=== PATIENT | female | born 1975 | race Caucasian/White ===

== ENCOUNTER → 2017-05-27 10:05 | Outpatient (CLI) | payer MEDICAID, SELFPAY ==
[2017-05-27 09:57] VITALS: BP 126/86; BMI 35.4
--- NOTE | 2017-05-27 10:07 | RAD_ITS ---
STUDY: X-RAY CHEST REASON FOR EXAM: Female, 41 years old. Posterior rib pain following injury. TECHNIQUE: PA and lateral views of the chest. COMPARISON: Comparison is made with prior study dated October 30, 2015. FINDINGS: The lungs are clear and expanded. Scattered calcified granulomas. There is no demonstrated pleural abnormality. Normal size heart. Normal mediastinum and satya. Normal visualized pulmonary arteries. Normal visualized aortic arch and descending thoracic aorta. Normal visualized thoracic spine. Normal visualized ribs, clavicles, and shoulders. There is no demonstrated abnormality of the visualized soft tissue structures of the upper abdomen. RAD/Chest PA and Lateral IMPRESSION: Normal x-ray examination of the chest. Electronically Signed: Kev Gama MD at 15:33 EST Tel [phone], Service support ,
== END ==
PROVIDERS: Family Provider Family Medicine; PCP Family Medicine; Visit Provider Physician Assistant Surgical
DX: S20.211A Contusion of right front wall of thorax, initial encounter (principal); X58.XXXA Exposure to other specified factors, initial encounter; Y93.9 Activity, unspecified; Y92.9 Unspecified place or not applicable; Y99.9 Unspecified external cause status
CPT/HCPCS: 71046

== ENCOUNTER 2017-06-25 07:13 | Emergency (ER) | payer MEDICAID, SELFPAY ==
[2017-06-25 07:13] VITALS: BP 108/67; PULSE 99; RESP 15; TEMP 37.2; O2SAT 97; BMI 35.7
[2017-06-25 07:20] VITALS: O2SAT 97
--- NOTE | 2017-06-25 07:22 | RAD_ITS ---
STUDY: X-RAY CHEST REASON FOR EXAM: Female, 41 years old. Cough TECHNIQUE: Frontal and lateral views of the chest. COMPARISON: 05/27/2017. FINDINGS: The lungs are clear and expanded. There is no demonstrated pleural abnormality. Normal size heart. Normal mediastinum and satya. Normal visualized pulmonary arteries. Normal visualized aortic arch and descending thoracic aorta. Normal visualized thoracic spine. Normal visualized ribs, clavicles, and shoulders. There is no demonstrated abnormality of the visualized soft tissue structures of the upper abdomen. RAD/Chest PA and Lateral IMPRESSION: No acute cardiopulmonary disease. Electronically Signed: Juma Escalante DO at 8:39 EST , Service support ,
--- NOTE | 2017-06-25 07:47 | ED.DCSUM_ITS ---
- ER Visit Summary Date of Service: 06/25/17 Chief Complaint: Cough] History of Present Illness: The patient is a 41 F [presents to the emergency department with a cough ?3 weeks. Patient states the cough at times productive of thick yellow sputum. Patient had a temperature of 90 972 days ago. Patient denies any sore throat. Patient denies any ear pain. 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 Patient denies any recent travel or surgery. Patient does describe some chest discomfort with the cough.] Physical Examination: [HEENT-PERRLA, EOMI. Cranial nerves II through XII grossly intact. TMs clear. Mucous membranes moist. No adenopathy. Cardiovascular-regular rate and rhythm without murmur or ectopy Lungs-clear to auscultation, chest wall stable without crepitus or subcu emphysema Abdomen-normoactive bowel sounds, soft, nontender, no rebound or rigidity, no peritoneal signs. Extremities-intact ?4, normal range of motion, normal pulses, atraumatic] Test Results: [Chest x-ray obtained showed nothing acute. Emergency Department Course and Treatment: [Patient was started on Zithromax] Treatment Plan: [Patient will be started on Zithromax and Tessalon Perles] Disposition: [Discharged to home in stable condition. Patient advised to return if increased shortness of breath or condition should worsen in any way. Patient advised to follow-up with her primary care physician within the next 5- 7 days.] Impression: [Upper respiratory infection] This note was generated with [employer] dictation software. It may contain incorrect words, spelling, and punctuation that were not noted in review of the chart prior to signing ED Disposition - Plan for ED Patient: Chief Complaint: Cough Referrals: Suyapa Haddad DO [Primary Care Provider] -
--- NOTE | 2017-06-25 07:47 | ED.DEP ---
ED Disposition - Plan for ED Patient: Chief Complaint: Cough Instructions: ED Upper Resp Infec Abx Tx Prescriptions: Azithromycin [Zithromax] 250 mg PO DAILY #4 tab Benzonatate [Tessalon Perle] 200 mg PO TID PRN PRN #20 cap PRN Reason: Cough Referrals: Suyapa Haddad DO [Primary Care Provider] - 5-7 Days
[2017-06-25] MEDS: Azithromycin 250 MG Tablet 500 MG PO (07:48)
[2017-06-25 07:52] VITALS: BP 139/78; PULSE 71; RESP 16; O2SAT 97
== END 2017-06-25 08:02 | disposition home or self-care (01) ==
LOC: ED 07:51
PROVIDERS: Emergency Provider Emergency Medicine; Family Provider Family Medicine; PCP Family Medicine
DX: J06.9 Acute upper respiratory infection, unspecified (principal); M06.9 Rheumatoid arthritis, unspecified; M79.7 Fibromyalgia; F32.9 Major depressive disorder, single episode, unspecified; Z79.899 Other long term (current) drug therapy
CPT/HCPCS: 71046; 99282

== ENCOUNTER 2017-09-13 18:10 | Emergency (ER) | payer MEDICAID, SELFPAY ==
[2017-09-13 18:10] VITALS: BP 164/84; PULSE 112; RESP 16; TEMP 36.9; O2SAT 96; BMI 36.8
[2017-09-13] MEDS: Dicyclomine 20 MG/2 ML Vial IM (18:46)
[2017-09-13] MEDS: 0.9% Normal Saline 1,000 ML 1000 ML IV (18:46)
--- NOTE | 2017-09-13 18:50 | RAD_ITS ---
STUDY: X-RAY CHEST REASON FOR EXAM: Female, 42 years old. Cough. TECHNIQUE: Single AP portable view of the chest. COMPARISON: June 25, 2017 FINDINGS: There is right midlung ill-defined patchy increased density. There is no demonstrated pleural abnormality. Normal size heart. Normal mediastinum and satya. Normal visualized pulmonary arteries. Normal visualized aortic arch and descending thoracic aorta. Normal visualized thoracic spine. Normal visualized ribs, clavicles, and shoulders. There is no demonstrated abnormality of the visualized soft tissue structures of the upper abdomen. RAD/Chest PA and Lateral IMPRESSION: Right-sided infiltrate. Electronically Signed: Victor Manuel Araujo MD at 19:16 EDT , Service support ,
[2017-09-13 18:51] LABS: Absolute Neutrophil Count 3.5 X10^3/uL (2.0-7.7); Basophil# 0.04 X10^3/uL; Basophil% 0.7 % (0-1); Eosinophil# 0.13 X10^3/uL; Eosinophils% 2.4 % (0-5); Hemoglobin 13.4 g/dl (12.0-15.0); Lymphocyte % 20.6 % (19-41); Mean Corp Hgb Conc 32.7 g/gl (32-36); Mean Corpuscular Volume 82.5 fL (81-99); Mean Platelet Vol. 12.1 fl (6.2-12.0); Monocyte# 0.55 X10^3/uL; Monocyte% 10.3 % (0-10); Neutrophil # 3.52 X10^3/uL (2.7-7.7); Neutrophil % 65.8 % (47-70); Platelet Count 165 K/mm3 (150-450); RBC Distribution Width CV 15.1 % (11.6-14.6); RBC Distribution Width SD 45.5 fl (35.1-43.9); Red Blood Count 4.97 M/mm3 (4.2-5.4); White Blood Count 5.4 K/mm3 (4.4-11.0)
[2017-09-13 18:52] LABS: POSITIVE COUNT NO; POSITIVE DIFFERENTIAL NO; POSITIVE MORPHOLOGY NO
[2017-09-13 19:04] LABS: Anion Gap 5 (5-15); BUN 9 mg/dL (7-18); Calcium,Total 8.7 mg/dL (8.5-10.1); Chloride 105 mmol/L (98-107); Creatinine, Serum 0.75 mg/dL (0.55-1.02); EST Glomerular Filtration Rate 91 mL/min (>60); Est Glom Filt Rate - Afr Amer 110 mL/min (>60); Estimated Creatinine Clearance 92.41 ml/min; Glucose 90 mg/dL (74-106); Potassium 3.9 mmol/L (3.5-5.1); Sodium Level 139 mmol/L (136-145)
[2017-09-13 19:36] LABS: Bacteria 0 SEEN /hpf (None Seen); Mucous, Urine 0 SEEN /hpf (<or=2+); Red Blood Cells-Urine 0 SEEN /hpf (0-5); White Blood Cells 0 SEEN /hpf (0-5)
[2017-09-13 19:37] LABS: Color, Urine Yellow (Yellow); Glucose, Dipstick Normal (Normal); Ketone-Dipstick Negative (Negative); Leukocyte Esterase-Dipstick Negative /ul (Negative); Nitrite-Dipstick Negative (Negative); Occult Blood-Urine 25 /ul (Negative); Protein-Dipstick Negative (Negative); Specific Gravity, Urine 1.015 (1.002-1.030); Urine Bilirubin Dipstick Negative (Negative); Urine Clarity Clear (Clear); Urine Urobilinogen Normal (Normal)
[2017-09-13 19:43] LABS: Squamous Epithelial Cells - UA 0-5 SEEN /hpf (5-10)
--- NOTE | 2017-09-13 19:56 | ED.VISSUMM ---
- ER Visit Summary Date of Service: 09/13/17 Chief Complaint: [Nausea, vomiting, diarrhea, cough] History of Present Illness: The patient is a 42 F [presents to the emergency department with complaint of 4-5 day history of vomiting and diarrhea. Patient's had a cough for about 4 days as well. Patient's had fever for the last 3 days up to 101. Patient complains of body aches and coughing up some white phlegm. Patient states that she had diarrhea up to 9 times a day but has only had one episode today so she thinks it slowed down. Patient states boyfriend had similar symptoms recently. Patient describes some intermittent abdominal cramping.] Physical Examination: [HEENT-PERRLA, EOMI. Cranial nerves II through XII grossly intact. TMs clear. Mucous membranes moist. No adenopathy. Cardiovascular-regular rate and rhythm without murmur or ectopy Lungs-clear to auscultation, chest wall stable without crepitus or subcu emphysema Abdomen-normoactive bowel sounds, soft. Mild diffuse tenderness throughout. No rebound, rigidity, or perineal signs. Extremities-intact ?4, normal range of motion, normal pulses, atraumatic] Test Results: [CBC with differential obtained showing a 5.4, hemoglobin 13, hematocrit 41, platelets 163. Chemistries were normal. Urinalysis was normal. Chest x-ray showed a right lung infiltrate. Emergency Department Course and Treatment: [Patient received a liter normal same fluid bolus as well as Bentyl 20 mg IM. Patient was given Zithromax 500 mill grams p.o.] Treatment Plan: [Patient will be started on Zithromax for suspected right pneumonia. Patient advised to push fluids. Patient advised use Imodium for the diarrhea. I suspect the diarrhea likely viral.] Disposition: [Discharged home in stable condition] Impression: [Right-sided pneumonia Viral gastroenteritis] This note was generated with [employer] dictation software. It may contain incorrect words, spelling, and punctuation that were not noted in review of the chart prior to signing ED Disposition - Plan for ED Patient: Chief Complaint: Diarrhea Referrals: Suyapa Haddad DO [Primary Care Provider] -
--- NOTE | 2017-09-13 19:59 | ED.DCSUM_ITS ---
- ER Visit Summary Date of Service: 09/13/17 Chief Complaint: [Nausea, vomiting, diarrhea, cough] History of Present Illness: The patient is a 42 F [presents to the emergency department with complaint of 4-5 day history of vomiting and diarrhea. Patient' s had a cough for about 4 days as well. Patient's had fever for the last 3 days up to 101. Patient complains of body aches and coughing up some white phlegm. Patient states that she had diarrhea up to 9 times a day but has only had one episode today so she thinks it slowed down. Patient states boyfriend had similar symptoms recently. Patient describes some intermittent abdominal cramping.] Physical Examination: [HEENT-PERRLA, EOMI. Cranial nerves II through XII grossly intact. TMs clear. Mucous membranes moist. No adenopathy. Cardiovascular-regular rate and rhythm without murmur or ectopy Lungs-clear to auscultation, chest wall stable without crepitus or subcu emphysema Abdomen-normoactive bowel sounds, soft. Mild diffuse tenderness throughout. No rebound, rigidity, or perineal signs. Extremities-intact ?4, normal range of motion, normal pulses, atraumatic] Test Results: [CBC with differential obtained showing a 5.4, hemoglobin 13, hematocrit 41, platelets 163. Chemistries were normal. Urinalysis was normal. Chest x-ray showed a right lung infiltrate. Emergency Department Course and Treatment: [Patient received a liter normal same fluid bolus as well as Bentyl 20 mg IM. Patient was given Zithromax 500 mill grams p.o.] Treatment Plan: [Patient will be started on Zithromax for suspected right pneumonia. Patient advised to push fluids. Patient advised use Imodium for the diarrhea. I suspect the diarrhea likely viral.] Disposition: [Discharged home in stable condition] Impression: [Right-sided pneumonia Viral gastroenteritis] This note was generated with [employer] dictation software. It may contain incorrect words, spelling, and punctuation that were not noted in review of the chart prior to signing ED Disposition - Plan for ED Patient: Chief Complaint: Diarrhea Referrals: Suyapa Haddad DO [Primary Care Provider] -
--- NOTE | 2017-09-13 19:59 | ED.DEP ---
ED Disposition - Plan for ED Patient: Chief Complaint: Diarrhea Instructions: ED Diarrhea Viral, ED Pneumonia Adult Prescriptions: Azithromycin [Zithromax] 250 mg PO DAILY #4 tab Referrals: Suyapa Haddad DO [Primary Care Provider] - 5-7 Days
[2017-09-13] MEDS: Azithromycin 250 MG Tablet 500 MG PO (20:06)
[2017-09-13 20:07] VITALS: BP 116/61; PULSE 90; RESP 18; O2SAT 97
== END 2017-09-13 20:09 | disposition home or self-care (01) ==
PROVIDERS: Emergency Provider Emergency Medicine; Family Provider Family Medicine; PCP Family Medicine
DX: J18.9 Pneumonia, unspecified organism (principal); M06.9 Rheumatoid arthritis, unspecified; A08.4 Viral intestinal infection, unspecified; R30.0 Dysuria; Z79.899 Other long term (current) drug therapy
CPT/HCPCS: 71046; 80048; 81001; 85025; 87804; 96360; 96372; 99284; J7030

== ENCOUNTER 2017-11-02 08:18 | Emergency (ER) | payer MEDICAID, SELFPAY ==
[2017-11-02 08:19] VITALS: BP 117/87; PULSE 89; RESP 17; TEMP 36.6; O2SAT 99; BMI 37.0
--- NOTE | 2017-11-02 09:05 | ED.DCSUM_ITS ---
- ER Visit Summary Date of Service: 11/02/17 Chief Complaint: Rash History of Present Illness: The patient is a 42 F who presents for 2 days of rash. Patient states it started on her right arm and is been prickly, painful and very itchy. It is now on her entire body including both arms, legs , stomach, back, neck, and some itching on her scalp. Complains of mouth pain as well. She recently had a sore throat and ear pain and was treated with penicillin from an urgent care. She stopped the penicillin 5 days ago. She denies any fever, abdominal pain, nausea or vomiting, chest pain, shortness of breath, myalgias or arthralgias. She does state she had loose stool yesterday. Physical Examination: Vital signs: afebrile, hemodynamically stable, no hypoxia on room air General: well nourished, well developed, in no distress, constantly scratching Skin: warm, dry, no pallor, few scattered erythematous papules with excoriations and appearance of possible vesicular tops, consistent with poison olga on the right upper extremity. No rash noted to the abdomen, back, lower extremities, neck, scalp or face. Patient has sun exposure pattern on the back with excoriations on the shoulders. Right ear is erythematous, TMs are clear. HEENT: normocephalic and atraumatic; PERRL, EOMI, moist mucous membranes, single lesion on mucosal surface of lower lip with appearance of an aphthous ulcer. Cardiovascular: regular rate and rhythm without murmurs, no peripheral edema, 2 + pulses all distal extremities Respiratory: No increased work of breathing, lungs are clear to auscultation bilaterally, no rales, rhonchi or wheezing Abdominal: Abdomen is soft, nontender with normoactive bowel sounds, no guarding or rebound, no masses MSK: Moves all extremities, no deformities, normal strength Neuro: Awake and alert, oriented ?4. No facial droop, sensation and motor function intact and symmetric Test Results: [] Emergency Department Course and Treatment: Differential includes SJS, contact dermatitis, allergic reaction. Patient's areas of maximum pruritus had no associated rash, including erythema of the skin. Patient does have one area on her arm where this started that does look consistent with poison olga. She has one single oral lesion that looks consistent with an aphthous ulcer. Thus in my professional opinion this is not Bo-Landon syndrome. Patient has diffuse pruritus and only one area of obvious rash. She was given a prescription for a prednisone taper for the pruritus and the poison olga. She will use Benadryl to help with the itching. Patient is to follow-up with her primary care doctor if she does not have any improvement. She was given strict return precautions if she develops any symptoms of malignant rash. Patient discharged home. Treatment Plan: [] Disposition: [] Impression: Nonspecific dermatitis This note was generated with [employer] dictation software. It may contain incorrect words, spelling, and punctuation that were not noted in review of the chart prior to signing ED Disposition - Plan for ED Patient: Disposition: Home or Assisted Living Chief Complaint: Rash Instructions: ED Dermatitis Non Specific Rash Prescriptions: Prednisone 10 mg PO UD #33 tab Referrals: Suyapa Haddad DO [Primary Care Provider] - 3-5 Days if not improving Additional Instructions: Please continue taking Benadryl every 6 hours for itching. Take the prednisone exactly as prescribed for the entire course. If at any point you develop a high fever, painful lesions in your mouth, pain with peeing, pain in the vagina , blisters on the skin, worsening instead of improvement of your rash, or any other concerns, please return immediately to the emergency department for another evaluation. If you have any worsening of your condition or any new concerning symptoms, please return immediately to the emergency department for another evaluation.
[2017-11-02 09:54] VITALS: BP 117/63; PULSE 80; RESP 20
== END 2017-11-02 09:55 | disposition home or self-care (01) ==
PROVIDERS: Emergency Provider Emergency Medicine; Family Provider Family Medicine; PCP Family Medicine
DX: L23.7 Allergic contact dermatitis due to plants, except food (principal); R19.7 Diarrhea, unspecified; M06.9 Rheumatoid arthritis, unspecified; M79.7 Fibromyalgia; F32.9 Major depressive disorder, single episode, unspecified; F41.9 Anxiety disorder, unspecified; Z79.899 Other long term (current) drug therapy
CPT/HCPCS: 99282

== ENCOUNTER 2017-11-03 12:56 | Emergency (ER) | payer MEDICAID, SELFPAY ==
[2017-11-03 12:58] VITALS: BP 131/82; PULSE 89; RESP 20; TEMP 37.2; O2SAT 95; BMI 37.3
--- NOTE | 2017-11-03 15:33 | ED.VISSUMM ---
- ER Visit Summary Date of Service: 11/03/17 Chief Complaint: [Laceration left index finger] History of Present Illness: The patient is a 42 F [presents the emergency department with complaint of lacerating her left index finger approximately noon today. Patient states that she was cutting a piece of butter with her knife when she accidentally lacerated her left index finger. Patient thinks her last tetanus shot was more than 30 years ago. Patient is right-hand dominant.] Physical Examination: [Left index finger-patient has a 1.2 cm flap-like laceration over the distal tip of the pulp of the distal phalanx. Minimal incursion into the distal nail. Neurovascularly intact. Normal range of motion at the DIP and PIP joints.] Test Results: [None indicated] Emergency Department Course and Treatment: [Laceration repair-wound sterilely draped and prepped. A digital block was performed using 1% lidocaine total 6 cc. Wound was cleansed with Shur-Clens and irrigated with copious saline. Using 5-0 nylon a total of 3 single interrupted sutures placed with good wound edge approximation. Patient tolerated procedure well.] Treatment Plan: [Patient advised to follow-up with primary care physician in 10 days for suture removal. Patient advised to return if pain, redness, swelling, or condition should worsen in any way.] Disposition: [Discharged home in stable condition] Impression: [Laceration left index finger 1.2 cm-simple repair] This note was generated with [employer] dictation software. It may contain incorrect words, spelling, and punctuation that were not noted in review of the chart prior to signing ED Disposition - Plan for ED Patient: Chief Complaint: Laceration Referrals: Suyapa Haddad DO [Primary Care Provider] -
--- NOTE | 2017-11-03 15:35 | ED.DEP ---
ED Disposition - Plan for ED Patient: Chief Complaint: Laceration Instructions: ED Laceration Hand Referrals: Suyapa Haddad DO [Primary Care Provider] - 10 Day for suture removal
[2017-11-03] MEDS: Diphth,Pertuss(Acell),Tet Vac 0.5 ML Vial IM (15:59)
[2017-11-03 16:09] VITALS: BP 117/64; PULSE 68; RESP 15; O2SAT 97
== END 2017-11-03 16:11 | disposition home or self-care (01) ==
LOC: ED 15:41
PROVIDERS: Emergency Provider Emergency Medicine; Family Provider Family Medicine; PCP Family Medicine
DX: S61.211A Laceration without foreign body of left index finger without damage to nail, initial encounter (principal); W26.0XXA Contact with knife, initial encounter; Y93.9 Activity, unspecified; Y92.9 Unspecified place or not applicable; Y99.9 Unspecified external cause status; Z23 Encounter for immunization; M06.9 Rheumatoid arthritis, unspecified; M79.7 Fibromyalgia; F32.9 Major depressive disorder, single episode, unspecified; F41.9 Anxiety disorder, unspecified; Z79.899 Other long term (current) drug therapy
CPT/HCPCS: 12001; 90471; 90715; 99283

== ENCOUNTER 2017-12-08 11:19 | Emergency (ER) | payer MEDICAID, SELFPAY ==
[2017-12-08 11:20] VITALS: BP 127/77; PULSE 71; RESP 18; TEMP 36.6; O2SAT 100; BMI 36.8
[2017-12-08] MEDS: 0.9% Normal Saline 1,000 ML 1000 ML IV (11:51)
[2017-12-08] MEDS: Morphine 4 MG/ML Syringe IV (11:57)
[2017-12-08] MEDS: Ondansetron 4 MG/2 ML Vial IV ×2 (11:57→13:52)
[2017-12-08 12:15] LABS: ALB/GLOB Ratio 0.7 RATIO (0.9-2.4); AST(SGOT) 18 U/L (15-37); Alanine Aminotransfer ALT/SGPT 20 U/L (13-56); Albumin, Serum 3.2 g/dL (3.2-5.0); Alkaline Phosphatase 129 U/L (45-117); Anion Gap 4 (5-15); BUN 11 mg/dL (7-18); BUN/Creat Ratio 15.4 RATIO (10-20); Calcium,Total 8.9 mg/dL (8.5-10.1); Chloride 107 mmol/L (98-107); Creatinine, Serum 0.72 mg/dL (0.55-1.02); EST Glomerular Filtration Rate 95 mL/min (>60); Est Glom Filt Rate - Afr Amer 115 mL/min (>60); Estimated Creatinine Clearance 96.26 ml/min; Globulin 4.6 g/dL (2.2-4.2); Glucose 90 mg/dL (74-106); Lipase 155 U/L (73-393); Potassium 3.8 mmol/L (3.5-5.1); Protein, Total 7.8 g/dL (6.4-8.2); Sodium Level 143 mmol/L (136-145)
[2017-12-08 12:19] LABS: Absolute Lymphocyte Count 2.12 X10^3/ul (0.83-4.51); Absolute Neutrophil Count 3.2 X10^3/uL (2.0-7.7); Basophil# 0.04 X10^3/uL; Basophil% 0.7 % (0-1); Eosinophil# 0.22 X10^3/uL; Eosinophils% 3.6 % (0-5); Hematocrit 41.8 % (37-47); Hemoglobin 13.7 g/dl (12.0-15.0); Lymphocyte # 2.12 X10^3/ul (4.0); Lymphocyte % 34.5 % (19-41); Mean Corp Hgb Conc 32.8 g/gl (32-36); Mean Corpuscular Hgb 27.5 pg (27.0-32.0); Mean Corpuscular Volume 83.9 fL (81-99); Mean Platelet Vol. 12.7 fl (6.2-12.0); Monocyte% 9.8 % (0-10); Neutrophil # 3.17 X10^3/uL (2.7-7.7); Neutrophil % 51.4 % (47-70); Platelet Count 193 K/mm3 (150-450); RBC Distribution Width CV 15.4 % (11.6-14.6); RBC Distribution Width SD 46.8 fl (35.1-43.9); Red Blood Count 4.98 M/mm3 (4.2-5.4); White Blood Count 6.2 K/mm3 (4.4-11.0)
[2017-12-08 12:20] LABS: POSITIVE COUNT NO; POSITIVE DIFFERENTIAL NO; POSITIVE MORPHOLOGY NO
[2017-12-08 12:45] LABS: Mucous, Urine 0 SEEN /hpf (<or=2+)
[2017-12-08 12:49] LABS: Color, Urine Yellow (Yellow); Glucose, Dipstick Normal (Normal); Ketone-Dipstick Negative (Negative); Leukocyte Esterase-Dipstick 25 /ul (Negative); Nitrite-Dipstick Negative (Negative); Occult Blood-Urine Negative /ul (Negative); Protein-Dipstick Negative (Negative); Specific Gravity, Urine 1.015 (1.002-1.030); Urine Bilirubin Dipstick Negative (Negative); Urine Clarity Clear (Clear); Urine Urobilinogen Normal (Normal)
[2017-12-08 12:55] LABS: White Blood Cells 0-5 SEEN /hpf (0-5)
[2017-12-08 12:56] LABS: Bacteria 1+ /hpf (None Seen); Red Blood Cells-Urine 0-5 SEEN /hpf (0-5); Squamous Epithelial Cells - UA 0-5 SEEN /hpf (5-10)
[2017-12-08 12:57] LABS: Internal QC Validated? YES +Cl - CLEAR BKGD; Pregnancy, Urine Negative Negative
[2017-12-08 13:51] VITALS: BP 128/69; PULSE 90; RESP 22; O2SAT 100
[2017-12-08] MEDS: HYDROmorphone 0.5 MG/0.5 ML SYRINGE IV (13:52)
--- NOTE | 2017-12-08 14:31 | ED.VISSUMM ---
- ER Visit Summary Date of Service: 12/08/17 Chief Complaint: Abdominal pain History of Present Illness: The patient is a 42 F with 2 day history of abdominal pain aching it is constant mild to moderate. It is also associated with nausea vomiting and 6-7 episodes of watery diarrhea per day. She describes subjective fevers yesterday. No history of travel, camping, recent antibiotics. 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 Physical Examination: Not appear in acute distress. The dry mucous membranes, no obvious facial deformity No C-spine tenderness supple neck. Regular rate and rhythm without any obvious murmurs Clear lungs bilaterally speaking in full sentences without any obvious respiratory distress Abdomen soft with minimal diffuse tenderness. No guarding or rebound. Moves all extremities without any difficulty or pain. Skin does not show any obvious rashes or lesions, no trauma. Alert oriented ?3 with no gross focal deficit Emergency Department Course and Treatment: Vision has an unremarkable emergency workup including white count, LFTs and CT. Her urinalysis is not remarkable and she has a negative test. She was hydrated given analgesia and her abdominal exam now shows minimal tenderness. Again no guarding or rebound. I had a long conversation with her we will treat her with Bentyl and antacids for home, if she worsens gets fevers or chills or any other symptoms she needs to return to the emergency department. Discharge stable condition Impression: Diarrhea Abdominal pain This note was generated with [employer] dictation software. It may contain incorrect words, spelling, and punctuation that were not noted in review of the chart prior to signing ED Disposition - Plan for ED Patient: Disposition: Home or Assisted Living Chief Complaint: Nausea/Vomiting/Diarrhea Instructions: ED Diet Vomiting Diarrhea, Abdominal Pain Prescriptions: Dicyclomine HCl [Bentyl] 20 mg PO TIDAC #20 cap Famotidine [Pepcid] 20 mg PO BID #28 tab Referrals: Suyapa Haddad DO [Primary Care Provider] - 3-5 Days
--- NOTE | 2017-12-08 14:36 | ED.DCSUM_ITS ---
- ER Visit Summary Date of Service: 12/08/17 Chief Complaint: Abdominal pain History of Present Illness: The patient is a 42 F with 2 day history of abdominal pain aching it is constant mild to moderate. It is also associated with nausea vomiting and 6-7 episodes of watery diarrhea per day. She describes subjective fevers yesterday. No history of travel, camping, recent antibiotics. No sick contacts, but she has a [employer]. Physical Examination: Not appear in acute distress. The dry mucous membranes, no obvious facial deformity No C-spine tenderness supple neck. Regular rate and rhythm without any obvious murmurs Clear lungs bilaterally speaking in full sentences without any obvious respiratory distress Abdomen soft with minimal diffuse tenderness. No guarding or rebound. Moves all extremities without any difficulty or pain. Skin does not show any obvious rashes or lesions, no trauma. Alert oriented ?3 with no gross focal deficit Emergency Department Course and Treatment: Vision has an unremarkable emergency workup including white count, LFTs and CT. Her urinalysis is not remarkable and she has a negative test. She was hydrated given analgesia and her abdominal exam now shows minimal tenderness. Again no guarding or rebound. I had a long conversation with her we will treat her with Bentyl and antacids for home, if she worsens gets fevers or chills or any other symptoms she needs to return to the emergency department. Discharge stable condition Impression: Diarrhea Abdominal pain This note was generated with [employer] dictation software. It may contain incorrect words, spelling, and punctuation that were not noted in review of the chart prior to signing ED Disposition - Plan for ED Patient: Disposition: Home or Assisted Living Chief Complaint: Nausea/Vomiting/Diarrhea Instructions: ED Diet Vomiting Diarrhea, Abdominal Pain Prescriptions: Dicyclomine HCl [Bentyl] 20 mg PO TIDAC #20 cap Famotidine [Pepcid] 20 mg PO BID #28 tab Referrals: Suyapa Haddad DO [Primary Care Provider] - 3-5 Days
[2017-12-08 15:32] VITALS: BP 138/78; PULSE 82; RESP 18; O2SAT 98
== END 2017-12-08 15:33 | disposition home or self-care (01) ==
PROVIDERS: Emergency Provider Emergency Medicine; Family Provider Family Medicine; PCP Family Medicine
DX: R19.7 Diarrhea, unspecified (principal); R10.9 Unspecified abdominal pain; R11.2 Nausea with vomiting, unspecified; M06.9 Rheumatoid arthritis, unspecified; M79.7 Fibromyalgia; Z79.899 Other long term (current) drug therapy
CPT/HCPCS: 74177; 80053; 81001; 81025; 83690; 85025; 96361; 96374; 96375; 96376; 99283; J7030; Q9967; A4216; J2405

== ENCOUNTER 2018-01-18 21:51 | Emergency (ER) | payer OTHER, MEDICAID, SELFPAY ==
[2018-01-18 21:53] VITALS: BP 119/84; PULSE 68; RESP 16; TEMP 36.7; O2SAT 100; BMI 35.9
--- NOTE | 2018-01-18 22:34 | RAD_ITS ---
STUDY: X-RAY - LEFT FOOT CLINICAL: Female, 42 years old. Left foot pain status post injury. TECHNIQUE: 3 view(s) of the foot. COMPARISON: None. FINDINGS: Normal talus, calcaneus, and tarsal bones. Normal visualized subtalar, talonavicular, calcaneocuboid, tarsal and tarsometatarsal articulations. Normal metatarsi. Normal metatarsophalangeal joint of the great toe. Normal tibial and fibular sesamoid bones. Normal interphalangeal joint of the great toe. Normal phalanges of the great toe. Normal second through fifth metatarsophalangeal joints. Normal interphalangeal joints and phalanges of the lesser toes. The soft tissue structures are unremarkable. RAD/Foot min 3 Views IMPRESSION: Normal x-ray examination of the foot. Electronically Signed: Tiffanie Montero MD at 23:07 EDT Tel , Service support ,
--- NOTE | 2018-01-18 23:04 | ED.VISSUMM ---
- ER Visit Summary Date of Service: 01/18/18 Chief Complaint: Left foot injury History of Present Illness: The patient is a 42 F who presents for left foot injury that occurred at work tonight. Patient accidentally rolled a [employer] lift over her left foot while a patient who weighed approximately 300 pounds was on it. Patient is complaining of pain, especially with weightbearing. She denies any other injuries. She states she has been limping on her heel. She tried ice without improvement. She has history of fibromyalgia and rheumatoid arthritis. Patient denies any other complaints. Physical Examination: Patient is well-nourished well-developed sitting in bed in no distress. Afebrile hemodynamically stable. Examination of the left lower extremity shows contusion and tenderness the proximal second toe. Patient able to wiggle all toes. Brisk cap refill in all toes. Mild tenderness to the dorsum of the foot proximal to the second toe. No tenderness to the medial or lateral malleolus, to the base of the fifth metatarsal tarsal or the navicular head. DP pulses 2+. No deformities or other contusions, no swelling. Remainder of exam unremarkable. Test Results: Clinical Impression(s) from Imaging Studies Foot X-Ray 01/18/18 22:34 IMPRESSION: Normal x-ray examination of the foot. Electronically Signed: Tiffanie Montero MD at 23:07 EDT Tel , Service support , Medications Given Discontinued Medications Naproxen (Naprosyn) 500 mg PO X1 ONE Stop: 01/18/18 23:05 Last Admin: 01/18/18 23:12 Dose: 500 mg Emergency Department Course and Treatment: Patient was given naproxen for pain. X-ray was performed to the foot. No fracture was noted. Patient was placed in an postop shoe for support to use as needed. Worker's Comp. paperwork was filled out. She will use [id number] pain medication, rest, ice and elevation as needed. Discharge home. Treatment Plan: [] Disposition: [] Impression: Left foot contusion This note was generated with [employer] dictation software. It may contain incorrect words, spelling, and punctuation that were not noted in review of the chart prior to signing ED Disposition - Plan for ED Patient: Disposition: Home or Assisted Living Chief Complaint: Lower Extremity Injury Instructions: ED Contusion Foot Referrals: ,[facility] [GROUP OF PHYSICIANS] - 1 Day Suyapa Haddad DO [Primary Care Provider] - 3-5 Days if not improving Additional Instructions: Wear the post-op shoe as needed for comfort. Ice and elevate your foot to help with pain. Use over the counter pain medication as needed. Follow-up with your workers comp program as instructed by your human resources department. If you have any worsening of your condition or any new concerning symptoms, please return immediately to the emergency department for another evaluation.
--- NOTE | 2018-01-18 23:07 | ED.DCSUM_ITS ---
- ER Visit Summary Date of Service: 01/18/18 Chief Complaint: Left foot injury History of Present Illness: The patient is a 42 F who presents for left foot injury that occurred at work tonight. Patient accidentally rolled a [employer] lift over her left foot while a patient who weighed approximately 300 pounds was on it. Patient is complaining of pain, especially with weightbearing. She denies any other injuries. She states she has been limping on her heel. She tried ice without improvement. She has history of fibromyalgia and rheumatoid arthritis. Patient denies any other complaints. Physical Examination: Patient is well-nourished well-developed sitting in bed in no distress. Afebrile hemodynamically stable. Examination of the left lower extremity shows contusion and tenderness the proximal second toe. Patient able to wiggle all toes. Brisk cap refill in all toes. Mild tenderness to the dorsum of the foot proximal to the second toe. No tenderness to the medial or lateral malleolus, to the base of the fifth metatarsal tarsal or the navicular head. DP pulses 2+. No deformities or other contusions, no swelling. Remainder of exam unremarkable. Test Results: Clinical Impression(s) from Imaging Studies Foot X-Ray 01/18/18 22:34 IMPRESSION: Normal x-ray examination of the foot. Electronically Signed: Tiffanie Montero MD at 23:07 EDT Tel , Service support , Medications Given Discontinued Medications Naproxen (Naprosyn) 500 mg PO X1 ONE Stop: 01/18/18 23:05 Last Admin: 01/18/18 23:12 Dose: 500 mg Emergency Department Course and Treatment: Patient was given naproxen for pain. X-ray was performed to the foot. No fracture was noted. Patient was placed in an postop shoe for support to use as needed. Worker's Comp. paperwork was filled out. She will use [id number] pain medication, rest, ice and elevation as needed. Discharge home. Treatment Plan: [] Disposition: [] Impression: Left foot contusion This note was generated with Heliatek dictation software. It may contain incorrect words, spelling, and punctuation that were not noted in review of the chart prior to signing ED Disposition - Plan for ED Patient: Disposition: Home or Assisted Living Chief Complaint: Lower Extremity Injury Instructions: ED Contusion Foot Referrals: ,[facility] [GROUP OF PHYSICIANS] - 1 Day Suyapa Haddad DO [Primary Care Provider] - 3-5 Days if not improving Additional Instructions: Wear the post-op shoe as needed for comfort. Ice and elevate your foot to help with pain. Use over the counter pain medication as needed. Follow-up with your workers comp program as instructed by your human resources department. If you have any worsening of your condition or any new concerning symptoms, please return immediately to the emergency department for another evaluation.
[2018-01-18] MEDS: Naproxen 500 MG Tablet PO (23:12)
--- NOTE | 2018-01-18 23:48 | ED.DEP ---
ED Disposition - Plan for ED Patient: Disposition: Home or Assisted Living Chief Complaint: Lower Extremity Injury Instructions: ED Contusion Foot Referrals: Suyapa Haddad DO [Primary Care Provider] - 3-5 Days if not improving [facility] [GROUP OF PHYSICIANS] - 1 Day Additional Instructions: Wear the post-op shoe as needed for comfort. Ice and elevate your foot to help with pain. Use over the counter pain medication as needed. Follow-up with your workers comp program as instructed by your human resources department. If you have any worsening of your condition or any new concerning symptoms, please return immediately to the emergency department for another evaluation.
[2018-01-19 00:04] VITALS: BP 114/60; PULSE 76; RESP 18
== END 2018-01-19 00:04 | disposition home or self-care (01) ==
PROVIDERS: Emergency Provider Emergency Medicine; Family Provider Family Medicine; PCP Family Medicine
DX: S90.32XA Contusion of left foot, initial encounter (principal); W31.89XA Contact with other specified machinery, initial encounter; Y93.F9 Activity, other caregiving; Y92.89 Other specified places as the place of occurrence of the external cause; Y99.0 Civilian activity done for income or pay; M06.9 Rheumatoid arthritis, unspecified; M79.7 Fibromyalgia; Z79.899 Other long term (current) drug therapy
CPT/HCPCS: 73630; 99283

== ENCOUNTER 2018-04-08 12:41 | Observation (INO) | payer MEDICAID, SELFPAY ==
[2018-04-08] VITALS (8 sets, daily range): BP systolic 111–128; BP diastolic 49–104; PULSE 75–99; RESP 16–84; TEMP 36.6–36.8; O2SAT 97–99; BMI 35.4; BMI 36.6
--- NOTE | 2018-04-08 13:05 | ED.DCSUM_ITS ---
- ER Visit Summary Date of Service: 04/08/18 Chief Complaint: Nausea, vomiting, diarrhea History of Present Illness: The patient is a 42 F who was sent from urgent care for nausea, vomiting, and diarrhea. Her symptoms have been going on for 4 days and they are gradually getting worse. She also reports some mid abdominal pain and left-sided back pain. She tried Zofran, but it is not helping. She is also having fevers. She is otherwise fairly healthy. She has a history of rheumatoid arthritis and fibromyalgia. Physical Examination: Afebrile and vital signs unremarkable. The patient is clutching an emesis bag and appears nauseated. Alert and oriented. Heart regular. Lungs clear. Back is nontender. Abdomen nontender. Skin appears normal. Test Results: Labs, urinalysis pending. Emergency Department Course and Treatment: Patient treated with IV fluids and Zofran while awaiting results. Patient's labs showed elevated liver enzymes. Alkaline phosphatase 157, ALT 128, AST 49. Her labs were otherwise unremarkable. Urine and test were pending. Patient had continued pain and received additional morphine. I am concerned given her hepatitis and increasing pain. She has had a cholecystec phong already. I will check a CT given her severe pain and continued symptoms. Results are pending. The oncoming doctor will check the CT, urinalysis, and test. Treatment Plan: As above Disposition: Pending further evaluation Impression: 1. Abdominal pain 2. Hepatitis This note was generated with HaveMyShift dictation software. It may contain incorrect words, spelling, and punctuation that were not noted in review of the chart prior to signing ED Disposition - Plan for ED Patient: Chief Complaint: General Illness Referrals: Suyapa Haddad DO [Primary Care Provider] -
[2018-04-08 13:22] LABS: Absolute Lymphocyte Count 1.85 X10^3/ul (0.83-4.51); Absolute Neutrophil Count 4.3 X10^3/uL (2.0-7.7); Basophil# 0.02 X10^3/uL; Basophil% 0.3 % (0-1); Eosinophil# 0.18 X10^3/uL; Eosinophils% 2.6 % (0-5); Hematocrit 40.5 % (37-47); Hemoglobin 13.3 g/dl (12.0-15.0); Lymphocyte # 1.85 X10^3/ul (4.0); Mean Corp Hgb Conc 32.8 g/gl (32-36); Mean Corpuscular Hgb 27.6 pg (27.0-32.0); Mean Platelet Vol. 13.1 fl (6.2-12.0); Monocyte# 0.51 X10^3/uL; Monocyte% 7.4 % (0-10); Neutrophil # 4.29 X10^3/uL (2.7-7.7); Neutrophil % 62.6 % (47-70); POSITIVE COUNT NO; POSITIVE DIFFERENTIAL NO; POSITIVE MORPHOLOGY NO; Platelet Count 204 K/mm3 (150-450); RBC Distribution Width CV 14.4 % (11.6-14.6); RBC Distribution Width SD 43.4 fl (35.1-43.9); Red Blood Count 4.82 M/mm3 (4.2-5.4); White Blood Count 6.9 K/mm3 (4.4-11.0)
[2018-04-08] MEDS: Ondansetron 4 MG/2 ML Vial IV (13:25)
[2018-04-08] MEDS: 0.9% Normal Saline 1,000 ML 1000 ML IV (13:25)
[2018-04-08 13:40] LABS: ALB/GLOB Ratio 0.8 RATIO (0.9-2.4); AST(SGOT) 49 U/L (15-37); Alanine Aminotransfer ALT/SGPT 128 U/L (13-56); Albumin, Serum 3.2 g/dL (3.2-5.0); Alkaline Phosphatase 157 U/L (45-117); Anion Gap 7 (5-15); BUN 11 mg/dL (7-18); BUN/Creat Ratio 17.3 RATIO (10-20); Calcium,Total 8.2 mg/dL (8.5-10.1); Chloride 108 mmol/L (98-107); Creatinine, Serum 0.64 mg/dL (0.55-1.02); EST Glomerular Filtration Rate 109 mL/min (>60); Est Glom Filt Rate - Afr Amer 132 mL/min (>60); Estimated Creatinine Clearance 108.29 ml/min; Globulin 4.1 g/dL (2.2-4.2); Glucose 89 mg/dL (74-106); Lipase 81 U/L (73-393); Potassium 3.6 mmol/L (3.5-5.1); Protein, Total 7.3 g/dL (6.4-8.2); Sodium Level 143 mmol/L (136-145)
[2018-04-08] MEDS: 0.9% Normal Saline 1,000 ML 999 ML IV (14:43)
--- NOTE | 2018-04-08 15:05 | CT_ITS ---
STUDY: CT ABDOMEN AND PELVIS WITH CONTRAST REASON FOR EXAM: Female, 42 years old. Fever RADIATION DOSAGE (If Supplied By Facility): CTDIvol = ( 19.76 ) mGy, DLP = ( 1250.10 ) mGycm TECHNIQUE: Transaxial images were obtained from the dome of the diaphragm to the symphysis pubis without oral contrast. 100ML ml of Isovue 300 contrast was administered. Sagittal and coronal images were reconstructed. Individualized dose optimization techniques were used for this CT. COMPARISON: December 08, 2017 FINDINGS: The visualized lung bases are unremarkable. The visualized portions of the heart are within normal limits. Normal liver. There are surgical clips in the gallbladder fossa consistent with a prior cholecystectomy. Metallic density along the lateral right hepatic lobe likely is related to prior cholecystectomy. Similar biliary prominence of the intrahepatic and extra hepatic bile ducts, likely related to prior cholecystectomy, doubtful significance. Normal spleen. Normal pancreas. Normal bilateral adrenal glands. Normal right kidney. Normal left kidney. Normal visualized stomach. Normal small intestine. Normal colon. The appendix is visualized and appears normal. Normal abdominal aorta. Normal inferior vena cava. Normal retroperitoneum. Normal urinary bladder. Normal abdominal wall. Similar degenerative disc disease at L5-S1. CT/Abdomen/Pelvis W IV Cont ONLY IMPRESSION: 1. No acute inflammatory process or bowel obstruction. 2. Cholecystectomy. 3. Stable chronic changes, as above. Electronically Signed: Abraham Oneill MD at 17:44 EST , Service support ,
[2018-04-08] MEDS: Morphine 4 MG/ML Syringe IV ×2 (15:26→17:31)
[2018-04-08 16:30] LABS: Bacteria 0 SEEN /hpf (None Seen); Mucous, Urine 0 SEEN /hpf (<or=2+)
[2018-04-08 16:45] LABS: Color, Urine Yellow (Yellow); Glucose, Dipstick Normal (Normal); Ketone-Dipstick Negative (Negative); Leukocyte Esterase-Dipstick 100 /ul (Negative); Nitrite-Dipstick Negative (Negative); Occult Blood-Urine 250 /ul (Negative); Protein-Dipstick 15 mg/dl (Negative); Urine Bilirubin Dipstick Negative (Negative); Urine Clarity Sl. Cloudy (Clear); Urine Urobilinogen Normal (Normal)
[2018-04-08 16:49] LABS: Internal QC Validated? YES +Cl - CLEAR BKGD; Pregnancy, Urine Negative Negative
[2018-04-08 16:57] LABS: Squamous Epithelial Cells - UA 0-5 SEEN /hpf (5-10)
[2018-04-08 16:58] LABS: Red Blood Cells-Urine > 100 SEEN /hpf (0-5)
[2018-04-08 16:59] LABS: White Blood Cells 10-25 SEEN /hpf (0-5)
--- NOTE | 2018-04-08 19:04 | HP.PCM_ITS ---
Problem List (1) UTI (urinary tract infection) Status: Acute (2) Rheumatoid arthritis Status: Chronic (3) Depression Status: Chronic History of Present Illness Date of Admission: 04/08/18 Chief Complaint: Persistent n/v The patient is a 42 year old female w/ h/o RA, depression and arthritis is admitted for persistent n/v. She was sent from urgent care to the ED for n/v and diarrhea. Her story changes but for me, her nausea and vomiting started this morning and have gotten progressively worse. Nothing improved or worsened her n/v. She also has left lower abdominal pain. Pain is sharp, and constant. Lying flat worsened pain and sitting up helped with pain. Pain radiated to the left flank. Pain is severe. She also has been having diarrhea. She has multiple episodes of diarrhea. She has fever as high as 102 today. She feels she is not well enough to go home. Past Medical History Past Medical History (Chronic Problems): Chronic Problems (Last Reviewed 06/10/17 @ 09:10 by Linda Bazan) Rheumatoid arthritis (Chronic) Depression (Chronic) Medical History: Medical History (Last Reviewed 04/08/18 @ 19:16 by Clay Liz MD) Anemia D64.9 Arthritis M19.90 Allergies shellfish derived Allergy (Verified 04/08/18 12:44) Hives clindamycin Adverse Reaction (Verified 04/08/18 12:44) Other CONSTIPATION Home Medications: Ambulatory Orders Medication Instructions Recorded busPIRone [Buspar] 15 mg PO BID 02/07/14 duloxetine 20 mg capsule,delayed 30 mg PO DAILY 05/27/17 release Loratadine [Claritin] 10 mg PO DAILY 04/08/18 Surgical History: Surgical History (Last Reviewed 04/08/18 @ 19:16 by Clay Liz MD) History of tubal ligation Z98.51 Hx of cholecystectomy Z98.890, Z90.49 Surgical History: cholecystectomy, - - Tubal ligation Psychiatric History: No pertinent psych hx 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 Lives: With Family Smoking Status: Former smoker Tobacco Use: Non-smoker Alcohol: None Drugs: None - *Family History Maternal Family History: Family History (Last Reviewed 04/08/18 @ 19:16 by Clay Liz MD) Sister Thyroid disorder Depression Father Glaucoma CVA (cerebral vascular accident) Mother Mental health disorder History Items: - - Denies any family history of blood clots Paternal Family History: Family History (Last Reviewed 04/08/18 @ 19:16 by Clay Liz MD) Sister Thyroid disorder Depression Father Glaucoma CVA (cerebral vascular accident) Mother Mental health disorder History Items: Heart Disease Review of Systems Constitutional: Reports: Chills, Fever. Denies: Weight Change HEENT: Denies: Head Aches, Sinus Congestion, Sinus Drainage Cardiovascular: Denies: Chest Pain, Palpitations Respiratory: Denies: Cough, Shortness of breath at rest, Sputum production Gastrointestinal: Reports: Abdominal Pain, Nausea, Vomiting Genitourinary: Denies: Dysuria Musculoskeletal: Denies: Joint Pain, Joint Tenderness Skin: Denies: Rash, Wounds Neurological: Denies: Numbness, Tingling, Focal weakness Psychiatric: Denies: Anxiety, Depression, Homicidal Ideations, Suicidal Ideations Hematologic/ Lymphatic: Denies: Easy Bruising, Easy Bleeding VTE Information - Inpt Only VTE Present on Admission: No VTE Mechan Device Prophylaxis: SCD's VTE Pharm Prophylaxis ordered?: Yes Patient Problems: Active and Suspected Problems (Last Reviewed 06/10/17 @ 09:10 by Linda Bazan) UTI (urinary tract infection) (Acute) - Physical Exam General: Alert, Oriented x3, Cooperative HEENT: Atraumatic, PERRLA, EOMI, Normocephalic Neck: Supple, No JVD, Negative Carotid Bruits Lungs: Clear to auscultation, Normal air movement Cardiovascular: Regular rate, No murmurs Abdomen: Soft, Hypoactive Bowel Sounds, Tender Extremities: No edema, Capillary Refill Less than 3 Seconds Skin: No rashes, No breakdown Musculoskeletal: No Tenderness to Palpation of Joints or Extremities Neurological: Cranial nerves II-XII grossly intact Psych/Mental Status: Normal Affect, Appropriate Vital Signs Temp Pulse Resp BP Pulse Ox 98.2 F 99 84 H 121/63 H 98 04/08/18 17:18 04/08/18 17:18 04/08/18 17:18 04/08/18 16:26 04/08/18 17:18 Oxygen Delivery Method Room Air Weight: 102.9 kg Body Mass Index (BMI) 36.6 Finger Stick Blood Glucose 122 Laboratory Tests Past 24 Hrs 04/08/18 04/08/18 04/08/18 13:10 13:10 16:15 WBC 6.9 RBC 4.82 Hgb 13.3 Hct 40.5 MCV 84.0 MCH 27.6 MCHC 32.8 RDW 14.4 RDW Differential 43.4 Plt Count 204 MPV 13.1 H Immature Gran % (Auto) 0.100 Neut % (Auto) 62.6 Lymph % (Auto) 27.0 [place] % (Auto) 7.4 Eos % (Auto) 2.6 Baso % (Auto) 0.3 Absolute Neuts (auto) 4.3 Absolute Lymphs (auto) 1.85 Total Counted Not Reportable Sodium 143 Potassium 3.6 Chloride 108 H Carbon Dioxide 28.0 Anion Gap 7 BUN 11 Creatinine 0.64 Estim Creat Clear Calc 108.29 Est GFR (MDRD) Af Amer 132 Est GFR (MDRD) Non-Af 109 BUN/Creatinine Ratio 17.3 Glucose 89 Calcium 8.2 L Total Bilirubin 0.20 AST 49 H ALT 128 H Alkaline Phosphatase 157 H Total Protein 7.3 Albumin 3.2 Globulin 4.1 Albumin/Globulin Ratio 0.8 L Lipase 81 Urine Color Urine Clarity Urine pH Ur Specific [place] Urine Protein Urine Glucose (UA) Urine Ketones Urine Occult Blood Urine Nitrite Urine Bilirubin Urine Urobilinogen Ur Leukocyte Esterase Urine RBC Urine WBC Ur Squamous Epith Cells Urine Bacteria Urine Mucus Urine Test Negative 04/08/18 16:15 WBC RBC Hgb Hct MCV MCH MCHC RDW RDW Differential Plt Count MPV Immature Gran % (Auto) Neut % (Auto) Lymph % (Auto) [place] % (Auto) Eos % (Auto) Baso % (Auto) Absolute Neuts (auto) Absolute Lymphs (auto) Total Counted Sodium Potassium Chloride Carbon Dioxide Anion Gap BUN Creatinine Estim Creat Clear Calc Est GFR (MDRD) Af Amer Est GFR (MDRD) Non-Af BUN/Creatinine Ratio Glucose Calcium Total Bilirubin AST ALT Alkaline Phosphatase Total Protein Albumin Globulin Albumin/Globulin Ratio Lipase Urine Color Yellow Urine Clarity Sl. Cloudy Urine pH 6.0 Ur Specific [place] 1.010 Urine Protein 15 H Urine Glucose (UA) Normal Urine Ketones Negative Urine Occult Blood 250 H Urine Nitrite Negative Urine Bilirubin Negative Urine Urobilinogen Normal Ur Leukocyte Esterase 100 H Urine RBC > 100 SEEN Urine WBC 10-25 SEEN Ur Squamous Epith Cells 0-5 SEEN Urine Bacteria 0 SEEN Urine Mucus 0 SEEN Urine Test Assessment/Plan All Active Problems (Last Reviewed 06/10/17 @ 09:10 by Linda Bazan) UTI (urinary tract infection) (Acute) Contusion of rib on right side (Acute) 42 year old female w/ h/o RA, depression and arthritis is admitted for persistent n/v. 1) N/V: Unclear etiologies. Possible secondary to UTI vs. hepatitis. Will start ceftriaxone. Will get Utox. IVF hydration given SBP in the 80s. 2) Hepatitis: Possible ischemic hepatitis. Will get hepatitis panel. Will repeat LFTs. Supportive care. 3) Diarrhea: CT unremarkable. Will get C.diff. IVF hydration. 4) Chronic issues: Depression. Resume home meds. 5) Prophylaxis: SCD / lovenox. Code Visit Inpatient E&M: 63216 Init Hosp L3
[2018-04-08] MEDS: Smz/Tmp Ds Tablet 1 TABLET PO (19:39)
[2018-04-08] MEDS: Loratadine 10 MG Tablet PO (21:57)
[2018-04-08] MEDS: DULoxetine Hcl 30 MG Capsule PO (21:57)
[2018-04-08] MEDS: 0.9% Normal Saline 1,000 ML 125 ML IV (21:57)
[2018-04-08] MEDS: 0.9% NaCl Peripheral Flush Adult/Peds IV (21:57)
[2018-04-08] MEDS: Heparin Injection (Vial) 5,000 UNIT/ML VIAL 5000 UNIT SC (21:57)
[2018-04-08] MEDS: busPIRone 15 MG TABLET PO (21:57)
[2018-04-08] MEDS: Amitriptyline 25 MG Tablet 50 MG PO (22:05)
[2018-04-08 22:08] LABS: Lactic Acid 1.2 mmol/L (0.4-2.0)
[2018-04-08 23:20] LABS: Amphetamine Urine VISTA NEGATIVE (<1000 ng/mL); Barbiturate Urine VISTA NEGATIVE (< 200 ng/mL); Benzodiazepine Urine VISTA NEGATIVE (< 200 ng/mL); Cocaine Urine VISTA NEGATIVE (< 300 ng/mL); Ecstacy Urine VISTA NEGATIVE (< 500 ng/mL); Methadone Urine VISTA NEGATIVE (< 300 ng/mL); PCP Urine VISTA NEGATIVE (< 25 ng/mL); THC Urine VISTA NEGATIVE (< 50 ng/mL); Vista UDS pH Range 6
[2018-04-09 02:11] VITALS: BP 109/52; PULSE 71; RESP 16; TEMP 36.7; O2SAT 96
[2018-04-09] MEDS: Heparin Injection (Vial) 5,000 UNIT/ML VIAL 5000 UNIT SC (06:04)
[2018-04-09] MEDS: 0.9% Normal Saline 1,000 ML 125 ML IV ×3 (06:04→22:32)
[2018-04-09 06:43] LABS: Absolute Lymphocyte Count 1.29 X10^3/ul (0.83-4.51); Absolute Neutrophil Count 1.9 X10^3/uL (2.0-7.7); Basophil# 0.03 X10^3/uL; Basophil% 0.8 % (0-1); Eosinophil# 0.08 X10^3/uL; Eosinophils% 2.2 % (0-5); Hemoglobin 11.2 g/dl (12.0-15.0); Lymphocyte # 1.29 X10^3/ul (4.0); Lymphocyte % 36.2 % (19-41); Mean Corpuscular Hgb 27.3 pg (27.0-32.0); Mean Corpuscular Volume 85.2 fL (81-99); Mean Platelet Vol. 13.4 fl (6.2-12.0); Monocyte% 8.4 % (0-10); Neutrophil # 1.85 X10^3/uL (2.7-7.7); Neutrophil % 52.1 % (47-70); Platelet Count 172 K/mm3 (150-450); RBC Distribution Width CV 14.5 % (11.6-14.6); RBC Distribution Width SD 44.4 fl (35.1-43.9); Red Blood Count 4.11 M/mm3 (4.2-5.4); White Blood Count 3.6 K/mm3 (4.4-11.0)
[2018-04-09 06:50] LABS: POSITIVE COUNT NO; POSITIVE DIFFERENTIAL NO; POSITIVE MORPHOLOGY NO
[2018-04-09 06:52] LABS: BUN 7 mg/dL (7-18); Estimated Creatinine Clearance 115.51 ml/min; Glucose 88 mg/dL (74-106)
[2018-04-09 06:53] LABS: AST(SGOT) 401 U/L (15-37); Alanine Aminotransfer ALT/SGPT 339 U/L (13-56); Albumin, Serum 2.5 g/dL (3.2-5.0); Alkaline Phosphatase 248 U/L (45-117); Anion Gap 7 (5-15); BUN/Creat Ratio 11.7 RATIO (10-20); Bilirubin, Direct 0.41 mg/dL (0.00-0.30); Calcium,Total 7.5 mg/dL (8.5-10.1); Chloride 112 mmol/L (98-107); EST Glomerular Filtration Rate 117 mL/min (>60); Est Glom Filt Rate - Afr Amer 142 mL/min (>60); Globulin 3.5 g/dL (2.2-4.2); Potassium 3.6 mmol/L (3.5-5.1); Sodium Level 145 mmol/L (136-145)
[2018-04-09 08:45] VITALS: BP 100/62; PULSE 69; RESP 18; TEMP 36.7; O2SAT 95
[2018-04-09] MEDS: Loratadine 10 MG Tablet PO (08:53)
[2018-04-09] MEDS: DULoxetine Hcl 30 MG Capsule PO (08:53)
[2018-04-09] MEDS: busPIRone 15 MG TABLET PO ×2 (08:53→21:14)
--- NOTE | 2018-04-09 11:14 | PN_ITS ---
Patient Problems: Active and Suspected Problems (Last Reviewed 04/08/18 @ 19:16 by Clay Liz MD) UTI (urinary tract infection) (Acute) Subjective: Ms Aponte is a 42 YOF with a past medical history of depression and rheumatoid arthritis who presented to the emergency department at [facility] on 04/08/2018 complaining of nausea, vomiting and diarrhea. She additionally complained of left lower abdominal pain which was sharp and constant. She reported a fever as high as 102 ?F at home. Lab in the emergency room revealed a normal white blood cell count with a normal differential. Liver enzymes were mildly increased with an AST of 49, ALT of 128 and an alkaline phosphatase of 157. CT of the abdomen and pelvis was unremarkable. Specifically there was no stranding around either kidney. Afebrile since admission. She was able to take 1000 cc orally overnight. All lab was personally reviewed-White blood cell count today is low at 3.6 with an unremarkable differential. Hemoglobin is 11.2 and platelets are within normal limits. LFTs are even more abnormal today with a AST of 401, ALT of 339, alkaline phosphatase of 248 and an increased direct bilirubin at 0.41. UA had 10-25 WBCs with no bacteria seen. Urine culture was not sent. Blood cultures were not sent. no diarrhea for the past 2 days and no BM's since admission to the hospital No emesis today but still with nausea and decreased appetite Denies cough She has a WAN Tells me that everyone at work has N/V/D recently Objective: PHYSICAL EXAM: GENERAL: alert, oriented X 3, Cooperative, looks tired and ill appearing ORAL: dry mucosa, no mucosal lesions NECK: No JVD, supple, trachea midline LUNGS: CTA, symmetric chest expansion HEART: RRR, Normal S1 and S2, no rub, no gallop ABDOMEN: soft, NT, ND, BS present, no guarding with palpation EXTREMITIES: no edema, no cyanosis, no calf tenderness SKIN: No rashes, no breakdown NEUROLOGIC: no focal neurologic deficits PSYCH: appropriate, normal affect, pleasant - Physical Exam Vital Signs Temp Pulse Resp BP Pulse Ox 98.0 F 69 18 100/62 95 04/09/18 08:45 04/09/18 08:45 04/09/18 08:45 04/09/18 08:45 04/09/18 08:45 Oxygen Delivery Method Room Air Weight: 226 lb 13.69 oz Body Mass Index (BMI) 36.6 Finger Stick Blood Glucose 122 Intake and Output for Last 24 Hours 04/07/18 04/08/18 04/09/18 23:59 23:59 23:59 Intake Total 2016 Balance 2016 Laboratory Tests Past 24 Hrs 04/08/18 04/08/18 04/08/18 13:10 13:10 16:15 WBC 6.9 RBC 4.82 Hgb 13.3 Hct 40.5 MCV 84.0 MCH 27.6 MCHC 32.8 RDW 14.4 RDW Differential 43.4 Plt Count 204 MPV 13.1 H Immature Gran % (Auto) 0.100 Neut % (Auto) 62.6 Lymph % (Auto) 27.0 [place] % (Auto) 7.4 Eos % (Auto) 2.6 Baso % (Auto) 0.3 Absolute Neuts (auto) 4.3 Absolute Lymphs (auto) 1.85 Total Counted Not Reportable Sodium 143 Potassium 3.6 Chloride 108 H Carbon Dioxide 28.0 Anion Gap 7 BUN 11 Creatinine 0.64 Estim Creat Clear Calc 108.29 Est GFR (MDRD) Af Amer 132 Est GFR (MDRD) Non-Af 109 BUN/Creatinine Ratio 17.3 Glucose 89 Lactic Acid Calcium 8.2 L Total Bilirubin 0.20 Direct Bilirubin AST 49 H ALT 128 H Alkaline Phosphatase 157 H Total Protein 7.3 Albumin 3.2 Globulin 4.1 Albumin/Globulin Ratio 0.8 L Lipase 81 Urine Color Urine Clarity Urine pH Ur Specific [place] Urine Protein Urine Glucose (UA) Urine Ketones Urine Occult Blood Urine Nitrite Urine Bilirubin Urine Urobilinogen Ur Leukocyte Esterase Urine RBC Urine WBC Ur Squamous Epith Cells Urine Bacteria Urine Mucus Urine Test Negative Urine Opiates Screen Urine Methadone Screen Ur Barbiturates Screen Ur Phencyclidine Scrn Ur Amphetamines Screen U Methamphetamin-MDMA U Benzodiazepines Scrn Urine Cocaine Screen U Cannabinoids Screen Ur Drug Screen Comment Hepatitis A IgM Ab Hep Bs Antigen Hep B Core IgM Ab Hepatitis C Ab (EIA) 04/08/18 04/08/18 04/08/18 16:15 16:15 21:30 WBC RBC Hgb Hct MCV MCH MCHC RDW RDW Differential Plt Count MPV Immature Gran % (Auto) Neut % (Auto) Lymph % (Auto) [place] % (Auto) Eos % (Auto) Baso % (Auto) Absolute Neuts (auto) Absolute Lymphs (auto) Total Counted Sodium Potassium Chloride Carbon Dioxide Anion Gap BUN Creatinine Estim Creat Clear Calc Est GFR (MDRD) Af Amer Est GFR (MDRD) Non-Af BUN/Creatinine Ratio Glucose Lactic Acid 1.2 Calcium Total Bilirubin Direct Bilirubin AST ALT Alkaline Phosphatase Total Protein Albumin Globulin Albumin/Globulin Ratio Lipase Urine Color Yellow Urine Clarity Sl. Cloudy Urine pH 6.0 Ur Specific [place] 1.010 Urine Protein 15 H Urine Glucose (UA) Normal Urine Ketones Negative Urine Occult Blood 250 H Urine Nitrite Negative Urine Bilirubin Negative Urine Urobilinogen Normal Ur Leukocyte Esterase 100 H Urine RBC > 100 SEEN Urine WBC 10-25 SEEN Ur Squamous Epith Cells 0-5 SEEN Urine Bacteria 0 SEEN Urine Mucus 0 SEEN Urine Test Urine Opiates Screen POSITIVE H Urine Methadone Screen NEGATIVE Ur Barbiturates Screen NEGATIVE Ur Phencyclidine Scrn NEGATIVE Ur Amphetamines Screen NEGATIVE U Methamphetamin-MDMA NEGATIVE U Benzodiazepines Scrn NEGATIVE Urine Cocaine Screen NEGATIVE U Cannabinoids Screen NEGATIVE Ur Drug Screen Comment Hepatitis A IgM Ab Hep Bs Antigen Hep B Core IgM Ab Hepatitis C Ab (EIA) 04/08/18 04/09/18 04/09/18 21:30 05:43 05:43 WBC 3.6 L RBC 4.11 L Hgb 11.2 L Hct 35.0 L MCV 85.2 MCH 27.3 MCHC 32.0 RDW 14.5 RDW Differential 44.4 H Plt Count 172 MPV 13.4 H Immature Gran % (Auto) 0.300 Neut % (Auto) 52.1 Lymph % (Auto) 36.2 [place] % (Auto) 8.4 Eos % (Auto) 2.2 Baso % (Auto) 0.8 Absolute Neuts (auto) 1.9 L Absolute Lymphs (auto) 1.29 Total Counted Not Reportable Sodium 145 Potassium 3.6 Chloride 112 H Carbon Dioxide 26.0 Anion Gap 7 BUN 7 Creatinine 0.60 Estim Creat Clear Calc 115.51 Est GFR (MDRD) Af Amer 142 Est GFR (MDRD) Non-Af 117 BUN/Creatinine Ratio 11.7 Glucose 88 Lactic Acid Calcium 7.5 L Total Bilirubin 0.80 Direct Bilirubin 0.41 H AST 401 H ALT 339 H Alkaline Phosphatase 248 H Total Protein 6.0 L Albumin 2.5 L Globulin 3.5 Albumin/Globulin Ratio Lipase Urine Color Urine Clarity Urine pH Ur Specific [place] Urine Protein Urine Glucose (UA) Urine Ketones Urine Occult Blood Urine Nitrite Urine Bilirubin Urine Urobilinogen Ur Leukocyte Esterase Urine RBC Urine WBC Ur Squamous Epith Cells Urine Bacteria Urine Mucus Urine Test Urine Opiates Screen Urine Methadone Screen Ur Barbiturates Screen Ur Phencyclidine Scrn Ur Amphetamines Screen U Methamphetamin-MDMA U Benzodiazepines Scrn Urine Cocaine Screen U Cannabinoids Screen Ur Drug Screen Comment Hepatitis A IgM Ab Pending Hep Bs Antigen Pending Hep B Core IgM Ab Pending Hepatitis C Ab (EIA) Pending Medical Necessity - Tobacco Use Smoking Status: Former smoker Tobacco Use: Non-smoker Assessment/Plan All Active Problems (Last Reviewed 04/08/18 @ 19:16 by Clay Liz MD) UTI (urinary tract infection) (Acute) Contusion of rib on right side (Acute) Impressions 1. Gastroenteritis-likely viral 2. Dehydration 3. Abnormal LFTs-denies alcohol, Tylenol, tattoos, intravenous drug use, blood transfusions or previous history of liver disease. Denies any new medications. This may be secondary to viral gastroenteritis. Hepatitis panel is pending. 4. Anxiety/depression 5. UTI - I doubt - she has no dysuria and no fever. Urine and blood cultures Ceftriaxone 1 g IV daily until urine culture is available. Check an enteric pathogen panel and flu swab/respiratory panel Recheck the lab in the AM await the results of the hepatitis panel Continue to hydrate US liver in the AM - has had a previous quin Acetaminophen level Code Visit OBSV E&M: 28958 Subsequent observation care L3
[2018-04-09 11:51] LABS: International Normalized Ratio 1.1; Prothrombin Time (Protime)PT. 13.8 SECONDS (11.7-14.9)
[2018-04-09 14:11] VITALS: BP 117/69; PULSE 88; RESP 18; TEMP 36.8; O2SAT 96
[2018-04-09] MEDS: Ceftriaxone 1 GM/50 ML BAG IV (14:18)
[2018-04-09 14:50] LABS: Acetaminophen (Tylenol) Level < 2.0 ug/mL (10.0-30.0)
[2018-04-09 21:10] VITALS: BP 121/78; PULSE 88; RESP 18; TEMP 36.7; O2SAT 95
[2018-04-09] MEDS: Amitriptyline 25 MG Tablet 50 MG PO (21:14)
[2018-04-10] MEDS: Ibuprofen 600 MG Tablet PO (02:16)
[2018-04-10 02:17] VITALS: BP 122/82; PULSE 78; RESP 16; TEMP 36.8; O2SAT 99
--- NOTE | 2018-04-10 05:55 | US_ITS ---
STUDY: ABDOMINAL ULTRASOUND - RIGHT UPPER QUADRANT REASON FOR VISIT: Female, 42 years old. Abnormal liver function tests. TECHNIQUE: Ultrasound evaluation of the right upper quadrant was performed with real-time and static evangelista-scale imaging. TECHNICAL QUALITY: Adequate. COMPARISON: Comparison is made with prior CT scan of the abdomen dated April 08, 2018. FINDINGS: Liver: The liver measures 15.2 cm. There is mild increased echogenicity consistent with fatty infiltration. The bile ducts are within normal limits. There is hepatic color flow. The direction of portal flow is hepatopetal. There is no demonstrated mass lesion. Gallbladder: The patient is status post cholecystectomy. Common Bile Duct (C.B.D.): The common bile duct is dilated and measures 9.0 mm. This may be related to prior cholecystectomy. Pancreas: Normal size of the head, body and tail of the pancreas. There is normal echogenicity of the pancreas. There is no demonstrated pancreatic mass or cyst. Right Kidney: Normal size of the right kidney. The right kidney measures 10.5 cm x 4.6 x 2 x 4.5 cm. Normal renal cortex. The right cortex measures 1.6 cm. There is no demonstrated renal mass or cyst. There is no right hydronephrosis. US/Liver IMPRESSION: Status post cholecystectomy and mild prominence of the common bile duct. Mild degree of fatty infiltration of the liver. Electronically Signed: Kev Gama MD at 13:45 EST Tel [phone], Service support ,
[2018-04-10] MEDS: 0.9% Normal Saline 1,000 ML 125 ML IV (06:15)
[2018-04-10] MEDS: Enoxaparin 40 MG/0.4 ML Syringe SC (06:16)
[2018-04-10 06:20] LABS: Absolute Lymphocyte Count 1.92 X10^3/ul (0.83-4.51); Absolute Neutrophil Count 1.9 X10^3/uL (2.0-7.7); Basophil# 0.02 X10^3/uL; Basophil% 0.5 % (0-1); Eosinophil# 0.16 X10^3/uL; Eosinophils% 3.6 % (0-5); Hematocrit 36.1 % (37-47); Hemoglobin 11.7 g/dl (12.0-15.0); Lymphocyte # 1.92 X10^3/ul (4.0); Lymphocyte % 43.5 % (19-41); Mean Corp Hgb Conc 32.4 g/gl (32-36); Mean Corpuscular Hgb 27.6 pg (27.0-32.0); Mean Corpuscular Volume 85.1 fL (81-99); Monocyte% 9.1 % (0-10); Neutrophil % 43.1 % (47-70); Platelet Count 179 K/mm3 (150-450); RBC Distribution Width CV 14.4 % (11.6-14.6); RBC Distribution Width SD 43.8 fl (35.1-43.9); Red Blood Count 4.24 M/mm3 (4.2-5.4); White Blood Count 4.4 K/mm3 (4.4-11.0)
[2018-04-10 06:33] LABS: POSITIVE COUNT NO; POSITIVE DIFFERENTIAL NO; POSITIVE MORPHOLOGY NO
[2018-04-10 06:41] LABS: ALB/GLOB Ratio 0.8 RATIO (0.9-2.4); AST(SGOT) 131 U/L (15-37); Alanine Aminotransfer ALT/SGPT 242 U/L (13-56); Albumin, Serum 2.6 g/dL (3.2-5.0); Alkaline Phosphatase 241 U/L (45-117); Anion Gap 8 (5-15); BUN 8 mg/dL (7-18); BUN/Creat Ratio 12.9 RATIO (10-20); Calcium,Total 8.3 mg/dL (8.5-10.1); Chloride 112 mmol/L (98-107); Creatinine, Serum 0.62 mg/dL (0.55-1.02); EST Glomerular Filtration Rate 112 mL/min (>60); Est Glom Filt Rate - Afr Amer 136 mL/min (>60); Estimated Creatinine Clearance 111.79 ml/min; Globulin 3.3 g/dL (2.2-4.2); Glucose 89 mg/dL (74-106); Phosphorus 3.2 mg/dL (2.5-4.9); Potassium 4.4 mmol/L (3.5-5.1); Protein, Total 5.9 g/dL (6.4-8.2); Sodium Level 147 mmol/L (136-145)
[2018-04-10 10:00] VITALS: BP 127/63; PULSE 84; RESP 16; TEMP 36.7; O2SAT 95
[2018-04-10] MEDS: Ondansetron 4 MG/2 ML Vial IV (11:20)
[2018-04-10] MEDS: Ceftriaxone 1 GM/50 ML BAG IV (11:20)
[2018-04-10] MEDS: busPIRone 15 MG TABLET PO (11:23)
[2018-04-10] MEDS: Loratadine 10 MG Tablet PO (11:29)
[2018-04-10] MEDS: DULoxetine Hcl 30 MG Capsule PO (11:29)
--- NOTE | 2018-04-10 12:11 | DCINST_ITS ---
- Discharge Diagnoses Current Active Problems: Current Active and Chronic Problems (Last Reviewed 04/08/18 @ 19:16 by Clay Liz MD) UTI (urinary tract infection) (Acute) You will use the following diet at home:: Other - diet as tolerated. Avoid dairy products for the next few days and also avoid spicy foods. Your food should be the consistency of: Regular Your liquids should be the consistency of: Regular/Thin Discharge Activity: - - Gradually return to normal activity Return to work on:: 04/12/18 May resume sexual activity in: No Restrictions Weight Bearing Status: Full weight bearing Call your doctor if you observe: Fever of 101 or Higher, - - Recurrent nausea/vomiting despite Zofran. More than 3 bowel movements daily. Jaundice. Additional Instructions: 1. The ultra sound of the liver showed some fatty infiltration. This is not likely causing the elevation of the liver blood tests but eating a low fat diet and losing some weight will help prevent progression of the fatty infiltration to cirrosis. The results of the hepatitis panel are still pending at the time of DC but, you can call me at [phone] in the next 1-2 days and I will go over the results with you. The results of the stool tests are also pending......I feel confident you have a virus since many of your co-workers had the same thing but, call me tomorrow and I will look up the results for you. 2. No work tomorrow. I will give you a return to work slip to return on .......if you need a longer period of time please call your family doctor. 3. Advance your diet as tolerated. 4. please follow up with Dr. Haddad in the next 5-7 days to have the liver tests rechecked.......they are currently trending down and that is good Pending Tests on Discharge: 1. enteric pathogen panel, hepatitis panel Allergies/Adverse Reactions: Allergies shellfish derived Allergy (Verified 04/08/18 12:44) Hives clindamycin Adverse Reaction (Verified 04/08/18 12:44) Other CONSTIPATION Medications to take at Discharge busPIRone [Buspar] 15 mg PO BID 02/07/14 duloxetine 20 mg capsule,delayed release 30 mg PO DAILY 05/27/17 Amitriptyline HCl [Elavil] 50 mg PO QHS PRN PRN 04/08/18 Loratadine [Claritin] 10 mg PO DAILY 04/08/18 Ondansetron [Zofran Odt] 4 mg PO Q8H PRN PRN #6 tablet 04/10/18 The following prescriptions were given: Ondansetron [Zofran Odt] 4 mg PO Q8H PRN PRN #6 tablet PRN Reason: Nausea Primary Care Physician: Suyapa Haddad DO [Primary Care Provider] - Please follow up with your Primary Care Physician in: 5-7 days Test Results: Test results from this visit will be discussed in further detail at your follow- up appointment, if applicable. Proposed Discharge Date: 04/10/18
--- NOTE | 2018-04-10 14:46 | PCM.DC.SUM ---
Discharge Date and Diagnosis Date of Admission: 04/08/18 Date of Discharge: 04/10/18 - Primary Discharge Diagnosis Active and Suspected Problems (Last Reviewed 04/08/18 @ 19:16 by Clay Liz MD) Abnormal LFTs (Acute)-suspect secondary to acute viral illness Gastroenteritis (Acute) -secondary to Norovirus - Secondary Discharge Diagnosis Chronic Problems (Last Reviewed 04/08/18 @ 19:16 by Clay Liz MD) Rheumatoid arthritis (Chronic) Depression (Chronic) Fatty infiltration of the liver Hospital Course and Treatment Imaging Results: 04/10/18 05:55 US Liver [Liver] [US] AM (NON MEDS) Clinical Impression(s) from Imaging Studies Abdomen/Pelvis CT 04/08/18 15:05 IMPRESSION: 1. No acute inflammatory process or bowel obstruction. 2. Cholecystectomy. 3. Stable chronic changes, as above. Electronically Signed: Abraham Oneill MD at 17:44 EST , Service support , Liver Ultrasound 04/10/18 05:55 IMPRESSION: Status post cholecystectomy and mild prominence of the common bile duct. Mild degree of fatty infiltration of the liver. Electronically Signed: Kev Gama MD at 13:45 EST Tel [phone], Service support , Labs (Last 48 Hours) 04/08/18 04/08/18 04/08/18 16:15 16:15 16:15 WBC RBC Hgb Hct MCV MCH MCHC RDW RDW Differential Plt Count MPV Immature Gran % (Auto) Neut % (Auto) Lymph % (Auto) Gordon % (Auto) Eos % (Auto) Baso % (Auto) Absolute Neuts (auto) Absolute Lymphs (auto) Total Counted PT INR Sodium Potassium Chloride Carbon Dioxide Anion Gap BUN Creatinine Estim Creat Clear Calc Est GFR (MDRD) Af Amer Est GFR (MDRD) Non-Af BUN/Creatinine Ratio Glucose Lactic Acid Calcium Phosphorus Magnesium Total Bilirubin Direct Bilirubin AST ALT Alkaline Phosphatase Total Protein Albumin Globulin Albumin/Globulin Ratio Urine Color Yellow Urine Clarity Sl. Cloudy Urine pH 6.0 Ur Specific [place] 1.010 Urine Protein 15 H Urine Glucose (UA) Normal Urine Ketones Negative Urine Occult Blood 250 H Urine Nitrite Negative Urine Bilirubin Negative Urine Urobilinogen Normal Ur Leukocyte Esterase 100 H Urine RBC > 100 SEEN Urine WBC 10-25 SEEN Ur Squamous Epith Cells 0-5 SEEN Urine Bacteria 0 SEEN Urine Mucus 0 SEEN Urine Test Negative Urine Opiates Screen POSITIVE H Urine Methadone Screen NEGATIVE Acetaminophen Ur Barbiturates Screen NEGATIVE Ur Phencyclidine Scrn NEGATIVE Ur Amphetamines Screen NEGATIVE U Methamphetamin-MDMA NEGATIVE U Benzodiazepines Scrn NEGATIVE Urine Cocaine Screen NEGATIVE U Cannabinoids Screen NEGATIVE Ur Drug Screen Comment Hepatitis A IgM Ab Hep Bs Antigen Hep B Core IgM Ab Hepatitis C Ab (EIA) 04/08/18 04/08/18 04/09/18 21:30 21:30 05:43 WBC RBC Hgb Hct MCV MCH MCHC RDW RDW Differential Plt Count MPV Immature Gran % (Auto) Neut % (Auto) Lymph % (Auto) Gordon % (Auto) Eos % (Auto) Baso % (Auto) Absolute Neuts (auto) Absolute Lymphs (auto) Total Counted PT INR Sodium 145 Potassium 3.6 Chloride 112 H Carbon Dioxide 26.0 Anion Gap 7 BUN 7 Creatinine 0.60 Estim Creat Clear Calc 115.51 Est GFR (MDRD) Af Amer 142 Est GFR (MDRD) Non-Af 117 BUN/Creatinine Ratio 11.7 Glucose 88 Lactic Acid 1.2 Calcium 7.5 L Phosphorus Magnesium Total Bilirubin 0.80 Direct Bilirubin 0.41 H AST 401 H ALT 339 H Alkaline Phosphatase 248 H Total Protein 6.0 L Albumin 2.5 L Globulin 3.5 Albumin/Globulin Ratio Urine Color Urine Clarity Urine pH Ur Specific [place] Urine Protein Urine Glucose (UA) Urine Ketones Urine Occult Blood Urine Nitrite Urine Bilirubin Urine Urobilinogen Ur Leukocyte Esterase Urine RBC Urine WBC Ur Squamous Epith Cells Urine Bacteria Urine Mucus Urine Test Urine Opiates Screen Urine Methadone Screen Acetaminophen Ur Barbiturates Screen Ur Phencyclidine Scrn Ur Amphetamines Screen U Methamphetamin-MDMA U Benzodiazepines Scrn Urine Cocaine Screen U Cannabinoids Screen Ur Drug Screen Comment Hepatitis A IgM Ab Pending Hep Bs Antigen Pending Hep B Core IgM Ab Pending Hepatitis C Ab (EIA) Pending 04/09/18 04/09/18 04/09/18 05:43 11:36 13:10 WBC 3.6 L RBC 4.11 L Hgb 11.2 L Hct 35.0 L MCV 85.2 MCH 27.3 MCHC 32.0 RDW 14.5 RDW Differential 44.4 H Plt Count 172 MPV 13.4 H Immature Gran % (Auto) 0.300 Neut % (Auto) 52.1 Lymph % (Auto) 36.2 Gordon % (Auto) 8.4 Eos % (Auto) 2.2 Baso % (Auto) 0.8 Absolute Neuts (auto) 1.9 L Absolute Lymphs (auto) 1.29 Total Counted Not Reportable PT 13.8 INR 1.1 Sodium Potassium Chloride Carbon Dioxide Anion Gap BUN Creatinine Estim Creat Clear Calc Est GFR (MDRD) Af Amer Est GFR (MDRD) Non-Af BUN/Creatinine Ratio Glucose Lactic Acid Calcium Phosphorus Magnesium Total Bilirubin Direct Bilirubin AST ALT Alkaline Phosphatase Total Protein Albumin Globulin Albumin/Globulin Ratio Urine Color Urine Clarity Urine pH Ur Specific [place] Urine Protein Urine Glucose (UA) Urine Ketones Urine Occult Blood Urine Nitrite Urine Bilirubin Urine Urobilinogen Ur Leukocyte Esterase Urine RBC Urine WBC Ur Squamous Epith Cells Urine Bacteria Urine Mucus Urine Test Urine Opiates Screen Urine Methadone Screen Acetaminophen < 2.0 L Ur Barbiturates Screen Ur Phencyclidine Scrn Ur Amphetamines Screen U Methamphetamin-MDMA U Benzodiazepines Scrn Urine Cocaine Screen U Cannabinoids Screen Ur Drug Screen Comment Hepatitis A IgM Ab Hep Bs Antigen Hep B Core IgM Ab Hepatitis C Ab (EIA) 04/10/18 04/10/18 05:50 05:50 WBC 4.4 RBC 4.24 Hgb 11.7 L Hct 36.1 L MCV 85.1 MCH 27.6 MCHC 32.4 RDW 14.4 RDW Differential 43.8 Plt Count 179 MPV 13.0 H Immature Gran % (Auto) 0.200 Neut % (Auto) 43.1 L Lymph % (Auto) 43.5 H Gordon % (Auto) 9.1 Eos % (Auto) 3.6 Baso % (Auto) 0.5 Absolute Neuts (auto) 1.9 L Absolute Lymphs (auto) 1.92 Total Counted Not Reportable PT INR Sodium 147 H Potassium 4.4 Chloride 112 H Carbon Dioxide 27.0 Anion Gap 8 BUN 8 Creatinine 0.62 Estim Creat Clear Calc 111.79 Est GFR (MDRD) Af Amer 136 Est GFR (MDRD) Non-Af 112 BUN/Creatinine Ratio 12.9 Glucose 89 Lactic Acid Calcium 8.3 L Phosphorus 3.2 Magnesium 2.0 Total Bilirubin 0.20 Direct Bilirubin AST 131 H ALT 242 H Alkaline Phosphatase 241 H Total Protein 5.9 L Albumin 2.6 L Globulin 3.3 Albumin/Globulin Ratio 0.8 L Urine Color Urine Clarity Urine pH Ur Specific [place] Urine Protein Urine Glucose (UA) Urine Ketones Urine Occult Blood Urine Nitrite Urine Bilirubin Urine Urobilinogen Ur Leukocyte Esterase Urine RBC Urine WBC Ur Squamous Epith Cells Urine Bacteria Urine Mucus Urine Test Urine Opiates Screen Urine Methadone Screen Acetaminophen Ur Barbiturates Screen Ur Phencyclidine Scrn Ur Amphetamines Screen U Methamphetamin-MDMA U Benzodiazepines Scrn Urine Cocaine Screen U Cannabinoids Screen Ur Drug Screen Comment Hepatitis A IgM Ab Hep Bs Antigen Hep B Core IgM Ab Hepatitis C Ab (EIA) Microbiology 04/10/18 10:40 Stool Stool Lactoferrin - Final 04/09/18 11:46 Mucosa - Nasopharyngeal Respiratory Panel (PCR) - Final 04/09/18 11:46 Mucosa - Nasopharyngeal Influenza Types A,B Direct FA (GENOVEVA) - Final none Operations: None Procedures: None Summary of Care Provided: Ms Aponte is a 42 YOF with a past medical history of depression and rheumatoid arthritis who presented to the emergency department at [facility] on 04/08/2018 complaining of nausea, vomiting and diarrhea. She additionally complained of left lower abdominal pain which was sharp and constant. She reported a fever as high as 102 ?F at home. Many of her coworkers were sick with similar sx. Lab in the emergency room revealed a normal white blood cell count with a normal differential. Liver enzymes were mildly increased with an AST of 49, ALT of 128 and an alkaline phosphatase of 157. CT of the abdomen and pelvis was unremarkable. An ultrasound showed fatty infiltration of the liver. Specifically there was no stranding around either kidney. Influenza swab and respiratory panel were negative. Blood cultures had no growth after 5 days. Stool lactoferrin was positive for white blood cells. The enteric pathogen panel was positive for Norovirus. LFTs were repeated 1 day following admission and the AST was now 401, up from 49 the preceding day, with an ALT of 339 and alk phos of 248 and a total bilirubin of 0.8. Acetaminophen level was less than 2. Hepatitis panel was negative. Due to the increase following admission and the LFTs the patient remained in the hospital for 1 more night. On the date of discharge the AST had decreased to 131 from 401, the ALT was 242, down from 339 and the alkaline phosphatase was 241, down from 248. She was discharged home and will follow up with Dr. Suyapa Clancys in 5-7 days. She was given a prescription for Zofran ODT 4 mg and instructed to take 1 p.o. every 8 hours as needed for nausea. She was instructed to return to work on 04/12/2018. PHYSICAL EXAM: GENERAL: alert, oriented X 3, Cooperative, NAD ORAL: moist mucosa, no mucosal lesions NECK: No JVD, supple, trachea midline LUNGS: CTA, symmetric chest expansion HEART: RRR, Normal S1 and S2, no rub, no gallop ABDOMEN: soft, NT, ND, BS present, no guarding with palpation EXTREMITIES: no edema, no cyanosis, no calf tenderness SKIN: No rashes, no breakdown NEUROLOGIC: no focal neurologic deficits PSYCH: appropriate, normal affect, pleasant This note was generated with [employer] dictation software. It may contain incorrect words, spelling, and punctuation that were not noted in checking the note before signing. Discussed the results of the hepatitis panel and the enteric pathogen panel on the phone with the patient on the phone on 04/12/2018. Hepatitis panel is negative and the enteric pathogen panel is positive for Norovirus - Physical Exam Vital Signs Temp Pulse Resp BP Pulse Ox 98.0 F 84 16 127/63 H 95 04/10/18 10:00 04/10/18 10:00 04/10/18 10:00 04/10/18 10:00 04/10/18 10:00 Oxygen Delivery Method Room Air Weight: 226 lb 13.69 oz Body Mass Index (BMI) 36.6 Finger Stick Blood Glucose 122 Intake and Output for Last 24 Hours 04/08/18 04/09/18 04/10/18 23:59 23:59 23:59 Intake Total 4089 / 4089 1813 / 1813 Balance 4089 / 4089 1813 / 1813 Microbiology Past 72 Hours 04/10/18 10:40 Stool Lactoferrin - Final Stool 04/09/18 11:46 Respiratory Panel (PCR) - Final Mucosa - Nasopharyngeal 04/09/18 11:46 Influenza Types A,B Direct FA (GENOVEVA) - Final Mucosa - Nasopharyngeal Laboratory Tests Past 24 Hrs 04/09/18 04/10/18 04/10/18 13:10 05:50 05:50 WBC 4.4 RBC 4.24 Hgb 11.7 L Hct 36.1 L MCV 85.1 MCH 27.6 MCHC 32.4 RDW 14.4 RDW Differential 43.8 Plt Count 179 MPV 13.0 H Immature Gran % (Auto) 0.200 Neut % (Auto) 43.1 L Lymph % (Auto) 43.5 H Gordon % (Auto) 9.1 Eos % (Auto) 3.6 Baso % (Auto) 0.5 Absolute Neuts (auto) 1.9 L Absolute Lymphs (auto) 1.92 Total Counted Not Reportable Sodium 147 H Potassium 4.4 Chloride 112 H Carbon Dioxide 27.0 Anion Gap 8 BUN 8 Creatinine 0.62 Estim Creat Clear Calc 111.79 Est GFR (MDRD) Af Amer 136 Est GFR (MDRD) Non-Af 112 BUN/Creatinine Ratio 12.9 Glucose 89 Calcium 8.3 L Phosphorus 3.2 Magnesium 2.0 Total Bilirubin 0.20 AST 131 H ALT 242 H Alkaline Phosphatase 241 H Total Protein 5.9 L Albumin 2.6 L Globulin 3.3 Albumin/Globulin Ratio 0.8 L Acetaminophen < 2.0 L Discharge Activity: - - Gradually return to normal activity Return to work on:: 04/12/18 May resume sexual activity in: No Restrictions Weight Bearing Status: Full weight bearing Call your doctor if you observe: Fever of 101 or Higher, - - Recurrent nausea/vomiting despite Zofran. More than 3 bowel movements daily. Jaundice. Home Medications: Medications to take at Discharge busPIRone [Buspar] 15 mg PO BID 02/07/14 duloxetine 20 mg capsule,delayed release 30 mg PO DAILY 05/27/17 Amitriptyline HCl [Elavil] 50 mg PO QHS PRN PRN 04/08/18 Loratadine [Claritin] 10 mg PO DAILY 04/08/18 Ondansetron [Zofran Odt] 4 mg PO Q8H PRN PRN #6 tablet 04/10/18 Following Prescrptions Were Given to Patient: Ondansetron [Zofran Odt] 4 mg PO Q8H PRN PRN #6 tablet PRN Reason: Nausea Primary Care Physician: Suyapa Haddad DO [Primary Care Provider] - Please follow up with your Primary Care Physician in: 5-7 days Disposition: Home Minutes spent on discharge:: 30 Patient Condition:: Good Medical Necessity - Tobacco Use Smoking Status: Former smoker Tobacco Use: Non-smoker Meaningful Use Info Meaningful Use Diagnoses (Choose all that apply): None applicable Code Visit OBSV E&M: 07182 Observation care discharge
--- NOTE | 2018-04-10 14:55 | PCM.WORK.EX ---
Work/School Excuse From: 04/08/18 through: 04/12/18
--- NOTE | 2018-04-10 14:56 | WORK.SCH_ITS ---
Work/School Excuse From: 04/08/18 through: 04/12/18
[2018-04-11 08:50] LABS: HEPATITIS B SURFACE AG Negative (Negative); Hepatitis A IgM Antibody Negative (Negative); Hepatitis B Core AB IgM Negative (Negative)
[2018-04-11 08:52] LABS: Hep C Antibodies <0.1 s/co ratio (0.0-0.9)
--- OUTSIDE RECORDS SUMMARY | 2018-07-12 11:36 | XMS RPT_ITS ---
:1975 Author Organization [place] Support Name Relationship Address Phone ARSALAN ALDO/DEMETRIUS Unavailable [address] + [place] [address] ARSALAN GREGORY Unavailable [address] + [place] [address] [facility] Unavailable [address] + [place] [address] ARSALAN, ALDO/DEMETRIUS Unavailable [address] + [place] [address] ARSALAN GREGORY Unavailable [address] + [place] [address] [facility] Unavailable [address] + [place] [address] ARSALAN, ALDO/DEMETRIUS Unavailable [address] + [place] [address] ARSALAN GREGORY Unavailable [address] + [place] [address] [facility] Unavailable [address] + [place] [address] ARSALAN, ALDO/DEMETRIUS Unavailable [address] + [place] [address] ARSALAN GREGORY Unavailable [address] + [place] [address] [facility] Unavailable [address] + [place] [address] ARSALAN, ALDO/DEMETRIUS Unavailable [address] + [place] [address] ARSALAN, GREGORY Unavailable [address] + [place] [address] [facility] Unavailable [address] + [place] [address] ARSALAN, ALDO/DEMETRIUS Unavailable [address] + [place] [address] ARSALAN, GREGORY Unavailable [address] + [place] [address] [facility] Unavailable [address] + [place] [address] ARSALAN, ALDO/DEMETRIUS Unavailable [address] + [place] [address] ARSALAN, GREGORY Unavailable [address] + [place] [address] [facility] Unavailable [address] + [place] [address] ARSALAN, ALDO/DEMETRIUS Unavailable [address] + [place] [address] ARSALAN, GREGORY Unavailable [address] + [place] [address] [facility] Unavailable [address] + [place] [address] ARSALAN, ALDO/DEMETRIUS Unavailable [address] + [place] [address] [facility] Unavailable [address] + [place] [address] ARSALAN, ALDO/DEMETRIUS Unavailable [address] + [place] [address] [facility] Un[facility] [address] + [place] [address] ARSALAN, ALDO/DEMETRIUS Unavailable [address] + [place] [address] ARSALAN, GREGORY Unavailable [address] + [place] [address] [facility] Unavailable [address] + [place] [address] ARSALAN, ALDO/DEMETRIUS Unavailable [address] + [place] [address] [facility] Unavailable [address] + [place] [address] ARSALAN, ALDO/DEMETRIUS Unavailable [address] + [place] [address] [facility] Unavailable [address] + [place] [address] ARSALAN, ALDO/DEMETRIUS Unavailable [address] + [place] [address] [facility] Unavailable [address] + [place] [address] ARSALAN, ALDO/DEMETRIUS Unavailable [address] + [place] [address] [facility] Unavailable [address] + [place] [address] Care Team Providers Name Role Phone Malys, Suyapa Primary Care Unavailable Shalonda, Clay Admitting Unavailable Sementi, Miguelina Attending Unavailable Shalonda, Clay Admitting Unavailable Shalonda, Clay Attending Unavailable Malys, Suyapa Primary Care Unavailable Shalonda, Clay Consulting Unavailable Haroon Randhawa Attending Unavailable Malys, Suyapa Referring Unavailable Malys, Suyapa Primary Care Unavailable Shalonda, Clay Admitting Unavailable Sementi, Miguelina Attending Unavailable Malys, Suyapa Primary Care Unavailable Sementi, Miguelina Consulting Unavailable Jocelyne Winters Attending Unavailable Malys, Suyapa Primary Care Unavailable Shalonda, Clay Admitting Unavailable Sementi, Miguelina Attending Unavailable Malys, Suyapa Primary Care Unavailable Sementi, Miguelina Consulting Unavailable Haroon Randhawa Attending Unavailable Malys, Suyapa Primary Care Unavailable Edis Haroon Attending Unavailable Malys, Suyapa Referring Unavailable Malys, Suyapa Primary Care Unavailable Edis Haroon Attending Unavailable Malys, Suyapa Referring Unavailable Malys, Suyapa Primary Care Unavailable Malys, Suyapa Primary Care Unavailable Ungur, Remus Attending Unavailable Malys, Suyapa Primary Care Unavailable Ungur, Remus Attending Unavailable Malys, Suyapa Primary Care Unavailable Robin, Suyapa Attending Unavailable Malys, Suyapa Primary Care Unavailable Ungur, Remus Attending Unavailable Malys, Suyapa Primary Care Unavailable YuimkoHair Attending Unavailable Suyapa Haddad Primary Care Unavailable Suyapa Kelly Attending Unavailable PROBLEMS PROBLEMS DATE TYPE CONDITION / CODE ATTENDING STATUS SOURCE 04/20/2018 Unknown R11.2 - Nausea Sementi, Active [place] with vomiting, Miguelina [facility] unspecified / Hospital R11.2(ICD-10) Repository 11/21/2017 Unknown R05 - Cough / Ungur, Remus Active [place] R05(ICD-10) [facility] Hospital Repository 07/06/2017 Unknown S20.211A - Haroon Randhawa Active [place] Contusion of [facility] right front wall [facility], Repository initial encounter / S20.211A(ICD-10) PROCEDURES PROCEDURES No Procedure Records FoundRESULTS RESULTS DISCHARGE SUMMARY Observed: 04/20/2018 Status: F Source: [place] 2:54 PM [facility] Medical Records Department [address] [place] [address] Discharge Summary 04/10/18 1446 MR#: [id number] Acct: [id number] Name: MARE APONTE Rep #: [id number] : 1975 42 From: Zak Salguero DO PCP: Suyapa Haddad DO Status: DIS TREY Y Location: [place] [address] Discharge Date and Diagnosis Date of Admission: 04/08/18 Date of Discharge: 04/10/18 - Primary Discharge Diagnosis Active and Suspected Problems (Last Reviewed 04/08/18 @ 19:16 by Clay Liz MD) Abnormal LFTs (Acute)-suspect secondary to acute viral illness Gastroenteritis (Acute) -secondary to Norovirus - Secondary Discharge Diagnosis Chronic Problems (Last Reviewed 04/08/18 @ 19:16 by Clay Liz MD) Rheumatoid arthritis (Chronic) Depression (Chronic) Fatty infiltration of the liver Hospital Course and Treatment Imaging Results: 04/10/18 05:55 US Liver [Liver] [US] AM (NON MEDS) Clinical Impression(s) from Imaging Studies Abdomen/Pelvis CT 04/08/18 15:05 IMPRESSION: 1. No acute inflammatory process or bowel obstruction. 2. Cholecystectomy. 3. Stable chronic changes, as above. Electronically Signed: Abraham Oneill MD at 17:44 EST , Service support , Liver Ultrasound 04/10/18 05:55 IMPRESSION: Status post cholecystectomy and mild prominence of the common bile duct. Mild degree of fatty infiltration of the liver. Electronically Signed: Kev Gama MD at 13:45 EST Tel [phone], Service support , Labs (Last 48 Hours) WBC RBC Hgb Hct MCV MCH MCHC RDW RDW Differential WBC 3.6 L RBC 4.11 L Hgb 11.2 L Hct 35.0 L MCV 85.2 WBC 4.4 RBC 4.24 Hgb 11.7 L Hct 36.1 L MCV 85.1 MCH 27.6 MCHC 32.4 Microbiology 04/10/18 10:40 Stool Stool Lactoferrin - Final 04/09/18 11:46 Mucosa - Nasopharyngeal Respiratory Panel (PCR) - Final 04/09/18 11:46 Mucosa - Nasopharyngeal Influenza Types A,B Direct FA (GENOVEVA) - Final none Operations: None Procedures: None Summary of Care Provided: Ms Aponte is a 42 YOF with a past medical history of depression and rheumatoid arthritis who presented to the emergency department at [facility] on 04/08/2018 complaining of nausea, vomiting and diarrhea. She additionally complained of left lower abdominal pain which was sharp and constant. She reported a fever as high as 102 F at home. Many of her coworkers were sick with similar sx. Lab in the emergency room revealed a normal white blood cell count with a normal differential. Liver enzymes were mildly increased with an AST of 49, ALT of 128 and an alkaline phosphatase of 157. CT of the abdomen and pelvis was unremarkable. An ultrasound showed fatty infiltration of the liver. Specifically there was no stranding around either kidney. Influenza swab and respiratory panel were negative. Blood cultures had no growth after 5 days. Stool lactoferrin was positive for white blood cells. The enteric pathogen panel was positive for Norovirus. LFTs were repeated 1 day following admission and the AST was now 401, up from 49 the preceding day, with an ALT of 339 and alk phos of 248 and a total bilirubin of 0.8. Acetaminophen level was less than 2. Hepatitis panel was negative. Due to the increase following admission and the LFTs the patient remained in the hospital for 1 more night. On the date of discharge the AST had decreased to 131 from 401, the ALT was 242, down from 339 and the alkaline phosphatase was 241, down from 248. She was discharged home and will follow up with Dr. Suyapa Varela's in 5-7 days. She was given a prescription for Zofran ODT 4 mg and instructed to take 1 p.o. every 8 hours as needed for nausea. She was instructed to return to work on 04/12/2018. PHYSICAL EXAM: GENERAL: alert, oriented X 3, Cooperative, NAD ORAL: moist mucosa, no mucosal lesions NECK: No JVD, supple, trachea midline LUNGS: CTA, symmetric chest expansion HEART: RRR, Normal S1 and S2, no rub, no gallop ABDOMEN: soft, NT, ND, BS present, no guarding with palpation EXTREMITIES: no edema, no cyanosis, no calf tenderness SKIN: No rashes, no breakdown NEUROLOGIC: no focal neurologic deficits PSYCH: appropriate, normal affect, pleasant This note was generated with imgfave dictation software. It may contain incorrect words, spelling, and punctuation that were not noted in checking the note before signing. Discussed the results of the hepatitis panel and the enteric pathogen panel on the phone with the patient on the phone on 04/12/2018. Hepatitis panel is negative and the enteric pathogen panel is positive for Norovirus - Physical Exam Vital Signs Temp Pulse Resp BP Pulse Ox 98.0 F 84 16 127/63 H 95 04/10/18 10:00 04/10/18 10:00 04/10/18 10:00 04/10/18 10:00 04/10/18 10:00 Oxygen Delivery Method Room Air Weight: 226 lb 13.69 oz Body Mass Index (BMI) 36.6 Finger Stick Blood Glucose 122 Intake and Output for Last 24 Hours Intake Total 4089 / 4089 1813 / 1813 Balance 4089 / 4089 1813 / 1813 Microbiology Past 72 Hours 04/10/18 10:40 Stool Lactoferrin - Final Laboratory Tests Past 24 Hrs Discharge Activity: - - Gradually return to normal activity Return to work on:: 04/12/18 May resume sexual activity in: No Restrictions Weight Bearing Status: Full weight bearing Call your doctor if you observe: Fever of 101 or Higher, - - Recurrent nausea/vomiting despite Zofran. More than 3 bowel movements daily. Jaundice. Home Medications: Medications to take at Discharge busPIRone [Buspar] 15 mg PO BID 02/07/14 duloxetine 20 mg capsule,delayed release 30 mg PO DAILY 05/27/17 Amitriptyline HCl [Elavil] 50 mg PO QHS PRN PRN 04/08/18 Loratadine [Claritin] 10 mg PO DAILY 04/08/18 Ondansetron [Zofran Odt] 4 mg PO Q8H PRN PRN #6 tablet 04/10/18 Following Prescrptions Were Given to Patient: Ondansetron [Zofran Odt] 4 mg PO Q8H PRN PRN #6 tablet PRN Reason: Nausea Primary Care Physician: Suyapa Haddad DO [Primary Care Provider] - Please follow up with your Primary Care Physician in: 5-7 days Disposition: Home Minutes spent on discharge:: 30 Patient Condition:: Good Medical Necessity - Tobacco Use Smoking Status: Former smoker Tobacco Use: Non-smoker Meaningful Use Info Meaningful Use Diagnoses (Choose all that apply): None applicable Code Visit OBSV E AND M: 00873 Observation care discharge 04/20/18 145 <Electronically signed by Zak Salguero DO> Date Zak Salguero DO Cosigner Signature (if applicable): Date CC: Miguelina Salguero; Suyapa Haddad DO Signed LIVER PROFILE Collected: 04/20/2018 Status: F Source: [place] 9:16 AM [facility] TYPE CODE TESTS RESULT OUT OF RANGE REFERENCE UNITS LAB L501.1500 6.4-8.2 g/dL Normal T PROT 7.2 LAB L501.1800 3.2-5.0 g/dL Normal ALB 3.4 LAB L501.1950 2.2-4.2 g/dL Normal GLOB 3.8 LAB L501.4100 15-37 U/L Normal AST 18 LAB L501.4305 45-117 U/L High ALK P 149 LAB L501.4405 13-56 U/L Normal ALT 43 LAB L501.4600 0.20-1.00 mg/dL Normal T BILI 0.20 LAB L501.4700 0.00-0.30 mg/dL Normal D BILI 0.07 Performed By: #### L500.3400 #### [facility] Laboratory [address] [place], [address] DISCHARGE INSTRUCTION Observed: 04/10/2018 Status: F Source: [place] 2:46 PM [facility] Medical Records Department [address] [place] [address] Instructions for Home/Discharge Instructions 04/10/18 1207 MR#: [id number] Acct: [id number] Name: MARE APONTE Rep #: [id number] : 1975 42 From: Zak Salguero DO PCP: Suyapa Haddad DO Status: ADM TREY - Discharge Diagnoses Current Active Problems: Current Active and Chronic Problems (Last Reviewed 04/08/18 @ 19:16 by Clay Liz MD) UTI (urinary tract infection) (Acute) You will use the following diet at home:: Other - diet as tolerated. Avoid dairy products for the next few days and also avoid spicy foods. Your food should be the consistency of: Regular Your liquids should be the consistency of: Regular/Thin Discharge Activity: - - Gradually return to normal activity Return to work on:: 04/12/18 May resume sexual activity in: No Restrictions Weight Bearing Status: Full weight bearing Call your doctor if you observe: Fever of 101 or Higher, - - Recurrent nausea/vomiting despite Zofran. More than 3 bowel movements daily. Jaundice. Additional Instructions: 1. The ultra sound of the liver showed some fatty infiltration. This is not likely causing the elevation of the liver blood tests but eating a low fat diet and losing some weight will help prevent progression of the fatty infiltration to cirrosis. The results of the hepatitis panel are still pending at the time of DC but, you can call me at [phone] in the next 1-2 days and I will go over the results with you. The results of the stool tests are also pending......I feel confident you have a virus since many of your co-workers had the same thing but, call me tomorrow and I will look up the results for you. 2. No work tomorrow. I will give you a return to work slip to return on .......if you need a longer period of time please call your family doctor. 3. Advance your diet as tolerated. 4. please follow up with Dr. Haddad in the next 5-7 days to have the liver tests rechecked.......they are currently trending down and that is good Pending Tests on Discharge: 1. enteric pathogen panel, hepatitis panel Allergies/Adverse Reactions: Allergies shellfish derived Allergy (Verified 04/08/18 12:44) Hives clindamycin Adverse Reaction (Verified 04/08/18 12:44) Other CONSTIPATION Medications to take at Discharge busPIRone [Buspar] 15 mg PO BID 02/07/14 duloxetine 20 mg capsule,delayed release 30 mg PO DAILY 05/27/17 Amitriptyline HCl [Elavil] 50 mg PO QHS PRN PRN 04/08/18 Loratadine [Claritin] 10 mg PO DAILY 04/08/18 Ondansetron [Zofran Odt] 4 mg PO Q8H PRN PRN #6 tablet 04/10/18 The following prescriptions were given: Ondansetron [Zofran Odt] 4 mg PO Q8H PRN PRN #6 tablet PRN Reason: Nausea Primary Care Physician: Suyapa Haddad DO [Primary Care Provider] - Please follow up with your Primary Care Physician in: 5-7 days Test Results: Test results from this visit will be discussed in further detail at your follow-up appointment, if applicable. Proposed Discharge Date: 04/10/18 04/10/18 1446 <Electronically signed by Zak Salguero DO> Date Zak Salguero DO CC: Suyapa Haddad DO STOOL Observed: 04/10/2018 Status: F Source: [place] LACTOFERRIN/WBC 10:40 AM [facility] Stool Lacto/WBC Normal Reference Range = Negative Fecal WBC Lactoferrin Positive: Fecal WBC Lactoferrin present Performed By: #### M100.0605 #### [facility] [address], [address] Observed: 04/10/2018 Status: F Source: [place] ENTERIC PATHOGEN 10:40 AM [facility] PANEL STOOL REPOSITORY RESULT CALLED TO DR. MIGUELINA SALGUERO 04/10/18 1725 BY [facility] PANEL STOOL Normal Reference Range = Not Detected Norovirus Gl/Gll detected. Contact precautions should be followed for these patients and limit exposure to others since spread of disease is common. Treatment is often not needed for this pathogen. This is an amplified DNA test which makes it both specific and sensitive. Copy of report sent to Infection Control Printer [id number] 04/11/18 5201 [address] CAMPYLOBACTER Not Detected Salmonella Not Detected Shigella sp. Not Detected Shiga Toxin Not Detected Yersinia Not Detected VIBRIO Not Detected Norovirus Norovirus Detected Rotavirus Not Detected ORGANISM 1: Norovirus Performed By: #### M100.637 #### [facility] [address] [place], [address] CBC W/DIFF, AUTOMATED Collected: 04/10/2018 Status: F Source: [place] 5:50 AM [facility] TYPE CODE TESTS RESULT OUT OF RANGE REFERENCE UNITS LAB L100.1000 4.4-11.0 K/mm3 Normal WBC 4.4 LAB L100.1200 4.2-5.4 M/mm3 Normal RBC 4.24 LAB L100.1300 12.0-15.0 g/dl Low HGB 11.7 LAB L100.1400 37-47 % Low HCT 36.1 LAB L100.1500 81-99 fL Normal MCV 85.1 LAB L100.1600 27.0-32.0 pg Normal MCH 27.6 LAB L100.1700 32-36 g/gl Normal MCHC 32.4 LAB L100.1810 11.6-14.6 % Normal RDW CV 14.4 LAB L100.1820 35.1-43.9 fl Normal RDW SD 43.8 LAB L100.1900 150-450 K/mm3 Normal PLT 179 LAB L100.2000 6.2-12.0 fl High MPV 13.0 LAB L100.2100 47-70 % Low NEUT% 43.1 LAB L100.2200 19-41 % High LY% 43.5 LAB L100.2300 0-10 % Normal MONO% 9.1 LAB L100.2400 0-5 % Normal EO% 3.6 LAB L100.2500 0-1 % Normal BASO% 0.5 LAB L100.2550 0.0-0.9 % Normal IM GRAN % 0.200 Result Comment: IG% - Immature Granulocytes (promyelocytes, myelocytes and metamyelocytes) > 1% indicates that a LEFT SHIFT is Present. LAB L100.2620 2.0-7.7 X10 3/uL Low Absolute Neut 1.9 LAB L100.2720 0.83-4.51 X10 3/ul Normal Absolute Lymph 1.92 Performed By: #### L100.0100 #### [facility] [address] [place], [address] COMPREHENSIVE METABOLIC Collected: 04/10/2018 Status: F Source: [facility] 5:50 AM [facility] TYPE CODE TESTS RESULT OUT OF RANGE REFERENCE UNITS LAB L501.0100 74-106 mg/dL Normal GLU 89 Result Comment: Please note revised GLUCOSE reference range effective 2017. LAB L501.1000 7-18 mg/dL Normal BUN 8 LAB L501.1100 0.55-1.02 mg/dL Normal CREAT,SERUM 0.62 Result Comment: The validity of the calculated GFR AND GFRAA in patients over 70 years has not been determined. Clinical correlation is essential. LAB L501.1110 >60 mL/min Normal EST GFR 112 Result Comment: Non- GFR Calc LAB L501.1115 >60 mL/min Normal EST GFR - AA 136 Result Comment: GFR Calc LAB L501.1255 ml/min Normal Estimated CRCL 111.79 LAB L501.1300 10-20 RATIO BUN/CRE Normal 12.9 LAB L501.1500 6.4-8. g/dL Low 2 T PROT 5.9 LAB L501.1800 3.2-5. g/dL Low 0 ALB 2.6 LAB L501.1950 2.2-4. g/dL 2 GLOB Normal 3.3 LAB L501.2000 0.9-2. RATIO Low 4 A/G 0.8 LAB L501.2200 8.5-10 mg/dL Low .1 CA 8.3 LAB L501.4100 15-37 U/L High AST 131 LAB L501.4305 45-117 U/L High ALK P 241 LAB L501.4405 13-56 U/L High ALT 242 LAB L501.4600 0.20-1 mg/dL .00 T BILI Normal 0.20 LAB L501.5300 136-14 mmol/L High 5 NA 147 LAB L501.5600 3.5-5. mmol/L 1 K Normal 4.4 LAB L501.5900 98-107 mmol/L High CL 112 LAB L501.6100 21.0-3 mmol/L 2.0 CO2 Normal 27.0 LAB L501.6200 5-15 GAP Normal 8 Performed By: #### L500.4050, L501.2300, L501.5200 #### [facility] [address] [place], [place], [id number] PHOSPHORUS Collected: 04/10/2018 Status: F Source: [place] 5:50 AM [facility] TYPE CODE TESTS RESULT OUT OF RANGE REFERENCE UNITS LAB L501.2300 2.5-4.9 mg/dL Normal PHOS 3.2 Performed By: #### L500.4050, L501.2300, L501.5200 #### [facility] [address] [place], [place], [address] MAGNESIUM Collected: 04/10/2018 Status: F Source: [place] 5:50 AM [facility] TYPE CODE TESTS RESULT OUT OF RANGE REFERENCE UNITS LAB L501.5200 1.6-2.6 mg/dL Normal MG 2.0 Performed By: #### L500.4050, L501.2300, L501.5200 #### [facility] [address] [place], [place], [address] LIVER Observed: 04/10/2018 Status: F Source: [place] 12:01 AM [facility] Imaging Services [address] [place] [address] Liver MR#: [id number] Acct: [id number] Name: MARE APONTE Rep #: [id number] : 1975 F 42 From: Kev Gama MD PCP: Syuapa Haddad DO Status: ADM TREY Study: Liver Date of Exam: 04/10/18 Exam# [id number] Ordering Dr: Zak Salguero DO STUDY: ABDOMINAL ULTRASOUND - RIGHT UPPER QUADRANT REASON FOR VISIT: Female, 42 years old. Abnormal liver function tests. TECHNIQUE: Ultrasound evaluation of the right upper quadrant was performed with real-time and static evangelista-scale imaging. TECHNICAL QUALITY: Adequate. COMPARISON: Comparison is made with prior CT scan of the abdomen dated April 08, 2018. FINDINGS: Liver: The liver measures 15.2 cm. There is mild increased echogenicity consistent with fatty infiltration. The bile ducts are within normal limits. There is hepatic color flow. The direction of portal flow is hepatopetal. There is no demonstrated mass lesion. Gallbladder: The patient is status post cholecystectomy. Common Bile Duct (C.B.D.): The common bile duct is dilated and measures 9.0 mm. This may be related to prior cholecystectomy. Pancreas: Normal size of the head, body and tail of the pancreas. There is normal echogenicity of the pancreas. There is no demonstrated pancreatic mass or cyst. Right Kidney: Normal size of the right kidney. The right kidney measures 10.5 cm x 4.6 x 2 x 4.5 cm. Normal renal cortex. The right cortex measures 1.6 cm. There is no demonstrated renal mass or cyst. There is no right hydronephrosis. US/Liver IMPRESSION: Status post cholecystectomy and mild prominence of the common bile duct. Mild degree of fatty infiltration of the liver. Electronically Signed: Kev Gama MD at 13:45 EST Tel [phone], Service support , CC: Miguelina Salguero; Suyapa Haddad DO [employer] Functional Tester: Signed Observed: 04/09/2018 Status: F Source: [place] CULTURE, BLOOD (WB) 1:25 PM [facility] Has pt arrived? Y BC No growth in 5 days. Performed By: #### M200.1000 #### [facility] [address] [place], [address] Observed: 04/09/2018 Status: F Source: [place] CULTURE, BLOOD (WB) 1:17 PM [facility] Has pt arrived? Y BC No growth in 5 days. Performed By: #### M200.1000 #### [facility] [address] [place], [address] ACETAMINOPHEN (TYLENOL) Collected: 04/09/2018 Status: F Source: [place] LEVEL 1:10 PM [facility] TYPE CODE TESTS RESULT OUT OF REFERENCE UNITS RANGE LAB L501.8400 10.0-30.0 ug/mL ACETAMINOPHEN Low < 2.0 Performed By: #### L501.8400 #### [facility] [address] [place], [address] Observed: 04/09/2018 Status: F Source: [place] INFLUENZA A+B (RAPID 11:46 AM [facility] [place] REPOSITORY FLU A/B Rapid Negative test results should be confirmed by culture. Order Rapid Viral Culture for Influenzae A+B ([id number]) if clinically indicated. Influenza Ag, Direct Presumptive NEGATIVE for Influenza A/B Antigen (See Note) Performed By: #### M101.0101 #### [facility] [address] [place], [address] Observed: 04/09/2018 Status: F Source: [place] RESPIRATORY PANEL 11:46 AM [facility] REPOSITORY RP PANEL ADENOVIRUS Not Detected HUMAN METAPHNEUMO Not Detected INFLUENZA A Not Detected INFLUENZA A (SUBTYPE H1) Not Detected INFLUENZA A (SUBTYPE H3) Not Detected INFLUENZA B Not Detected PARAINFLUENZA 1 Not Detected PARAINFLUENZA 2 Not Detected PARAINFLUENZA 3 Not Detected PARAINFLUENZA 4 Not Detected RHINOVIRUS Not Detected RSV A Not Detected RSV B Not Detected NAAT METHOD Testing was performed using nucleic acid amplification Performed By: #### M100.638 #### [facility] [address] [place], [address] PROTHROMBIN TIME W/INR Collected: 04/09/2018 Status: F Source: [place] 11:36 AM [facility] TYPE CODE TESTS RESULT OUT OF RANGE REFERENCE UNITS LAB L300.4150 11.7-14.9 SECONDS Normal PROTIME 13.8 LAB L300.4200 Normal INR 1.1 Performed By: #### L300.3900 #### [facility] [address] [place] [address], [address] CBC W/DIFF, AUTOMATED Collected: 04/09/2018 Status: F Source: [place] 5:43 AM [facility] TYPE CODE TESTS RESULT OUT OF RANGE REFERENCE UNITS LAB L100.1000 4.4-11.0 K/mm3 Low WBC 3.6 LAB L100.1200 4.2-5.4 M/mm3 Low RBC 4.11 LAB L100.1300 12.0-15.0 g/dl Low HGB 11.2 LAB L100.1400 37-47 % Low HCT 35.0 LAB L100.1500 81-99 fL Normal MCV 85.2 LAB L100.1600 27.0-32.0 pg Normal MCH 27.3 LAB L100.1700 32-36 g/gl Normal MCHC 32.0 LAB L100.1810 11.6-14.6 % Normal RDW CV 14.5 LAB L100.1820 35.1-43.9 fl High RDW SD 44.4 LAB L100.1900 150-450 K/mm3 Normal PLT 172 LAB L100.2000 6.2-12.0 fl High MPV 13.4 LAB L100.2100 47-70 % Normal NEUT% 52.1 LAB L100.2200 19-41 % Normal LY% 36.2 LAB L100.2300 0-10 % Normal MONO% 8.4 LAB L100.2400 0-5 % Normal EO% 2.2 LAB L100.2500 0-1 % Normal BASO% 0.8 LAB L100.2550 0.0-0.9 % Normal IM GRAN % 0.300 Result Comment: IG% - Immature Granulocytes (promyelocytes, myelocytes and metamyelocytes) > 1% indicates that a LEFT SHIFT is Present. LAB L100.2620 2.0-7.7 X10 3/uL Low Absolute Neut 1.9 LAB L100.2720 0.83-4.51 X10 3/ul Normal Absolute Lymph 1.29 Performed By: #### L100.0100 #### [facility] [address] [place], [place], [address] BASIC METABOLIC Collected: 04/09/2018 Status: F Source: [place] PROFILE (BMP) 5:43 AM [facility] [place] TYPE CODE TESTS RESULT OUT OF RANGE REFERENCE UNITS LAB L501.0100 74-106 mg/dL Normal GLU 88 Result Comment: Please note revised GLUCOSE reference range effective 2017. LAB L501.1000 7-18 mg/dL Normal BUN 7 LAB L501.1100 0.55-1.02 mg/dL Normal CREAT,SERUM 0.60 Result Comment: The validity of the calculated GFR AND GFRAA in patients over 70 years has not been determined. Clinical correlation is essential. LAB L501.1110 >60 mL/min Normal EST GFR 117 Result Comment: Non- GFR Calc LAB L501.1115 >60 mL/min Normal EST GFR - AA 142 Result Comment: GFR Calc LAB L501.1255 ml/min Normal Estimated CRCL 115.51 LAB L501.1300 10-20 RATIO BUN/CRE Normal 11.7 LAB L501.2200 8.5-10 mg/dL Low .1 CA 7.5 LAB L501.5300 136-14 mmol/L 5 NA Normal 145 LAB L501.5600 3.5-5. mmol/L 1 K Normal 3.6 LAB L501.5900 98-107 mmol/L High CL 112 LAB L501.6100 21.0-3 mmol/L 2.0 CO2 Normal 26.0 LAB L501.6200 5-15 GAP Normal 7 Performed By: #### L500.2500, L500.3400 #### [facility] [address] [place], [address] LIVER PROFILE Collected: 04/09/2018 Status: F Source: [place] 5:43 AM [facility] TYPE CODE TESTS RESULT OUT OF RANGE REFERENCE UNITS LAB L501.1500 6.4-8.2 g/dL Low T PROT 6.0 LAB L501.1800 3.2-5.0 g/dL Low ALB 2.5 LAB L501.1950 2.2-4.2 g/dL Normal GLOB 3.5 LAB L501.4100 15-37 U/L High AST 401 LAB L501.4305 45-117 U/L High ALK P 248 LAB L501.4405 13-56 U/L High ALT 339 LAB L501.4600 0.20-1.00 mg/dL Normal T BILI 0.80 LAB L501.4700 0.00-0.30 mg/dL High D BILI 0.41 Performed By: #### L500.2500, L500.3400 #### [facility] [place], [address] LACTIC ACID Collected: 04/08/2018 Status: F Source: [place] 9:30 PM [facility] Order Comment: Yes/No query for Sepsis Lactate Rule Y TYPE CODE TESTS RESULT OUT OF RANGE REFERENCE UNITS LAB L503.6005 0.4-2.0 mmol/L Normal LACTIC ACID 1.2 Performed By: #### L503.6005 #### [facility] [place], [address] HEPATITIS PANEL ACUTE Collected: 04/08/2018 Status: F Source: [place] 9:30 PM [facility] TYPE CODE TESTS RESULT OUT OF RANGE REFERENCE UNITS LAB L3100.0200 Negative Normal HEP A Negative IgM 6734 LAB L3100.0400 Negative Normal HB Negative SURF AG LAB L3100.0440 Negative Normal HB Negative CORE [id number] LAB L3100.0650 0.0-0.9 s/co ratio Normal HEP C <0.1 AB Result Comment: Negative: < 0.8 Indeterminate: 0.8 - 0.9 Positive: > 0.9 The CDC recommends that a positive HCV antibody result be followed up with a HCV Nucleic Acid Amplification test (180572). Performed at: - [facility] [address] [id number] Manager Spa: Marshall Tomlin PhD, Phone: [phone] Performed By: #### L3000.0375 #### [facility] (refer to report for specific site) refer to report for address and phone number HISTORY AND PHYSICAL Observed: 04/08/2018 Status: F Source: [place] EXAM 8:12 PM [facility] Medical Records Department [address] [place] [address] History and Physical 04/08/18 1858 MR#: [id number] Acct: [id number] Name: MARE APONTE Rep #: [id number] : 1975 42 From: Clay Liz MD PCP: Suyapa Haddad DO Status: ADM TREY Y Location: [place] [address] ADDENDUM by Clay Liz MD on 04/08/18 at 2011 Code Visit OBSV E AND M: [id number] Initial observation care L3 04/08/182011 <Electronically signed by Clay Liz MD> Date Clay Liz MD cc: Suyapa Haddad DO; Clay Liz MD * Signed Problem List (1) UTI (urinary tract infection) Status: Acute (2) Rheumatoid arthritis Status: Chronic (3) Depression Status: Chronic History of Present Illness Date of Admission: 04/08/18 Chief Complaint: Persistent n/v The patient is a 42 year old female w/ h/o RA, depression and arthritis is admitted for persistent n/v. She was sent from urgent care to the ED for n/v and diarrhea. Her story changes but for me, her nausea and vomiting started this morning and have gotten progressively worse. Nothing improved or worsened her n/v. She also has left lower abdominal pain. Pain is sharp, and constant. Lying flat worsened pain and sitting up helped with pain. Pain radiated to the left flank. Pain is severe. She also has been having diarrhea. She has multiple episodes of diarrhea. She has fever as high as 102 today. She feels she is not well enough to go home. Past Medical History Past Medical History (Chronic Problems): Chronic Problems (Last Reviewed 06/10/17 @ 09:10 by Linda Bazan) Rheumatoid arthritis (Chronic) Depression (Chronic) Medical History: Medical History (Last Reviewed 04/08/18 @ 19:16 by Clay Liz MD) Anemia D64.9 Arthritis M19.90 Allergies shellfish derived Allergy (Verified 04/08/18 12:44) Hives clindamycin Adverse Reaction (Verified 04/08/18 12:44) Other CONSTIPATION Home Medications: Ambulatory Orders Medication Instructions Recorded busPIRone [Buspar] 15 mg PO BID 02/07/14 duloxetine 20 mg capsule,delayed 30 mg PO DAILY 05/27/17 release Loratadine [Claritin] 10 mg PO DAILY 04/08/18 Surgical History: Surgical History (Last Reviewed 04/08/18 @ 19:16 by Clay Liz MD) History of tubal ligation Z98.51 Hx of cholecystectomy Z98.890, Z90.49 Surgical History: cholecystectomy, - - Tubal ligation Psychiatric History: No pertinent psych hx 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 Lives: With Family Smoking Status: Former smoker Tobacco Use: Non-smoker Alcohol: None Drugs: None - *Family History Maternal Family History: Family History (Last Reviewed 04/08/18 @ 19:16 by Clay Liz MD) Sister Thyroid disorder Depression Father Glaucoma CVA (cerebral vascular accident) Mother Mental health disorder History Items: - - Denies any family history of blood clots Paternal Family History: Family History (Last Reviewed 04/08/18 @ 19:16 by Clay Liz MD) Sister Thyroid disorder Depression Father Glaucoma CVA (cerebral vascular accident) Mother Mental health disorder History Items: Heart Disease Review of Systems Constitutional: Reports: Chills, Fever. Denies: Weight Change HEENT: Denies: Head Aches, Sinus Congestion, Sinus Drainage Cardiovascular: Denies: Chest Pain, Palpitations Respiratory: Denies: Cough, Shortness of breath at rest, Sputum production Gastrointestinal: Reports: Abdominal Pain, Nausea, Vomiting Genitourinary: Denies: Dysuria Musculoskeletal: Denies: Joint Pain, Joint Tenderness Skin: Denies: Rash, Wounds Neurological: Denies: Numbness, Tingling, Focal weakness Psychiatric: Denies: Anxiety, Depression, Homicidal Ideations, Suicidal Ideations Hematologic/ Lymphatic: Denies: Easy Bruising, Easy Bleeding VTE Information - Inpt Only VTE Present on Admission: No VTE Mechan Device Prophylaxis: SCD's VTE Pharm Prophylaxis ordered?: Yes Patient Problems: Active and Suspected Problems (Last Reviewed 06/10/17 @ 09:10 by Linda Bazan) UTI (urinary tract infection) (Acute) - Physical Exam General: Alert, Oriented x3, Cooperative HEENT: Atraumatic, PERRLA, EOMI, Normocephalic Neck: Supple, No JVD, Negative Carotid Bruits Lungs: Clear to auscultation, Normal air movement Cardiovascular: Regular rate, No murmurs Abdomen: Soft, Hypoactive Bowel Sounds, Tender Extremities: No edema, Capillary Refill Less than 3 Seconds Skin: No rashes, No breakdown Musculoskeletal: No Tenderness to Palpation of Joints or Extremities Neurological: Cranial nerves II-XII grossly intact Psych/Mental Status: Normal Affect, Appropriate Vital Signs Temp Pulse Resp BP Pulse Ox 98.2 F 99 84 H 121/63 H 98 04/08/18 17:18 04/08/18 17:18 04/08/18 17:18 04/08/18 16:26 04/08/18 17:18 Oxygen Delivery Method Room Air Weight: 102.9 kg Body Mass Index (BMI) 36.6 Finger Stick Blood Glucose 122 Laboratory Tests Past 24 Hrs WBC 6.9 RBC 4.82 Hgb 13.3 Hct 40.5 MCV 84.0 MCH 27.6 MCHC 32.8 WBC RBC Hgb Hct MCV MCH MCHC RDW RDW Differential Plt Count Assessment/Plan All Active Problems (Last Reviewed 06/10/17 @ 09:10 by Linda Bazan) UTI (urinary tract infection) (Acute) Contusion of rib on right side (Acute) 42 year old female w/ h/o RA, depression and arthritis is admitted for persistent n/v. 1) N/V: Unclear etiologies. Possible secondary to UTI vs. hepatitis. Will start ceftriaxone. Will get Utox. IVF hydration given SBP in the 80s. 2) Hepatitis: Possible ischemic hepatitis. Will get hepatitis panel. Will repeat LFTs. Supportive care. 3) Diarrhea: CT unremarkable. Will get C.diff. IVF hydration. 4) Chronic issues: Depression. Resume home meds. 5) Prophylaxis: SCD / lovenox. Code Visit Inpatient Angela AND M: [id number] Init Hosp L3 04/08/181920 <Electronically signed by Clay Liz MD> Date Clay Liz MD Cosigner Signature: Date (if applicable) CC: Suyapa Haddad DO; Clay Liz MD Signed EMERGENCY DEPARTMENT Observed: 04/08/2018 Status: C Source: [place] SUMMARY 6:10 PM [facility] [place] Medical Records Department [address] [place] [address] Emergency Department Summary 04/08/18 1303 MR#: [id number] Acct: [id number] Name: MARE APONTE Rep #: [id number] : 1975 42 From: Yovani Taylor MD PCP: Suyapa Haddad DO Status: REG ER ADDENDUM by Jr Paniagua DO on 04/08/18 at 1810 The patient was turned over to tn. CT scan does not show any evidence of bowel obstruction or acute inflammatory process. Urinalysis showed 10-25 white blood cells with greater than 100 red blood cells. Patient was given a dose of Bactrim here. Patient still feels like she is only slightly better. Patient does not feel comfortable going home. Case will be discussed with the hospitalist. Date Jr Paniagua DO cc: Suyapa Haddad DO * Addendum - ER Visit Summary Date of Service: 04/08/18 Chief Complaint: Nausea, vomiting, diarrhea History of Present Illness: The patient is a 42 F who was sent from urgent care for nausea, vomiting, and diarrhea. Her symptoms have been going on for 4 days and they are gradually getting worse. She also reports some mid abdominal pain and left-sided back pain. She tried Zofran, but it is not helping. She is also having fevers. She is otherwise fairly healthy. She has a history of rheumatoid arthritis and fibromyalgia. Physical Examination: Afebrile and vital signs unremarkable. The patient is clutching an emesis bag and appears nauseated. Alert and oriented. Heart regular. Lungs clear. Back is nontender. Abdomen nontender. Skin appears normal. Test Results: Labs, urinalysis pending. Emergency Department Course and Treatment: Patient treated with IV fluids and Zofran while awaiting results. Patient's labs showed elevated liver enzymes. Alkaline phosphatase 157, ALT 128, AST 49. Her labs were otherwise unremarkable. Urine and test were pending. Patient had continued pain and received additional morphine. I am concerned given her hepatitis and increasing pain. She has had a cholecystectomy already. I will check a CT given her severe pain and continued symptoms. Results are pending. The oncoming doctor will check the CT, urinalysis, and test. Treatment Plan: As above Disposition: Pending further evaluation Impression: 1. Abdominal pain 2. Hepatitis This note was generated with imgfave dictation software. It may contain incorrect words, spelling, and punctuation that were not noted in review of the chart prior to signing ED Disposition - Plan for ED Patient: Chief Complaint: General Illness Referrals: Suyapa Haddad, DO [Primary Care Provider] - What to do if you have Problems For any increased pain, shortness of breath, bleeding, nausea or vomiting, chest pain, or any unexpected problems, contact your Primary Care Provider. Call [facility] ([phone]) or report to the closest Emergency Room. Call 911 if necessary. 04/08/18 7820 <Electronically signed by Yovani Taylor MD> Date Yovani Taylor MD Cosigner Signature (If Indicated): Date CC: Suyapa Haddad DO ,URINE Collected: 04/08/2018 Status: F Source: [place] 4:15 PM [facility] [place] Order Comment: Order Date: 04/08/18 TYPE CODE TESTS RESULT OUT OF REFERENCE UNITS RANGE LAB L400.8000 Negative Normal HCGUQUAL Negative Result Comment: Very dilute urine specimens, as indicated by a low specific gravity, may not contain patient account representative levels of hCG. If is still suspected, a first morning urine specimen should be collected 48 hours later and tested. Performed By: #### L400.7600 #### [facility] [address] [place], [address] URINALYSIS, COMPLETE Collected: 04/08/2018 Status: F Source: [place] 4:15 PM [facility] Order Comment: Order Date: 04/08/18 How was Urine Obtained? CLEAN CATCH TYPE CODE TESTS RESULT OUT OF RANGE REFERENCE UNITS LAB L400.3000 Yellow COLOR Normal Yellow LAB L400.3050 Clear Normal CLARITY Sl. Cloudy LAB L400.3200 Normal mg/dl Normal GLUCOSE, UR Normal LAB L400.3300 Negative mg/dL Normal BILIRUBIN URINE Negative LAB L400.3400 Negative mg/dl Normal KETONE UR Negative LAB L400.3465 1.002-1.030 Normal SP.GR. DIPSTX 1.010 LAB L400.3550 5.0 - 8.0 pH UR Normal 6.0 LAB L400.3600 Negative mg/dl High PROT 15 DIPSTX LAB L400.3700 Normal mg/dl Normal UROBILI Normal LAB L400.3750 Negative Normal NITRITE UR Negative LAB L400.3780 Negative /ul High OCCULT BLOOD-UR 250 LAB L400.3800 Negative /ul High LEUK ESTERASE 100 LAB L400.4050 0-5 /hpf WBC Normal 10-25 SEEN LAB L400.4100 0-5 /hpf > Normal RBC-UA 100 SEEN LAB L400.4150 5-10 /hpf SQUAM Normal EPI 0-5 SEEN LAB L400.4300 None Seen /hpf 0 Normal BACTERIA SEEN LAB L400.4350 <or=2+ /hpf 0 Normal MUCUS, URINE SEEN Performed By: #### L400.0001 #### [facility] [address] [place] [place], [address] URINE DRUG SCREEN Collected: 04/08/2018 Status: F Source: [place] (VISTA) 4:15 PM [facility] TYPE CODE TESTS RESULT OUT OF RANGE REFERENCE UNITS LAB L505.0075 TO BE Normal CONFIRMED Result Comment: CONFIRMATORY TESTING FOR ALL POSITIVE URINE DRUG SCREEN RESULTS WILL ONLY BE SENT OUT UPON PHYSICIAN ORDER. VISTA Urine Drug Screen methods provide only preliminary analytical test results. A more specific alternate chemical method must be used in order to obtain a confirmed analytical result. Gas chromatography/mass spectrometery (GC/MS) is the preferred confirmatory method. Clinical consideration and professional judgement should be applied to any drug of abuse test result, particularly when preliminary positive results are used. URINE TCA TESTING MUST BE ORDERED SEPARATELY. USE TEST MNEMONIC: [facility] LAB L505.5005 VISTA UDS PH 6 Normal LAB L505.5015 <1000 ng/mL AMPHETAMINES Normal NEGATIVE LAB L505.5025 < 200 ng/mL BARBITIURATES Normal NEGATIVE LAB L505.5035 < 200 ng/mL BENZODIAZIPINE Normal NEGATIVE LAB L505.5045 < 300 ng/mL COCAINE Normal NEGATIVE LAB L505.5055 < 500 ng/mL ECSTACY Normal NEGATIVE LAB L505.5065 < 300 ng/mL METHADONE Normal NEGATIVE LAB L505.5075 < 300 High ng/mL OPIATES POSITIVE LAB L505.5085 < 25 ng/mL PCP Normal NEGATIVE LAB L505.5095 < 50 ng/mL THC Normal NEGATIVE Performed By: #### L505.5000 #### [facility] [address] [place], [address] ABDOMEN/PELVIS W IV CONT Observed: 04/08/2018 Status: F Source: [place] ONLY 3:06 PM [facility] Imaging Services [address] [place] [address] Abdomen/Pelvis W IV Cont ONLY MR#: [id number] Acct: [id number] Name: MARE APONTE Rep #: [id number] : 1975 F 42 From: Abraham Oneill MD PCP: Suyapa Haddad DO Status: REG ER Study: Abdomen/Pelvis W IV Cont ONLY Date of Exam: 04/08/18 Exam# [id number] Ordering Dr: Yovani Taylor MD STUDY: CT ABDOMEN AND PELVIS WITH CONTRAST REASON FOR EXAM: Female, 42 years old. Fever RADIATION DOSAGE (If Supplied By Facility): CTDIvol = ( 19.76 ) mGy, DLP = ( 1250.10 ) mGycm TECHNIQUE: Transaxial images were obtained from the dome of the diaphragm to the symphysis pubis without oral contrast. 100ML ml of Isovue 300 contrast was administered. Sagittal and coronal images were reconstructed. Individualized dose optimization techniques were used for this CT. COMPARISON: December 08, 2017 FINDINGS: The visualized lung bases are unremarkable. The visualized portions of the heart are within normal limits. Normal liver. There are surgical clips in the gallbladder fossa consistent with a prior cholecystectomy. Metallic density along the lateral right hepatic lobe likely is related to prior cholecystectomy. Similar biliary prominence of the intrahepatic and extra hepatic bile ducts, likely related to prior cholecystectomy, doubtful significance. Normal spleen. Normal pancreas. Normal bilateral adrenal glands. Normal right kidney. Normal left kidney. Normal visualized stomach. Normal small intestine. Normal colon. The appendix is visualized and appears normal. Normal abdominal aorta. Normal inferior vena cava. Normal retroperitoneum. Normal urinary bladder. Normal abdominal wall. Similar degenerative disc disease at L5-S1. CT/Abdomen/Pelvis W IV Cont ONLY IMPRESSION: 1. No acute inflammatory process or bowel obstruction. 2. Cholecystectomy. 3. Stable chronic changes, as above. Electronically Signed: Abraham Oneill MD at 17:44 EST , Service support , CC: Yovani Taylor MD; Suyapa Haddad DO [employer] Functional Tester: Signed CBC W/DIFF, AUTOMATED Collected: 04/08/2018 Status: F Source: [place] 1:10 PM [facility] TYPE CODE TESTS RESULT OUT OF RANGE REFERENCE UNITS LAB L100.1000 4.4-11.0 K/mm3 Normal WBC 6.9 LAB L100.1200 4.2-5.4 M/mm3 Normal RBC 4.82 LAB L100.1300 12.0-15.0 g/dl Normal HGB 13.3 LAB L100.1400 37-47 % Normal HCT 40.5 LAB L100.1500 81-99 fL Normal MCV 84.0 LAB L100.1600 27.0-32.0 pg Normal MCH 27.6 LAB L100.1700 32-36 g/gl Normal MCHC 32.8 LAB L100.1810 11.6-14.6 % Normal RDW CV 14.4 LAB L100.1820 35.1-43.9 fl Normal RDW SD 43.4 LAB L100.1900 150-450 K/mm3 Normal PLT 204 LAB L100.2000 6.2-12.0 fl High MPV 13.1 LAB L100.2100 47-70 % Normal NEUT% 62.6 LAB L100.2200 19-41 % Normal LY% 27.0 LAB L100.2300 0-10 % Normal MONO% 7.4 LAB L100.2400 0-5 % Normal EO% 2.6 LAB L100.2500 0-1 % Normal BASO% 0.3 LAB L100.2550 0.0-0.9 % Normal IM GRAN % 0.100 Result Comment: IG% - Immature Granulocytes (promyelocytes, myelocytes and metamyelocytes) > 1% indicates that a LEFT SHIFT is Present. LAB L100.2620 2.0-7.7 X10 3/uL Normal Absolute Neut 4.3 LAB L100.2720 0.83-4.51 X10 3/ul Normal Absolute Lymph 1.85 Performed By: #### L100.0100 #### [facility] [address] [address] [place], [address] COMPREHENSIVE METABOLIC Collected: 04/08/2018 Status: F Source: [place] MAKC 1:10 PM [facility] TYPE CODE TESTS RESULT OUT OF RANGE REFERENCE UNITS LAB L501.0100 74-106 mg/dL Normal GLU 89 Result Comment: Please note revised GLUCOSE reference range effective 2017. LAB L501.1000 7-18 mg/dL Normal BUN 11 LAB L501.1100 0.55-1.02 mg/dL Normal CREAT,SERUM 0.64 Result Comment: The validity of the calculated GFR AND GFRAA in patients over 70 years has not been determined. Clinical correlation is essential. LAB L501.1110 >60 mL/min Normal EST GFR 109 Result Comment: Non- GFR Calc LAB L501.1115 >60 mL/min Normal EST GFR - AA 132 Result Comment: GFR Calc LAB L501.1255 ml/min Normal Estimated CRCL 108.29 LAB L501.1300 10-20 RATIO BUN/CRE Normal 17.3 LAB L501.1500 6.4-8. g/dL 2 T PROT Normal 7.3 LAB L501.1800 3.2-5. g/dL 0 ALB Normal 3.2 LAB L501.1950 2.2-4. g/dL 2 GLOB Normal 4.1 LAB L501.2000 0.9-2. RATIO Low 4 A/G 0.8 LAB L501.2200 8.5-10 mg/dL Low .1 CA 8.2 LAB L501.4100 15-37 U/L High AST 49 LAB L501.4305 45-117 U/L High ALK P 157 LAB L501.4405 13-56 U/L High ALT 128 LAB L501.4600 0.20-1 mg/dL .00 T BILI Normal 0.20 LAB L501.5300 136-14 mmol/L 5 NA Normal 143 LAB L501.5600 3.5-5. mmol/L 1 K Normal 3.6 LAB L501.5900 98-107 mmol/L High CL 108 LAB L501.6100 21.0-3 mmol/L 2.0 CO2 Normal 28.0 LAB L501.6200 5-15 GAP Normal 7 Performed By: #### L500.4050, L501.2450 #### [facility] [address], [address] LIPASE Collected: 04/08/2018 Status: F Source: [place] 1:10 PM [facility] TYPE CODE TESTS RESULT OUT OF RANGE REFERENCE UNITS LAB L501.2450 73-393 U/L Normal LIPASE 81 Performed By: #### L500.4050, L501.2450 #### [facility] [address] [place], [address] EMERGENCY DEPARTMENT Observed: 01/19/2018 Status: F Source: [place] SUMMARY 1:11 AM [facility] Medical Records Department [address] [place] [address] Emergency Department Summary 01/18/18 2304 MR#: [id number] Acct: [id number] Name: MARE APONTE Rep #: [id number] : 1975 42 From: Suyapa Kelly MD PCP: Suyapa Haddad DO Status: DEP ER - ER Visit Summary Date of Service: 01/18/18 Chief Complaint: Left foot injury History of Present Illness: The patient is a 42 F who presents for left foot injury that occurred at work tonight. Patient accidentally rolled a Bacilio lift over her left foot while a patient who weighed approximately 300 pounds was on it. Patient is complaining of pain, especially with weightbearing. She denies any other injuries. She states she has been limping on her heel. She tried ice without improvement. She has history of fibromyalgia and rheumatoid arthritis. Patient denies any other complaints. Physical Examination: Patient is well-nourished well-developed sitting in bed in no distress. Afebrile hemodynamically stable. Examination of the left lower extremity shows contusion and tenderness the proximal second toe. Patient able to wiggle all toes. Brisk cap refill in all toes. Mild tenderness to the dorsum of the foot proximal to the second toe. No tenderness to the medial or lateral malleolus, to the base of the fifth metatarsal tarsal or the navicular head. DP pulses 2+. No deformities or other contusions, no swelling. Remainder of exam unremarkable. Test Results: Clinical Impression(s) from Imaging Studies Foot X-Ray 01/18/18 22:34 IMPRESSION: Normal x-ray examination of the foot. Electronically Signed: Tiffanie Montero MD at 23:07 EDT Tel , Service support , Medications Given Discontinued Medications Naproxen (Naprosyn) 500 mg PO X1 ONE Stop: 01/18/18 23:05 Last Admin: 01/18/18 23:12 Dose: 500 mg Emergency Department Course and Treatment: Patient was given naproxen for pain. X-ray was performed to the foot. No fracture was noted. Patient was placed in an postop shoe for support to use as needed. Worker's Comp. paperwork was filled out. She will use [id number] pain medication, rest, ice and elevation as needed. Discharge home. Treatment Plan: [] Disposition: [] Impression: Left foot contusion This note was generated with backstitchation software. It may contain incorrect words, spelling, and punctuation that were not noted in review of the chart prior to signing ED Disposition - Plan for ED Patient: Disposition: Home or Assisted Living Chief Complaint: Lower Extremity Injury Instructions: ED Contusion Foot Referrals: [facility] [GROUP OF PHYSICIANS] - 1 Day Suyapa Haddad DO [Primary Care Provider] - 3-5 Days if not improving Additional Instructions: Wear the post-op shoe as needed for comfort. Ice and elevate your foot to help with pain. Use over the counter pain medication as needed. Follow-up with your workers comp program as instructed by your human resources department. If you have any worsening of your condition or any new concerning symptoms, please return immediately to the emergency department for another evaluation. What to do if you have Problems For any increased pain, shortness of breath, bleeding, nausea or vomiting, chest pain, or any unexpected problems, contact your Primary Care Provider. Call [facility] ([phone]) or report to the closest Emergency Room. Call 911 if necessary. 01/19/18 0111 <Electronically signed by Suyapa Kelly MD> Date Suyapa Kelly MD Cosigner Signature (If Indicated): Date CC: Suyapa Malys DO DISCHARGE INSTRUCTION Observed: 01/19/2018 Status: F Source: [place] 12:24 AM [facility] Medical Records Department [address] [place] [address] Discharge Instruction 01/18/18 2348 MR#: [id number] Acct: [id number] Name: MARE APONTE Rep #: [id number] : 1975 42 From: Suyapa Kelly MD PCP: Suyapa Haddad DO Status: DEP ER ED Disposition - Plan for ED Patient: Disposition: Home or Assisted Living Chief Complaint: Lower Extremity Injury Instructions: ED Contusion Foot Referrals: Suyapa Haddad DO [Primary Care Provider] - 3-5 Days if not improving [facility] [GROUP OF PHYSICIANS] - 1 Day Additional Instructions: Wear the post-op shoe as needed for comfort. Ice and elevate your foot to help with pain. Use over the counter pain medication as needed. Follow-up with your workers comp program as instructed by your human resources department. If you have any worsening of your condition or any new concerning symptoms, please return immediately to the emergency department for another evaluation. What to do if you have Problems For any increased pain, shortness of breath, bleeding, nausea or vomiting, chest pain, or any unexpected problems, contact your Primary Care Provider. Call [facility] ([phone]) or report to the closest Emergency Room. Call 911 if necessary. 01/19/18 0024 <Electronically signed by Suyapa Kelly MD> Date Suyapa Kelly MD Cosigner Signature (If Indicated): Date CC: Suyapa Haddad DO FOOT MIN 3 VIEWS Observed: 01/18/2018 Status: F Source: [place] 10:06 PM [facility] Imaging Services [address] [place] [address] Foot min 3 Views MR#: [id number] Acct: [id number] Name: MARE APONTE Rep #: [id number] : 1975 F 42 From: Tiffanie Montero MD PCP: Suyapa Haddad DO Status: REG ER Study: Foot min 3 Views Date of Exam: 01/18/18 Exam# [id number] Ordering Dr: Suyapa Kelly MD STUDY: X-RAY - LEFT FOOT CLINICAL: Female, 42 years old. Left foot pain status post injury. TECHNIQUE: 3 view(s) of the foot. COMPARISON: None. FINDINGS: Normal talus, calcaneus, and tarsal bones. Normal visualized subtalar, talonavicular, calcaneocuboid, tarsal and tarsometatarsal articulations. Normal metatarsi. Normal metatarsophalangeal joint of the great toe. Normal tibial and fibular sesamoid bones. Normal interphalangeal joint of the great toe. Normal phalanges of the great toe. Normal second through fifth metatarsophalangeal joints. Normal interphalangeal joints and phalanges of the lesser toes. The soft tissue structures are unremarkable. RAD/Foot min 3 Views IMPRESSION: Normal x-ray examination of the foot. Electronically Signed: Tiffanie Montero MD at 23:07 EDT Tel , Service support , CC: Suyapa Kelly MD; Suyapa Haddad DO Typewriters Functional Tester: Signed EMERGENCY DEPARTMENT Observed: 12/08/2017 Status: F Source: [place] SUMMARY 2:41 PM [facility] Medical Records Department [address] [place] [address] Emergency Department Summary 12/08/17 1431 MR#: [id number] Acct: [id number] Name: MARE APONTE Rep #: [id number] : 1975 42 From: Hair Calderon MD PCP: Suyapa Haddad DO Status: REG ER - ER Visit Summary Date of Service: 12/08/17 Chief Complaint: Abdominal pain History of Present Illness: The patient is a 42 F with 2 day history of abdominal pain aching it is constant mild to moderate. It is also associated with nausea vomiting and 6-7 episodes of watery diarrhea per day. She describes subjective fevers yesterday. No history of travel, camping, recent antibiotics. No sick contacts, but she has a FOREIGN DIPLOMAT. Physical Examination: Not appear in acute distress. The dry mucous membranes, no obvious facial deformity No C-spine tenderness supple neck. Regular rate and rhythm without any obvious murmurs Clear lungs bilaterally speaking in full sentences without any obvious respiratory distress Abdomen soft with minimal diffuse tenderness. No guarding or rebound. Moves all extremities without any difficulty or pain. Skin does not show any obvious rashes or lesions, no trauma. Alert oriented 3 with no gross focal deficit Emergency Department Course and Treatment: Vision has an unremarkable emergency workup including white count, LFTs and CT. Her urinalysis is not remarkable and she has a negative test. She was hydrated given analgesia and her abdominal exam now shows minimal tenderness. Again no guarding or rebound. I had a long conversation with her we will treat her with Bentyl and antacids for home, if she worsens gets fevers or chills or any other symptoms she needs to return to the emergency department. Discharge stable condition Impression: Diarrhea Abdominal pain This note was generated with imgfave dictation software. It may contain incorrect words, spelling, and punctuation that were not noted in review of the chart prior to signing ED Disposition - Plan for ED Patient: Disposition: Home or Assisted Living Chief Complaint: Nausea/Vomiting/Diarrhea Instructions: ED Diet Vomiting Diarrhea, Abdominal Pain Prescriptions: Dicyclomine HCl [Bentyl] 20 mg PO TIDAC #20 cap Famotidine [Pepcid] 20 mg PO BID #28 tab Referrals: Suyapa Haddad DO [Primary Care Provider] - 3-5 Days What to do if you have Problems For any increased pain, shortness of breath, bleeding, nausea or vomiting, chest pain, or any unexpected problems, contact your Primary Care Provider. Call [facility] ([phone]) or report to the closest Emergency Room. Call 911 if necessary. 12/08/17 1441 <Electronically signed by Hair Calderon MD> Date Hair Calderon MD Cosigner Signature (If Indicated): Date CC: Suyapa Haddad DO URINALYSIS, COMPLETE Collected: 12/08/2017 Status: F Source: [place] 12:35 PM [facility] Order Comment: How was Urine Obtained? CLEAN CATCH TYPE CODE TESTS RESULT OUT OF RANGE REFERENCE UNITS LAB L400.3000 Yellow COLOR Normal Yellow LAB L400.3050 Clear Normal CLARITY Clear LAB L400.3200 Normal mg/dl Normal GLUCOSE, UR Normal LAB L400.3300 Negative mg/dL Normal BILIRUBIN URINE Negative LAB L400.3400 Negative mg/dl Normal KETONE UR Negative LAB L400.3465 1.002-1.030 Normal SP.GR. DIPSTX 1.015 LAB L400.3550 5.0 - 8.0 pH UR Normal 6.0 LAB L400.3600 Negative mg/dl PROT Normal DIPSTX Negative LAB L400.3700 Normal mg/dl Normal UROBILI Normal LAB L400.3750 Negative Normal NITRITE UR Negative LAB L400.3780 Negative /ul Normal OCCULT BLOOD-UR Negative LAB L400.3800 Negative /ul High LEUK 25 ESTERASE LAB L400.4050 0-5 /hpf WBC Normal 0-5 SEEN LAB L400.4100 0-5 /hpf Normal RBC-UA 0-5 SEEN LAB L400.4150 5-10 /hpf SQUAM Normal EPI 0-5 SEEN LAB L400.4300 None Seen /hpf 1+ Normal BACTERIA LAB L400.4350 <or=2+ /hpf 0 Normal MUCUS, URINE SEEN Performed By: #### L400.0001 #### [facility] [address] [place], [address] ,URINE Collected: 12/08/2017 Status: F Source: [place] 12:35 PM [facility] TYPE CODE TESTS RESULT OUT OF REFERENCE UNITS RANGE LAB L400.8000 Negative Normal HCGUQUAL Negative Result Comment: Very dilute urine specimens, as indicated by a low specific gravity, may not contain patient account representative levels of hCG. If is still suspected, a first morning urine specimen should be collected 48 hours later and tested. Performed By: #### L400.7600 #### [facility] [address] [place], [address] COMPREHENSIVE METABOLIC Collected: 12/08/2017 Status: F Source: [place] [facility] 11:49 AM [facility] TYPE CODE TESTS RESULT OUT OF RANGE REFERENCE UNITS LAB L501.0100 74-106 mg/dL Normal GLU 90 Result Comment: Please note revised GLUCOSE reference range effective 2017. LAB L501.1000 7-18 mg/dL Normal BUN 11 LAB L501.1100 0.55-1.02 mg/dL Normal CREAT,SERUM 0.72 Result Comment: The validity of the calculated GFR AND GFRAA in patients over 70 years has not been determined. Clinical correlation is essential. LAB L501.1110 >60 mL/min Normal EST GFR 95 Result Comment: Non- GFR Calc LAB L501.1115 >60 mL/min Normal EST GFR - AA 115 Result Comment: GFR Calc LAB L501.1255 ml/min Normal Estimated CRCL 96.26 LAB L501.1300 10-20 RATIO Normal BUN/CRE 15.4 LAB L501.1500 6.4-8. g/dL Normal 2 T PROT 7.8 LAB L501.1800 3.2-5. g/dL Normal 0 ALB 3.2 LAB L501.1950 2.2-4. g/dL High 2 GLOB 4.6 LAB L501.2000 0.9-2. RATIO Low 4 A/G 0.7 LAB L501.2200 8.5-10 mg/dL Normal .1 CA 8.9 LAB L501.4100 15-37 U/L Normal AST 18 LAB L501.4305 45-117 U/L High ALK P 129 LAB L501.4405 13-56 U/L Normal ALT 20 LAB L501.4600 0.20-1 mg/dL Normal .00 T BILI 0.20 LAB L501.5300 136-14 mmol/L Normal 5 NA 143 LAB L501.5600 3.5-5. mmol/L Normal 1 K 3.8 LAB L501.5900 98-107 mmol/L Normal CL 107 LAB L501.6100 21.0-3 mmol/L Normal 2.0 CO2 32.0 LAB L501.6200 5-15 Low GAP 4 Performed By: #### L500.4050, L501.2450 #### [facility] [address] [place], [address] LIPASE Collected: 12/08/2017 Status: F Source: [place] 11:49 AM [facility] TYPE CODE TESTS RESULT OUT OF RANGE REFERENCE UNITS LAB L501.2450 73-393 U/L Normal LIPASE 155 Performed By: #### L500.4050, L501.2450 #### [facility] [address] [place], [address] CBC W/DIFF, AUTOMATED Collected: 12/08/2017 Status: F Source: [place] 11:49 [facility] REPOSITORY TYPE CODE TESTS RESULT OUT OF RANGE REFERENCE UNITS LAB L100.1000 4.4-11.0 K/mm3 Normal WBC 6.2 LAB L100.1200 4.2-5.4 M/mm3 Normal RBC 4.98 LAB L100.1300 12.0-15.0 g/dl Normal HGB 13.7 LAB L100.1400 37-47 % Normal HCT 41.8 LAB L100.1500 81-99 fL Normal MCV 83.9 LAB L100.1600 27.0-32.0 pg Normal MCH 27.5 LAB L100.1700 32-36 g/gl Normal MCHC 32.8 LAB L100.1810 11.6-14.6 % High RDW CV 15.4 LAB L100.1820 35.1-43.9 fl High RDW SD 46.8 LAB L100.1900 150-450 K/mm3 Normal PLT 193 LAB L100.2000 6.2-12.0 fl High MPV 12.7 LAB L100.2100 47-70 % Normal NEUT% 51.4 LAB L100.2200 19-41 % Normal LY% 34.5 LAB L100.2300 0-10 % Normal MONO% 9.8 LAB L100.2400 0-5 % Normal EO% 3.6 LAB L100.2500 0-1 % Normal BASO% 0.7 LAB L100.2550 0.0-0.9 % Normal IM GRAN % 0.200 Result Comment: IG% - Immature Granulocytes (promyelocytes, myelocytes and metamyelocytes) > 1% indicates that a LEFT SHIFT is Present. LAB L100.2620 2.0-7.7 X10 3/uL Normal Absolute Neut 3.2 LAB L100.2720 0.83-4.51 X10 3/ul Normal Absolute Lymph 2.12 Performed By: #### L100.0100 #### [facility] [address] [place], [address] ABDOMEN/PELVIS WITH Observed: 12/08/2017 Status: F Source: [place] CONTRAST 11:43 AM [facility] Imaging Services [address] [place] [address] Abdomen/Pelvis WITH Contrast MR#: [id number] Acct: [id number] Name: MARE APONTE Rep #: [id number] : 1975 F 42 From: Kev Gama MD PCP: Suyapa Haddad DO Status: REG ER Study: Abdomen/Pelvis WITH Contrast Date of Exam: 12/08/17 Exam# [id number] Ordering Dr: Hair Calderon MD STUDY: CT ABDOMEN AND PELVIS WITH CONTRAST REASON FOR EXAM: Female, 42 years old. 4 day history of nausea and vomiting and diarrhea. Fever. RADIATION DOSAGE (If Supplied By Facility): CTDIvol = ( 15.56 ) mGy, DLP = ( 1056.76 ) mGycm TECHNIQUE: Transaxial images were obtained from the dome of the diaphragm to the symphysis pubis with oral contrast. 100 ml of Isovue 300 contrast was administered. Sagittal and coronal images were reconstructed. Individualized dose optimization techniques were used for this CT. COMPARISON: Comparison is made with prior study dated October 14, 2016. FINDINGS: The visualized lung bases are unremarkable. The visualized portions of the heart are within normal limits. Mild degree of central intrahepatic biliary ductal dilatation. A metallic density seen on the lateral aspect of the liver capsule in the mid portion of the liver. This is unchanged. There are surgical clips in the gallbladder fossa consistent with a prior cholecystectomy. Normal spleen. Normal pancreas. Normal bilateral adrenal glands. Normal right kidney. Normal left kidney. Normal visualized stomach. Normal small intestine. There are multiple colonic diverticula consistent with diverticulosis. The appendix is visualized and appears normal. Normal abdominal aorta. Normal inferior vena cava. Normal retroperitoneum. Normal urinary bladder. Evidence of bilateral tubal ligation. Normal abdominal wall. Disc space narrowing and degeneration at the L5-S1 level. There is loss of the normal lumbar lordosis. CT/Abdomen/Pelvis WITH Contrast IMPRESSION: Status post cholecystectomy with mild degree of intrahepatic biliary ductal dilatation. Electronically Signed: Kev Gama MD at 13:52 EDT Tel [phone], Service support , CC: Suyapa Haddad DO; Hair Calderon MD Type[employer] Functional Tester: Signed DISCHARGE INSTRUCTION Observed: 11/03/2017 Status: F Source: [place] 3:36 PM [facility] Medical Records Department [address] [place] [address] Discharge Instruction 11/03/17 1535 MR#: [id number] Acct: [id number] Name: MARE APONTE Rep #: [id number] : 1975 42 From: Stefan Barrientos DO PCP: Suyapa Haddad DO Status: PRE ER ED Disposition - Plan for ED Patient: Chief Complaint: Laceration Instructions: ED Laceration Hand Referrals: Suyapa Haddad DO [Primary Care Provider] - 10 Day for suture removal What to do if you have Problems For any increased pain, shortness of breath, bleeding, nausea or vomiting, chest pain, or any unexpected problems, contact your Primary Care Provider. Call [email or web address] Registry ([phone]) or report to the closest Emergency Room. Call 911 if necessary. 11/03/17 1536 <Electronically signed by Stefan Barrientos DO> Date Stefan Barrientos DO Cosigner Signature (If Indicated): Date CC: Suyapa Haddad DO EMERGENCY DEPARTMENT Observed: 11/03/2017 Status: F Source: [place] SUMMARY 3:35 PM [facility] Medical Records Department [address] [place] [address] Emergency Department Summary 11/03/17 1533 MR#: [id number] Acct: [id number] Name: MARE APONTE Rep #: [id number] : 1975 42 From: Stefan Barrientos DO PCP: Suyapa Haddad DO Status: PRE ER - ER Visit Summary Date of Service: 11/03/17 Chief Complaint: [Laceration left index finger] History of Present Illness: The patient is a 42 F [presents the emergency department with complaint of lacerating her left index finger approximately noon today. Patient states that she was cutting a piece of butter with her knife when she accidentally lacerated her left index finger. Patient thinks her last tetanus shot was more than 30 years ago. Patient is right-hand dominant.] Physical Examination: [Left index finger-patient has a 1.2 cm flap-like laceration over the distal tip of the pulp of the distal phalanx. Minimal incursion into the distal nail. Neurovascularly intact. Normal range of motion at the DIP and PIP joints.] Test Results: [None indicated] Emergency Department Course and Treatment: [Laceration repair- wound sterilely draped and prepped. A digital block was performed using 1% lidocaine total 6 cc. Wound was cleansed with Shur-Clens and irrigated with copious saline. Using 5-0 nylon a total of 3 single interrupted sutures placed with good wound edge approximation. Patient tolerated procedure well.] Treatment Plan: [Patient advised to follow-up with primary care physician in 10 days for suture removal. Patient advised to return if pain, redness, swelling, or condition should worsen in any way.] Disposition: [Discharged home in stable condition] Impression: [Laceration left index finger 1.2 cm-simple repair] This note was generated with imgfave dictation software. It may contain incorrect words, spelling, and punctuation that were not noted in review of the chart prior to signing ED Disposition - Plan for ED Patient: Chief Complaint: Laceration Referrals: Suyapa Haddad DO [Primary Care Provider] - What to do if you have Problems For any increased pain, shortness of breath, bleeding, nausea or vomiting, chest pain, or any unexpected problems, contact your Primary Care Provider. Call [facility] ([phone]) or report to the closest Emergency Room. Call 911 if necessary. 11/03/17 1535 <Electronically signed by Stefan Barrientos DO> Date Stefan Barrientos DO Cosigner Signature (If Indicated): Date CC: Suyapa Haddad DO EMERGENCY DEPARTMENT Observed: 11/02/2017 Status: F Source: [place] SUMMARY 4:37 PM [facility] Medical Records Department [address] [place] [address] Emergency Department Summary 11/02/17 0905 MR#: [id number] Acct: [id number] Name: MARE APONTE Rep #: [id number] : 1975 42 From: Suyapa Kelly MD PCP: Suyapa Haddad DO Status: DEP ER - ER Visit Summary Date of Service: 11/02/17 Chief Complaint: Rash History of Present Illness: The patient is a 42 F who presents for 2 days of rash. Patient states it started on her right arm and is been prickly, painful and very itchy. It is now on her entire body including both arms, legs, stomach, back, neck, and some itching on her scalp. Complains of mouth pain as well. She recently had a sore throat and ear pain and was treated with penicillin from an urgent care. She stopped the penicillin 5 days ago. She denies any fever, abdominal pain, nausea or vomiting, chest pain, shortness of breath, myalgias or arthralgias. She does state she had loose stool yesterday. Physical Examination: Vital signs: afebrile, hemodynamically stable, no hypoxia on room air General: well nourished, well developed, in no distress, constantly scratching Skin: warm, dry, no pallor, few scattered erythematous papules with excoriations and appearance of possible vesicular tops, consistent with poison olga on the right upper extremity. No rash noted to the abdomen, back, lower extremities, neck, scalp or face. Patient has sun exposure pattern on the back with excoriations on the shoulders. Right ear is erythematous, TMs are clear. HEENT: normocephalic and atraumatic; PERRL, EOMI, moist mucous membranes, single lesion on mucosal surface of lower lip with appearance of an aphthous ulcer. Cardiovascular: regular rate and rhythm without murmurs, no peripheral edema, 2+ pulses all distal extremities Respiratory: No increased work of breathing, lungs are clear to auscultation bilaterally, no rales, rhonchi or wheezing Abdominal: Abdomen is soft, nontender with normoactive bowel sounds, no guarding or rebound, no masses MSK: Moves all extremities, no deformities, normal strength Neuro: Awake and alert, oriented 4. No facial droop, sensation and motor function intact and symmetric Test Results: [] Emergency Department Course and Treatment: Differential includes SJS, contact dermatitis, allergic reaction. Patient's areas of maximum pruritus had no associated rash, including erythema of the skin. Patient does have one area on her arm where this started that does look consistent with poison olga. She has one single oral lesion that looks consistent with an aphthous ulcer. Thus in my professional opinion this is not Bo-Landon syndrome. Patient has diffuse pruritus and only one area of obvious rash. She was given a prescription for a prednisone taper for the pruritus and the poison olga. She will use Benadryl to help with the itching. Patient is to follow-up with her primary care doctor if she does not have any improvement. She was given strict return precautions if she develops any symptoms of malignant rash. Patient discharged home. Treatment Plan: [] Disposition: [] Impression: Nonspecific dermatitis This note was generated with imgfave dictation software. It may contain incorrect words, spelling, and punctuation that were not noted in review of the chart prior to signing ED Disposition - Plan for ED Patient: Disposition: Home or Assisted Living Chief Complaint: Rash Instructions: ED Dermatitis Non Specific Rash Prescriptions: Prednisone 10 mg PO UD #33 tab Referrals: Suyapa Haddad DO [Primary Care Provider] - 3-5 Days if not improving Additional Instructions: Please continue taking Benadryl every 6 hours for itching. Take the prednisone exactly as prescribed for the entire course. If at any point you develop a high fever, painful lesions in your mouth, pain with peeing, pain in the vagina, blisters on the skin, worsening instead of improvement of your rash, or any other concerns, please return immediately to the emergency department for another evaluation. If you have any worsening of your condition or any new concerning symptoms, please return immediately to the emergency department for another evaluation. What to do if you have Problems For any increased pain, shortness of breath, bleeding, nausea or vomiting, chest pain, or any unexpected problems, contact your Primary Care Provider. Call [email or web address] Registry ([phone]) or report to the closest Emergency Room. Call 911 if necessary. 11/02/17 1637 <Electronically signed by Suyapa Kelly MD> Date Suyapa Kelly MD Cosigner Signature (If Indicated): Date CC: Suyapa Haddad DO DISCHARGE INSTRUCTION Observed: 11/02/2017 Status: F Source: [place] 3:43 PM [facility] Medical Records Department [address] [place] [address] Discharge Instruction 11/02/17904 MR#: [id number] Acct: [id number] Name: MARE APONTE Rep #: [id number] : 1975 42 From: Suyapa Kelly MD PCP: Suyapa Haddad DO Status: DEP ER ED Disposition - Plan for ED Patient: Disposition: Home or Assisted Living Chief Complaint: Rash Instructions: ED Dermatitis Non Specific Rash Prescriptions: Prednisone 10 mg PO UD #33 tab Referrals: Suyapa Haddad DO [Primary Care Provider] - 3-5 Days if not improving Additional Instructions: Please continue taking Benadryl every 6 hours for itching. Take the prednisone exactly as prescribed for the entire course. If at any point you develop a high fever, painful lesions in your mouth, pain with peeing, pain in the vagina, blisters on the skin, worsening instead of improvement of your rash, or any other concerns, please return immediately to the emergency department for another evaluation. If you have any worsening of your condition or any new concerning symptoms, please return immediately to the emergency department for another evaluation. What to do if you have Problems For any increased pain, shortness of breath, bleeding, nausea or vomiting, chest pain, or any unexpected problems, contact your Primary Care Provider. Call [facility] ([phone]) or report to the closest Emergency Room. Call 911 if necessary. 11/02/17 1543 <Electronically signed by Suyapa Kelly MD> Date Suyapa Kelly MD Cosigner Signature (If Indicated): Date CC: Suyapa Haddad DO DISCHARGE INSTRUCTION Observed: 09/13/2017 Status: F Source: [place] 8:00 PM [facility] Medical Records Department [address] [place] [address] Discharge Instruction 09/13/171958 MR#: [id number] Acct: [id number] Name: MARE APONTE Rep #: [id number] : 1975 42 From: Stefan Barrientos DO PCP: Suyapa Haddad DO Status: REG ER ED Disposition - Plan for ED Patient: Chief Complaint: Diarrhea Instructions: ED Diarrhea Viral, ED Pneumonia Adult Prescriptions: Azithromycin [Zithromax] 250 mg PO DAILY #4 tab Referrals: Suyapa Haddad DO [Primary Care Provider] - 5-7 Days What to do if you have Problems For any increased pain, shortness of breath, bleeding, nausea or vomiting, chest pain, or any unexpected problems, contact your Primary Care Provider. Call [facility] ([phone]) or report to the closest Emergency Room. Call 911 if necessary. 09/13/171999 <Electronically signed by Stefan Barrientos DO> Date Stefan Barrientos DO Cosigner Signature (If Indicated): Date CC: Suyapa Haddad DO EMERGENCY DEPARTMENT Observed: 09/13/2017 Status: F Source: [place] SUMMARY 7:59 PM [facility] Medical Records Department [address] [place] [address] Emergency Department Summary 09/13/171955 MR#: [id number] Acct: [id number] Name: MARE APONTE Rep #: [id number] : 1975 42 From: Stefan Barrientos DO PCP: Suyapa Haddad DO Status: REG ER - ER Visit Summary Date of Service: 09/13/17 Chief Complaint: [Nausea, vomiting, diarrhea, cough] History of Present Illness: The patient is a 42 F [presents to the emergency department with complaint of 4-5 day history of vomiting and diarrhea. Patient's had a cough for about 4 days as well. Patient's had fever for the last 3 days up to 101. Patient complains of body aches and coughing up some white phlegm. Patient states that she had diarrhea up to 9 times a day but has only had one episode today so she thinks it slowed down. Patient states boyfriend had similar symptoms recently. Patient describes some intermittent abdominal cramping.] Physical Examination: [HEENT-PERRLA, EOMI. Cranial nerves II through XII grossly intact. TMs clear. Mucous membranes moist. No adenopathy. Cardiovascular-regular rate and rhythm without murmur or ectopy Lungs-clear to auscultation, chest wall stable without crepitus or subcu emphysema Abdomen-normoactive bowel sounds, soft. Mild diffuse tenderness throughout. No rebound, rigidity, or perineal signs. Extremities-intact 4, normal range of motion, normal pulses, atraumatic] Test Results: [CBC with differential obtained showing a 5.4, hemoglobin 13, hematocrit 41, platelets 163. Chemistries were normal. Urinalysis was normal. Chest x-ray showed a right lung infiltrate. Emergency Department Course and Treatment: [Patient received a liter normal same fluid bolus as well as Bentyl 20 mg IM. Patient was given Zithromax 500 mill grams p.o.] Treatment Plan: [Patient will be started on Zithromax for suspected right pneumonia. Patient advised to push fluids. Patient advised use Imodium for the diarrhea. I suspect the diarrhea likely viral.] Disposition: [Discharged home in stable condition] Impression: [Right-sided pneumonia Viral gastroenteritis] This note was generated with imgfave dictation software. It may contain incorrect words, spelling, and punctuation that were not noted in review of the chart prior to signing ED Disposition - Plan for ED Patient: Chief Complaint: Diarrhea Referrals: Suyapa Haddad, DO [Primary Care Provider] - What to do if you have Problems For any increased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 Hospital 376610(SNOM Repository ED CT) 04/08/2018 Drug shellfish Hives Unknown [facility] Allergy/416 derived/[id number] Hospital 368791(SNOM 54(RXNORM) Repository ED CT) ENCOUNTERS ENCOUNTERS ADMIT/DISCHARGE ACCOUNT ADMITTING ENCOUNTER LOCATION SOURCE NUMBER CLASS 04/20/2018 [id number] [place] [facility] ing:BFHLAB Repository 04/08/2018/ [id number] [facility] [place] Amb[place] 3 [facility] ing:DA2Cvqc: Repository OW715Vyk: 1 04/08/2018 [id number] [place] Liz Ambulatory BMSBuilding:B [place] 6 [place] Repository 04/08/2018 [id number] Shalonda [facility] Ambulatory BMSBuilding:B [place] 1 [place] Repository 04/08/2018 [id number] Shalonda [place] Ambulatory BMSBuilding:B [place] 1 [place] Repository 01/18/2018/ [id number] Emergency [place] 8 4 [facility] ing:ED Repository 12/08/2017/ [id number] Emergency [place] 8 8 [facility] ing:ED Repository 11/03/2017/ [id number] Emergency [place] 8 6 [facility] ing:ED Repository 11/02/2017/ [id number] Emergency [place] 8 7 [facility] ing:ED Repository 09/13/2017/ [id number] [place] 3 [facility] ing:ED Repository 06/25/2017/ [id number] Emergency [place] 8 0 [facility] ing:ED Repository 06/10/2017/ [id number] Ambulatory BMSBuilding:B [place] 8 1 [place] [facility] Repository 05/30/2017/ [id number] Ambulatory BMSBuilding:B [place] 6 [place] [facility] Repository 05/27/2017 [id number] Ambulatory [place] 4 [facility] ing:HPRAD Repository 05/27/2017/ [id number] Ambulatory BMSBuilding:B [place] 8 6 [facility] Repository PAYERS PAYERS ENCOUNTER GUARANTOR PAYER SUBSCRIBER SOURCE 04/20/2018 MARE L Primary MARE L [place] [id number] Insurance:BUCKEYE MORPHEWDOB: [facility] [id number] PLANPolicy Number: Repository [id number]: 330 [id number] [phone] () Date:0581-59-19DG [address] [place] [address] 57063ZI: 04/20/2018 Secondary NOT GIVENUNK [place] Insurance:SELF PAY [facility] [place] Number: Effective Repository Date:2018-04-20 04/08/2018 MARE L Primary MARE L [place] [id number] Insurance:BUCKEYE MORPHEWDOB: [facility] [id number]-[facility] Number: Repository [id number]: 330 [id number] [phone] () Date:4591-60-61QU [address] [place] [address] 52087MX: 04/08/2018 Secondary NOT GIVENUNK [place] Insurance:SELF PAY [facility] [place] Number: Effective Repository Date:2018-04-08 04/08/2018 MARE L Primary MARE L [place] [id number] Insurance:BUCKEYE MORPHEWDOB: [facility] [id number], [place] PLANPolicy Number: Repository [id number]: 330 [id number] [phone] (HP) Date:7494-56-93EN [address] [place] [address] 95182ZR: 04/08/2018 Secondary NOT GIVENUNK [place] Insurance:SELF PAY [facility] [place] Number: Effective Repository Date:2018-04-08 04/08/2018 MARE L Primary MARE L [place] [id number] Insurance:BUCKEYE MORPHEWDOB: [facility] [id number], [place] PLANPolicy Number: Repository 45841Slo: 330 [id number] [phone] (HP) Date:0544-35-59BC [address] [place] [address] 79280JL: 04/08/2018 Secondary NOT GIVENUNK [place] Insurance:SELF PAY [facility] [place] Number: Effective Repository Date:2018-04-08 04/08/2018 MARE L Primary MARE L [place] [id number] Insurance:BUCKEYE MORPHEWDOB: [facility] [id number], [place]ANPolicy Number: Repository 55087Cmo: 330 [id number] [phone] (HP) Date:0850-27-21HN [address] [place] [address] 53712JF: 04/08/2018 Secondary NOT GIVENUNK [place] Insurance:SELF PAY [facility] [place] Number: Effective Repository Date:2018-04-08 01/18/2018 MARE L Primary MARE L [place] [id number] Insurance:TRISHA MORPHEWDOB: [facility] Number: [id number], [place] [id number] Repository 44450Kod: (330) Date:1806-64-82CSKYHP [phone] () [facility] [address] [place] [address] 36028OE: 01/18/2018 Secondary MARE L [place] Insurance:BUCKEYE MORPHEWDOB: [facility] [id number] Hospital PLANPolicy Number: Repository [id number] Date:1003-57-16EM [address] [place] [address] 00468VK: 01/18/2018 Tertiary NOT GIVENUNK [place] Insurance:SELF PAY [facility] [place] Number: Effective Repository Date:2018-01-18 12/08/2017 MARE L Primary MARE L [place] [id number] Insurance:BUCKEYE MORPHEWDOB: [facility] [id number], [place] PLAN[place] Number: Repository 85694Eun: 330 [id number] [phone] () Date:1258-57-57FE [address] [place] [address] [id number]: 12/08/2017 Secondary NOT GIVENUNK [place] Insurance:SELF PAY [facility] [place] Number: Effective Repository Date:2017-12-08 11/03/2017 MARE L Primary MARE L [place] [id number] Insurance:BUCKEYE MORPHEWDOB: [facility] [id number], [place] PLANPolic Number: Repository 33393Usc: 330 [id number] [phone] () Date:4816-85-00DP [address] [place] [address] [id number]: 11/03/2017 Secondary NOT GIVENUNK [place] Insurance:SELF PAY [facility] Number: Effective Repository Date:2017-11-03 11/02/2017 MARE L Primary MARE L [place] [id number] Insurance:BUCKEYE MORPHEWDOB: [facility] [id number], [place]ANPolicy Number: Repository [id number]: 330 [id number] [phone] (HP) Date:9858-12-87EY [address] [place], [place] [address] [address]YI: 11/02/2017 Secondary NOT GIVENUNK [place] Insurance:SELF PAY [facility] [place] Number: Effective Repository Date:2017-11-02 09/13/2017 MARE L Primary MARE L [place] [id number] Insurance:BUCKEYE MORPHEWDOB: [facility] [id number]-[facility] Number: Repository [id number]: 330 [id number] [phone] (HP) Date:4712-58-74SJ [address] [place] [address] [id number]: 09/13/2017 Secondary NOT GIVENUNK [place] Insurance:SELF PAY [facility] [place] Number: Effective Repository Date:2017-09-13 06/25/2017 MARE L Primary MARE L [place] [id number] Insurance:BUCKEYE MORPHEWDOB: [facility] [id number] [facility]–MontgomeryPolic Number: Repository [id number]: 330 [id number] [phone] (HP) Date:5298-44-37JY [address] [place] [address] 59250SW: 06/25/2017 Secondary NOT GIVENUNK [place] Insurance:SELF PAY [facility] Number: Effective Repository Date:2017-06-25 06/10/2017 MARE L Primary MARE L [place] [id number] Insurance:TRISHA MORPHEWDOB: [facility] [id number], [place] Number: Repository 562[address]Kuh: 330 [id number] [phone] (HP) Date:2977-54-78EO [address] [place] [address] 22342BW: 06/10/2017 Secondary NOT GIVENUNK [place] Insurance:SELF PAY [facility] Number: Effective Repository Date:2017-05-27 05/30/2017 MARE L Primary MARE L [place] [id number] Insurance:TRISHA MORPHEWDOB: [facility] Number: [id number], [place] [id number] Repository 614[address]Bpz: (330) Date:1836-75-52OTPJ [phone] () MART JEROINMOKERS COMPP [address] [place] [address] 64896LK: 05/30/2017 Secondary NOT GIVENUNK [place] Insurance:SELF PAY [facility] [place] Number: Effective Repository Date:2017-05-30 05/27/2017 MARE L Primary MARE L [place] [id number] Insurance:BUCKEYE MORPHEWDOB: [facility] [id number], [place] PLANPolicy Number: Repository 56197Yup: (759) [id number] [phone] () Date:0578-50-67MZ [address] [place] [address] [id number]: 05/27/2017 Secondary NOT GIVENUNK [place] Insurance:SELF PAY [facility] [place] Number: Effective Repository Date:2017-05-27 05/27/2017 MARE L Primary MARE L [place] [id number] Insurance:TRISHA MORPHEWDOB: [facility] Number: [id number], [place] [id number] Repository 77[address]Ebe: (330) Date:8323-09-49STPK [phone] (HP) MART WOKERS [address]PP [address] [place] [address] 78286ME: 05/27/2017 Secondary MARE L [place] Insurance:BUCKEYE MORPHEWDOB: [facility] [id number] Health's [facility] Hospitaly Number: Repository [id number] Date:9009-78-51LG [address] [place] [address] 02094RW: 05/27/2017 Tertiary NOT GIVENUNK [place] Insurance:SELF PAY [facility] [place] Number: Effective Repository Date:2017-05-27
== END 2018-04-10 15:24 | disposition home or self-care (01) ==
LOC: ED 14:58 → MS3 19:19
PROVIDERS: Admitting Provider Internal Medicine; Emergency Provider Emergency Medicine; Family Provider Family Medicine; PCP Family Medicine; Visit Provider Internal Medicine
DX: A08.19 Acute gastroenteropathy due to other small round viruses (principal); R79.89 Other specified abnormal findings of blood chemistry; M06.9 Rheumatoid arthritis, unspecified; F32.9 Major depressive disorder, single episode, unspecified; Z79.899 Other long term (current) drug therapy; M79.7 Fibromyalgia; M19.90 Unspecified osteoarthritis, unspecified site; E86.0 Dehydration; Z87.891 Personal history of nicotine dependence; K76.0 Fatty (change of) liver, not elsewhere classified
CPT/HCPCS: 36415; 74177; 76705; 80048; 80053; 80074; 80076; 80307; 80329; 81001; 81025; 83605; 83630; 83690; 83735; 84100; 85025; 85610; 87040; 87506; 87633; 87804; 96361; 96365; 96366; 96372; 96375; 96376; 99218; 99283; J7030; Q9967; A4216; G0378; G0480; J2405

== ENCOUNTER → 2018-04-20 09:14 | Outpatient (CLI) | payer MEDICAID, SELFPAY ==
[2018-04-08 19:54] VITALS: BMI 36.6
[2018-04-20 12:32] LABS: AST(SGOT) 18 U/L (15-37); Alanine Aminotransfer ALT/SGPT 43 U/L (13-56); Albumin, Serum 3.4 g/dL (3.2-5.0); Alkaline Phosphatase 149 U/L (45-117); Bilirubin, Direct 0.07 mg/dL (0.00-0.30); Globulin 3.8 g/dL (2.2-4.2); Protein, Total 7.2 g/dL (6.4-8.2)
== END ==
PROVIDERS: Family Provider Family Medicine; PCP Family Medicine; Visit Provider Family Medicine
DX: A08.4 Viral intestinal infection, unspecified (principal)
CPT/HCPCS: 36415; 80076

== ENCOUNTER 2018-06-18 02:31 | Emergency (ER) | payer MEDICAID, SELFPAY ==
[2018-04-08 19:54] VITALS: BMI 36.6
[2018-06-18 02:36] VITALS: BP 147/76; PULSE 67; RESP 18; TEMP 36.7; O2SAT 100; BMI 35.9
--- NOTE | 2018-06-18 02:47 | ED.VISSUMM ---
- ER Visit Summary Date of Service: 06/18/18 Chief Complaint: Back pain History of Present Illness: The patient is a 42 F who presents with acute lower back pain. 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 No history of prior similar symptoms. She had already taken ibuprofen a couple of hours prior to this. After the injury she took Tylenol and tried ice. She denies any numbness tingling weakness. She has been able to ambulate. She denies fevers abdominal pain urinary retention fecal incontinence. She denies recent illness. She does have a history of rheumatoid arthritis depression anxiety and fibromyalgia. Physical Examination: Afebrile blood pressure 147/76 vitals otherwise normal Patient appears to be in pain crying shifted onto her left side Heart regular rate and rhythm Lungs are clear Abdomen soft Patient does have some paraspinal tenderness on the right lumbar region Normal strength and sensation of the lower extremities 5 out of 5 dorsiflexion, plantarflexion, extensor hallucis longus, negative straight leg raise bilaterally Test Results: Not indicated Emergency Department Course and Treatment: Patient was treated with intramuscular Toradol and Norflex here. She improved on reevaluation. She was given prescriptions for naproxen and Flexeril. She will follow-up with [facility] and was discharged home. Treatment Plan: [] Disposition: Discharge Impression: Lumbosacral strain Lumbar radiculopathy This note was generated with [employer] dictation software. It may contain incorrect words, spelling, and punctuation that were not noted in review of the chart prior to signing ED Disposition - Plan for ED Patient: Instructions: ED Sprain Strain Lumbar, ED Sciatica Prescriptions: Naproxen [Naprosyn] 500 mg PO BID #20 tab Cyclobenzaprine [Flexeril] 10 mg PO TID PRN #20 tab PRN Reason: Muscle Spasm Referrals: [facility] [GROUP OF PHYSICIANS] - Suyapa Haddad DO [Primary Care Provider] -
--- NOTE | 2018-06-18 02:50 | ED.DCSUM_ITS ---
- ER Visit Summary Date of Service: 06/18/18 Chief Complaint: Back pain History of Present Illness: The patient is a 42 F who presents with acute lower back pain. 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 No his tory of prior similar symptoms. She had already taken ibuprofen a couple of hours prior to this. After the injury she took Tylenol and tried ice. She denies any numbness tingling weakness. She has been able to ambulate. She denies fevers abdominal pain urinary retention fecal incontinence. She denies recent illness. She does have a history of rheumatoid arthritis depression anxiety and fibromyalgia. Physical Examination: Afebrile blood pressure 147/76 vitals otherwise normal Patient appears to be in pain crying shifted onto her left side Heart regular rate and rhythm Lungs are clear Abdomen soft Patient does have some paraspinal tenderness on the right lumbar region Normal strength and sensation of the lower extremities 5 out of 5 dorsiflexion, plantarflexion, extensor hallucis longus, negative straight leg raise bilaterally Test Results: Not indicated Emergency Department Course and Treatment: Patient was treated with intramuscular Toradol and Norflex here. She improved on reevaluation. She was given prescriptions for naproxen and Flexeril. She will follow-up with the [facility] and was discharged home. Treatment Plan: [] Disposition: Discharge Impression: Lumbosacral strain Lumbar radiculopathy This note was generated with [employer] dictation software. It may contain incorrect words, spelling, and punctuation that were not noted in review of the chart prior to signing ED Disposition - Plan for ED Patient: Instructions: ED Sprain Strain Lumbar, ED Sciatica Prescriptions: Naproxen [Naprosyn] 500 mg PO BID #20 tab Cyclobenzaprine [Flexeril] 10 mg PO TID PRN #20 tab PRN Reason: Muscle Spasm Referrals: [facility] [GROUP OF PHYSICIANS] - Suyapa Haddad DO [Primary Care Provider] -
--- NOTE | 2018-06-18 02:50 | ED.DEP ---
ED Disposition - Plan for ED Patient: Instructions: ED Sciatica, ED Sprain Strain Lumbar Prescriptions: Naproxen [Naprosyn] 500 mg PO BID #20 tab Cyclobenzaprine [Flexeril] 10 mg PO TID PRN #20 tab PRN Reason: Muscle Spasm Referrals: Suyapa Haddad DO [Primary Care Provider] - [facility] [GROUP OF PHYSICIANS] -
[2018-06-18] MEDS: Ketorolac 60 MG/2 ML Vial IM (02:57)
[2018-06-18] MEDS: Orphenadrine 60 MG/2 ML Ampul IM (02:57)
[2018-06-18 03:35] VITALS: BP 120/78; PULSE 84; RESP 16; O2SAT 100
== END 2018-06-18 03:36 | disposition home or self-care (01) ==
PROVIDERS: Emergency Provider Emergency Medicine; Family Provider Family Medicine; PCP Family Medicine
DX: S39.012A Strain of muscle, fascia and tendon of lower back, initial encounter (principal); M54.16 Radiculopathy, lumbar region; X50.9XXA Other and unspecified overexertion or strenuous movements or postures, initial encounter; Y93.9 Activity, unspecified; Y92.89 Other specified places as the place of occurrence of the external cause; Y99.0 Civilian activity done for income or pay; M06.9 Rheumatoid arthritis, unspecified; M79.7 Fibromyalgia; F32.9 Major depressive disorder, single episode, unspecified; F41.9 Anxiety disorder, unspecified; Z79.899 Other long term (current) drug therapy
CPT/HCPCS: 96372; 99283

== ENCOUNTER 2018-09-15 08:30 | Outpatient (RCR) | payer MEDICAID, SELFPAY ==
[2018-06-26 09:35] VITALS: BMI 35.9
--- NOTE | 2018-07-11 14:22 | HP.PTEVAL ---
Patient's Visit Information MARE HOOKER is a 42 year old F referred to Physical Therapy by Suyapa Haddad DO with a diagnosis of Radiculopathy ,lumbar. Date of Evaluation: 07/11/18 Physical Therapist: Babar Chambers PT, Cert MDT, OCS - Visit Plan Frequency: 2x /Week Duration: 4 Weeks Plan: GARRET EX'S,PROGRESSION DLS PROGRAM ,POSTURAL EX'S,MODALTIES FOR PAIN RELEIVE - Subjective Findings: This 42 y/o female presents to physical therapy with right lumbar pian with radicular symptoms. Patient injuried right low back at work on 06/18/18 by bending over to pick up driver trash cane. Patient had sharp burning pain right lumbar. Symptoms worse thus went ER at [facility] ,provided MEDS.Location of right lateral hip to hip.- knee. Seen family DR placed on Steroids/muscle relaxer. Seen Chiropractor did x-rays ,and plan for treatment as well. Aggraveting factors lifting,walking,sitting,satnding. Alleviating factors ice/heat/MEDS. C/O parathesia/tingling rigt thigh. Coughing/sneezing -. Bowel/bladder good.C/O of weakness right leg.Patient symptoms affect QOL and Job demands.Patient is on light duty. SOCIAL: [employer]. VOCATION:A CUSTOMER CARE AGENT - Pain Right Back Pain Intensity (Out of 10): 3 Pain Intensity Range: 10 Right Lower Extremity Pain Intensity (Out of 10): 5 Pain Intensity Range: 10 Comment: RIGHT LATERAL -KNEE - Objective POSTURE: mild foward posture. NEURO: c/o parathesia/tingling right thigh,reflexes L3-4,L4-5,L4-L5 2/3. PALPTION: tender L-S right. GAIT: ambulates with antalgic gait right side with decrease stance time. LUMBAR ROM: flexion min loss,extension WFL ,side glides min loss. MMT: quads 4/5,hams,hip flexion 4-/5,on right, left right. SYMMTRIES: align - Special Tests L/S Slump test left side: Negative L/S Slump test right side: Negative L/S Left Straight Leg Raise: Negative L/S Right Straight Leg Raise: Negative Lumbar Standing: Flexion - Mechanical Response: No effect Lumbar Standing: Flexion - Symptoms During Testing: Increases Lumbar Standing: Flexion - Symptoms After Testing: Worse Lumbar Standing: Extension - Mechanical Response: No effect Lumbar Standing: Extension - Symptoms During Testing: Decreases Lumbar Standing: Extension - Symptoms After Testing: Better Lumbar Standing: Right Side Glides - Mechanical Response: No effect Lumbar Standing: Right Side Ferguson - Symptoms During Testing: No effect Lumbar Standing: Right Side Ferguson - Symptoms After Testing: No effect Lumbar Standing: Left Side Ferguson - Mechanical Response: No effect Lumbar Standing: Left Side Ferguson - Symptoms During Testing: No effect Lumbar Standing: Left Side Ferguson - Symptoms After Testing: No effect - Goals Goal 1:: Indepoendant with HEP. Goal Time Frame: 4-6 Weeks Goal 2:: Independant with posture/body mechanics Goal Time Frame: 4-6 Weeks Goal 3:: Decrease pain lumbar pain and radicular symptosm by 50 % or greater to improve function and job demands. Goal Time Frame: 4-6 Weeks Goal 4:: Improve lumbar ROM for function of recovery Goal Time Frame: 4-6 Weeks Goal 5:: Patient to increase strength right leg 4/5 to improve function with walking -standing Goal Time Frame: 4-6 Weeks Goal 6:: Improve lumbar SISI score by 5 points to improve QOL Goal Time Frame: 4-6 Weeks - Rehabilitation Potential Physical Therapy Diagnosis: This patient has possible derrangement lumbar spine above knee.Patient symptoms worse with flexion responded well with extension and correction of posture thus benifit from skilled PT Rehabilitation Potential: Good - Anticipated Interventions Patient/Client Instruction: Educate patient on: Condition, Plan of Care For the Purpose of:: To decrease pain, To increase ROM, To improve muscle performance and motor function, To improve ability to perform ADL's, To increase tolerance to activity/condition/position, To improve ability of physical actions for home/community/work/leisure, To improve health of tissue, To decrease soft tissue restriction, To increase flexibility/ROM, To improve endurance, To reduce risk of recurrence, To improve ability to perform tasks related to life management Therapeutic Exercise to Include: Strength training, Postural training, Flexibilty training, Dynamic Lumbar Stabilization, Garret Exercises For the Purpose of:: To decrease pain, To increase ROM, To improve muscle performance and motor function, To improve ability to perform ADL's, To increase tolerance to activity/condition/position, To improve ability of physical actions for home/community/work/leisure, To improve health of tissue, To decrease soft tissue restriction, To improve ability to perform tasks related to life management TENS: Yes IF ES: Yes Thermo therapy (hot pack): Yes Ultrasound (thermal/non thermal): Yes For the Purpose of:: To decrease pain, To increase ROM, To improve nutrient delivery to tissue, To increase oxygenation perfusion, To improve health of tissue, To decrease soft tissue restriction Thank you for the opportunity to evaluate your patient. For Medicare and Medicare HMO plans, please review the plan of care and approve it. It will need to be FAXED BACK to us at [phone] for Medicare purposes. For Medicare only, by signing this I certify the plan of care. Please let me know if there are questions or concerns regarding this plan of care. Physician Signature: Date:
--- NOTE | 2018-12-07 15:23 | HP.PTDCNRP_ITS ---
HP - Discharge Summary (1) - Patient Information MARE HOOKER was seen in my office for initial evaluation on 07/11/18. The following Plan of Care was established for this patient: Initial Frequency: 2x /Week Initial Duration: 4 Weeks - Anticipated Interventions Patient/Client Instruction: Educate patient on: Condition, Plan of Care For the Purpose of:: To decrease pain, To increase ROM, To improve muscle per formance and motor function, To improve ability to perform ADL's, To increase tolerance to activity/condition/position, To improve ability of physical actions for home/community/work/leisure, To improve health of tissue, To decrease soft tissue restriction, To increase flexibility/ROM, To improve endurance, To reduce risk of recurrence, To improve ability to perform tasks related to life management Therapeutic Exercise to Include: Strength training, Postural training, Flexibilty training, Dynamic Lumbar Stabilization, Ray Exercises For the Purpose of:: To decrease pain, To increase ROM, To improve muscle performance and motor function, To improve ability to perform ADL's, To increase tolerance to activity/condition/position, To improve ability of physical actions for home/community/work/leisure, To improve health of tissue, To decrease soft tissue restriction, To improve ability to perform tasks related to life management TENS: Yes IF ES: Yes Thermo therapy (hot pack): Yes Ultrasound (thermal/non thermal): Yes For the Purpose of:: To decrease pain, To increase ROM, To improve nutrient delivery to tissue, To increase oxygenation perfusion, To improve health of tissue, To decrease soft tissue restriction This patient was last seen in our office 09/15/18. Pertinent comments regarding their Physical therapy will appear below: This patient was seen for PT for lumbar pain . Pateint responded postive with decreasing ,pain return to function of recovery ,thus is d/c from PT due to meeting goals. At this point I will be discontinuing this patient from physical therapy. I would be happy to see this patient again in the future if found appropriate by the physician. Thank you! Babar Chambers, PT, Cert MDT, OCS
== END 2018-09-15 19:00 | disposition home or self-care (01) ==
LOC: PT 08:30
PROVIDERS: Family Provider Family Medicine; PCP Family Medicine; Referring Provider Family Medicine; Visit Provider Family Medicine
DX: M54.41 Lumbago with sciatica, right side (principal)
CPT/HCPCS: 97014; 97110; 97162; 97530; G0283

== ENCOUNTER → 2018-11-14 07:41 | Outpatient (CLI) | payer MEDICAID, SELFPAY ==
[2018-06-26 09:35] VITALS: BMI 35.9
--- NOTE | 2018-11-14 10:18 | NEURO ---
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 She says symptoms have improved however. She is healthy otherwise without a history of diabetes and does not drink alcohol. Right lower extremity sensory and motor nerve conduction study is performed. The sural sensory response is normal. The common peroneal motor and tibial motor distal latencies, amplitudes and conduction velocities are intact tibial motor amplitude across the knee is reduced. The tibial and common peroneal F-wave latencies are intact and the tibial H reflex amplitudes bilaterally are within the normal range. Right lower extremity needle electromyography is performed. Muscles evaluated included the extensor digitorum brevis, abductor hallucis, medial gastrocnemius, anterior tibialis, and vastus lateralis muscles. All muscles demonstrated normal insertional activity with absence of pathologic spontaneous activity. Motor unit potential recruitment pattern and amplitude is normal in all muscles tested. Impression: This is a normal electrophysiologic study of the right lower extremity. Symptoms are consistent with mild resolving sciatica.
== END ==
PROVIDERS: Family Provider Family Medicine; PCP Family Medicine; Referring Provider Family Medicine; Visit Provider Family Medicine
DX: M54.16 Radiculopathy, lumbar region (principal)
CPT/HCPCS: 95886; 95909

== ENCOUNTER → 2019-11-15 09:11 | Outpatient (CLI) | payer MEDICAID, SELFPAY ==
[2018-06-26 09:35] VITALS: BMI 35.9
[2019-11-15 12:51] LABS: Rubella IgG 51.5 IU/mL
[2019-11-17 20:07] LABS: QNTFERON TB Mitogen Value > 10.00 IU/mL (.); QNTFERON TB Nil Value 0.03 IU/mL (.); QNTFERON TB1+ Ag Value 0.02 IU/mL (.); QNTFERON TB2+ Ag Value 0.02 IU/mL (.)
[2019-11-18 04:49] LABS: Mumps Antibody,IgG < 9.0 AU/mL (Immune >10.9); QNTIFERON TB Positive Criteria Negative (Negative); V-Zoster IgG (Immunity) 3261 index (Immune >165)
[2019-11-20 15:28] LABS: HPV Reflexed? NOT INDICATED
== END ==
PROVIDERS: PCP Family Medicine; Visit Provider Family Medicine
DX: Z01.419 Encounter for gynecological examination (general) (routine) without abnormal findings (principal); Z01.84 Encounter for antibody response examination; Z11.1 Encounter for screening for respiratory tuberculosis
CPT/HCPCS: 36415; 86480; 86735; 86762; 86765; 86787; 88175; G0145

== ENCOUNTER → 2019-12-27 09:20 | Outpatient (CLI) | payer MEDICAID, SELFPAY ==
[2018-06-26 09:35] VITALS: BMI 35.9
== END ==
PROVIDERS: PCP Family Medicine; Referring Provider Family Medicine; Visit Provider Family Medicine
DX: Z20.828 Contact with and (suspected) exposure to other viral communicable diseases (principal)
CPT/HCPCS: 87635; C9803; U0003

== ENCOUNTER 2020-04-14 07:47 | Emergency (ER) | payer MEDICAID, SELFPAY ==
[2018-06-26 09:35] VITALS: BMI 35.9
[2020-04-14 07:48] VITALS: BP 139/79; PULSE 86; RESP 16; TEMP 35.2; O2SAT 96; BMI 35.6
--- NOTE | 2020-04-14 07:57 | RAD_ITS ---
STUDY: X-RAY - RIGHT HUMERUS REASON FOR EXAM: Female, 44 years old. PROXIMA HUMERUS PAIN. HX FALL X 2 DAYS AGO TECHNIQUE: 4 view(s) of the humerus. COMPARISON: None. FINDINGS: Normal visualized humerus. There is no demonstrated fracture or osseous destructive process. There is no demonstrated soft tissue abnormality. RAD/Humerus min 2 Views IMPRESSION: Normal x-ray examination of the humerus. Electronically Signed: Kev Gama, at 9:03 EST , Service support ,
--- NOTE | 2020-04-14 07:57 | RAD_ITS ---
STUDY: X-RAY - RIGHT SHOULDER REASON FOR EXAM: Female, 44 years old. PROXIMA HUMERUS PAIN. HX FALL X 2 DAYS AGO TECHNIQUE: 4 view(s) of the shoulder. COMPARISON: None. FINDINGS: Normal glenohumeral articulation. Normal acromioclavicular joint. Normal acromion. Normal humeral head and visualized proximal humerus. The soft tissue structures are unremarkable. Normal visualized pulmonary apex. RAD/Shoulder min 2 Views IMPRESSION: Normal x-ray examination of the shoulder. Electronically Signed: Kev Gama, at 9:03 EST , Service support ,
--- NOTE | 2020-04-14 07:57 | RAD_ITS ---
STUDY: X-RAY - CERVICAL SPINE REASON FOR EXAM: Female, 44 years old. PROXIMA HUMERUS PAIN. HX FALL X 2 DAYS AGO TECHNIQUE: 3 view(s) of the cervical spine were obtained. COMPARISON: None FINDINGS: Normal anterior atlantoaxial articulation. Normal odontoid process. There is reversal of the normal cervical lordosis. Mild degree of disc space narrowing at the C5-C6 level with mild anterior spondylosis. Normal visualized intervertebral neuroforamina. The soft tissue structures are unremarkable. RAD/Cerv Spine 2 or 3 Views IMPRESSION: Reversal of the normal cervical lordosis. Mild degree of disc space narrowing and spondylosis at the C5-C6 level. Electronically Signed: Kev Gama, at 9:02 EST , Service support ,
[2020-04-14] MEDS: morphine 10 MG/ML Syringe 4 MG SC (08:04)
--- NOTE | 2020-04-14 09:17 | ED.VISSUMM ---
- ER Visit Summary Date of Service: 04/14/20 Chief Complaint: Right arm pain, fall History of Present Illness: The patient is a 44 F who had a mechanical fall 2 days ago. She tripped on a gait. She landed on her right shoulder. She complains of pain to her right shoulder, right neck, and right upper arm. She tried topical treatments, but nothing seems to help. She has some tingling to the upper arm but denies any other neurologic symptoms. Denies weakness or numbness. Denies head injury, blood thinner use, or any other trauma. Physical Examination: Afebrile and vital signs unremarkable. Patient appears uncomfortable but not toxic or in distress. Right cervical paraspinal muscle tenderness to palpation. No spinal tenderness. Right shoulder and right upper arm diffusely tender to palpation. There is some mild edema to her right upper arm diffusely, but her compartments are soft. She is neurovascular intact distally. Range of motion is intact through the joints. The rest of her exam is unremarkable. Test Results: X-rays showed straightening of her cervical spine. No fractures. Shoulder and humerus x-rays were unremarkable, reviewed by me and the radiologist. Emergency Department Course and Treatment: Patient was treated with pain medicine. X-rays as above were unremarkable. I suspect this is soft tissue injury. Patient will be using a sling as needed. Risks of sling overuse were discussed. Her prescription report showed no active controlled substances. She was given a short course of [place]. She does not have any history of addiction or problems with pain medicine. She will follow-up with orthopedics. Return for any new or worsening issues. Treatment Plan: As above Disposition: Discharge Impression: Right arm pain This note was generated with [employer] dictation software. It may contain incorrect words, spelling, and punctuation that were not noted in review of the chart prior to signing ED Disposition - Plan for ED Patient: Referrals: Suyapa Haddad DO [Primary Care Provider] -
--- NOTE | 2020-04-14 09:19 | ED.DEP ---
ED Disposition - Plan for ED Patient: Instructions: ED Shoulder Pain, Uncertain Cause Prescriptions: Hydrocodone Bitart/Apap 5-325 [[place] 5MG-325MG] 1 tab PO Q6H PRN PRN 3 Days #12 tab PRN Reason: Pain Prescription Printed Referrals: Bob Swain MD [STAFF PHYSICIAN] -
== END 2020-04-14 09:38 | disposition home or self-care (01) ==
LOC: ED 09:24
PROVIDERS: Emergency Provider Emergency Medicine; PCP Family Medicine
DX: M79.621 Pain in right upper arm (principal); M25.511 Pain in right shoulder; M47.812 Spondylosis without myelopathy or radiculopathy, cervical region; M48.02 Spinal stenosis, cervical region; F32.9 Major depressive disorder, single episode, unspecified; Z87.891 Personal history of nicotine dependence
CPT/HCPCS: 72040; 73030; 73060; 96372; 99283

== ENCOUNTER 2020-10-05 13:18 | Emergency (ER) | payer MEDICAID, SELFPAY ==
[2020-10-05 13:19] VITALS: BP 126/70; PULSE 73; RESP 16; TEMP 37.1; O2SAT 93; BMI 35.9
--- NOTE | 2020-10-05 13:35 | ED.VIS.GI ---
HPI HPI - GI History of Present Illness Chief Complaint: Abd Pain Informant: patient Abdominal Pain/Flank Pain Onset: Yesterday Context: Sudden Onset Timing: Continuous Quality: Cramping and Sharp Location: RUQ and LUQ Current Severity: Moderate Maximum Severity: Severe Worsened by: Movement (Especially leaning forward) Relieved by: Nothing Nausea/Vomiting/Emesis GI Symptom: Positive for Nausea; Negative for Vomiting Onset: Yesterday Severity: Moderate Diarrhea/Melena/Hematochezia GI Symptom: Negative for Diarrhea, Melena and Hematochezia Onset: Days (2 days prior to presentation patient states she had) Associated Symptoms Associated Symptoms: Negative for Dysuria, Frequency and Hematuria Narrative Narrative: Patient a 45-year-old woman who presents because of bilateral upper abdominal pain associate with nausea. She had 1 loose type stools 2 days ago. She states for coworkers called off with GI symptoms. They all ate the same thing. She denies fever or chills. She denies headache, ocular, visual auditory symptoms. She denies upper respiratory symptoms. She denies cardiac or symptoms. She is status post cholecystectomy. She denies history of bowel obstruction. She denies urinary symptoms. She denies rash. Prior similar symptoms: No Recent Illness/Hospitalization: No PFSH PFSH Medical History (Updated 10/05/20 @ 16:[address] Leroy Plasencia MD) Anemia Arthritis Hemorrhoids Home Medications buspirone 15 mg PO BID 02/07/14 [History Last Taken 04/04/18] duloxetine 20 mg capsule,delayed release 90 mg PO DAILY 05/27/17 [History Last Taken 04/04/18] dicyclomine 20 mg PO TIDAC #20 capsule 10/05/20 [Rx Last Taken Unknown] ondansetron 4 mg PO Q8H PRN PRN #10 tab 10/05/20 [Rx Last Taken Unknown] Allergy/AdvReac Type Severity Reaction Status Date / Time shellfish derived Allergy Hives Verified 10/05/20 13:19 clindamycin AdvReac Other Verified 10/05/20 13:19 Family History Sister Thyroid disorder Depression Father Glaucoma CVA (cerebral vascular accident) Mother Mental health disorder Surgical History History of tubal ligation Hx of cholecystectomy Social History (Updated 10/05/20 @ 13:[address] Lreoy Plasencia MD) household members: spouse and children Smoking Status: Current every day smoker tobacco type: cigarettes alcohol intake: never substance use type: does not use ROS ROS ED Constitutional Constitutional ED: Denies chills, fever(s), subjective or sweats ENT ENT ED: Denies ear pain, rhinorrhea or sore throat Cardiovascular Cardiovascular: Denies chest pain, palpitations or racing heartbeat Respiratory/Chest Respiratory/Chest: Denies cough, dyspnea, dyspnea on exertion or sputum Gastrointestinal Gastrointestinal: Reports abdominal pain and nausea; Denies constipation, diarrhea, melena or vomiting Genitourinary Genitourinary ED: Denies dysuria, hematuria or urinary frequency Musculoskeletal Musculoskeletal: Denies arthralgias, myalgias or neck pain Integumentary Denies abscess, Abrasions or rash Neurologic Neurologic: Reports weakness; Denies headache(s) or paresthesias Endocrine Endocrinology: Denies polydipsia, polyphagia or polyuria EXAM Physical Exam Const Vital Signs: 10/05/20 13:19 Temperature 98.8 F Temperature Source Temporal Pulse Rate 73 Respiratory Rate 16 Blood Pressure 126/70 H Blood Pressure Mean 88 Pulse Ox 93 Oxygen Delivery Method Room Air Positive well nourished and well developed General Appearance ED: well developed and other Patient appears uncomfortable. She has her hands on her upper abdomen. Patient is walking slowly. ; Negative for pallor HEENT Reports dry mucous membranes HEENT Narrative: Posterior pharynx erythema exudate. Ears normal. Nares patent. normocephalic and atraumatic Mouth ED: Yes dry mucous membranes Mouth: dry mucous membranes Eyes PERRL and EOMs intact bilaterally General Eye ED: Negative for pale conjunctiva or scleral icterus Neck no lymphadenopathy, supple and no JVD Resp normal respiratory effort and clear to auscultation bilaterally Cardio regular rate, regular rhythm, S1 normal heart sound, S2 normal heart sound and no murmurs GI no masses; Negative for non-tender or non-distended Inspection: Negative for abdominal distention Auscultation: hypoactive bowel sounds Palpation: tender and guarding; Negative for soft, rigid or rebound tenderness present Back/Spine no CVA tenderness Lumbar Spine / Lower Back: Negative for lumbar spinal tenderness Extremity full ROM General Extremety ED: Negative for edema or tenderness General Extremity: Negative for edema Neuro CN's II-XII intact bilaterally and moves all extremities Sensorium / Orientation: alert, oriented to person, oriented to place and oriented to time Psych mental status grossly normal Skin no wounds General Skin Exam: Negative for jaundice or pallor Lesions: no lesions Rashes: no rashes MDM MDM MDM Narrative Medical decision making narrative: Patient presents with GI symptoms. This may represent food poisoning versus viral illness. Basic blood work was obtained to assess electrolytes, renal function white count. Patient was treated with Zofran for her nausea and morphine and Bentyl for her cramping sharp upper abdominal pain. She also received 1 L of normal saline. Patient's nausea has improved. She was reevaluated. She no longer has abdominal discomfort in the upper abdomen. She still reports mild nausea. She had no vomiting here. 4 of her coworkers also have nausea with 2 reporting vomiting. Lab Data Attestation: I reviewed the patient's lab results. Labs: Laboratory Results - last 24 hr 10/05/20 10/05/20 13:15 13:15 WBC 5.7 RBC 4.48 Hgb 12.4 Hct 38.5 MCV 85.9 MCH 27.7 MCHC 32.2 RDW Std Deviation 44.5 H RDW Coeff of Iris 14.3 Plt Count 193 MPV 13.0 H Immature Gran % (Auto) 0.200 Neut % (Auto) 52.5 Lymph % (Auto) 33.1 [place] % (Auto) 8.4 Eos % (Auto) 4.9 Baso % (Auto) 0.9 Absolute Neuts (auto) 3.0 Absolute Lymphs (auto) 1.89 Nucleated RBC % 0 Sodium 142 Potassium 4.1 Chloride 109 H Carbon Dioxide 29.0 Anion Gap 4 L BUN 12 Creatinine 0.68 Estim Creat Clear Calc 102.67 Est GFR (MDRD) Af Amer 121 Est GFR (MDRD) Non-Af 100 BUN/Creatinine Ratio 17.7 Glucose 93 Calcium 8.7 Total Bilirubin 0.20 AST 15 ALT 16 Alkaline Phosphatase 103 Total Protein 6.6 Albumin 3.2 Globulin 3.4 Albumin/Globulin Ratio 0.9 Lipase 73 Discharge Plan Triage Chief Complaint: Abd Pain ED Provider: Leroy Plasencia Dx/Rx/DC Orders Clinical Impression: Bilateral upper abdominal pain, Nausea Instructions: ED Abdominal Pain Unkn Cause Fem Prescriptions: New ondansetron [ondansetron] 4 MG tablet 4 mg PO Q8H PRN PRN (Reason: Nausea) Qty: 10 RF: 0 dicyclomine 10 MG capsule 20 mg PO TIDAC Qty: 20 RF: 0 No Action duloxetine [Cymbalta] 20 mg capsule,delayed release(DR/EC) 90 mg PO DAILY RF: 0 buspirone 5 MG tablet 15 mg PO BID RF: 0 Stand Alone Forms: ED Work / School Excuse Primary Care Provider: Suyapa Haddad Referrals: Suyapa Haddad DO [Primary Care Provider] - 3-5 Days if not improving Disposition Disposition: Home, self care
[2020-10-05 13:49] LABS: Absolute Lymphocyte Count 1.89 X10^3/uL (0.83-4.51); Basophil# 0.05 X10^3/uL; Basophil% 0.9 % (0-1); Eosinophil# 0.28 X10^3/uL; Eosinophils% 4.9 % (0-5); Hematocrit 38.5 % (37-47); Hemoglobin 12.4 g/dL (12.0-15.0); Lymphocyte # 1.89 X10^3/ul (0.83-4.51); Lymphocyte % 33.1 % (19-41); Mean Corp Hgb Conc 32.2 g/dL (32-36); Mean Corpuscular Hgb 27.7 pg (27.0-32.0); Mean Corpuscular Volume 85.9 fL (81-99); Monocyte# 0.48 X10^3/uL; Monocyte% 8.4 % (0-10); NRBC Flagged by Analyzer 0 % (0-5); Neutrophil % 52.5 % (47-70); Platelet Count 193 K/mm3 (150-450); RBC Distribution Width CV 14.3 % (11.6-14.6); RBC Distribution Width SD 44.5 fl (35.1-43.9); Red Blood Count 4.48 M/mm3 (4.2-5.4); White Blood Count 5.7 K/mm3 (4.4-11.0)
[2020-10-05] MEDS: 0.9% Normal Saline 1,000 ML 1000 ML IV (13:49)
[2020-10-05] MEDS: Dicyclomine 10 MG Capsule 20 MG PO (13:50)
[2020-10-05] MEDS: Ondansetron 4 MG/2 ML Vial IV (13:51)
[2020-10-05] MEDS: Morphine 2 MG/ML Syringe IV (13:52)
[2020-10-05 14:06] LABS: ALB/GLOB Ratio 0.9 RATIO (0.9-2.4); AST(SGOT) 15 U/L (15-37); Alanine Aminotransfer ALT/SGPT 16 U/L (13-56); Albumin, Serum 3.2 g/dL (3.2-5.0); Alkaline Phosphatase 103 U/L (45-117); Anion Gap 4 (5-15); BUN 12 mg/dL (7-18); BUN/Creat Ratio 17.7 RATIO (10-20); Calcium,Total 8.7 mg/dL (8.5-10.1); Chloride 109 mmol/L (98-107); Creatinine, Serum 0.68 mg/dL (0.55-1.02); EST Glomerular Filtration Rate 100 mL/min (>60); Est Glom Filt Rate - Afr Amer 121 mL/min (>60); Estimated Creatinine Clearance 102.67 ml/min; Globulin 3.4 g/dL (2.2-4.2); Glucose 93 mg/dL (74-106); Lipase 73 U/L (73-393); Potassium 4.1 mmol/L (3.5-5.1); Protein, Total 6.6 g/dL (6.4-8.2); Sodium Level 142 mmol/L (136-145)
[2020-10-05 16:43] VITALS: BP 110/63
[2020-10-05 16:46] VITALS: BP 110/63
== END 2020-10-05 16:49 | disposition home or self-care (01) ==
PROVIDERS: Emergency Provider Emergency Medicine; PCP Family Medicine
DX: R10.11 Right upper quadrant pain (principal); R10.12 Left upper quadrant pain; R11.2 Nausea with vomiting, unspecified; F17.210 Nicotine dependence, cigarettes, uncomplicated
CPT/HCPCS: 80053; 83690; 85025; 96374; 96375; 99285; J7030; A4216; J2405

== ENCOUNTER → 2020-11-26 16:46 | Outpatient (CLI) | payer MEDICAID, SELFPAY ==
[2020-11-27 08:17] LABS: Hepatitis B Surface Antibody Reactive; Rubella IgG Reactive (Nonreactive)
[2020-11-29 05:07] LABS: QNTFERON TB Mitogen Value > 10.00 IU/mL (.); QNTFERON TB Nil Value 0.02 IU/mL (.); QNTFERON TB1+ Ag Value 0.03 IU/mL (.); QNTFERON TB2+ Ag Value 0.03 IU/mL (.)
[2020-11-29 08:35] LABS: Mumps Antibody,IgG 37.3 AU/mL (Immune >10.9); QNTIFERON TB Positive Criteria Negative (Negative)
== END ==
PROVIDERS: PCP Family Medicine; Referring Provider Family Medicine; Visit Provider Family Medicine
DX: Z01.84 Encounter for antibody response examination (principal); Z20.1 Contact with and (suspected) exposure to tuberculosis
CPT/HCPCS: 36415; 86480; 86706; 86735; 86762; 86765

== ENCOUNTER → 2021-01-12 | Outpatient (CLI) | payer MEDICAID, SELFPAY | END | disposition home or self-care (01) | LOC: LABSPEC 01-13 09:01 | PROVIDERS: PCP Family Medicine; Referring Provider Family Medicine; Visit Provider Family Medicine | DX: Z20.822 Contact with and (suspected) exposure to COVID-19 (principal) | CPT/HCPCS: 36415; 87635; U0005; U0003 ==

== ENCOUNTER → 2021-03-06 12:25 | Outpatient (CLI) | payer MEDICAID, SELFPAY ==
--- NOTE | 2021-03-06 12:27 | RAD_ITS ---
EXAM: XR MANDIBLE COMPLETE, 4 OR MORE VIEWS CLINICAL INDICATION: PAIN -- L LEFT SIDED JAW PAIN WITH SWELLING HAD UPPER TOOTH PULLED YESTERDAY TECHNIQUE: Frontal, oblique and lateral views of the mandible. This report was created using [employer] report generation technology. COMPARISON: None. FINDINGS: DENTAL: No acute findings. BONES/JOINTS: Unremarkable. No fracture. No subluxation. No sclerotic or destructive changes observed. SOFT TISSUES: Unremarkable. No soft tissue swelling or gas. No radiopaque foreign body. RAD/Mandible Min 4 Views IMPRESSION: Negative mandible x-rays. Electronically Signed: Alfredo Martínez MD at 19:41 EST , Service support ,
== END ==
PROVIDERS: PCP Family Medicine; Referring Provider Family Medicine; Visit Provider Family Medicine
DX: R68.84 Jaw pain (principal)
CPT/HCPCS: 70110

== ENCOUNTER 2021-04-20 07:47 | Emergency (ER) | payer OTHER, MEDICAID, SELFPAY ==
[2021-04-20 07:47] VITALS: BP 117/82; PULSE 96; RESP 16; TEMP 36.6; O2SAT 99; BMI 34.9
--- NOTE | 2021-04-20 07:56 | RAD_ITS ---
STUDY: X-RAY - LEFT WRIST REASON FOR EXAM: Female, 45 years old. felt a pop while lifting/moving a person TECHNIQUE: 3 view(s) of the wrist were obtained. COMPARISON: None. FINDINGS: Normal visualized distal radius and ulna. Normal radiocarpal articulation. Normal distal radioulnar articulation. Normal carpal bones. Normal carpal articulations. Normal carpometacarpal articulation of the thumb. Normal second through fifth carpometacarpal articulations. Normal visualized metacarpal bones. The soft tissue structures are unremarkable. RAD/Wrist min 3 Views IMPRESSION: No demonstrated fracture or malalignment. Electronically Signed: Abraham Oneill MD ([place]) at 8:33 EST , Service support ,
--- NOTE | 2021-04-20 07:57 | EX.ED.UPPERE ---
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 Since that time she said painful range of motion is tender to palpation. She is right-handed. [facility] Medical History (Updated 04/20/21 @ 08:[address] Yovani Remy DO) Anemia Arthritis Hemorrhoids Home Medications buspirone 15 mg PO BID 02/07/14 [History Last Taken 04/04/18] duloxetine 20 mg capsule,delayed release 90 mg PO DAILY 05/27/17 [History Last Taken 04/04/18] dicyclomine 20 mg PO TIDAC #20 capsule 10/05/20 [Rx Last Taken Unknown] ondansetron 4 mg PO Q8H PRN PRN #10 tab 10/05/20 [Rx Last Taken Unknown] dextroamphetamine-amphetamine 15 mg PO DAILY 04/20/21 [History Last Taken Unknown] Allergy/AdvReac Type Severity Reaction Status Date / Time shellfish derived Allergy Hives Verified 10/05/20 13:19 clindamycin AdvReac Other Verified 10/05/20 13:19 Family History Sister Thyroid disorder Depression Father Glaucoma CVA (cerebral vascular accident) Mother Mental health disorder Surgical History History of tubal ligation Hx of cholecystectomy Social History household members: spouse and children Smoking Status: Current every day smoker tobacco type: cigarettes alcohol intake: never substance use type: does not use ROS ROS ED Constitutional Constitutional ED: Denies chills, fever(s) or weight loss Eyes Eyes: Denies change in vision or diplopia ENT ENT ED: Denies ear pain, rhinorrhea or sore throat Cardiovascular Cardiovascular: Denies chest pain, orthopnea, palpitations or racing heartbeat Respiratory/Chest Respiratory/Chest: Denies cough, dyspnea or orthopnea Gastrointestinal Gastrointestinal: Denies abdominal pain, diarrhea, nausea or vomiting Genitourinary Genitourinary ED: Denies dysuria, hematuria or urinary frequency Musculoskeletal Musculoskeletal: Reports other; Denies arthralgias or myalgias Integumentary Denies abscess or rash Neurologic Neurologic: Denies headache(s) or weakness Psychiatric Psychiatric: Denies anxiety, depression, suicidal ideation or suicidal thoughts Endocrine Endocrinology: Denies polydipsia, polyphagia or polyuria Allergic/Immunologic Allergic/Immunologic ED: Denies mouth swelling, tongue swelling or urticaria EXAM Physical Exam Const Vital Signs: 04/20/21 07:47 Temperature 97.8 F Temperature Source Temporal Pulse Rate 96 Respiratory Rate 16 Blood Pressure 117/82 H Blood Pressure Mean 93 Pulse Ox 99 Oxygen Delivery Method Room Air Positive well nourished, well developed and obese General Appearance ED: well developed Nutritional Appearance: obese HEENT Reports normocephalic, head/scalp atraumatic and moist mucous membranes normocephalic and atraumatic Eyes PERRL and EOMs intact bilaterally Neck full ROM, no lymphadenopathy, supple and no JVD General: Negative for tenderness Resp normal respiratory effort and clear to auscultation bilaterally Cardio regular rate, regular rhythm and no murmurs GI normal to inspection, nondistended, normoactive bowel sounds and non-tender Palpation: soft Back/Spine no CVA tenderness and normal ROM Extremity Extremity Narrative: Patient has tenderness to palpation along the ulnar styloid with some mild swelling. Neurovascular intact distal General Extremety ED: Negative for edema General Extremity: Negative for edema Neuro oriented x3 and CN's II-XII intact bilaterally Sensorium / Orientation: alert Motor Exam: strength 5/5 throughout Psych mental status grossly normal Mood & Affect: Negative for depressed or tearful Skin no rashes or lesions noted and no wounds MDM MDM MDM Narrative Medical decision making narrative: My interpretation of the plain films of the left wrist is no acute fracture. Patient was placed in a Velcro splint. Anti-inflammatories for pain follow-up with Workmen's Comp. Discharge Plan Triage Chief Complaint: Upper Extremity Injury ED Provider: Yovani Remy Dx/Rx/DC Orders Clinical Impression: Left wrist sprain Instructions: ED Wrist Sprain Prescriptions: No Action duloxetine [Cymbalta] 20 mg capsule,delayed release(DR/EC) 90 mg PO DAILY RF: 0 buspirone 5 MG tablet 15 mg PO BID RF: 0 ondansetron [ondansetron] 4 MG tablet 4 mg PO Q8H PRN PRN (Reason: Nausea) Qty: 10 RF: 0 dicyclomine 10 MG capsule 20 mg PO TIDAC Qty: 20 RF: 0 dextroamphetamine-amphetamine 15 mg capsule,extended release 24hr 15 mg PO DAILY RF: 0 Primary Care Provider: Suyapa Haddad Referrals: Suyapa Haddad DO [Primary Care Provider] - [facility] [NON-STAFF] - As soon as possible Disposition Disposition: Home, Self Care
[2021-04-20 09:11] VITALS: RESP 18
== END 2021-04-20 09:12 | disposition home or self-care (01) ==
PROVIDERS: Emergency Provider Emergency Medicine; PCP Family Medicine
DX: S63.502A Unspecified sprain of left wrist, initial encounter (principal); X58.XXXA Exposure to other specified factors, initial encounter; Y93.89 Activity, other specified; Y92.9 Unspecified place or not applicable; Y99.0 Civilian activity done for income or pay; M19.90 Unspecified osteoarthritis, unspecified site; F17.210 Nicotine dependence, cigarettes, uncomplicated
CPT/HCPCS: 73110; 99285

== ENCOUNTER 2021-06-08 19:03 | Emergency (ER) | payer MEDICAID, SELFPAY ==
[2021-06-08 19:03] VITALS: BP 129/73; PULSE 89; RESP 16; TEMP 35.6; O2SAT 97
[2021-06-08 19:04] VITALS: BP 129/73; PULSE 89; RESP 16; TEMP 35.6; O2SAT 97; BMI 34.7
--- NOTE | 2021-06-08 21:05 | EDS_ITS ---
HPI HPI - URI History of Present Illness Chief Complaint: Sore Throat Detail of Chief Complaint: Upper respiratory infectious symptoms Informant: patient Onset/Context/Timing Onset: Days (4 days ago) Context: Sudden Onset Timing: Continuous Quality: Upper respiratory/read HPI Location: Respiratory Current Severity: Mild Maximum Severity: Moderate Worsened by: Not Worsened By Swallowing, Eating Solids and Drinking Liquids Relieved by: Not Relieved By Tylenol and NSAIDs Associated Symptoms Associated Symptoms: Positive for Nasal Congestion, Headache, Sinus Pressure, Myalgias, Nausea, Shortness of Breath and Nonproductive cough Narrative Narrative: 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 There is a recent Covid outbreak. She presents with upper respiratory symptoms started 4 days ago. She was sent from the urgent care because they were concerned she has Covid. Patient denies documented fever. Patient does complain of headache without photophobia, neck pain or stiffness. There is no complaint of leg pain, swelling discoloration. She has no history of VTE. She denies pleuritic chest pain. She does report nausea without vomiting. Prior similar symptoms: No Recent Illness/Hospitalization: No ROS ROS ED Constitutional Constitutional ED: Reports fever(s) and subjective; Denies chills or sweats Eyes Eyes: Denies blurry vision, change in vision or diplopia ENT ENT ED: Reports rhinorrhea and sore throat; Denies ear pain Cardiovascular Cardiovascular: Denies chest pain, orthopnea, palpitations, paroxysmal nocturnal dyspnea or racing heartbeat Respiratory/Chest Respiratory/Chest: Reports cough and dyspnea; Denies dyspnea on exertion, orthopnea, paroxysmal nocturnal dyspnea or sputum Gastrointestinal Gastrointestinal: Reports nausea; Denies diarrhea or vomiting Genitourinary Genitourinary ED: Denies dysuria, hematuria or urinary frequency Musculoskeletal Musculoskeletal: Reports arthralgias and myalgias; Denies back pain or neck pain Integumentary Denies rash Neurologic Neurologic: Reports headache(s) and weakness; Denies paresthesias Endocrine Endocrinology: Denies polydipsia, polyphagia or polyuria Hematologic/Lymphatic Hematologic/Lymphatic: Denies easy bleeding or easy bruising [facility] Medical History (Updated 06/08/21 @ 21:[address] Leroy Plasencia MD) Anemia Arthritis Hemorrhoids Home Medications buspirone 15 mg PO BID 02/07/14 [History Last Taken 04/04/18] duloxetine 20 mg capsule,delayed release 90 mg PO DAILY 05/27/17 [History Last Taken 04/04/18] dicyclomine 20 mg PO TIDAC #20 capsule 10/05/20 [Rx Last Taken Unknown] ondansetron 4 mg PO Q8H PRN PRN #10 tab 10/05/20 [Rx Last Taken Unknown] dextroamphetamine-amphetamine [Adderall XR] 15 mg PO DAILY 04/20/21 [History Last Taken Unknown] Allergy/AdvReac Type Severity Reaction Status Date / Time shellfish derived Allergy Hives Verified 05/08/21 07:58 clindamycin AdvReac Other Verified 05/08/21 07:58 Family History Sister Thyroid disorder Depression Father Glaucoma CVA (cerebral vascular accident) Mother Mental health disorder Surgical History History of tubal ligation Hx of cholecystectomy Social History household members: spouse and children Smoking Status: Current every day smoker tobacco type: cigarettes alcohol intake: never substance use type: does not use EXAM Physical Exam Const Vital Signs: 06/08/21 19:03 06/08/21 19:04 Temperature 96.0 F L 96.0 F L Temperature Source Temporal Temporal Pulse Rate 89 89 Respiratory Rate 16 16 Blood Pressure 129/73 H 129/73 H Blood Pressure Mean 91 91 Pulse Ox 97 97 Oxygen Delivery Method Room Air Room Air Positive well nourished, well developed and obese General Appearance ED: well developed and NAD; Negative for cyanotic, diaphoretic or pallor Nutritional Appearance: obese HEENT Reports TM's clear and moist mucous membranes normocephalic and atraumatic Face and Sinus: Negative for sinus tenderness External Ear: external ears normal and mastoids normal External Auditory Canal: EAC's normal Tympanic Membrane ED: Yes TM's clear and other Bilateral scarring due to numerous infections as a child Teeth and Gingiva: Negative for caries Throat: posterior oropharynx abnormal Positive for erythema; Negative for posterior oropharynx normal or tonsils abnormal Eyes PERRL and EOMs intact bilaterally General Eye ED: Negative for pale conjunctiva or scleral icterus Neck no lymphadenopathy, supple, no meningeal signs and no JVD General: Negative for anterior neck swelling or lymphadenopathy Resp normal respiratory effort and clear to auscultation bilaterally Cardio S1 normal heart sound, S2 normal heart sound and no murmurs Rate: regular rate Rhythm: regular rhythm GI non-tender, non-distended and no masses Auscultation: normoactive bowel sounds Palpation: soft Psych mental status grossly normal Skin General Skin Exam: Negative for jaundice or pallor Lesions: no lesions Rashes: no rashes MDM MDM MDM Narrative Medical decision making narrative: Patient has symptoms that are concerning for Covid versus other viral infection. Will obtain a Covid test since she has been recently exposed in symptoms started several days after exposure. No other test s were ordered since her vitals are unremarkable. Discharge Plan Triage Chief Complaint: Sore Throat ED Provider: Leroy Plasencia Dx/Rx/DC Orders Clinical Impression: Encounter for screening for COVID-19, Acute upper respiratory infection Instructions: Coronavirus Disease 2019 (COVID-19): Overview, Coronavirus Disease 2019 (COVID-19): Caring for Yourself or Others Prescriptions: No Action duloxetine [Cymbalta] 20 mg capsule,delayed release(DR/EC) 90 mg PO DAILY RF: 0 buspirone 5 MG tablet 15 mg PO BID RF: 0 ondansetron [ondansetron] 4 MG tablet 4 mg PO Q8H PRN PRN (Reason: Nausea) Qty: 10 RF: 0 dicyclomine 10 MG capsule 20 mg PO TIDAC Qty: 20 RF: 0 dextroamphetamine-amphetamine [Adderall XR] 15 mg capsule,extended release 24hr 15 mg PO DAILY RF: 0 Primary Care Provider: Suyapa Haddad Referrals: Suyapa Haddad DO [Primary Care Provider] - 10-14 Days suture removal Disposition Disposition: Home, Self Care
== END 2021-06-08 21:23 | disposition home or self-care (01) ==
LOC: ED 21:18
PROVIDERS: Emergency Provider Emergency Medicine; PCP Family Medicine; Visit Provider Emergency Medicine
DX: J06.9 Acute upper respiratory infection, unspecified (principal); F17.210 Nicotine dependence, cigarettes, uncomplicated; E66.9 Obesity, unspecified; Z68.34 Body mass index [BMI] 34.0-34.9, adult; Z20.822 Contact with and (suspected) exposure to COVID-19
CPT/HCPCS: 87426; 99281; 99282

== ENCOUNTER 2021-08-11 14:12 | Emergency (ER) | payer MEDICAID, SELFPAY ==
[2021-08-11 14:13] VITALS: BP 132/83; PULSE 102; RESP 15; TEMP 35.8; O2SAT 98; BMI 33.2
--- NOTE | 2021-08-11 14:40 | EX.ED.DYSGE1 ---
HPI History of Present Illness Chief Complaint: Rash Informant: patient Onset/Context/Timing Onset: Weeks (3-weeks) Context: Gradual Onset Narrative Narrative: Patient presents with rash. She states she first noted lesion on her chin 3 weeks ago. She feels that there are black worms that sometimes come out of the areas. She also has scabbed lesions on her upper chest and back as well as over her buttocks. The areas do crack open and bleeds slightly. [facility] Medical History (Updated 08/11/21 @ 14:[address] Katelyn Carvalho MD) Anemia Depression Hemorrhoids Rheumatoid arthritis Home Medications buspirone 15 mg PO BID 02/07/14 [History Last Taken 04/04/18] duloxetine 20 mg capsule,delayed release 90 mg PO DAILY 05/27/17 [History Last Taken 04/04/18] dicyclomine 20 mg PO TIDAC #20 capsule 10/05/20 [Rx Last Taken Unknown] ondansetron 4 mg PO Q8H PRN PRN #10 tab 10/05/20 [Rx Last Taken Unknown] dextroamphetamine-amphetamine [Adderall XR] 15 mg PO DAILY 04/20/21 [History Last Taken Unknown] cephalexin 500 mg PO Q6 #40 cap 08/11/21 [Rx Last Taken Unknown] diphenhydramine HCl [Benadryl] 25 mg PO TID PRN #20 cap 08/11/21 [Rx Last Taken Unknown] Allergy/AdvReac Type Severity Reaction Status Date / Time shellfish derived Allergy Hives Verified 08/11/21 14:13 clindamycin AdvReac Other Verified 08/11/21 14:13 Family History Sister Thyroid disorder Depression Father Glaucoma CVA (cerebral vascular accident) Mother Mental health disorder Surgical History History of tubal ligation Hx of cholecystectomy Social History household members: spouse and children Smoking Status: Current every day smoker tobacco type: cigarettes alcohol intake: never substance use type: does not use ROS ROS ED Constitutional Constitutional ED: Denies chills or fever(s) Eyes Eyes: Denies change in vision ENT ENT ED: Denies sore throat Cardiovascular Cardiovascular: Denies chest pain Respiratory/Chest Respiratory/Chest: Denies cough or dyspnea Gastrointestinal Gastrointestinal: Denies abdominal pain, nausea or vomiting Genitourinary Genitourinary ED: Denies dysuria Musculoskeletal Musculoskeletal: Denies back pain Integumentary Reports rash Neurologic Neurologic: Denies headache(s) or weakness Psychiatric Psychiatric: Reports anxiety Allergic/Immunologic Allergic/Immunologic ED: Denies tongue swelling or urticaria EXAM Physical Exam Const Vital Signs: 08/11/21 14:13 Temperature 96.5 F L Temperature Source Temporal Pulse Rate 102 H Respiratory Rate 15 Blood Pressure 132/83 H Blood Pressure Mean 99 Pulse Ox 98 Oxygen Delivery Method Room Air Positive well nourished and well developed General Appearance ED: well developed HEENT Reports moist mucous membranes Eyes PERRL and EOMs intact bilaterally Neck supple Chest Wall inspection of chest normal and palpation of chest normal Resp normal respiratory effort and clear to auscultation bilaterally Cardio regular rate and regular rhythm GI non-tender Palpation: soft Extremity normal to inspection Neuro oriented x3 Sensorium / Orientation: alert Skin Skin Narrative: Patient has scabbed lesions noted on her chin, upper chest, upper back, and buttocks. No lesions noted between her fingers or moist areas consistent with scabies. No sign of surrounding cellulitis at this time. [facility] MDM Treatment and Re-Evaluation Narrative: Patient is concerned that she has a parasite causing her symptoms. I explained to her that there are no skin parasites in this per the country consistent with her exam findings. She has not had recent travel. She told me she was recently started on ADHD medicine, however when I review the chart she has been on this for quite some time. I will treat her with a course of Keflex. We will also write her for Benadryl to stop any allergic component. Patient is to follow-up with her primary care physician. Discharge Plan Triage Chief Complaint: Rash ED Provider: Katelyn Carvalho Dx/Rx/DC Orders Clinical Impression: Skin abnormalities Instructions: ED General Allergic Reactions Prescriptions: New diphenhydramine HCl [Benadryl] 25 mg capsule 25 mg PO TID PRN (Reason: rash) Qty: 20 RF: 0 cephalexin 500 mg capsule 500 mg PO Q6 Qty: 40 RF: 0 No Action duloxetine [Cymbalta] 20 mg capsule,delayed release(DR/EC) 90 mg PO DAILY RF: 0 buspirone 5 MG tablet 15 mg PO BID RF: 0 ondansetron [ondansetron] 4 MG tablet 4 mg PO Q8H PRN PRN (Reason: Nausea) Qty: 10 RF: 0 dicyclomine 10 MG capsule 20 mg PO TIDAC Qty: 20 RF: 0 dextroamphetamine-amphetamine [Adderall XR] 15 mg capsule,extended release 24hr 15 mg PO DAILY RF: 0 Primary Care Provider: Suyapa Haddad Referrals: Suyapa Haddad DO [Primary Care Provider] - 1-2 Weeks Disposition Disposition: Home, Self Care
[2021-08-11] MEDS: Cephalexin 250 MG Capsule 500 MG PO (14:55)
== END 2021-08-11 14:57 | disposition home or self-care (01) ==
PROVIDERS: Emergency Provider Emergency Medicine; PCP Family Medicine; Visit Provider Emergency Medicine
DX: L98.9 Disorder of the skin and subcutaneous tissue, unspecified (principal); F32.A Depression, unspecified; F90.9 Attention-deficit hyperactivity disorder, unspecified type; F17.210 Nicotine dependence, cigarettes, uncomplicated; Z79.899 Other long term (current) drug therapy
CPT/HCPCS: 99283

== ENCOUNTER 2021-09-23 08:52 | Emergency (ER) | payer MEDICAID, SELFPAY ==
[2021-09-23 08:54] VITALS: BP 125/74; PULSE 91; RESP 17; TEMP 36.5; O2SAT 99; BMI 32.8
--- NOTE | 2021-09-23 09:11 | EDS_ITS ---
HPI History of Present Illness Chief Complaint: Shortness of Breath Informant: patient Onset/Context/Timing Onset: Weeks (1) Context: Gradual Onset Timing: Continuous Quality: Squeezing Location: Chest Worsened by: Coughing Relieved by: Nothing Narrative Narrative: Patient presents with shortness of breath, right-sided chest pain, nausea, vomiting, and abdominal pain that has been getting progressively worse over the last week. Patient states she feels a squeezing sensation in the right side of her chest. Patient states it is worse with coughing. Patient states nothing makes it better. Patient states she was exposed to someone with COVID- 19 approximately a week and a half ago. Patient admits to a fever of 102 at home. Patient also admits to general myalgias. [facility] Medical History ADHD Anemia Depression Hemorrhoids Rheumatoid arthritis Home Medications buspirone 15 mg PO BID 02/07/14 [History Last Taken 04/04/18] duloxetine 20 mg capsule,delayed release 90 mg PO DAILY 05/27/17 [History Last Taken 04/04/18] amitriptyline 10 mg PO DAILY 09/23/21 [History Last Taken Unknown] azithromycin 250 mg PO DAILY #4 tablet 09/23/21 [Rx Last Taken Unknown] lisdexamfetamine [Vyvanse] 30 mg PO DAILY 09/23/21 [History Last Taken Unknown] Allergy/AdvReac Type Severity Reaction Status Date / Time shellfish derived Allergy Hives Verified 09/23/21 08:52 clindamycin AdvReac Other Verified 09/23/21 08:52 Family History Sister Thyroid disorder Depression Father Glaucoma CVA (cerebral vascular accident) Mother Mental health disorder Surgical History History of tubal ligation Hx of cholecystectomy Social History household members: spouse and children Smoking Status: Former smoker alcohol intake: never substance use type: does not use ROS ROS ED Constitutional Constitutional ED: Reports fever(s); Denies chills Eyes Eyes: Denies blurry vision or change in vision ENT ENT ED: Reports rhinorrhea and sore throat Cardiovascular Cardiovascular: Reports chest pain; Denies palpitations Respiratory/Chest Respiratory/Chest: Reports cough and dyspnea Gastrointestinal Gastrointestinal: Reports abdominal pain, nausea and vomiting Genitourinary Genitourinary ED: Denies dysuria or hematuria Musculoskeletal Musculoskeletal: Reports myalgias and neck pain Integumentary Denies abscess or rash Neurologic Neurologic: Reports headache(s); Denies weakness Allergic/Immunologic Allergic/Immunologic ED: Denies mouth swelling or urticaria EXAM Physical Exam Const Vital Signs: 09/23/21 08:54 09/23/21 09:44 09/23/21 09:45 Temperature 97.7 F L Temperature Source Temporal Pulse Rate 91 80 Respiratory Rate 17 20 H Respiratory Effort Normal Respiratory Depth Normal Respiratory Pattern Normal Blood Pressure 125/74 H Blood Pressure Mean 91 Pulse Ox 99 100 Oxygen Delivery Method Room Air Room Air Room Air Positive well nourished and well developed General Appearance ED: well developed and NAD HEENT Reports moist mucous membranes Neck supple and no JVD Resp normal respiratory effort and clear to auscultation bilaterally Cardio regular rate, regular rhythm and no murmurs GI normal to inspection, nondistended, normoactive bowel sounds and non-tender Palpation: soft Extremity normal to inspection General Extremety ED: Negative for edema or tenderness General Extremity: Negative for edema Neuro oriented x3, CN's II-XII intact bilaterally and no sensory deficits noted Sensorium / Orientation: alert Motor Exam: strength 5/5 throughout Psych mental status grossly normal Skin no rashes or lesions noted MDM MDM MDM Narrative Medical decision making narrative: Patient was given IV fluids here. Patient was given a DuoNeb aerosol here. COVID-19 rapid antigen was obtained and was negative. Influenza A and influenza B swabs were obtained and were negative. CBC was within normal limits. Comprehensive metabolic profile was within normal limits. Portable chest x-ray was obtained. There is 1 view. On my interpretation, there may be an early left lower lobe infiltrate. Bony thorax is normal. There is no cardiomegaly. Radiologist also interpreted the x-ray and agrees. Patient was given a dose of Zithromax here. Patient was given a prescription for Zithromax. Patient was instructed to follow-up with her primary care physician in 5 to 7 days. Patient understood and was agreeable with plan. All questions were answered. Lab Data Attestation: I reviewed the patient's lab results. Labs: Laboratory Results - last 24 hr 09/23/21 09/23/21 09:25 09:25 WBC 8.6 RBC 4.73 Hgb 13.0 Hct 40.4 MCV 85.4 MCH 27.5 MCHC 32.2 RDW Std Deviation 43.7 RDW Coeff of Iris 13.9 Plt Count 217 MPV 13.3 H Immature Gran % (Auto) 0.400 Neut % (Auto) 56.2 Lymph % (Auto) 32.3 [place] % (Auto) 6.1 Eos % (Auto) 4.2 Baso % (Auto) 0.8 Absolute Neuts (auto) 4.8 Absolute Lymphs (auto) 2.76 Nucleated RBC % 0 Sodium 139 Potassium 3.9 Chloride 104 Carbon Dioxide 29.0 Anion Gap 6 BUN 15 Creatinine 0.81 Estim Creat Clear Calc 85.29 Est GFR (MDRD) Af Amer 98 Est GFR (MDRD) Non-Af 81 BUN/Creatinine Ratio 18.5 Glucose 98 Calcium 9.1 Total Bilirubin 0.20 AST 17 ALT 16 Alkaline Phosphatase 104 Total Protein 7.6 Albumin 3.4 Globulin 4.2 Albumin/Globulin Ratio 0.8 L Radiography Chest X-Ray - ED: 1 View, Read by ED Physician, Read by Radiologist and Left Infiltrate Diagnostic Testing: Clinical Impression(s) from Imaging Studies Chest X-Ray 09/23/21 09:18 IMPRESSION: Findings suggestive of an early lingular infiltrate. Electronically Signed: Kev Gama MD at 10:10 EDT , Discharge Plan Triage Chief Complaint: Shortness of Breath ED Provider: Jr Paniagua Dx/Rx/DC Orders Clinical Impression: Pneumonia, Dyspnea Instructions: ED Pneumonia (Adult) Prescriptions: New azithromycin [azithromycin] 250 MG tablet 250 mg PO DAILY Qty: 4 RF: 0 No Action duloxetine [Cymbalta] 20 mg capsule,delayed release(DR/EC) 90 mg PO DAILY RF: 0 buspirone 5 MG tablet 15 mg PO BID RF: 0 amitriptyline 10 mg tablet 10 mg PO DAILY RF: 0 Vyvanse 30 mg capsule 30 mg PO DAILY RF: 0 Stand Alone Forms: ED Work / School Excuse Primary Care Provider: Suyapa Haddad Referrals: Suyapa Haddad DO [Primary Care Provider] - 5-7 Days Disposition Disposition: Home, Self Care
--- NOTE | 2021-09-23 09:18 | RAD_ITS ---
STUDY: X-RAY CHEST REASON FOR EXAM: Female, 46 years old. Cough TECHNIQUE: Single AP portable view of the chest. COMPARISON: Comparison is made with prior study dated 09/13/2017. FINDINGS: Hyperinflation. Minimal increased markings in the lingular segment of the left upper lobe. Early infiltrate should be ruled out There is no demonstrated pleural abnormality. Normal size heart. Normal mediastinum and satya. Normal visualized pulmonary arteries. Normal visualized aortic arch and descending thoracic aorta. Normal visualized thoracic spine. Normal visualized ribs, clavicles, and shoulders. There is no demonstrated abnormality of the visualized soft tissue structures of the upper abdomen. RAD/Chest 1 View (Portable) IMPRESSION: Findings suggestive of an early lingular infiltrate. Electronically Signed: Kev Gama MD at 10:10 EDT ,
[2021-09-23] MEDS: 0.9% Normal Saline 1,000 ML 1000 ML IV (09:26)
[2021-09-23] MEDS: Ipratropium/Albuterol Sulfate 3 ML AMPUL.NEB INHALATION (09:26)
[2021-09-23 09:37] LABS: Absolute Lymphocyte Count 2.76 X10^3/uL (0.83-4.51); Absolute Neutrophil Count 4.8 X10^3/uL (2.0-7.7); Basophil# 0.07 X10^3/uL; Basophil% 0.8 % (0-1); Eosinophil# 0.36 X10^3/uL; Eosinophils% 4.2 % (0-5); Hematocrit 40.4 % (37-47); Lymphocyte # 2.76 X10^3/ul (0.83-4.51); Lymphocyte % 32.3 % (19-41); Mean Corp Hgb Conc 32.2 g/dL (32-36); Mean Corpuscular Hgb 27.5 pg (27.0-32.0); Mean Corpuscular Volume 85.4 fL (81-99); Mean Platelet Vol. 13.3 fl (6.2-12.0); Monocyte# 0.52 X10^3/uL; Monocyte% 6.1 % (0-10); NRBC Flagged by Analyzer 0 % (0-5); Neutrophil # 4.81 X10^3/uL (2.7-7.7); Neutrophil % 56.2 % (47-70); Platelet Count 217 K/mm3 (150-450); RBC Distribution Width CV 13.9 % (11.6-14.6); RBC Distribution Width SD 43.7 fl (35.1-43.9); Red Blood Count 4.73 M/mm3 (4.2-5.4); White Blood Count 8.6 K/mm3 (4.4-11.0)
[2021-09-23 09:44] VITALS: O2SAT 100
[2021-09-23 09:45] VITALS: PULSE 80; RESP 20; O2SAT 100
[2021-09-23 09:51] LABS: ALB/GLOB Ratio 0.8 RATIO (0.9-2.4); AST(SGOT) 17 U/L (15-37); Alanine Aminotransfer ALT/SGPT 16 U/L (13-56); Albumin, Serum 3.4 g/dL (3.2-5.0); Alkaline Phosphatase 104 U/L (45-117); Anion Gap 6 (5-15); BUN 15 mg/dL (7-18); BUN/Creat Ratio 18.5 RATIO (10-20); Calcium,Total 9.1 mg/dL (8.5-10.1); Chloride 104 mmol/L (98-107); Creatinine, Serum 0.81 mg/dL (0.55-1.02); EST Glomerular Filtration Rate 81 mL/min (>60); Est Glom Filt Rate - Afr Amer 98 mL/min (>60); Estimated Creatinine Clearance 85.29 ml/min; Globulin 4.2 g/dL (2.2-4.2); Glucose 98 mg/dL (74-106); Potassium 3.9 mmol/L (3.5-5.1); Protein, Total 7.6 g/dL (6.4-8.2); Sodium Level 139 mmol/L (136-145)
[2021-09-23] MEDS: Azithromycin 250 MG Tablet 500 MG PO (11:12)
[2021-09-23 11:18] VITALS: BP 121/71; PULSE 77; RESP 16; O2SAT 100
== END 2021-09-23 11:19 | disposition home or self-care (01) ==
PROVIDERS: Emergency Provider Emergency Medicine; PCP Family Medicine; Visit Provider Emergency Medicine
DX: J18.9 Pneumonia, unspecified organism (principal); M06.9 Rheumatoid arthritis, unspecified; F32.A Depression, unspecified; Z20.822 Contact with and (suspected) exposure to COVID-19; Z79.899 Other long term (current) drug therapy; Z87.891 Personal history of nicotine dependence
CPT/HCPCS: 71045; 80053; 85025; 87428; 94640; 96360; 96361; 99284; J7030

== ENCOUNTER 2021-09-26 11:38 | Emergency (ER) | payer MEDICAID, SELFPAY ==
[2021-09-26 11:40] VITALS: BP 143/81; PULSE 84; RESP 16; TEMP 36.4; O2SAT 99; BMI 36.0
--- NOTE | 2021-09-26 11:54 | VDLE_ITS ---
Reason For Study: Pain RIGHT GSV is normal. CFV is compressible, spontaneous, phasic, competent and demonstrates normal augmentation. FV is compressible, spontaneous, phasic, competent and demonstrates normal augmentation. POP V is compressible, spontaneous, phasic, competent and demonstrates normal augmentation. T/P Trunk is compressible. PTV is compressible. RT PerV is compressible. Procedure This is a venous duplex using B-mode, color flow and spectral Doppler. Exam performed portable in ED. A preliminary report was called and/or faxed to Dr. Martinez. VL/Venous Duplex US, Unilateral Interpretation Summary There is no evidence of right lower extremity deep vein thrombosis. Right great saphenous vein appears patent and compressible segmentally. Ordering Physician: Andrew Martinez Referring Physician: Suyapa Haddad Performed By: Jana James, KECIA, RVT
--- NOTE | 2021-09-26 11:55 | EDS_ITS ---
HPI HPI - URI History of Present Illness Chief Complaint: Shortness of Breath Narrative Narrative: 46-year-old female presenting with chest pain. She states he has had this since her previous visit to the ER 09/23/2021 when she was diagnosed with pneumonia. She states she has not had a return of fever at home. She states that she has had some amaris sputum and thought she needed to be seen at the urgent care. There they told her that she had a fever although her documentation does state that she had a temperature of 96.6. They also told her that with the cough and the new pain behind her right knee she needed to come to the emergency room. The patient does not have any history of DVT/PE, no recent immobilization or surgery, no recent travel, cancer history, trauma, history of being bedridden or immobilized. Patient has no cardiac history. ROS [facility] ED Constitutional Constitutional ED: Denies chills, fever(s) or subjective Eyes Eyes: Denies blurry vision or diplopia ENT ENT ED: Denies rhinorrhea or sore throat Cardiovascular Cardiovascular: Reports chest pain; Denies palpitations or racing heartbeat Respiratory/Chest Respiratory/Chest: Reports cough, dyspnea and other Details: Maaris sputum Gastrointestinal Gastrointestinal: Denies abdominal pain or nausea Genitourinary Genitourinary ED: Denies dysuria or hematuria Musculoskeletal Musculoskeletal: Denies back pain, myalgias or neck pain Integumentary Denies rash Neurologic Neurologic: Denies headache(s) Psychiatric Psychiatric: Denies anxiety or depression [facility] Medical History ADHD Anemia Depression Hemorrhoids Rheumatoid arthritis Home Medications buspirone 15 mg PO BID 02/07/14 [History Last Taken 04/04/18] duloxetine 20 mg capsule,delayed release 90 mg PO DAILY 05/27/17 [History Last Taken 04/04/18] amitriptyline 10 mg PO DAILY 09/23/21 [History Last Taken Unknown] azithromycin 250 mg PO DAILY #4 tablet 09/23/21 [Rx Last Taken Unknown] lisdexamfetamine [Vyvanse] 30 mg PO DAILY 09/23/21 [History Last Taken Unknown] Allergy/AdvReac Type Severity Reaction Status Date / Time shellfish derived Allergy Hives Verified 09/26/21 11:39 clindamycin AdvReac Other Verified 09/26/21 11:39 Family History Sister Thyroid disorder Depression Father Glaucoma CVA (cerebral vascular accident) Mother Mental health disorder Surgical History History of tubal ligation Hx of cholecystectomy Social History household members: spouse and children Smoking Status: Former smoker alcohol intake: never substance use type: does not use EXAM Physical Exam Const Vital Signs: 09/26/21 11:40 09/26/21 12:18 Temperature 97.6 F L Temperature Source Temporal Pulse Rate 84 Respiratory Rate 16 Respiratory Effort Short of Breath Respiratory Depth Shallow Respiratory Pattern Tachypnea Blood Pressure 143/81 H Blood Pressure Mean 101 Pulse Ox 99 Oxygen Delivery Method Room Air Positive well nourished General Appearance ED: NAD; Negative for pallor HEENT Reports moist mucous membranes normocephalic and atraumatic Eyes PERRL and EOMs intact bilaterally General Eye ED: Negative for pale conjunctiva or scleral icterus Neck no lymphadenopathy and supple Resp normal respiratory effort and clear to auscultation bilaterally Cardio Rate: regular rate Rhythm: regular rhythm GI non-tender and non-distended Palpation: soft Back/Spine no CVA tenderness Neuro oriented x3 and CN's II-XII intact bilaterally Sensorium / Orientation: alert Psych mental status grossly normal Skin General Skin Exam: Negative for jaundice or pallor Lesions: no lesions Rashes: no rashes MDM MDM MDM Narrative Medical decision making narrative: Patient presenting with continued cough, amaris sputum, shortness of breath. She is not had any return of her fever. She was told she was febrile at the urgent care but I looked at her documentation and it shows that her temperature was 96.6. Patient is still having some chest pain and subjective shortness of breath however her respirate is 16 and her pulse ox is 99% on room air. Technically she is PERC negative but she is concerned for PE after her visit to the urgent care. We discussed this at length. I will check basic labs, D-dimer, troponin. EKG on my interpretation shows normal sinus rhythm with a ventricular rate of 77 bpm without sign of ischemic change or dysrhythmia. Chest x-ray on my interpretation shows no acute cardiopulmonary process and the radiologist does agree. CBC and BMP are unremarkable. High-sensitivity troponin is less than 3. D-dimer was elevated at 0.[address] a [address] of the chest which was negative for dissection, PE, other acute abnormalities. Patient counseled on findings. She is counseled on alternate Tylenol and ibuprofen for pain. She is discharged home in stable condition. Impression: 1 Chest pain 2. Dyspnea 3. History of pneumonia Lab Data Attestation: I reviewed the patient's lab results. Labs: Laboratory Results - last 24 hr 09/26/21 09/26/21 09/26/21 12:25 12:25 12:25 WBC 7.5 RBC 4.85 Hgb 13.2 Hct 41.3 MCV 85.2 MCH 27.2 MCHC 32.0 RDW Std Deviation 42.6 RDW Coeff of Iris 13.6 Plt Count 216 MPV 12.6 H Immature Gran % (Auto) 0.300 Neut % (Auto) 58.3 Lymph % (Auto) 28.9 [place] % (Auto) 7.0 Eos % (Auto) 4.7 Baso % (Auto) 0.8 Absolute Neuts (auto) 4.4 Absolute Lymphs (auto) 2.16 Nucleated RBC % 0 D-Dimer Quant (PE/DVT) 0.69 H* Sodium 138 Potassium 4.0 Chloride 106 Carbon Dioxide 29.0 Anion Gap 3 L BUN 14 Creatinine 0.74 Estim Creat Clear Calc 93.36 Est GFR (MDRD) Af Amer 108 Est GFR (MDRD) Non-Af 90 BUN/Creatinine Ratio 18.8 Glucose 105 Calcium 9.6 Troponin I High Sens < 3 L Radiography Diagnostic Testing: Clinical Impression(s) from Imaging Studies Chest X-Ray 09/26/21 12:25 IMPRESSION: Normal x-ray examination of the chest. Electronically Signed: Hakan Rodrigez MD at 12:50 EDT , Chest CTA 09/26/21 12:50 IMPRESSION: 1. Suboptimal enhancement of the pulmonary arteries. No definite central pulmonary embolism. Difficult to evaluate the peripheral branches. 2. No mass, adenopathy or focal acute infiltrate. 3. Status post cholecystectomy. Electronically Signed: Hakan Rodrigez MD at 14:26 EDT , Discharge Plan Triage Chief Complaint: Shortness of Breath ED Provider: Andrew Martinez Dx/Rx/DC Orders Prescriptions: No Action duloxetine [Cymbalta] 20 mg capsule,delayed release(DR/EC) 90 mg PO DAILY RF: 0 buspirone 5 MG tablet 15 mg PO BID RF: 0 amitriptyline 10 mg tablet 10 mg PO DAILY RF: 0 Vyvanse 30 mg capsule 30 mg PO DAILY RF: 0 azithromycin [azithromycin] 250 MG tablet 250 mg PO DAILY Qty: 4 RF: 0 Primary Care Provider: Suyapa Haddad
--- NOTE | 2021-09-26 11:57 | EKG12_ITS ---
Test Reason : SOB Blood Pressure : / mmHG Vent. Rate : 077 BPM Atrial Rate : 077 BPM P-R Int : 152 ms QRS Dur : 094 ms QT Int : 370 ms P-R-T Axes : 051 010 051 degrees QTc Int : 418 ms Normal sinus rhythm Normal ECG Confirmed by ARABELLA MCDONALD, ARYAN ([id number]), telegraph editor BRODIE WHITE ([id number]) on 09/28/2021 12:41:20 PM Referred By: OSWALDO Confirmed By:ARYAN BELL MD
--- NOTE | 2021-09-26 12:25 | RAD_ITS ---
STUDY: X-RAY CHEST REASON FOR EXAM: Female, 46 years old. Chest pain TECHNIQUE: Single AP portable view of the chest. COMPARISON: 09/23/2021. FINDINGS: The lungs are clear and expanded. There is no demonstrated pleural abnormality. Normal size heart. Normal mediastinum and satya. Normal visualized pulmonary arteries. Normal visualized aortic arch and descending thoracic aorta. Normal visualized thoracic spine. Normal visualized ribs, clavicles, and shoulders. There is no demonstrated abnormality of the visualized soft tissue structures of the upper abdomen. RAD/Chest 1 View (Portable) IMPRESSION: Normal x-ray examination of the chest. Electronically Signed: Hakan Rodrigez MD at 12:50 EDT ,
[2021-09-26 12:34] LABS: Absolute Lymphocyte Count 2.16 X10^3/uL (0.83-4.51); Absolute Neutrophil Count 4.4 X10^3/uL (2.0-7.7); Basophil# 0.06 X10^3/uL; Basophil% 0.8 % (0-1); Eosinophil# 0.35 X10^3/uL; Eosinophils% 4.7 % (0-5); Hematocrit 41.3 % (37-47); Hemoglobin 13.2 g/dL (12.0-15.0); Lymphocyte # 2.16 X10^3/ul (0.83-4.51); Lymphocyte % 28.9 % (19-41); Mean Corpuscular Hgb 27.2 pg (27.0-32.0); Mean Corpuscular Volume 85.2 fL (81-99); Mean Platelet Vol. 12.6 fl (6.2-12.0); Monocyte# 0.52 X10^3/uL; NRBC Flagged by Analyzer 0 % (0-5); Neutrophil # 4.36 X10^3/uL (2.7-7.7); Neutrophil % 58.3 % (47-70); Platelet Count 216 K/mm3 (150-450); RBC Distribution Width CV 13.6 % (11.6-14.6); RBC Distribution Width SD 42.6 fl (35.1-43.9); Red Blood Count 4.85 M/mm3 (4.2-5.4); White Blood Count 7.5 K/mm3 (4.4-11.0)
[2021-09-26 12:44] LABS: D-Dimer Quantitative (DVT/PE) 0.69 FEU/ug/m (0.27-0.49)
--- NOTE | 2021-09-26 12:50 | CT_ITS ---
STUDY: CTA CHEST REASON FOR EXAM: Female, 46 years old. Chest pain AND RECENT PNEUMONIA RADIATION DOSAGE (If Supplied By Facility): CTDIvol = ( 13.60 ) mGy, DLP = ( 515.81 ) mGycm TECHNIQUE: The examination was performed with the intravenous administration of IV 75mL [id number]-[id number]. Post-processing of the angiographic images was performed, with multiplanar reformation and 3D reconstruction. Individualized dose optimization techniques were used for this CT. COMPARISON: None. FINDINGS: There is limited enhancement of the main pulmonary artery and right and left pulmonary arteries. There is limited enhancement of the bilateral peripheral pulmonary arteries. There is no demonstrated definite central pulmonary embolism. Suboptimal evaluation of the peripheral branches. Normal thoracic aorta and visualized great vessels. There is no demonstrated aortic dissection. Normal heart and pericardium. Normal mediastinum. Normal hilar regions. Normal visualized trachea and bronchi. The lungs are well expanded. There are no pulmonary infiltrates. Mild atelectasis or scarring in the lingula. There are no pleural effusions. Normal chest wall structures. No demonstrated acute osseous changes. The visualized portions of the upper abdomen no acute process. Status post cholecystectomy. CT/CTA Chest W/WO Contrast IMPRESSION: 1. Suboptimal enhancement of the pulmonary arteries. No definite central pulmonary embolism. Difficult to evaluate the peripheral branches. 2. No mass, adenopathy or focal acute infiltrate. 3. Status post cholecystectomy. Electronically Signed: Hakan Rodrigez MD at 14:26 EDT ,
[2021-09-26 12:51] LABS: Anion Gap 3 (5-15); BUN 14 mg/dL (7-18); BUN/Creat Ratio 18.8 RATIO (10-20); Calcium,Total 9.6 mg/dL (8.5-10.1); Chloride 106 mmol/L (98-107); Creatinine, Serum 0.74 mg/dL (0.55-1.02); EST Glomerular Filtration Rate 90 mL/min (>60); Est Glom Filt Rate - Afr Amer 108 mL/min (>60); Estimated Creatinine Clearance 93.36 ml/min; Glucose 105 mg/dL (74-106); Sodium Level 138 mmol/L (136-145); Troponin-I HS (w/2H Reflex) < 3 pg/mL (3.0-54.0)
[2021-09-26 14:00] VITALS: BP 98/49; PULSE 83; RESP 16; O2SAT 96
[2021-09-26 14:30] LABS: Reflex Troponin-HS? (from REC) Y
[2021-09-26 15:03] LABS: Troponin-I HS 4 pg/mL (3.0-54.0)
[2021-09-26 15:20] VITALS: BP 136/74; PULSE 74; RESP 16; O2SAT 97
== END 2021-09-26 15:22 | disposition home or self-care (01) ==
PROVIDERS: Emergency Provider Student in an Organized Health Care Education/Training Program; PCP Family Medicine; Visit Provider Student in an Organized Health Care Education/Training Program
DX: R07.9 Chest pain, unspecified (principal); M06.9 Rheumatoid arthritis, unspecified; R06.02 Shortness of breath; F32.A Depression, unspecified; Z87.01 Personal history of pneumonia (recurrent); Z79.899 Other long term (current) drug therapy; Z87.891 Personal history of nicotine dependence
CPT/HCPCS: 71045; 71275; 80048; 84484; 85025; 85379; 93005; 93971; 99284; Q9967; A4216

== ENCOUNTER 2022-04-03 21:00 | Emergency (ER) | payer MEDICAID, SELFPAY ==
[2022-04-03 21:00] VITALS: BP 129/68; PULSE 82; RESP 16; TEMP 36.6; O2SAT 100; BMI 33.9
--- NOTE | 2022-04-03 21:23 | EDS_ITS ---
HPI History of Present Illness HPI Narrative: Right posterior shoulder and muscle pain after lifting a toolmaker helper several weeks ago. Denies any fall or trauma. Chief Complaint: Upper Extremity Injury Informant: patient and spouse/S.O. Occured/Mechanism Mechanism/Context: Yes injury Onset/Context/Timing Onset: Weeks Context: Sudden Onset Timing: Continuous Quality of Pain: Dull and Aching Current Severity: Moderate Maximum Severity: Moderate Associated Symptoms Associated Symptoms: Negative for Parasthesia, Weakness or Loss of Funtion Narrative Narrative: 26-year-old female [id number]. Was lifting a toolmaker helper with her off a truck day before . Extremely right shoulder. Since that time she has had pain in the posterior shoulder from her neck down to her shoulder. She is right-hand dominant. No fall or injury. No prior surgery. Saw her primary care physician. Started on Flexeril without any relief. Prior similar symptoms: No Recent Illness/Hospitalization: No PFSH PFSH Medical History ADHD Anemia Depression Hemorrhoids Rheumatoid arthritis Home Medications buspirone 5 mg tablet 15 mg PO BID anxiety 02/07/14 [History Last Taken 04/04/18] duloxetine 20 mg capsule,delayed release (Cymbalta) 90 mg PO DAILY depression 05/27/17 [History Last Taken 04/04/18] amitriptyline 10 mg tablet 10 mg PO DAILY 09/23/21 [History Last Taken Unknown] azithromycin 250 mg tablet 250 mg PO DAILY #4 TABLETS 09/23/21 [Rx Last Taken Unknown] lisdexamfetamine 30 mg capsule (Vyvanse) 30 mg PO DAILY 09/23/21 [History Last Taken Unknown] metaxalone 800 mg tablet 800 mg PO TID PRN muscle pain #21 tabs 04/03/22 [Rx Last Taken Unknown] Allergy/AdvReac Type Severity Reaction Status Date / Time shellfish derived Allergy Hives Verified 04/03/22 21:02 clindamycin AdvReac Other Verified 04/03/22 21:02 Family History Sister Thyroid disorder Depression Father Glaucoma CVA (cerebral vascular accident) Mother Mental health disorder Surgical History History of tubal ligation Hx of cholecystectomy Social History household members: spouse and children Smoking Status: Former smoker alcohol intake: never substance use type: does not use ROS ROS ED ROS Narrative No recent illness. Review of Systems ROS Unobtainable: Denies due to encephalopathy Constitutional Constitutional ED: Denies chills or fever(s) Eyes Eyes: Denies blurry vision ENT ENT ED: Denies ear pain Cardiovascular Cardiovascular: Denies chest pain Respiratory/Chest Respiratory/Chest: Denies cough or dyspnea Genitourinary Genitourinary ED: Denies dysuria or hematuria Musculoskeletal Musculoskeletal: Reports back pain Integumentary Denies abscess or Abrasions Neurologic Neurologic: Denies headache(s) Endocrine Endocrinology: Denies cold intolerance Hematologic/Lymphatic Hematologic/Lymphatic: Denies easy bleeding Allergic/Immunologic Allergic/Immunologic ED: Denies mouth swelling or tongue swelling EXAM Physical Exam Narrative Exam Narrative: 46-year-old female no acute distress. Vital signs stable afebrile. H EENT exam unremarkable. Neck paracervical soft tissue tenderness posteriorly. Also along the trapezius and the soft tissue musculature along the right shoulder blade. Otherwise back and spine nontender. Lungs clear. Heart regular rhythm. Full range of motion all extremities including the right shoulder. No deformity. No bony tenderness. No fracture or dislocation. Normal adaptive physical educator strength. Normal radial pulse. Normal range of motion of the right arm. Neurologic exam normal. History and exam consistent with a right shoulder strain and spasm. Const Vital Signs: 04/03/22 21:00 Temperature 98 F Temperature Source Temporal Pulse Rate 82 Respiratory Rate 16 Blood Pressure 129/68 H Blood Pressure Mean 88 Pulse Ox 100 Oxygen Delivery Method Room Air Positive well nourished, well developed and obese; Negative for cachectic, contractures or unkempt General Appearance ED: well developed and NAD; Negative for unkempt, cachectic, contractures, cyanotic or diaphoretic Nutritional Appearance: obese; Negative for cachectic HEENT Reports moist mucous membranes normocephalic and atraumatic; Negative for trauma or tenderness Eyes PERRL and EOMs intact bilaterally Neck full ROM and supple General: tenderness Chest Wall inspection of chest normal and palpation of chest normal Chest: Negative for other Resp normal respiratory effort and clear to auscultation bilaterally Effort and Inspection: Negative for pain with movement Auscultation: Negative for rales, rhonchi or wheezes Cardio regular rate, regular rhythm, S1 normal heart sound, S2 normal heart sound and no murmurs Rate: Negative for bradycardia Rhythm: Negative for abnormal rhythm GI non-tender, non-distended and no masses Inspection: Negative for abdominal distention Auscultation: normoactive bowel sounds Palpation: soft; Negative for tender, guarding, rebound tenderness present or other Back/Spine no CVA tenderness General Back: Negative for CVA tenderness Cervical Spine: Negative for cervical spine tenderness Thoracic Spine / Upper Back: Negative for thoracic spinal tenderness Lumbar Spine / Lower Back: Negative for lumbar spinal tenderness Extremity normal to inspection and full ROM Extremity Narrative: Right posterior shoulder soft tissue tenderness consistent with myofascial strain and spasm. General Extremety ED: Negative for edema General Extremity: Negative for edema Neuro oriented x3, CN's II-XII intact bilaterally, moves all extremities, no focal motor deficits and no sensory deficits noted Sensorium / Orientation: alert, oriented to person, oriented to place and oriented to time; Negative for orientation impaired, lethargic or stuporous Motor Exam: strength 5/5 throughout Psych mental status grossly normal Appearance: Negative for unkempt Attitude: No agitated Mood & Affect: Negative for depressed, anxious or tearful Skin General Skin Exam: Negative for petechiae Lesions: no lesions Rashes: no rashes Trauma: no lacerations or abrasions MDM MDM MDM Narrative Medical decision making narrative: 46-year-old right shoulder strain and spasm from lifting a toolmaker helper several weeks ago. Current muscle relaxant she is on is not of any improvement. She will be started on Skelaxin. Motrin. Heat and massage. Should progressively improve. Discharge Plan Triage Chief Complaint: Upper Extremity Injury ED Provider: Hema Vicente Dx/Rx/DC Orders Clinical Impression: Muscle spasm, Muscle strain of right shoulder Instructions: ED Muscle Spasm Prescriptions: New metaxalone 800 mg tablet 800 mg PO TID PRN (Reason: muscle pain) Qty: 21 0RF No Action duloxetine [Cymbalta] 20 mg capsule,delayed release(DR/EC) 90 mg PO DAILY buspirone 5 MG tablet 15 mg PO BID amitriptyline 10 mg tablet 10 mg PO DAILY Label Comments: TAKE 1 TO 2 TABLETS BY MOUTH AT BEDTIME Vyvanse 30 mg capsule 30 mg PO DAILY Label Comments: TAKE 1 CAPSULE BY MOUTH ONCE DAILY IN THE MORNING azithromycin [azithromycin] 250 MG tablet 250 mg PO DAILY Qty: 4 0RF Primary Care Provider: Suyapa Haddad Referrals: Suyapa Haddad DO [Primary Care Provider] - 1 Week if not improving Activity Restrictions/Additional Instructions: Shower, warm bath, massage, heating pad or massage gun to the area. The muscle was in spasm and eventually relax. Motrin for pain and inflammation alternate with Tylenol. Skelaxin which is a muscle relaxant 1 pill 3 times a day till gone. You can stop your current muscle relaxant to Flexeril. Follow-up with your doctor if not improving. Disposition Disposition: Home, Self Care
== END 2022-04-03 21:38 | disposition home or self-care (01) ==
PROVIDERS: Emergency Provider Emergency Medicine; PCP Family Medicine; Visit Provider Emergency Medicine
DX: S46.911A Strain of unspecified muscle, fascia and tendon at shoulder and upper arm level, right arm, initial encounter (principal); M06.9 Rheumatoid arthritis, unspecified; M62.838 Other muscle spasm; X50.0XXA Overexertion from strenuous movement or load, initial encounter; F32.A Depression, unspecified; E66.9 Obesity, unspecified; Z79.899 Other long term (current) drug therapy; Z87.891 Personal history of nicotine dependence
CPT/HCPCS: 99282

== ENCOUNTER 2022-10-04 20:17 | Emergency (ER) | payer BC, MEDICAID, SELFPAY ==
[2022-10-04 20:18] VITALS: BP 136/85; PULSE 85; RESP 16; TEMP 36.6; O2SAT 99; BMI 34.7
--- NOTE | 2022-10-04 21:32 | RAD_ITS ---
INDICATION: Trauma, fall, knee pain EXAMINATION/TECHNIQUE: X-RAY - LEFT XR Knee Complete 4 Views or More 4 VIEWS COMPARISON: None. FINDINGS: SOFT TISSUES: No soft tissue swelling or gas. No radiopaque foreign body. BONES/JOINTS: No acute fracture. Joint spaces anatomically aligned. No sclerotic or destructive changes observed. RAD/Knee 4 or More Views IMPRESSION: No acute bony abnormality. Electronically Signed: Rupert Renae MD at 22:37 EDT ,
--- NOTE | 2022-10-04 21:33 | ED.VIS.LOWEX ---
HPI History of Present Illness Chief Complaint: Lower Extremity Injury Narrative Narrative: 47-year-old female presenting with left knee and left ankle pain. Patient had mechanical fall down a couple of stairs which she states she twisted her left ankle and then came down on her left knee. She is been ambulatory with an antalgic gait. She is doing ibuprofen at home. She notices bruising over the left knee and left lateral malleolus today. Patient had no head injury or LOC. She has been otherwise healthy [facility] Medical History ADHD Anemia Depression Hemorrhoids Rheumatoid arthritis Home Medications buspirone 5 mg tablet 15 mg PO BID anxiety 02/07/14 [History Last Taken 04/04/18] duloxetine 20 mg capsule,delayed release (Cymbalta) 90 mg PO DAILY depression 05/27/17 [History Last Taken 04/04/18] amitriptyline 10 mg tablet 10 mg PO DAILY 09/23/21 [History Last Taken Unknown] azithromycin 250 mg tablet 250 mg PO DAILY #4 TABLETS 09/23/21 [Rx Last Taken Unknown] lisdexamfetamine 30 mg capsule (Vyvanse) 30 mg PO DAILY 09/23/21 [History Last Taken Unknown] metaxalone 800 mg tablet 800 mg PO TID PRN muscle pain #21 tabs 04/03/22 [Rx Last Taken Unknown] Allergy/AdvReac Type Severity Reaction Status Date / Time shellfish derived Allergy Hives Verified 10/04/22 20:17 clindamycin AdvReac Other Verified 10/04/22 20:17 Family History Sister Thyroid disorder Depression Father Glaucoma CVA (cerebral vascular accident) Mother Mental health disorder Surgical History History of tubal ligation Hx of cholecystectomy Social History household members: spouse and children Smoking Status: Former smoker alcohol intake: never substance use type: does not use ROS ROS ED Constitutional Constitutional ED: Denies chills, fever(s) or sweats Eyes Eyes: Denies blurry vision or change in vision ENT ENT ED: Denies ear pain or sore throat Cardiovascular Cardiovascular: Denies chest pain, palpitations or racing heartbeat Respiratory/Chest Respiratory/Chest: Denies cough, dyspnea or sputum Gastrointestinal Gastrointestinal: Denies abdominal pain, constipation, diarrhea, nausea or vomiting Genitourinary Genitourinary ED: Denies dysuria, hematuria or urinary frequency Musculoskeletal Musculoskeletal: Reports other Details: Left knee and ankle pain Integumentary Reports other Details: Bruising to left knee and ankle ; Denies abscess, Abrasions or rash Neurologic Neurologic: Denies headache(s), paresthesias or weakness Psychiatric Psychiatric: Denies anxiety, depression, suicidal ideation or suicidal thoughts Endocrine Endocrinology: Denies polydipsia or polyuria EXAM Physical Exam Const Vital Signs: 10/04/22 20:18 Temperature 97.8 F Temperature Source Temporal Pulse Rate 85 Respiratory Rate 16 Blood Pressure 136/85 H Blood Pressure Mean 102 Pulse Ox 99 Positive well nourished General Appearance ED: NAD HEENT Reports moist mucous membranes normocephalic Resp normal respiratory effort Cardio regular rate and regular rhythm Extremity Extremity Narrative: Tenderness palpation of her left patella. No ligamentous laxity noted. No pain over the medial/lateral joint lines. Left knee extensor mechanism intact. There is tenderness palpation over the left lateral malleolus without significant edema or swelling. There are some slight bruising here. Left foot neurovascular intact brisk cap refill to all 5 toes. Neuro oriented x3 and CN's II-XII intact bilaterally Sensorium / Orientation: alert Motor Exam: strength 5/5 throughout Psych mental status grossly normal Skin no wounds MDM MDM MDM Narrative Medical decision making narrative: 47-year-old female with left knee pain and left ankle pain. She is ambulatory with antalgic gait. She is given Tylenol for her pain. X-rays of the left knee and left ankle will be obtained. Patient was given ice pack. X-rays of the left knee and left ankle on my interpretation showed no acute fracture or subluxation. Patient requested an Maikol wrap for her left knee. This was provided. She declines crutches. She is counseled on Tylenol and ibuprofen at home. Ice and elevation. Return precautions discussed. Impression: 1. Mechanical fall 2. Left knee contusion 3. Left ankle sprain Radiography Diagnostic Testing: Clinical Impression(s) from Imaging Studies Knee X-Ray 10/04/22 21:32 IMPRESSION: No acute bony abnormality. Electronically Signed: Rupert Renae MD at 22:37 EDT , Ankle X-Ray 10/04/22 21:50 IMPRESSION: No acute bony injury. Electronically Signed: Rupert Renae MD at 22:31 EDT , Discharge Plan Triage Chief Complaint: Lower Extremity Injury ED Provider: Andrew Martinez Dx/Rx/DC Orders Instructions: ED Contusion, Lower Extremity, ED Ankle Sprain (Adult) Prescriptions: No Action duloxetine [Cymbalta] 20 mg capsule,delayed release(DR/EC) 90 mg PO DAILY buspirone 5 MG tablet 15 mg PO BID amitriptyline 10 mg tablet 10 mg PO DAILY Label Comments: TAKE 1 TO 2 TABLETS BY MOUTH AT BEDTIME Vyvanse 30 mg capsule 30 mg PO DAILY Label Comments: TAKE 1 CAPSULE BY MOUTH ONCE DAILY IN THE MORNING azithromycin [azithromycin] 250 MG tablet 250 mg PO DAILY Qty: 4 0RF metaxalone 800 mg tablet 800 mg PO TID PRN (Reason: muscle pain) Qty: 21 0RF Primary Care Provider: Suyapa Haddad Referrals: Suyapa Haddad DO [Primary Care Provider] - Disposition Disposition: Home, Self Care
--- NOTE | 2022-10-04 21:50 | RAD_ITS ---
INDICATION: Trauma, fall, ankle pain EXAMINATION/TECHNIQUE: X-RAY - LEFT XR Ankle Min 3 Views 3 VIEWS COMPARISON: None. FINDINGS: SOFT TISSUES: No soft tissue swelling or gas. No radiopaque foreign body. BONES/JOINTS: No acute fracture. Joint spaces anatomically aligned. No sclerotic or destructive changes observed. RAD/Ankle min 3 Views IMPRESSION: No acute bony injury. Electronically Signed: Rupert Renae MD at 22:31 EDT ,
[2022-10-04] MEDS: Acetaminophen 500 MG Tablet 1000 MG PO (22:05)
[2022-10-04 22:45] VITALS: RESP 18
== END 2022-10-04 22:49 | disposition home or self-care (01) ==
PROVIDERS: Emergency Provider Student in an Organized Health Care Education/Training Program; PCP Family Medicine; Visit Provider Student in an Organized Health Care Education/Training Program
DX: S93.402A Sprain of unspecified ligament of left ankle, initial encounter (principal); S80.02XA Contusion of left knee, initial encounter; W10.9XXA Fall (on) (from) unspecified stairs and steps, initial encounter; Z87.891 Personal history of nicotine dependence
CPT/HCPCS: 73564; 73610; 99283

== ENCOUNTER 2023-09-21 08:35 | Emergency (ER) | payer BC, SELFPAY ==
[2023-09-21 08:37] VITALS: BP 134/70; PULSE 84; RESP 26; TEMP 36.4; O2SAT 97; BMI 37.0
--- NOTE | 2023-09-21 08:52 | EX.ED.DYSGE1 ---
HPI History of Present Illness Chief Complaint: General Illness Informant: patient, spouse/S.O. and EMS Narrative Narrative: 48-year-old female presenting to the emergency room with a chief complaint of dizziness and vomiting. states he called the ambulance today after she became dizzy and vomiting and globally weak to the point where he could not get in the car so he called the ambulance to bring her head. Patient states that on 14 September she began to have some right-sided abdominal pain. By the she states she was having vomiting this continued into the . On the she went down to [facility] on the way back became dizzy. Patient states that she felt ill again 26 last night was able to go to work. Around or 17 September she had difficulty hearing out of the left ear. This morning she states that she popped her left ear. Afterwards she became dizzy and vomited. She states that she defines dizziness as the room spinning. She denies any diarrhea or fevers or rashes. No cough or runny nose sore throat. [facility] Medical History Anxiety Fibromyalgia ADHD Hemorrhoids Anemia Depression Rheumatoid arthritis Home Medications ?Medication ?Instructions ?Recorded ?Last Taken ?Type buspirone 5 mg tablet 15 mg PO BID anxiety 02/07/14 04/04/18 History duloxetine 20 mg capsule,delayed 90 mg PO DAILY depression 05/27/17 04/04/18 History release (Cymbalta) amitriptyline 10 mg tablet 10 mg PO DAILY 09/23/21 Unknown History azithromycin 250 mg tablet 250 mg PO DAILY #4 TABLETS 09/23/21 Unknown Rx lisdexamfetamine 30 mg capsule 30 mg PO DAILY 09/23/21 Unknown History (Vyvanse) metaxalone 800 mg tablet 800 mg PO TID PRN muscle pain #21 04/03/22 Unknown Rx tabs diazepam 5 mg tablet 5 mg PO Q8 PRN vertigo #10 tabs 09/21/23 Unknown Rx ondansetron 4 mg disintegrating 4 mg PO Q6H PRN PRN Nausea #10 tabs 09/21/23 Unknown Rx tablet Allergy/AdvReac Type Severity Reaction Status Date / Time shellfish derived Allergy Hives Verified 09/21/23 08:37 clindamycin AdvReac Other Verified 09/21/23 08:37 Family History Sister Thyroid disorder Depression Father Glaucoma CVA (cerebral vascular accident) Mother Mental health disorder Surgical History History of tubal ligation Hx of cholecystectomy Social History household members: spouse and children Smoking Status: Current every day smoker tobacco type: cigarettes alcohol intake: never substance use type: does not use ROS ROS ED Constitutional Constitutional ED: Denies chills or weight loss Eyes Eyes: Denies change in vision or diplopia ENT ENT ED: Reports hearing loss; Denies ear pain, rhinorrhea or sore throat Cardiovascular Cardiovascular: Denies chest pain, orthopnea, palpitations or racing heartbeat Respiratory/Chest Respiratory/Chest: Denies cough, dyspnea or orthopnea Gastrointestinal Gastrointestinal: Reports abdominal pain, constipation, nausea and vomiting; Denies diarrhea Genitourinary Genitourinary ED: Denies dysuria, hematuria or urinary frequency Musculoskeletal Musculoskeletal: Denies arthralgias or myalgias Integumentary Denies abscess or rash Neurologic Neurologic: Reports disequilibrium, dizziness and other Details: Paresthesias of the right arm last night (resolved) ; Denies headache(s) or weakness Psychiatric Psychiatric: Denies anxiety, depression, suicidal ideation or suicidal thoughts Endocrine Endocrinology: Denies polydipsia, polyphagia or polyuria Allergic/Immunologic Allergic/Immunologic ED: Denies mouth swelling, tongue swelling or urticaria EXAM Physical Exam Narrative Exam Narrative: 48-year-old female laying in the bed. She keeps her head turned slightly to the right. She minimally moves her mouth to talk and speaks very quietly. When asked to turn her head to the left to examine the right ear the patient moves very slowly and incompletely Const Vital Signs: 09/21/23 08:37 09/21/23 08:42 09/21/23 09:58 Temperature 97.6 F L Temperature Source Oral Pulse Rate 84 67 Respiratory Rate 26 H 18 Respiratory Effort Normal Non-Labored Respiratory Pattern Normal Blood Pressure 134/70 H 118/71 Blood Pressure Mean 91 86 Pulse Ox 97 92 Oxygen Delivery Method Room Air Room Air 09/21/23 11:00 Temperature Temperature Source Pulse Rate 78 Respiratory Rate 14 Respiratory Effort Respiratory Pattern Blood Pressure 119/65 Blood Pressure Mean 83 Pulse Ox 98 Oxygen Delivery Method Room Air Positive well nourished and well developed General Appearance ED: well developed and NAD HEENT Reports normocephalic, head/scalp atraumatic, TM's clear and moist mucous membranes Face and Sinus: normal facial exam Nose: external nose normal, nares normal and nasal mucous membranes and turbinates normal External Ear: external ears normal Tympanic Membrane ED: Yes TM's clear Mouth ED: Yes oral and palatal mucosa normal and Yes moist mucous membranes abnormal Mouth: oral and palatal mucosa normal and moist mucous membranes abnormal Eyes PERRL and EOMs intact bilaterally Neck no lymphadenopathy, supple and no JVD Resp normal respiratory effort and clear to auscultation bilaterally Cardio regular rate, regular rhythm and no murmurs GI GI Narrative: Mild tenderness to palpation in the left upper quadrant of the abdomen without guarding or rebound the abdomen is soft. Nonsurgical in nature Auscultation: normoactive bowel sounds Palpation: soft Back/Spine no CVA tenderness and normal ROM Extremity normal to inspection General Extremety ED: Negative for edema General Extremity: Negative for edema Neuro oriented x3 and CN's II-XII intact bilaterally Neuro Narrative: Positive Jayson-Hallpike. Moves all 4 extremities. No sensory deficits noted no nystagmus is seen. Sensorium / Orientation: alert Coordination / Balance: [id number] test normal Speech: speech normal Motor Exam: strength 5/5 throughout Psych mental status grossly normal Mood & Affect: Negative for depressed or tearful Skin no rashes or lesions noted and no wounds MDM MDM MDM Narrative Medical decision making narrative: Differential diagnosis includes infectious gastroenteritis, pancreatitis, liver disease, gallbladder disease, renal anemia requiring transfusion, vertigo, cerebellar syndromes including stroke, brain tumor, intracranial hemorrhage dehydration. CBC essentially normal. Basic metabolic panel showed a glucose of 111. Liver enzymes and lipase were normal. test is negative. Urinalysis 25-50 red cells 0-5 white cells 1+ bacteria. Negative nitrates. she is not having urinary symptoms. CT of the brain is negative for acute findings. Chest x-ray showed on my interpretation shows no acute findings. Radiology concurs. Patient received IV fluids as well as Zofran and Valium. Patient is doing better. She is able to ambulate to the bathroom. At this point I do wonder whether or not the patient losing her hearing and popping her ear this morning can potentially be related to her sense of dizziness and vomiting. Can consider this possible vertigo. She is now able to turn her head without getting sick. I recommend the patient follow-up with primary care. I will write for continued Valium and Zofran at home. Return if worsening or concerns History & Record Review Discussion w/independent historian: Patient and Significant other Lab Data Labs: Laboratory Results - last 24 hr 09/21/23 09/21/23 09:13 10:40 WBC 9.9 RBC 4.65 Hgb 12.6 Hct 39.0 MCV 83.9 MCH 27.1 MCHC 32.3 RDW Std Deviation 44.3 H RDW Coeff of Iris 14.6 Plt Count 212 MPV 13.8 H Immature Gran % (Auto) 0.300 Neut % (Auto) 63.5 Lymph % (Auto) 26.7 Callahan % (Auto) 6.5 Eos % (Auto) 2.5 Baso % (Auto) 0.5 Absolute Neuts (auto) 6.3 Absolute Lymphs (auto) 2.65 Nucleated RBC % 0 Sodium 138 Potassium 3.6 Chloride 106 Carbon Dioxide 25.0 Anion Gap 7 BUN 20 H Creatinine 0.80 Estim Creat Clear Calc 106.09 Est GFR (MDRD) Af Amer 99 Est GFR (MDRD) Non-Af 82 BUN/Creatinine Ratio 25.1 H Glucose 111 H Calcium 9.5 Total Bilirubin 0.40 Direct Bilirubin 0.11 AST 23 ALT 25 Alkaline Phosphatase 107 Total Protein 7.5 Albumin 3.6 Globulin 3.9 Lipase 45 Serum , Qual NEGATIVE Urine Color Yellow Urine Clarity Sl. Cloudy Urine pH 6.5 Ur Specific [place] 1.020 Urine Protein 15 H Urine Glucose (UA) Normal Urine Ketones 15 H Urine Occult Blood 250 H Urine Nitrite Negative Urine Bilirubin Negative Urine Urobilinogen Normal Ur Leukocyte Esterase 25 H Urine RBC 25-50 SEEN Urine WBC 0-5 SEEN Ur Squamous Epith Cells 0-5 SEEN Urine Bacteria 1+ Urine Mucus 0 SEEN Radiography Diagnostic Testing: Clinical Impression(s) from Imaging Studies Chest X-Ray 09/21/23 09:38 IMPRESSION: Normal x-ray examination of the chest. Electronically Signed: Kev Gama MD at 10:29 EDT , Brain CT 09/21/23 09:45 IMPRESSION: Normal unenhanced CT scan of the brain. Electronically Signed: Kev Gama MD at 10:30 EDT , EKG Initial EKG: Attestation: I personally reviewed and interpreted this EKG as follows: Comments: Normal sinus rhythm ventricular rate of 80 bpm Prior EKG tracings: available for review Prior: Unchanged Discharge Plan Triage Chief Complaint: General Illness ED Provider: Yovani Remy Dx/Rx/DC Orders Clinical Impression: Vertigo, Vomiting Instructions: ED Vertigo, Unspecified, ED Vomiting (Adult) Prescriptions: New diazepam 5 mg tablet 5 mg PO Q8 PRN (Reason: vertigo) Qty: 10 0RF ondansetron 4 mg tablet,disintegrating 4 mg PO Q6H PRN PRN (Reason: Nausea) Qty: 10 0RF No Action duloxetine [Cymbalta] 20 mg capsule,delayed release(DR/EC) 90 mg PO DAILY buspirone 5 MG tablet 15 mg PO BID amitriptyline 10 mg tablet 10 mg PO DAILY Patient Comments: TAKE 1 TO 2 TABLETS BY MOUTH AT BEDTIME Vyvanse 30 mg capsule 30 mg PO DAILY Patient Comments: TAKE 1 CAPSULE BY MOUTH ONCE DAILY IN THE MORNING azithromycin [azithromycin] 250 MG tablet 250 mg PO DAILY Qty: 4 0RF metaxalone 800 mg tablet 800 mg PO TID PRN (Reason: muscle pain) Qty: 21 0RF Primary Care Provider: Suyapa Haddad Referrals: Suyapa Haddad DO [Primary Care Provider] - 3-5 Days if not improving Print Language: Burmese Disposition Disposition: Home, Self Care
--- NOTE | 2023-09-21 08:58 | EKG12_ITS ---
Test Reason : DIZZY Blood Pressure : / mmHG Vent. Rate : 080 BPM Atrial Rate : 080 BPM P-R Int : 184 ms QRS Dur : 102 ms QT Int : 400 ms P-R-T Axes : 040 011 036 degrees QTc Int : 461 ms Normal sinus rhythm Normal ECG Confirmed by Thom Medina ([id number]), assistant film editor BRODIE WHITE ([id number]) on 09/26/2023 1:12:24 PM Referred By: Confirmed By:Thom Medina
[2023-09-21 09:26] LABS: Absolute Lymphocyte Count 2.65 X10^3/uL (0.83-4.51); Absolute Neutrophil Count 6.3 X10^3/uL (2.0-7.7); Basophil# 0.05 X10^3/uL; Basophil% 0.5 % (0-1); Eosinophil# 0.25 X10^3/uL; Eosinophils% 2.5 % (0-5); Hemoglobin 12.6 g/dL (12.0-15.0); Lymphocyte # 2.65 X10^3/ul (0.83-4.51); Lymphocyte % 26.7 % (19-41); Mean Corp Hgb Conc 32.3 g/dL (32-36); Mean Corpuscular Hgb 27.1 pg (27.0-32.0); Mean Corpuscular Volume 83.9 fL (81-99); Mean Platelet Vol. 13.8 fl (6.2-12.0); Monocyte# 0.64 X10^3/uL; Monocyte% 6.5 % (0-10); NRBC Flagged by Analyzer 0 % (0-5); Neutrophil % 63.5 % (47-70); Platelet Count 212 K/mm3 (150-450); RBC Distribution Width CV 14.6 % (11.6-14.6); RBC Distribution Width SD 44.3 fl (35.1-43.9); Red Blood Count 4.65 M/mm3 (4.2-5.4); White Blood Count 9.9 K/mm3 (4.4-11.0)
[2023-09-21] MEDS: 0.9% Normal Saline (1000mL) 1,000 ML 1000 ML IV (09:28)
[2023-09-21] MEDS: diazePAM 5 MG Tablet PO (09:28)
[2023-09-21] MEDS: Ondansetron 4 MG/2 ML Vial IV (09:28)
--- NOTE | 2023-09-21 09:38 | RAD_ITS ---
STUDY: X-RAY CHEST REASON FOR EXAM: Female, 48 years old. Weakness TECHNIQUE: Single AP portable view of the chest. COMPARISON: Comparison is made with prior study dated September 26, 2021. FINDINGS: EKG electrodes are seen. The lungs are clear and expanded. There is no demonstrated pleural abnormality. Normal size heart. Normal mediastinum and satya. Normal visualized pulmonary arteries. Normal visualized aortic arch and descending thoracic aorta. Normal visualized thoracic spine. Normal visualized ribs, clavicles, and shoulders. There is no demonstrated abnormality of the visualized soft tissue structures of the upper abdomen. RAD/Chest 1 View (Portable) IMPRESSION: Normal x-ray examination of the chest. Electronically Signed: Kev Gama MD at 10:29 EDT ,
--- NOTE | 2023-09-21 09:45 | CT_ITS ---
STUDY: CT BRAIN WITHOUT CONTRAST REASON FOR EXAM: Female, 48 years old. Dizziness RADIATION DOSAGE (If Supplied By Facility): CTDIvol = ( 44.99 ) mGy, DLP = ( 812.98 ) mGycm TECHNIQUE: Transaxial CT imaging of the brain was performed without administration of intravenous contrast material. Individualized dose optimization techniques were used for this CT. COMPARISON: Comparison is made with prior study dated November 10, 2013. FINDINGS: Normal soft tissue structures. Normal calvarium. Normal size ventricles and extra-axial spaces for the patient''s age. Normal white matter tracts of the cerebral hemispheres. Normal basal ganglia and thalami. Normal brainstem. Normal cerebellum. There is no intracranial hemorrhage. There are no findings of an acute ischemic infarction. Normal visualized paranasal sinuses. Nasal septal deviation towards the right side of the midline. CT/Brain/Head without Contrast IMPRESSION: Normal unenhanced CT scan of the brain. Electronically Signed: Kev Gama MD at 10:30 EDT ,
[2023-09-21 09:50] LABS: Internal QC Validated? YES +Cl - CLEAR BKGD; Pregnancy, Serum, hCG Quali. NEGATIVE Negative; Record Kit Lot#, Serum Preg. 718089
[2023-09-21 09:58] VITALS: BP 118/71; PULSE 67; RESP 18; O2SAT 92
[2023-09-21 10:06] LABS: AST(SGOT) 23 U/L (15-37); Alanine Aminotransfer ALT/SGPT 25 U/L (13-56); Albumin, Serum 3.6 g/dL (3.2-5.0); Alkaline Phosphatase 107 U/L (45-117); Anion Gap 7 (5-15); BUN 20 mg/dL (7-18); BUN/Creat Ratio 25.1 RATIO (10-20); Bilirubin, Direct 0.11 mg/dL (0.00-0.30); Calcium,Total 9.5 mg/dL (8.5-10.1); Chloride 106 mmol/L (98-107); EST Glomerular Filtration Rate 82 mL/min (>60); Est Glom Filt Rate - Afr Amer 99 mL/min (>60); Estimated Creatinine Clearance 106.09 ml/min; Globulin 3.9 g/dL (2.2-4.2); Glucose 111 mg/dL (74-106); Lipase 45 U/L (13-75); Potassium 3.6 mmol/L (3.5-5.1); Protein, Total 7.5 g/dL (6.4-8.2); Sodium Level 138 mmol/L (136-145)
[2023-09-21 10:51] LABS: Mucous, Urine 0 SEEN /hpf (<or=2+)
[2023-09-21 10:58] LABS: Color, Urine Yellow (Yellow); Glucose, Dipstick Normal (Normal); Ketone-Dipstick 15 mg/dl (Negative); Leukocyte Esterase-Dipstick 25 /ul (Negative); Nitrite-Dipstick Negative (Negative); Occult Blood-Urine 250 /ul (Negative); Protein-Dipstick 15 mg/dl (Negative); Urine Bilirubin Dipstick Negative (Negative); Urine Clarity Sl. Cloudy (Clear); Urine Urobilinogen Normal (Normal); Urine pH 6.5 (5.0 - 8.0)
[2023-09-21 11:00] VITALS: BP 119/65; PULSE 78; RESP 14; O2SAT 98
[2023-09-21 11:08] LABS: Bacteria 1+ /hpf (None Seen); Red Blood Cells-Urine 25-50 SEEN /hpf (0-5); Squamous Epithelial Cells - UA 0-5 SEEN /hpf (5-10); White Blood Cells 0-5 SEEN /hpf (0-5)
[2023-09-21] MEDS: 0.9% Normal Saline (1000mL) 1,000 ML 250 ML IV (11:20)
[2023-09-21 13:06] VITALS: BP 135/71; PULSE 76; RESP 15; TEMP 36.7; O2SAT 99
== END 2023-09-21 13:07 | disposition home or self-care (01) ==
PROVIDERS: Emergency Provider Emergency Medicine; PCP Family Medicine; Visit Provider Emergency Medicine
DX: R42 Dizziness and giddiness (principal); R11.10 Vomiting, unspecified; F17.210 Nicotine dependence, cigarettes, uncomplicated
CPT/HCPCS: 70450; 71045; 80048; 80076; 81001; 83690; 84703; 85025; 93005; 96361; 96374; 99285; J7030; J2405

== ENCOUNTER → 2023-10-12 | Outpatient (CLI) | payer BC, SELFPAY ==
--- NOTE | 2023-10-12 08:08 | MRI_ITS ---
STUDY: MRI BRAIN WITH AND WITHOUT CONTRAST REASON FOR EXAM: Female, 48 years old. DIZZINESS,VERTIGO,POSSIBLE STROKE TECHNIQUE: Standardized multiplanar fat and water weighted pulse sequences were obtained. IV 20CC CLARISCAN was administered for the contrast portion of the examination. COMPARISON: CT of the brain the 2023 MRI of the brain November 12, 2013 FINDINGS: Normal size of the ventricles and extra-axial spaces for the patient''s age. Normal white matter tracts of the supratentorial brain. Normal bilateral basal ganglia. Normal thalami. There is no extra-axial fluid accumulation. Normal flow voids within the major intracranial circulation suggesting patency by spin echo criteria. Normal venous enhancement. There is no enhancing intra-axial or extra-axial abnormality. Normal sella turcica, pituitary gland, infundibular stalk, optic chiasm and hypothalamus. Normal tectal plate and pineal gland. Normal midbrain, shyanne and medulla. Normal cerebellum. Normal basal cisterns. Normal bilateral temporal bones. Normal bilateral internal auditory canals. No demonstrated orbital abnormality, within the constraints of a routine brain study. Normal visualized paranasal sinuses. Normal calvarium and skull base. Normal visualized soft tissue structures. Normal visualized upper cervical spine. MRI/Brain W/WO Contrast IMPRESSION: Normal unenhanced and enhanced MRI of the brain. Electronically Signed: Conrad Paez MD at 16:51 EDT ,
== END | disposition home or self-care (01) ==
LOC: MRI 07:54
PROVIDERS: PCP Family Medicine; Referring Provider Family Medicine; Visit Provider Family Medicine
DX: R47.89 Other speech disturbances (principal); R42 Dizziness and giddiness
CPT/HCPCS: 70553; A9575

== ENCOUNTER → 2024-12-17 | Outpatient (CLI) | payer BC, SELFPAY ==
--- OUTSIDE RECORDS SUMMARY | 2024-12-17 08:28 | XMS RPT_ITS | CCD ---
Author Organization [facility] ion Partnership [facility] Care Team Providers Care Accounts Receivable Specialist Name Role Phone Linda Bazan LPN Unavailable Unavailab Nikkie Macdonald LPN Unavailable Unavailable Amada Barbour LPN Unavailable Linda Bazan LPN Unavailable Unavailab Dr. Suyapa Bhatt Primary Care Provider Dr. Suyapa Haddad Referring Provider [phone] FAITH Ribeiro Attending Provider FAITH Montes Attending Provider Suyapa Haddad Attending Unavailable Suyapa Haddad Referring Unavailable Suyapa Haddad Primary Care Unavailable Yovani Remy Attending Unavailable Suyapa Haddad Primary Care Unavailable Allergies Allergy Classification Reported Allergen(s) Allergy Type Date of Onset Reaction(s) Facility (4 sources) acetaminophen / propoxyphene drug allergy itch [facility] Work Phone: (4 sources) cefuroxime drug allergy 5 [facility] Work Phone: (4 sources) fish, unspecified; Translations: [SEAFOOD] food allergy 6 [facility] Work Phone: (1 source) Clindamycin Drug Allergy 2 Other [facility] Work Phone: (2 sources) Shellfish; Translations: [shellfish derived] Allergy to substance 2 [facility] Repository (1 source) Clindamycin Drug Allergy 4 [facility] Medications Current Medications Medication Drug Class(es) Dates Sig (Normalized) Sig (Original) 24 hr amphetamine aspartate 3.75 mg / amphetamine sulfate 3.75 mg / dextroamphetamine saccharate 3.75 mg / dextroamphetamine sulfate 3.75 mg extended release oral capsule (1 source) Central Nervous System Stimulant Start: 1 take 1 capsule by mouth once daily, then take 1 capsule by mouth every twenty-four hours Dextroamphetamine-A mphetamine (Adderall Xr) 15 mg capsule,extended release 24hr Active 15 MG PO DAILY April 20, 2021 8:54am cephalexin 500 mg oral capsule (1 source) Cephalosporin Antibacterial Start: 2 take 500 mg by mouth every six hours Cephalexin Active 500 MG PO EVERY 6 HOURS August 11, 2021 2:48pm dicyclomine hydrochloride 10 mg oral capsule (1 source) Anticholinergic Start: 1 take 20 mg by mouth three times daily before mealtime Dicyclomine Active 20 MG PO THREE TIMES DAILY BEFORE MEALS October 05, 2020 4:32pm diphenhydrAMINE hydrochloride 25 mg oral capsule (1 source) Histamine-1 Receptor Antagonist Start: 2 take 1 capsule by mouth three times daily Diphenhydramine Hcl (Benadryl) 25 mg capsule Active 25 MG PO THREE TIMES A DAY August 11, 2021 2:47pm DULoxetine 20 mg delayed release oral capsule (20 sources) Serotonin and Norepinephrine Reuptake Inhibitor Start: 8 Duloxetine (Cymbalta) 20 mg capsule,delayed release(DR/EC) Active 90 MG PO DAILY May 27, 2017 10:58am Start: 01-11-2011 take 1 tablet by maura th once daily CYMBALTA 30 MG CPEP 1 po daily with 60 mg tablet for total 90 mg daily DULOXETINE HCL [id number] Suyapa Haddad DO Start: 08-31-2010 take 1 tablet by maura th once daily CYMBALTA 60 MG CPEP One tablet by mouth daily DULOXETINE HCL [id number] Keegan Buenrostro MD ondansetron 4 mg disintegrating oral tablet (1 source) Serotonin-3 Receptor Antagonist Start: 10-05-2020 take 4 mg by mouth every eight hours as needed Ondansetron Active 4 MG PO EVERY 8 HOURS NEEDED October 05, 2020 4:32pm Completed/Discontinued Medications Medication Drug Class(es) Dates Sig (Normalized) Sig (Original) acetaminophen 325 mg / HYDROcodone bitartrate 5 mg oral tablet (20 sources) Opioid Agonist Start: 04-14-2020 End: 04-17-2020 take 1 tablet by mouth every six hours as needed Hydrocodone-Acetami nophen Discontinued 1 TABLET PO EVERY 6 HOURS NEEDED 12 April 14, 2020 10:19am April 17, 2020 1:02am Start: 04-16-2015 take 1 tablet by maura th every six hours as needed for pain HYDROCODONE-ACETAMINOPHEN 7.5-325 MG TAB S 1 po every 6 hours as needed for pain HYDROCODONE-ACETAMINOPHEN [id number] Suyapa Haddad DO Start: 07-11-2012 take 1-2 tablets by mouth every six hours VICODIN 5-300 MG TABS 1-2 tablets by maura th every 6 hours HYDROCODONE-ACETAMINOPHEN [id number] Keegan Buenrostro MD Start: 07-11-2012 take 1 tablet by maura th every six hours HYDROCODONE-ACETAMINOPHEN 5-500 MG TABS 1 tablet by mouth every 6 hours, avoid driving or operating machine under the influence of medication. HYDROCODONE-ACETAMINOPHEN [id number] Keegan Buenrostro MD Start: 07-11-2012 take 1-2 tablets by mouth every six hours VICODIN 5-300 MG TABS 1-2 tablets by maura th every 6 hours HYDROCODONE-ACETAMINOPHEN [id number] Keegan Buenrostro MD Start: 07-11-2012 End: 08-02-2012 take 1 tablet by mouth every six hours HYDROCODONE-ACETAMINOPHEN 5-500 MG TABS 1 tablet by mouth every 6 hours, avoid driving or operating machine under the influence of medication. HYDROCODONE-ACETAMINOPHEN [id number] Keegan Buenrostro MD Start: 05-13-2010 take 1 tablet by maura th three times daily as needed VICODIN 5-500 MG TABS One tablet by mout h three times daily as needed HYDROCODONE-ACETAMINOPHEN [id number] Vaughn Graf MD Start: 05-13-2010 End: 08-31-2010 take 1 tablet by mouth three times daily as needed VICODIN 5-500 MG TABS One tablet by mout h three times daily as needed HYDROCODONE-ACETAMINOPHEN [id number] Keegan Buenrostro MD 200 actuat albuterol 0.09 mg/actuat metered dose inhaler (8 sources) beta2-Adrenergic Agonist Start: 10-18-2009 End: 08-31-2010 PROAIR HFA 108 (90 Base) MCG/ACT AERS administer 2 puffs every 4 hours for 48 hours, then every 6 hours as needed cough/wheezing ALBUTEROL SULFATE [id number] Taylor Ochoa [employer] Start: 10-18-2009 PROAIR HFA 108 (90 Base) MCG/ACT AERS administer 2 puffs every 4 hours for 48 hours, then every 6 hours as needed cough/wheezing ALBUTEROL SULFATE [id number] Taylor Ochoa [facility] Start: 10-18-2009 End: 08-31-2010 PROAIR HFA 108 (90 Base) MCG /ACT AERS administer 2 puffs every 4 hours for 48 hours, then every 6 hours as needed cough/wheezing ALBUTEROL SULFATE [id number] Keegan Buenrostro MD amitriptyline hydrochloride 50 mg oral tablet (12 sources) Tricyclic Antidepressant Start: 05-13-2015 take 1 tablet by mouth once daily at bedtime AMITRIPTYLINE HCL 50 MG TABS 1 po daily at bedtime AMITRIPTYLINE HCL [id number] Vasyl Dai DO Start: 01-06-2015 End: 02-26-2015 take 1 tablet by mouth once daily at bedtime AMITRIPTYLINE HCL 25 MG TABS 1 po daily at bedtime AMITRIPTYLINE HCL [id number] Suyapa Haddad DO amoxicillin 500 mg oral tablet (12 sources) Penicillin-class Antibacterial Start: 06-21-2011 End: 08-03-2011 take 1 tablet by mouth three times daily AMOXICILLIN 500 MG TABS One tablet by mouth three times daily AMOXICILLIN [id number] Keegan Buenrostro MD Start: 10-18-2009 End: 10-28-2009 take 1 tablet by mouth twice daily AMOXICILLIN 875 MG TABS take one tablet po twice daily for 10 days AMOXICILLIN [id number] Taylor Ochoa CNP azithromycin 250 mg oral tablet (8 sources) Macrolide Antimicrobial Start: 05-26-2015 End: 06-24-2015 take 2 tablets by mouth once, then take 1 tablet by mouth once daily, then take 2-5 tablets by mouth AZITHROMYCIN 250 MG TABS 2 po on day 1 then 1 po daily on days 2-5 AZITHROMYCIN [id number] Suyapa Haddad DO busPIRone hydrochloride 15 mg oral tablet (20 sources) Start: 01-06-2015 take 1 tablet by mouth twice daily BUSPIRONE HCL 15 MG TABS 1 po BID BUSPIRONE HCL [id number] Suyapa Haddad DO Start: 02-07-2014 take 15 mg by mouth twice gary y Buspirone Active 15 MG PO TWICE A DAY February 07, 2014 11:23pm Start: 04-12-2013 End: 05-13-2015 take 1 tablet by mouth twice daily BUSPIRONE HCL 10 MG TABS One tablet by mouth twice daily BUSPIRONE HCL [id number] Martha Foster Start: 01-10-2013 take 1 tablet by maura th twice daily BUSPIRONE HCL 5 MG TABS One tablet by mouth twice daily BUSPIRONE HCL [id number] Keegan Buenrostro MD cefuroxime 250 mg oral tablet (8 sources) Cephalosporin Antibacterial Start: 03-10-2011 End: 04-14-2011 take 1 tablet by mouth twice daily CEFTIN 250 MG TABS One tablet by mouth twice daily CEFUROXIME AXETIL [id number] Keegan Buenrostro MD cholecalciferol 2000 unt oral capsule (4 sources) Vitamin D Start: 06-24-2015 take 1 capsule by mouth once daily VITAMIN D3 2000 UNIT CAPS 1 po daily CHOLECALCIFEROL [id number] Suyapa Haddad DO CITALOPRAM HYDROBROMIDE TABS (8 sources) Serotonin Reuptake Inhibitor Start: 10-18-2009 CELEXA TABS CITALOPRAM HYDROBROMIDE TABS [id number] Taylor Ochoa LALI Start: 10-18-2009 End: 08-31-2010 CELEXA TABS 08/31 CITALOPRAM HYDROBROMIDE TABS [id number] Keegan Buenrostro MD cyclobenzaprine hydrochloride 10 mg oral tablet (13 sources) Muscle Relaxant Start: 06-18-2018 End: 06-26-2018 take 10 mg by mouth three times daily Cyclobenzaprine Discontinued 10 MG PO THREE TIMES A DAY June 18, 2018 3:51am June 26, 2018 10:25am Start: 04-16-2015 take 1 tablet by maura th every eight hours as needed for pain CYCLOBENZAPRINE HCL 10 MG TABS 1 po every 8 hours as needed for pain CYCLOBENZAPRINE HCL [id number] Suyapa Haddad DO Start: 05-08-2010 End: 08-31-2010 take 1 tablet by mouth three times daily as needed FLEXERIL 5 MG TABS One tablet by mouth three times daily as needed CYCLOBENZAPRINE HCL [id number] Keegan Buenrostro MD [employer] (12 sources) Start: 08-03-2011 WRIST SPLINT M ISC use as directed Dx: Left wrist pain/sprain [employer] [id number] Keegan Buenrostro MD Start: 08-03-2011 End: 12-21-2011 WRIST SPLINT MISC use as dir ected Dx: Left wrist pain/sprain [employer] [id number] Keegan Buenrostro MD Start: 05-08-2010 KNEE BRACE MIS C for right knee [employer] [id number] Vaughn Graf MD Start: 05-08-2010 End: 12-21-2011 KNEE BRACE MISC for right kn ee [employer] [id number] Keegan Buenrostro MD ELASTIC BANDAGES [employer] SUPPORTS (2 sources) Start: 08-03-2011 WRIST SPLINT M ISC use as directed Dx: Left wrist pain/sprain [employer] [id number] Keegan Buenrostro MD Start: 08-03-2011 End: 12-21-2011 WRIST SPLINT MISC use as dir ected Dx: Left wrist pain/sprain [employer] [id number] Keegan Buenrostro MD ELAST[employer] BANDAGES [employer] SUPPORTS (2 sources) Start: 05-08-2010 End: 12-21-2011 KNEE BRACE MISC for right kn ee [employer] [id number] Keegan Buenrostro MD Start: 05-08-2010 KNEE BRACE MIS C for right knee [employer] [id number] Vaughn Graf MD famotidine 20 mg oral tablet (8 sources) Histamine-2 Receptor Antagonist Start: 02-01-2011 End: 02-26-2015 take 1 tablet by mouth twice daily PEPCID 20 MG TABS One tablet by mouth twice daily FAMOTIDINE [id number] Sandrine Hamilton fluconazole 200 mg oral tablet (16 sources) Azole Antifungal Start: 04-04-2012 End: 08-02-2012 take 1 tablet by mouth once FLUCONAZOLE 200 MG TABS One tablet by mouth once FLUCONAZOLE [id number] Keegan Buenrostro MD Start: 12-21-2011 End: 01-03-2012 DIFLUCAN 200 MG TABS One tab let by mouth once, may repeat in one week FLUCONAZOLE [id number] Keegan Buenrostro MD folic acid (16 sources) Start: 02-10-2012 End: 02-26-2015 take 1 tablet by mouth once daily RA FOLIC ACID 800 MCG TABS One tablet by mouth daily FOLIC ACID [id number] Sandrine Marshlaraymond Start: 02-10-2012 take 1 tablet by maura th once daily RA FOLIC ACID 800 MCG TABS One tablet by mouth daily FOLIC ACID [id number] Keegan Buenrostro MD Start: 04-14-2011 take 1 tablet by maura th once daily FOLIC ACID 1 MG TABS 1 po daily FOLIC ACID [id number] Suyapa Haddad DO ibuprofen 600 mg oral tablet (8 sources) Nonsteroidal Anti-inflammatory Drug Start: 08-31-2010 End: 02-26-2015 take 1 tablet by mouth three times daily as needed for pain IBUPROFEN 600 MG TABS One tablet by mouth three times daily as needed pain, take with food IBUPROFEN [id number] Keegan Buenrostro MD loratadine 10 mg oral tablet (5 sources) Start: 04-08-2018 End: 06-19-2018 take 10 mg by mouth once daily Loratadine Discontinued 10 MG PO DAILY April 08, 2018 2:26pm June 19, 2018 2:43pm Start: 04-14-2011 take 1 tablet by maura th once daily LORATADINE 10 MG TABS One tablet by mouth daily LORATADINE [id number] Keegan Buenrostro MD LORazepam 0.5 mg oral tablet (16 sources) Benzodiazepine Start: 11-25-2011 End: 02-26-2015 take 1 tablet by mouth once daily as needed LORAZEPAM 0.5 MG TABS one tablet by mouth daily as needed panic attack, avoid driving or operating machine under the influence of medication. LORAZEPAM [id number] Sandrine Hamilton Start: 08-31-2010 End: 08-03-2011 take 1 tablet by mouth every eight hours as needed ATIVAN 0.5 MG TABS one tablet by mouth every 8 hours as needed, avoid driving or operating machine under the influence of medication. LORAZEPAM [id number] Keegan Buenrostro MD methotrexate 2.5 mg oral tablet (12 sources) Folate Analog Metabolic Inhibitor Start: 04-14-2011 End: 07-27-2013 take 6 tablets by mouth every week METHOTREXATE 2.5 MG TABS 6 tablets po once weekly METHOTREXATE SODIUM [id number] Vasyl Dai DO 24 hr methylphenidate hydrochloride 36 mg extended release oral tablet (1 source) Central Nervous System Stimulant Start: 01-29-2017 End: 05-27-2017 take 36 mg by mouth once daily Methylphenidate Hcl Discontinued 36 MG PO DAILY January 29, 2017 8:58am May 27, 2017 10:58am MISC. DEVICES (6 sources) Start: 07-11-2012 End: 05-13-2015 CRUTCH MISC Dx: left knee sprain use as directed MISC. DEVICES [id number] Suyapa Haddad DO Start: 07-11-2012 CRUTCH MISC Dx : left knee sprain use as directed MISC. DEVICES [id number] Keegan Buenrostro MD MISC. DEVICES (2 sources) Start: 07-11-2012 CRUTCH MISC Dx : left knee sprain use as directed MISC. DEVICES [id number] Keegan Buenrostro MD Start: 07-11-2012 End: 05-13-2015 CRUTCH MISC Dx: left knee sp rain use as directed MISC. DEVICES [id number] Suyapa Haddad DO mupirocin 0.02 mg/mg topical ointment (8 sources) RNA Synthetase Inhibitor Antibacterial Start: 09-21-2011 End: 12-21-2011 MUPIROCIN 2 % OINT apply to affected area three times a day MUPIROCIN [id number] Keegan Buenrostro MD naproxen 500 mg oral tablet (1 source) Nonsteroidal Anti-inflammatory Drug Start: 06-18-2018 End: 06-26-2018 take 500 mg by mouth twice daily Naproxen Discontinued 500 MG PO TWICE A DAY June 18, 2018 3:51am June 26, 2018 10:25am omeprazole 20 mg delayed release oral capsule (4 sources) Proton Pump Inhibitor Start: 06-24-2015 OMEPRAZOLE 20 MG CPDR 2 po daily OMEPRAZOLE [id number] Suyapa Haddad DO permethrin 50 mg/ml topical cream (16 sources) Pyrethroid Start: 06-24-2015 End: 09-21-2015 PERMETHRIN 5 % CREA Apply from the neck down and rinse off after 12 hours PERMETHRIN [id number] Vasyl Charlie Malaika LEDESMA Start: 08-30-2011 End: 12-21-2011 [facility] PERMETHRIN 1 % LOTN wash hair with shampoo, rinsed with water& towel dried, apply sufficient lotion to saturate the hair, scalp & behind the ear, rinse off in 10min PERMETHRIN [id number] Keegan Buenrostro MD Start: 08-30-2011 End: 12-21-2011 [facility] PERMETHRIN 1 % LOTN wash hair with shampoo, rinsed with water& towel dried, apply sufficient lotion to saturate the hair, scalp & behind the ear, rinse off in 10min PERMETHRIN [id number] Keegan Buenrostro MD Start: 08-30-2011 [facility] PERMETHRIN 1 % LOTN wash hair with shampoo, rinsed with water& towel dried, apply sufficient lotion to saturate the hair, scalp & behind the ear, rinse off in 10min PERMETHRIN [id number] Keegan Buenrostro MD polyethylene glycol 3350 980988 mg / potassium chloride 2820 mg / sodium bicarbonate 6360 mg / sodium chloride 5530 mg / sodium sulfate 94889 mg powder for oral solution (4 sources) Osmotic Laxative Start: 02-26-2015 End: 02-27-2015 GOLYTELY 227.1 GM SOLR use a s per instructions PEG 2528-JUV-RLLJV-NACL-NASULF [id number] Martha Foster Start: 02-26-2015 End: 02-27-2015 GOLYTELY 227.1 GM SOLR use a s per instructions PEG 8183-[id number]-NACL-NASULF [id number] Martha Foster predniSONE 20 mg oral tablet (20 sources) Corticosteroid Start: 06-19-2018 End: 06-26-2018 take 3 tablets by mouth once daily, then take 2 tablets by mouth once daily, then take 1 tablet by mouth once daily Prednisone Discontinued 20 MG PO DAILY June 19, 2018 3:01pm June 26, 2018 10:25am 3 tablets daily for 3 days, then 2 tablets daily for 3 days, then 1 tablet daily for 3 days Start: 04-16-2015 End: 06-24-2015 take 3 tablets by mouth once daily PREDNISONE 20 MG TABS 3 po daily x 5 days PREDNISONE [id number] Suyapa Haddad DO Start: 09-21-2011 End: 09-26-2011 take 1 tablet by mouth twice daily PREDNISONE 20 MG TABS One tablet by mouth twice daily PREDNISONE [id number] Keegan Buenrostro MD Start: 04-14-2011 End: 09-21-2011 take 1 tablet by mouth once daily PREDNISONE 20 MG TABS One tablet by mouth daily PREDNISONE [id number] Keegan Buenrostro MD Start: 03-10-2011 End: 08-02-2012 take 1 tablet by mouth once daily PREDNISONE 5 MG TABS One tablet by mouth daily PREDNISONE [id number] Keegan Buenrostro MD SUMAtriptan 50 mg oral tablet (12 sources) Serotonin-1b and Serotonin-1d Receptor Agonist Start: 08-31-2010 End: 02-26-2015 take 1 tablet by mouth every two hours, then take 4 tablets by mouth every month SUMATRIPTAN SUCCINATE 50 MG TABS one tablet by mouth at the onset of migraine headache, may repeat once in two hour, maximal 4 tablets/month SUMATRIPTAN SUCCINATE [id number] Sandrine Hamilton divalproex sodium 250 mg delayed release oral tablet (8 sources) Start: 01-11-2011 End: 08-03-2011 take 1 tablet by mouth twice daily DEPAKOTE 250 MG TBEC One tablet by mouth twice daily DIVALPROEX SODIUM [id number] Keegan Buenrostro MD Start: 01-11-2011 End: 08-03-2011 take 1 tablet by mouth twice daily DEPAKOTE 250 MG TBEC One tablet by mouth twice daily DIVALPROEX SODIUM [id number] Keegan Buenrostro MD Problems Active Problems Problem Classification Problem Date Documented Date Episodic/Chronic Abdominal pain (1 source) Upper abdominal pain; Translations: [Right upper quadrant pain] Episodic Anxiety disorders (12 sources) Panic disorder; Translations: [Posttraumatic stress disorder] Onset: 04-25-2007 08-31-2010 Chronic Conditions associated with dizziness or vertigo (1 source) Dizziness and giddiness; Translations: [Dizziness and giddiness] Onset: 09-29-2023 Episodic Esophageal disorders (4 sources) Gastroesophageal reflux disease; Translations: [Gastro-esophageal reflux disease without esophagitis] Onset: 02-01-2011 02-01-2011 Chronic Headache, including migraine (4 sources) Migraine without aura; Translations: [Migraine without aura, not intractable, without status migrainosus] Onset: 04-25-2005 08-31-2010 Chronic Immunizations and screening for infectious disease (16 sources) Encounter for immunization; Translations: [Vaccination required] Onset: 01-18-2011 04-14-2011 Episodic Menstrual disorders (8 sources) Menstrual period late; Translations: [Primary amenorrhea] Onset: 04-04-2013 Resolved: 07-27-2013 04-04-2013 Chronic Mood disorders (5 sources) Severe depression; Translations: [Depressive disorder] 08-31-2010 Chronic Nausea and vomiting (1 source) Nausea; Translations: [Nausea] Episodic Noninfectious gastroenteritis (1 source) Gastroenteritis; Translations: [Noninfective gastroenteritis and colitis, unspecified] Episodic Nutritional deficiencies (4 sources) Vitamin D deficiency; Translations: [Vitamin D deficiency, unspecified] Onset: 02-10-2012 02-10-2012 Chronic Other female genital disorders (1 source) Abnormal uterine bleeding; Translations: [Other specified abnormal uterine and vaginal bleeding] Chronic Other nervous system disorders (1 source) Other speech disturbances; Translations: [Other speech disturbances] Onset: 10-20-2023 Episodic Other nutritional; endocrine; and metabolic disorders (4 sources) Obesity; Translations: [Obesity, unspecified] Onset: 09-30-2010 09-30-2010 Chronic Other screening for suspected conditions (not mental disorders or infectious disease) (1 source) Liver function tests abnormal; Translations: [Other specified abnormal findings of blood chemistry] Episodic Other skin disorders (1 source) Disorder of skin; Translations: [Disorder of the skin and subcutaneous tissue, unspecified] Episodic Other upper respiratory disease (4 sources) Allergic rhinitis; Translations: [Allergic rhinitis, unspecified] Onset: 04-14-2011 04-14-2011 Chronic Other upper respiratory infections (6 sources) Chronic maxillary sinusitis; Translations: [Chronic maxillary sinusitis] Onset: 10-18-2009 Resolved: 05-08-2010 10-18-2009 Chronic Other upper respiratory infections (15 sources) Sinusitis; Translations: [Acute pharyngitis] Onset: 10-18-2009 Resolved: 06-09-2015 08-03-2011 Episodic Rheumatoid arthritis and related disease (5 sources) Rheumatoid arthritis; Translations: [Rheumatoid arthritis, unspecified] Onset: 03-10-2011 03-10-2011 Chronic Spondylosis; intervertebral disc disorders; other back problems (5 sources) Low back pain; Translations: [Lumbar radiculopathy] Onset: 04-16-2015 05-14-2015 Episodic Sprains and strains (20 sources) Strain of unspecified muscle, fascia and tendon at wrist and hand level, right hand, initial encounter; Translations: [Low back strain] Onset: 05-08-2010 Resolved: 04-12-2013 08-27-2016 Episodic Superficial injury; contusion (17 sources) Contusion of knee; Translations: [Abrasion, knee] Onset: 05-08-2010 Resolved: 04-12-2013 05-08-2010 Episodic Unclassified (3 sources) General examination of patient ; Translations: [Encounter for other general examination] Onset: 04-04-2012 04-04-2012 Unclassified (1 source) Medication monitoring; Translations: [Encounter for therapeutic drug level monitoring] Onset: 05-13-2015 05-13-2015 Past or Other Problems Problem Classification Problem Date Documented Da te Episodic/Chronic Acute bronchitis (4 sources) Acute bronchitis; Translations: [Acute bronchitis, unspecified] Onset: 10-18-2009 Resolved: 11-17-2009 10-18-2009 Episodic Gastrointestinal hemorrhage (8 sources) Hematochezia; Translations: [Hemorrhage of rectum and anus] Onset: 01-06-2015 02-16-2015 Episodic Genitourinary symptoms and ill-defined conditions (8 sources) Dysuria; Translations: [Dysuria] Onset: 12-21-2011 Resolved: 02-10-2012 02-10-2012 Episodic Joint disorders and dislocations; trauma-related (2 sources) Patellofemoral stress syndrome; Translations: [Pain in unspecified knee] Onset: 08-31-2010 Resolved: 08-03-2011 08-03-2011 Episodic Mycoses (8 sources) Candidiasis of vagina; Translations: [Candidiasis of vulva and vagina] Onset: 04-04-2012 Resolved: 07-11-2012 07-11-2012 Episodic Other aftercare (3 sources) Encounter for therapeutic drug level monitoring; Translations: [Encounter for therapeutic drug level monitoring] Onset: 05-13-2015 05-13-2015 Episodic Other connective tissue disease (17 sources) Hand pain; Translations: [Plantar fasciitis] Onset: 08-31-2010 Resolved: 12-21-2011 09-30-2010 Episodic Other connective tissue disease (2 sources) Plantar fasciitis; Translations: [Plantar fascial fibromatosis] Onset: 08-31-2010 Resolved: 12-21-2011 12-21-2011 Episodic Other connective tissue disease (1 source) Fibromyositis; Translations: [Fibromyalgia] Onset: 02-24-2011 02-24-2011 Episodic Other female genital disorders (8 sources) Vaginal discharge; Translations: [Other specified noninflammatory disorders of vagina] Onset: 04-04-2013 Resolved: 07-27-2013 07-27-2013 Episodic Other infections (4 sources) Infestation by Sarcoptes scabiei toni hominis; Translations: [Scabies] Onset: 06-24-2015 07-09-2015 Episodic Other inflammatory condition of skin (8 sources) Sunburn of second degree; Translations: [Sunburn of second degree] Onset: 09-21-2011 Resolved: 12-21-2011 09-21-2011 Episodic Other non-traumatic joint disorders (20 sources) Pain in wrist; Translations: [Patellofemoral stress syndrome] Onset: 08-31-2010 Resolved: 12-21-2011 12-21-2011 Episodic Other non-traumatic joint disorders (2 sources) Joint pain; Translations: [Pain in unspecified joint] Onset: 02-24-2011 Resolved: 04-14-2011 04-14-2011 Episodic Residual codes; unclassified (1 source) Vaccination required; Translations: [Encounter for immunization] Onset: 01-06-2015 02-16-2015 Episodic Unclassified (4 sources) Insomnia; Translations: [Psychophysiologic insomnia] Onset: 01-06-2015 02-16-2015 Episodic Unclassified (6 sources) Venereal disease screening ; Translations: [Encounter for screening for infections with a predominantly sexual mode of transmission] Onset: 04-14-2011 Resolved: 12-21-2011 04-14-2011 Results Test Name Value Interpretation Reference Range Facility Brain W/WO Contraston 2023 Brain W/WO Contrast [facility] Imaging Services [address] [place], [place] [id number] Brain W/WO Contrast MR#: [id number] Acct: [id number] Name: MARE MEJIA Rep #: [id number] : 1975 F 48 From: Conrad Paez MD PCP: Dr. Suyapa Haddad DO Status: REG CLI Study: Brain W/WO Contrast Date of Exam: 10/12/23 Exam# [id number] Ordering Dr: Suyapa Haddad DO -[id number] STUDY: MRI BRAIN WITH AND WITHOUT CONTRAST REASON FOR EXAM: Female, 48 years old. DIZZINESS,VERTIGO,P OSSIBLE STROKE TECHNIQUE: Standardized multiplanar fat and water weighted pulse sequences were obtained. IV 20CC CLARISCAN was administered for the contrast portion of the examination. COMPARISON: CT of the brain the 2023 MRI of the brain November 12, 2013 FINDINGS: Normal size of the ventricles and extra-axial spaces for the patient''s age. Normal white matter tracts of the supratentorial brain. Normal bilateral basal ganglia. Normal thalami. There is no extra-axial fluid accumulation. Normal flow voids within the major intracranial circulation suggesting patency by spin echo criteria. Normal venous enhancement. There is no enhancing intra-axial or extra-axial abnormality. Normal sella turcica, pituitary gland, infundibular stalk, optic chiasm and hypothalamus. Normal tectal plate and pineal gland. Normal midbrain, shyanne and medulla. Normal cerebellum. Normal basal cisterns. Normal bilateral temporal bones. Normal bilateral internal auditory canals. No demonstrated orbital abnormality, within the constraints of a routine brain study. Normal visualized paranasal sinuses. Normal calvarium and skull base. Normal visualized soft tissue structures. Normal visualized upper cervical spine. MRI/Brain W/WO Contrast IMPRESSION: Normal unenhanced and enhanced MRI of the brain. Electronically Signed: Conrad Paez MD at 16:51 EDT , CC: Dr. Suyapa Haddad DO Visual Design Lead: Signed Normal [facility] 12 Lead EKGon 09-21-2023 12 Lead EKG [facility] Cardiovascular Services [address] [place] [address] 12 Lead EKG 09/21/23 0905 MR#: [id number] Acct: [id number] Name: MARE MEJIA Rep #: [id number] : 1975 48 From: Thom Medina MD Attending Dr: Status: DEP ER Ordering Dr: Yovani Remy DO Date: 09/21/23 Location: ED Sex: F C Admitted: Test Reason : DIZZY Blood Pressure : / mmHG Vent. Rate : 080 BPM Atrial Rate : 080 BPM P-R Int : 184 ms QRS Dur : 102 ms QT Int : 400 ms P-R-T Axes : 040 011 036 degrees QTc Int : 461 ms Normal sinus rhythm Normal ECG Confirmed by Thom Medina ([id number]), editorial project manager BRODIE WHITE ([id number]) on 09/26/2023 1:12:24 PM Referred By: Confirmed By:Thom Medina 09/26/23 1312 Date Thom Medina MD CC: Dr. Yovani Remy DO; Dr. Suyapa Haddad DO Signed Normal [facility] Basic Metabolic Profile (BMP )on 09-21-2023 BUN/CRE 25.1 RATIO High 10-20 [facility] Comment on above: Performed By: #### L 100.0100, L700.6800, L500.2500, L500.3400, L501.2450 #### [facility] [address] [place], [id number] CA,Total 9.5 mg/dL Normal 8.5-10.1 [facility] Comment on above: Performed By: #### L 100.0100, L700.6800, L500.2500, L500.3400, L501.2450 #### [facility] [address] [place], [address] Chloride [Moles/Vol] 106 mmol/L Normal 98-107 [facility] Comment on above: Performed By: #### L 100.0100, L700.6800, L500.2500, L500.3400, L501.2450 #### [facility] [address] [place], [address] CO2 [Moles/Vol] 25.0 mmol/L Normal 21.0-32.0 [facility] Comment on above: Performed By: #### L 100.0100, L700.6800, L500.2500, L500.3400, L501.2450 #### [facility] [address] [place], [address] Creatinine [Mass/Vol] 0.80 mg/dL Normal 0.55-1.02 [facility] Comment on above: Result Comment: The validity of the calculated GFR GFRAA in patients over 70 years has not been determined. Clinical correlation is essential. Performed By: #### L 100.0100, L700.6800, L500.2500, L500.3400, L501.2450 #### [facility] [address] [place], [address] ECRCL 106.09 ml/min Normal [facility] Comment on above: Performed By: #### L 100.0100, L700.6800, L500.2500, L500.3400, L501.2450 #### [facility] [address] [place], [address] EST GFR - AA 99 mL/min Normal >60 [facility] Comment on above: Result Comment: Afri can Citizen Of [place] GFR Calc Performed By: #### L 100.0100, L700.6800, L500.2500, L500.3400, L501.2450 #### [facility] [address] [place], [address] GAP 7 Normal 5-15 [facility] Comment on above: Performed By: #### L 100.0100, L700.6800, L500.2500, L500.3400, L501.2450 #### [facility] [address] [place], [address] GFR/1.73 sq M.predicted among non-blacks MDRD (S/P/Bld) [Vol rate/Area] 82 mL/min/{1.73_m2} Normal >60 [facility] Comment on above: Result Comment: Non- GFR Calc Performed By: #### L 100.0100, L700.6800, L500.2500, L500.3400, L501.2450 #### [facility] [address] [place], [address] Glucose [Mass/Vol] 111 mg/dL High 74-106 [facility] Comment on above: Result Comment: Fast ing Glucose result from 100 to 125 mg/dL suggests IMPAIRED HOMEOSTASIS per A.D.A. criteria. Performed By: #### L 100.0100, L700.6800, L500.2500, L500.3400, L501.2450 #### [facility] [address] [place], [address] Potassium [Moles/Vol] 3.6 mmol/L Normal 3.5-5.1 [facility] Comment on above: Performed By: #### L 100.0100, L700.6800, L500.2500, L500.3400, L501.2450 #### [facility] [address] [place], [address] Sodium [Moles/Vol] 138 mmol/L Normal 136-145 [facility] Comment on above: Performed By: #### L 100.0100, L700.6800, L500.2500, L500.3400, L501.2450 #### [facility] [address] [place], [address] Urea nitrogen [Mass/Vol] 20 mg/dL High 7-18 [facility] Comment on above: Performed By: #### L 100.0100, L700.6800, L500.2500, L500.3400, L501.2450 #### [facility] [address] [place], [address] Brain/Head without Contrasto n 09-21-2023 Brain/Head without Contrast [facility] Imaging Services [address] [place] [address] Brain/Head without Contrast MR#: [id number] Acct: [id number] Name: MARE MEJIA Rep #: [id number] : 1975 F 48 From: Kev bonner MD PCP: Dr. Suyapa Haddad DO Status: REG ER Study: Brain/Head without Contrast Date of Exam: 08/24 01/16 Exam# [id number] Ordering Dr: Yovani Remy DO -[id number] STUDY: CT BRAIN WITHOUT CONTRAST REASON FOR EXAM: Female, 48 years old. Dizziness RADIATION DOSAGE (If Supplied By Facility): CTDIvol = ( 44.99 ) mGy, DLP = ( 812.98 ) mGycm TECHNIQUE: Transaxial CT imaging of the brain was performed without administration of intravenous contrast material. Individualized dose optimization techniques were used for this CT. COMPARISON: Comparison is made with prior study dated November 10, 2013. FINDINGS: Normal soft tissue structures. Normal calvarium. Normal size ventricles and extra-axial spaces for the patient''s age. Normal white matter tracts of the cerebral hemispheres. Normal basal ganglia and thalami. Normal brainstem. Normal cerebellum. There is no intracranial hemorrhage. There are no findings of an acute ischemic infarction. Normal visualized paranasal sinuses. Nasal septal deviation towards the right side of the midline. CT/Brain/Head without Contrast IMPRESSION: Normal unenhanced CT scan of the brain. Electronically Signed: Kev Gama MD at 10:30 EDT , CC: Dr. Yovani Remy, DO; Dr. Suyapa Haddad, DO Visual Design Lead: Signed Normal [facility] CBC W/Diff, Automatedon 08-24 Absolute Lymph 2.65 X10 3/uL Normal 0.83-4.51 [facility] Comment on above: Performed By: #### L 100.0100, L700.6800, L500.2500, L500.3400, L501.2450 #### [facility] [address] [place], [address] Absolute Neut 6.3 X10 3/uL Normal 2.0-7.7 [facility] Comment on above: Performed By: #### L 100.0100, L700.6800, L500.2500, L500.3400, L501.2450 #### [facility] [address] [place], [address] Basophils/100 WBC (Bld) 0.5 % Normal 0-1 [facility] Comment on above: Performed By: #### L 100.0100, L700.6800, L500.2500, L500.3400, L501.2450 #### [facility] [address] [place], [address] Eosinophils/100 WBC (Bld) 2.5 % Normal 0-5 [facility] Comment on above: Performed By: #### L 100.0100, L700.6800, L500.2500, L500.3400, L501.2450 #### [facility] [address] [place], [address] Erythrocyte distribution width (RBC) [Ratio] 14.6 % Normal 11.6-14.6 [facility] Comment on above: Performed By: #### L 100.0100, L700.6800, L500.2500, L500.3400, L501.2450 #### [facility] [address] [place], [address] Hematocrit (Bld) [Volume fraction] 39.0 % Normal 37-47 [facility] Comment on above: Performed By: #### L 100.0100, L700.6800, L500.2500, L500.3400, L501.2450 #### [facility] [address] [place], [address] Hemoglobin (Bld) [Mass/Vol] 12.6 g/dL Normal 12.0-15.0 [facility] Comment on above: Performed By: #### L 100.0100, L700.6800, L500.2500, L500.3400, L501.2450 #### [facility] [address] [place], [address] IG% 0.300 Normal 0.0-0.9 [facility] Comment on above: Result Comment: IG% - Immature Granulocytes (promyelocytes, myelocytes and metamyelocytes) > 1% indicates that a LEFT SHIFT is Present. Performed By: #### L 100.0100, L700.6800, L500.2500, L500.3400, L501.2450 #### [facility] [address] [place], [address] Lymphocytes/100 WBC (Bld) 26.7 % Normal 19-41 [facility] Comment on above: Performed By: #### L 100.0100, L700.6800, L500.2500, L500.3400, L501.2450 #### [facility] [address] [place], [address] MCH (RBC) [Entitic mass] 27.1 pg Normal 27.0-32.0 [facility] Comment on above: Performed By: #### L 100.0100, L700.6800, L500.2500, L500.3400, L501.2450 #### [facility] [address] [place], [address] MCHC (RBC) [Mass/Vol] 32.3 g/dL Normal 32-36 [facility] Comment on above: Performed By: #### L 100.0100, L700.6800, L500.2500, L500.3400, L501.2450 #### [facility] [address] [place], [address] MCV (RBC) [Entitic vol] 83.9 fL Normal 81-99 [facility] Comment on above: Performed By: #### L 100.0100, L700.6800, L500.2500, L500.3400, L501.2450 #### [facility] [address] [place], [address] Monocytes/100 WBC (Bld) 6.5 % Normal 0-10 [facility] Comment on above: Performed By: #### L 100.0100, L700.6800, L500.2500, L500.3400, L501.2450 #### [facility] [address] [place], [address] Neutrophils/100 WBC (Bld) 63.5 % Normal 47-70 [facility] Comment on above: Performed By: #### L 100.0100, L700.6800, L500.2500, L500.3400, L501.2450 #### [facility] [address] [place], [address] Nucleated RBC (Bld) [#/Vol] 0 10*3/uL Normal 0-5 [facility] Comment on above: Performed By: #### L 100.0100, L700.6800, L500.2500, L500.3400, L501.2450 #### [facility] [address] [place], [address] Platelet mean volume (Bld) [Entitic vol] 13.8 fL High 6.2-12.0 [facility] Comment on above: Performed By: #### L 100.0100, L700.6800, L500.2500, L500.3400, L501.2450 #### [facility] [address] [place], [address] Platelets (Bld) [#/Vol] 212 10*3/uL Normal 150-450 [facility] Comment on above: Performed By: #### L 100.0100, L700.6800, L500.2500, L500.3400, L501.2450 #### [facility] [address] [place], [address] RBC (Bld) [#/Vol] 4.65 10*6/uL Normal 4.2-5.4 [facility] Comment on above: Performed By: #### L 100.0100, L700.6800, L500.2500, L500.3400, L501.2450 #### [facility] [address] [place], [address] RDW SD 44.3 fl High 35.1-43.9 [facility] Comment on above: Performed By: #### L 100.0100, L700.6800, L500.2500, L500.3400, L501.2450 #### [facility] [address] [place], [address] WBC (Bld) [#/Vol] 9.9 10*3/uL Normal 4.4-11.0 [facility] Comment on above: Performed By: #### L 100.0100, L700.6800, L500.2500, L500.3400, L501.2450 #### [facility] [address] [place], [address] Chest 1 View (Portable)on Chest 1 View (Portable) [facility] Imaging Services [address] [place] [address] Chest 1 View (Portable) MR#: [id number] Acct: [id number] Name: MARE MEJAI Rep #: [id number] : 1975 F 48 From: Kev bonner MD PCP: Dr. Suyapa Haddad, Status: REG ER Study: Chest 1 View (Portable) Date of Exam: 09/21/23 Exam# [id number] Ordering Dr: Yovani Remy DO -[id number] STUDY: X-RAY CHEST REASON FOR EXAM: Female, 48 years old. Weakness TECHNIQUE: Single AP portable view of the chest. COMPARISON: Comparison is made with prior study dated September 26, 2021. FINDINGS: EKG electrodes are seen. The lungs are clear and expanded. There is no demonstrated pleural abnormality. Normal size heart. Normal mediastinum and satya. Normal visualized pulmonary arteries. Normal visualized aortic arch and descending thoracic aorta. Normal visualized thoracic spine. Normal visualized ribs, clavicles, and shoulders. There is no demonstrated abnormality of the visualized soft tissue structures of the upper abdomen. RAD/Chest 1 View (Portable) IMPRESSION: Normal x-ray examination of the chest. Electronically Signed: Kev Gama MD at 10:29 EDT , CC: Dr. Yovani Remy DO; Dr. Suyapa Haddad DO Visual Design Lead: Signed Normal [facility] Emergency Department Summary on 09-21-2023 Emergency Department Summary [facility] Medical Records Department [address] [place] [address] Emergency Department Summary 09/21/23 MR#: [id number] Acct: [id number] Name: MARE MEJIA Rep #: [id number] : 1975 48 From: Yovani Remy DO PCP: Dr. Suyapa Haddad DO Status:DEP ER Location: ED HPI History of Present Illness Chief Complaint: General Illness Informant: patient, spouse/S.O. and EMS Narrative Narrative: 48-year-old female presenting to the emergency room with a chief complaint of dizziness and vomiting. states he called the ambulance today after she became dizzy and vomiting and globally weak to the point where he could not get in the car so he called the ambulance to bring her head. Patient states that on 14 September she began to have some right-sided abdominal pain. By the she states she was having vomiting this continued into the . On the she went down to [facility] on the way back became dizzy. Patient states that she felt ill again 26 last night was able to go to work. Around or 17 September she had difficulty hearing out of the left ear. This morning she states that she popped her left ear. Afterwards she became dizzy and vomited. She states that she defines dizziness as the room spinning. She denies any diarrhea or fevers or rashes. No cough or runny nose sore throat. [facility] Medical History Anxiety Fibromyalgia ADHD Hemorrhoids Anemia Depression Rheumatoid arthritis Home Medications ???Medication ???Instructions ???Recorded ???Last Taken ???Type buspirone 5 mg tablet 15 mg PO BID anxiety 02/07/14 04/04/18 History duloxetine 20 mg capsule,delayed 90 mg PO DAILY depression 05/27/17 04/04/18 History release (Cymbalta) amitriptyline 10 mg tablet 10 mg PO DAILY 09/23/21 Unknown History azithromycin 250 mg tablet 250 mg PO DAILY #4 TABLETS 09/23/21 Unknown Rx lisdexamfetamine 30 mg capsule 30 mg PO DAILY 09/23/21 Unknown History (Vyvanse) metaxalone 800 mg tablet 800 mg PO TID PRN muscle pain #21 04/03/22 Unknown Rx tabs diazepam 5 mg tablet 5 mg PO Q8 PRN vertigo #10 tabs 09/21/23 Unknown Rx ondansetron 4 mg disintegrating 4 mg PO Q6H PRN PRN Nausea #10 tabs 09/21/23 Unknown Rx tablet Allergy/AdvReac Type Severity Reaction Status Date / Time shellfish derived Allergy Hives Verified 09/21/23 08:37 clindamycin AdvReac Other Verified 09/21/23 08:37 Family History Sister Thyroid disorder Depression Father Glaucoma CVA (cerebral vascular accident) Mother Mental health disorder Surgical History History of tubal ligation Hx of cholecystectomy Social History household members: spouse and children Smoking Status: Current every day smoker tobacco type: cigarettes alcohol intake: never substance use type: does not use ROS ROS ED Constitutional Constitutional ED: Denies chills or weight loss Eyes Eyes: Denies change in vision or diplopia ENT ENT ED: Reports hearing loss; Denies ear pain, rhinorrhea or sore throat Cardiovascular Cardiovascular: Denies chest pain, orthopnea, palpitations or racing heartbeat Respiratory/Chest Respiratory/Chest: Denies cough, dyspnea or orthopnea Gastrointestinal Gastrointestinal: Reports abdominal pain, constipation, nausea and vomiting; Denies diarrhea Genitourinary Genitourinary ED: Denies dysuria, hematuria or urinary frequency Musculoskeletal Musculoskeletal: Denies arthralgias or myalgias Integumentary Denies abscess or rash Neurologic Neurologic: Reports disequilibrium, dizziness and other Details: Paresthesias of the right arm last night (resolved) ; Denies headache(s) or weakness Psychiatric Psychiatric: Denies anxiety, depression, suicidal ideation or suicidal thoughts Endocrine Endocrinology: Denies polydipsia, polyphagia or polyuria Allergic/Immunologi c Allergic/Immunologi c ED: Denies mouth swelling, tongue swelling or urticaria EXAM Physical Exam Narrative Exam Narrative: 48-year-old female laying in the bed. She keeps her head turned slightly to the right. She minimally moves her mouth to talk and speaks very quietly. When asked to turn her head to the left to examine the right ear the patient moves very slowly and incompletely Const Vital Signs: 09/21/23 08:37 09/21/23 08:42 09/21/23 09:58 Temperature 97.6 F L Temperature Source Oral Pulse Rate 84 67 Respiratory Rate 26 H 18 Respiratory Effort Normal Non-Labored Respiratory Pattern Normal Blood Pressure 134/70 H 118/71 Blood Pressure Mean 91 86 Pulse Ox 97 92 Oxygen Delivery Method Room Air Room Air (more content not included)... Normal [facility] Lipaseon 09-21-2023 Lipase [Catalytic activity/Vol] 45 U/L Normal 13-75 [facility] Comment on above: Result Comment: Yoana da silva note: LIPASE revised reference range effective 22. New Lipase methodology. Expected to produce lower values than the previous assay method. NEW Reference Range: 13 - 75 U/L Performed By: #### L 100.0100, L700.6800, L500.2500, L500.3400, L501.2450 ####[facility] [address] [place], [address] Liver Profileon 09-21-2023 Albumin [Mass/Vol] 3.6 g/dL Normal 3.2-5.0 [facility] Comment on above: Performed By: #### L 100.0100, L700.6800, L500.2500, L500.3400, L501.2450 #### [facility] [address] [place], [address] ALK P 107 U/L Normal 45-117 [facility] Comment on above: Performed By: #### L 100.0100, L700.6800, L500.2500, L500.3400, L501.2450 #### [facility] [address] [place], [address] ALT [Catalytic activity/Vol] 25 U/L Normal 13-56 [facility] Comment on above: Performed By: #### L 100.0100, L700.6800, L500.2500, L500.3400, L501.2450 #### [facility] [address] [place], [address] AST [Catalytic activity/Vol] 23 U/L Normal 15-37 [facility] Comment on above: Performed By: #### L 100.0100, L700.6800, L500.2500, L500.3400, L501.2450 #### [facility] [address] [place], [address] Bilirubin [Mass/Vol] 0.40 mg/dL Normal 0.20-1.00 [facility] Comment on above: Result Comment: For patients on eltrombopag therapy, use of Dimension [place] TBIL is not recommended. Performed By: #### L 100.0100, L700.6800, L500.2500, L500.3400, L501.2450 #### [facility] [address] [place], [address] Bilirubin.direct [Mass/Vol] 0.11 mg/dL Normal 0.00-0.30 [facility] Comment on above: Performed By: #### L 100.0100, L700.6800, L500.2500, L500.3400, L501.2450 #### [facility] [address] [place], [address] Globulin (S) [Mass/Vol] 3.9 g/dL Normal 2.2-4.2 [facility] Comment on above: Performed By: #### L 100.0100, L700.6800, L500.2500, L500.3400, L501.2450 #### [facility] [address] [place], [address] T PROT 7.5 g/dL Normal 6.4-8.2 [facility] Comment on above: Performed By: #### L 100.0100, L700.6800, L500.2500, L500.3400, L501.2450 #### [facility] [address] [place], [address] ,Serum,hCG Quali.on 09-21-2023 HCG, SERUM QUAL Negative Normal [facility] Comment on above: Performed By: #### L 100.0100, L700.6800, L500.2500, L500.3400, L501.2450 #### [facility] [address] [place], [address] Urinalysis, Completeon 09-20 BACTERIA 1+ /hpf Normal None Seen [facility] Comment on above: Order Comment: CLEAN CATCH Performed By: #### L 400.0001 #### [facility] [address] [place], [address] EPI,SQUAMOUS 0-5 SEEN Normal 5-10 [facility] Comment on above: Order Comment: CLEAN CATCH Performed By: #### L 400.0001 #### [facility] [address] [place], [address] RBC 25-50 SEEN Normal 0-5 [facility] Comment on above: Order Comment: CLEAN CATCH Performed By: #### L 400.0001 #### [facility] [address] [place], [address] WBC 0-5 SEEN Normal 0-5 [facility] Comment on above: Order Comment: CLEAN CATCH Performed By: #### L 400.0001 #### [facility] [address] [place], [address] Mucus Ql (Urine sed) 0 SEEN Normal [facility] Comment on above: Order Comment: CLEAN CATCH Performed By: #### L 400.0001 #### [facility] [address] [place], [address] No Panel Informationon 06-08 SARS-CoV-2 Antigen (Rapid) [facility] Work Phone: Laboratory - Microbiology an d Antimicrobial susceptibilityon 06-04-2021 SARS-CoV-2 (COVID-19) RNA ENEDINA+probe Ql (Unsp spec) Not detected Not Detect [facility] Work Phone: Comment on above: Normal Reference Ran ge: Not DetectedMethod:(RT-PCR) real-time reverse transcriptase PCRLuminex JobSerf Instrument*The Food and Drug Administration (FDA) has issued an Emergency Use Authorization (EAU) for the JobSerf SARS-CoV-2 Assay for the rapid detection of the virus that causes COVID-19. This test has been validated, but the FDAs independent review of this validation is pending.*Negative results do not preclude infection and should not be used as the sole basis for treatment or patient management. Optimum specimen types and timing for peak viral levels during infections caused by SARS-CoV-2 have not been determined. Collection of multiple specimens from the same patient may be necessary to detect the virus. The possibility of a false negative result should be considered if the patient has clinical presentation or has had recent exposure. .Auto Diffon 11-20-2020 Basophil, Absolute 0.10 10 3/mcL Normal 0.00-0.19 [facility] ([place]) Comment on above: Performed By: #### G FR, BMP #### [address] [address] #### SHERRI, TINA, ADIFF #### [address] [place], [place] [address] Basophils/100 WBC (Bld) 1.0 % Normal 0.0-2.5 [facility] ([place]) Comment on above: Performed By: #### G FR, BMP #### [address] [address] #### CBC, ANEU, ADIFF #### [address] [address] Eosinophil, Absolute 0.40 10 3/mcL Normal 0.00-0.40 A [facility] [facility] ([place]) Comment on above: Performed By: #### G FR, BMP #### [place] [id number] #### CBC, ANEU, ADIFF #### [address] [address] Eosinophils/100 WBC (Bld) 3.6 % Normal 0.0-7.0 [facility] ([place]) Comment on above: Performed By: #### G FR, BMP #### [place] [address] #### CBC, ANEU, ADIFF #### [address] [address] Lymphocyte, Absolute 3.30 10 3/mcL Normal 0.77-3.85 A [facility] ([place]) Comment on above: Performed By: #### G FR, BMP #### [place] [address] #### CBC, ANEU, ADIFF #### [address] [address] Lymphocytes/100 WBC (Bld) 32.3 % Normal 10.0-50.0 [facility] ([place]) Comment on above: Performed By: #### G FR, BMP #### [place] [address] #### CBC, ANEU, ADIFF #### [address] [address] Monocyte, Absolute 0.70 10 3/mcL Normal 0.15-1.00 [facility] ([place]) Comment on above: Performed By: #### G FR, BMP #### [place] [address] #### CBC, ANEU, ADIFF #### [address] [address] Monocytes/100 WBC (Bld) 6.9 % Normal 1.7-13.0 [facility] ([place]) Comment on above: Performed By: #### G FR, BMP #### [address] [address] #### CBC, ANEU, ADIFF #### [address] [address] Neutrophils/100 WBC (Bld) 56.2 % Normal 37.0-80.0 [facility] ([place]) Comment on above: Performed By: #### G FR, BMP #### [address] [address] #### CBC, ANEU, ADIFF #### [address] [address] .GFRon 11-20-2020 GFR 99 ml/min/1.73sqm Normal [facility] ([place]) Comment on above: Result Comment: GFR Population mean for , Non- Americans Ages 20-29 = 116 mL/min/1.73 sq.m. Ages 30-39 = 107 mL/min/1.73 sq.m. Ages 40-49 = 99 mL/min/1.73 sq.m. Ages 50-59 = 93 mL/min/1.73 sq.m. Ages 60-69 = 85 mL/min/1.73 sq.m. Ages 70+ = 75 mL/min/1.73 sq.m. Chronic Kidney Disease: Less than 60 mL/min/1.73 square meters End Stage Renal Disease: Less than 15 mL/min/1.73 square meters Performed By: #### G FR, BMP #### [address] [address] #### CBC, ANEU, ADIFF #### [place] [address] [place], [place] [address] GFR Non- 81 ml/min/1.73sqm Normal [facility] ([place]) Comment on above: Result Comment: GFR Population mean for , Non- Americans Ages 20-29 = 116 mL/min/1.73 sq.m. Ages 30-39 = 107 mL/min/1.73 sq.m. Ages 40-49 = 99 mL/min/1.73 sq.m. Ages 50-59 = 93 mL/min/1.73 sq.m. Ages 60-69 = 85 mL/min/1.73 sq.m. Ages 70+ = 75 mL/min/1.73 sq.m. Chronic Kidney Disease: Less than 60 mL/min/1.73 square meters End Stage Renal Disease: Less than 15 mL/min/1.73 square meters Performed By: #### Sherry FR, BMP #### [place] [address] #### CBC, ANEU, ADIFF #### [address] [address] .NEUABSon 11-20-2020 Neutrophil, Absolute 5.80 10 3/mcL Normal 2.85-6.16 A [facility] ([place]) Comment on above: Performed By: #### Sherry URIAS, BMP #### [place] [address] #### CBC, ANEU, ADIFF #### [address] [address] [facility] BUN/Creatinine Ratio 17 ratio Normal 7-27 [facility] ([place]) Comment on above: Performed By: #### Sherry FR, BMP #### [place] [address] #### CBC, ANEU, ADIFF #### [address] [address] Calcium [Mass/Vol] 9.2 mg/dL Normal 8.4-10.2 [facility] ([place]) Comment on above: Performed By: #### Sherry FR, BMP #### [place] [address] #### CBC, ANEU, ADIFF #### [address] [address] Chloride [Moles/Vol] 109 mmol/L High 98-107 [facility] ([place]) Comment on above: Performed By: #### Sherry FR, BMP #### [place] [address] #### CBC, ANEU, ADIFF #### [address] [address] CO2 [Moles/Vol] 27 mmol/L Normal 22-29 [facility] ([place]) Comment on above: Performed By: #### G FR, BMP #### [address] [address] #### CBC, ANEU, ADIFF #### [address] [address] Creatinine [Mass/Vol] 0.77 mg/dL Normal 0.55-1.02 [facility] ([place]) Comment on above: Performed By: #### Sherry FR, BMP #### [address] [address] #### CBC, ANEU, ADIFF #### [address] [address] Electrolyte Balance 7.0 mEq/L Normal [facility] ([place]) Comment on above: Performed By: #### Sherry FR, BMP #### [address] [address] #### CBC, ANEU, ADIFF #### [address] [address] Glucose [Mass/Vol] 91 mg/dL Normal 70-105 [facility] ([place]) Comment on above: Performed By: #### G FR, BMP #### [address] [address] #### CBC, ANEU, ADIFF #### [address] [address] Potassium [Moles/Vol] 3.9 mmol/L Normal 3.5-5.1 [facility] ([place]) Comment on above: Performed By: #### G FR, BMP #### [address] [address] #### CBC, ANEU, ADIFF #### [address] [address] Sodium [Moles/Vol] 143 mmol/L Normal 136-145 [facility] ([place]) Comment on above: Performed By: #### G FR, BMP #### [place] [address] #### CBC, ANEU, ADIFF #### [address] [address] Urea nitrogen [Mass/Vol] 13 mg/dL Normal 7-18 [facility] ([place]) Comment on above: Performed By: #### G FR, BMP #### [place] [address] #### CBC, ANEU, ADIFF #### [address] [address] CBCon 11-20-2020 Erythrocyte distribution width (RBC) [Ratio] 14.6 % High 11.5-14.5 [facility] ([place]) Comment on above: Performed By: #### Sherry FR, BMP #### [place] [address] #### CBC, ANEU, ADIFF #### [address] [address] Hematocrit (Bld) [Volume fraction] 35.4 % Low 37.0-47.0 [facility] ([place]) Comment on above: Performed By: #### G FR, BMP #### [place] [address] #### CBC, ANEU, ADIFF #### [address] [address] Hgb 11.8 G/dL Low 12.0-16.0 [facility] ([place]) Comment on above: Performed By: #### G FR, BMP #### [place] [address] #### CBC, ANEU, ADIFF #### [address] [address] MCH (RBC) [Entitic mass] 28.1 pg Normal 27.0-31.2 [facility] ([place]) Comment on above: Performed By: #### G FR, BMP #### [place] [address] #### CBC, ANEU, ADIFF #### [address] [address] MCHC 33.2 G/dL Normal 33.0-37.0 [facility] ([place]) Comment on above: Performed By: #### Sherry FR, BMP #### [place] [address] #### CBC, ANEU, ADIFF #### [address] [address] MCV (RBC) [Entitic vol] 84.6 fL Normal 80.0-94.0 [facility] ([place]) Comment on above: Performed By: #### Sherry FR, BMP #### [place] [address] #### CBC, ANEU, ADIFF #### [address] [address] Platelet 257 10 3/mcL Normal 130-400 [facility] ([place]) Comment on above: Performed By: #### Sherry FR, BMP #### [place] [address] #### CBC, ANEU, ADIFF #### [address] [address] Platelet mean volume (Bld) [Entitic vol] 11.2 fL High 7.4-10.4 [facility] ([place]) Comment on above: Performed By: #### Sherry FR, BMP #### [place] [address] #### CBC, ANEU, ADIFF #### [address] [address] RBC 4.19 10 6/mcL Low 4.20-5.40 [facility] ([place]) Comment on above: Performed By: #### G FR, BMP #### [place] [address] #### CBC, ANEU, ADIFF #### [address] [address] WBC 10.30 10 3/mcL Normal 4.60-10.80 [facility] ([place]) Comment on above: Performed By: #### G FR, BMP #### [place] [address] #### CBC, ANEU, ADIFF #### [address] [address] [address] ABDOMEN/PELVIS W/O CONTRA STon 11-20-2020 CT ABDOMEN/PELVIS W/O CONTRAST ORIGINAL EXAMINATION: CT OF THE ABDOMEN AND PELVIS WITHOUT CONTRAST 11/20/2020 3:42 pm TECHNIQUE: CT of the abdomen and pelvis was performed without the administration of intravenous contrast. Multiplanar reformatted images are provided for review. Dose modulation, iterative reconstruction, and/or weight based adjustment of the mA/kV was utilized to reduce the radiation dose to as low as reasonably achievable. COMPARISON: None. HISTORY: ORDERING SYSTEM PROVIDED HISTORY: Reason for Exam: RIGHT flank pain, N/V FINDINGS: No acute osseous abnormality identified. The lung bases are unremarkable. No focal liver lesion. Cholecystectomy clips are present. The spleen, adrenal glands and pancreas are normal. There is no evidence for nephrolithiasis and no ureteral dilatation or ureteral stone is evident. The urinary bladder is not well distended but is grossly normal. The pelvic organs are otherwise unremarkable. No adenopathy, free air or free fluid is visible. No GI tract abnormality is visible. No additional contributory abnormality. IMPRESSION: No acute process. No evidence for stone disease or obstructive uropathy. Interpreted by: Thom Cloud Preliminary Report By: Thom Cloud Electronically signed By Thom Cloud Dictated Date: 11/20/2020 4:16:28 PM Prelim Date: 11/20/2020 4:19:02 PM Sign Date: 11/20/2020 4:19:02 PM Ordering Provider: POLY JAVIER Normal [facility] ([place]) PREGUon 11-20-2020 HCG ( test) Ql (U) Negative Normal [facility] ([place]) Comment on above: Performed By: #### U A, PREGU #### [place] [address] [place], [place] [address] test (u) int Not detected Invalid Interpretation Code [facility] ([place]) Comment on above: Performed By: #### U A, PREGU #### [address] [address] UAon 11-20-2020 Color (U) Yellow Normal [facility] ([place]) Comment on above: Performed By: #### U A, PREGU #### [address] [address] Glucose (U) [Mass/Vol] Negative Normal Negative [facility] ([place]) Comment on above: Performed By: #### U A, PREGU #### [address] [address] Ketones Ql (U) 15 mg/dL Abnormal Negative [facility] ([place]) Comment on above: Performed By: #### U A, PREGU #### [address] [address] UA Appear Clear Normal Clear [facility] ([place]) Comment on above: Performed By: #### U A, PREGU #### [address] [address] UA Blood Negative Normal Negative [facility] ([place]) Comment on above: Performed By: #### U A, PREGU #### [address] [address] UA Leuk Est Negative Normal Negative [facility] ([place]) Comment on above: Performed By: #### U A, PREGU #### [address] [address] UA Nitrite Negative Normal Negative [facility] ([place]) Comment on above: Performed By: #### U A, PREGU #### [address] [address] UA pH 5.5 Normal 5.0 - 8.0 [facility] ([place]) Comment on above: Performed By: #### U A, PREGU #### [address] [address] UA Protein Negative Normal Negative [facility] ([place]) Comment on above: Performed By: #### U A, PREGU #### Shahnaz [place] [address] [place], [place] [address] UA Spec Grav >=1.030 Abnormal 1.015-1.025 [facility] ([place]) Comment on above: Performed By: #### U A, PREGU #### [address] [address] UA Specimen Type Void Normal [facility] ([place]) Comment on above: Performed By: #### U A, PREGU #### [address] [address] UA Urobilinogen 0.2 E.U./dL Normal 0.2-1.0 [facility] ([place]) Comment on above: Performed By: #### U A, PREGU #### [address] [address] Urobilinogen (U) [Mass/Vol] Negative Normal Negative [facility] ([place]) Comment on above: Performed By: #### U A, PREGU #### [address] [address] Office Visit: [facility] f/u: R wrist strainon 09-14-2016 Documentation of current medications (procedure) Done Invalid Interpretation Code [facility] Work Phone: Fall risk assessment No [facility] Work Phone: Tobacco smoking status NHIS Never [facility] Work Phone: Tobacco smoking status NHIS Never smoker [facility] Work Phone: Tobacco use [facility] Never smoker Invalid Interpretation Code [facility] Work Phone: Office Visit: [facility]: Wrist Str ainon 09-03-2016 Documentation of current medications (procedure) Done Invalid Interpretation Code [facility] Work Phone: Fall risk assessment No Invalid Interpretation Code [facility] Work Phone: Tobacco smoking status NHIS Never Invalid Interpretation Code [facility] Work Phone: Tobacco use [facility] Never smoker Invalid Interpretation Code [facility] Work Phone: Office Visit: [facility]: Raymond anand trainjeb 08-27-2016 Documentation of current medications (procedure) Done Invalid Interpretation Code [facility] Work Phone: Tobacco smoking status NHIS Never Invalid Interpretation Code [facility] Work Phone: Tobacco use [facility] Never smoker Invalid Interpretation Code [facility] Work Phone: Rx Refill: eRx Request for M ethotrexate 2.5mg Tabon 09-12-2015 e-scripts messenger refill request [id number]`Metho trexate 2.5mg Tab```24 Each``TAKE SIX TABLETS BY MOUTH ONCE WEEKLY```0`05/13/19 16`No date sent`[facility]*`[id number]``METHOTREXA TE 2.5 MG TABLET Quantity: 24 Tablet Instructions: TAKE SIX TABLETS BY MOUTH ONCE WEEKLY Better [facility] Work Phone: [facility]_RR [id number]`Metho trexate 2.5mg Tab```24 Each``TAKE SIX TABLETS BY MOUTH ONCE WEEKLY```0`05/13/19 16`No date sent`[facility]*`[id number]``METHOTREXA TE 2.5 MG TABLET Quantity: 24 Tablet Instructions: TAKE SIX TABLETS BY MOUTH ONCE WEEKLY [facility] Work Phone: Lab Report: CBC W/Diff, Auto matedon 06-24-2015 Basophils/100 leukocytes 0.4 % Invalid Interpretation Code 0-1 [facility] Work Phone: Basophils/100 WBC (Bld) 0.4 % 0-1 [facility] Work Phone: Eosinophils/100 leukocytes 3.3 % Invalid Interpretation Code 0-5 [facility] Work Phone: Eosinophils/100 WBC (Bld) 3.3 % 0-5 [facility] Work Phone: Erythrocyte distribution width (RBC) [Ratio] 44.2 fL High 35.1-43.9 [facility] Work Phone: Erythrocyte distribution width (RBC) [Ratio] 14.7 % High 11.6-14.6 [facility] Work Phone: Erythrocytes (RBC) 4.46 10*6/uL Invalid Interpretation Code 4.2-5.4 [facility] Work Phone: Hematocrit (Bld) [Volume fraction] 37.7 % 37-47 [facility] Work Phone: Hematocrit (HCT) 37.7 % Invalid Interpretation Code 37-47 [facility] Work Phone: Hemoglobin (HGB) 12.0 g/dL 12.0-15.0 [facility] Work Phone: Immature granulocytes (Bld) [#/Vol] 0.100 % 0.0-0.9 [facility] Work Phone: immature granulocytes, percentage of total cells, blood 0.100 % Invalid Interpretation Code 0.0-0.9 [facility] Work Phone: Lymphocytes 2.21 X10 3/UL Invalid Interpretation Code 0.83-4.51 [facility] Now [facility] Work Phone: Lymphocytes (Bld) [#/Vol] 2.21 X10 3/UL 0.83-4.51 [facility] Work Phone: Lymphocytes/100 leukocytes 29.3 % Invalid Interpretation Code 19-41 [facility] Work Phone: Lymphocytes/100 WBC (Bld) 29.3 % 19-41 [facility] Work Phone: MCH 26.9 pg Low 27.0-32.0 [facility] Work Phone: MCH (RBC) [Entitic mass] 26.9 pg Low 27.0-32.0 [facility] Work Phone: MCHC 31.8 G/GL Low 32-36 [facility] Work Phone: MCHC (RBC) [Mass/Vol] 31.8 G/GL Low 32-36 [facility] Work Phone: MCV 84.5 fL Invalid Interpretation Code 81-99 [facility] Work Phone: MCV (RBC) [Entitic vol] 84.5 fL 81-99 [facility] Work Phone: Monocytes/100 leukocytes 9.7 % Invalid Interpretation Code 0-10 [facility] Work Phone: Monocytes/100 WBC (Bld) 9.7 % 0-10 [facility] Work Phone: neutrophil count, blood 4.3 X10 3/UL Invalid Interpretation Code 2.0-7.7 [facility] Work Phone: Neutrophils (Bld) [#/Vol] 4.3 X10 3/UL 2.0-7.7 [facility] Work Phone: Neutrophils/100 leukocytes 57.2 % Invalid Interpretation Code 47-70 [facility] Work Phone: Neutrophils/100 WBC (Bld) 57.2 % 47-70 [facility] Work Phone: Platelet mean volume (Bld) [Entitic vol] 12.3 fL High 6.2-12.0 [facility] Work Phone: Platelets 254 10*3/mm3 Invalid Interpretation Code 150-450 [facility] Work Phone: Platelets (Bld) [#/Vol] 254 10*3/mm3 150-450 [facility] Work Phone: PMV by Judi 12.3 fL High 6.2-12.0 [facility] Work Phone: RBC (Bld) [#/Vol] 4.46 10*6/uL 4.2-5.4 [facility] Work Phone: RDW-CA 14.7 % High 11.6-14.6 [facility] Work Phone: red blood cell distribution width, size density 44.2 fL High 35.1-43.9 [facility] Work Phone: WBC (Bld) [#/Vol] 7.5 10*3/uL 4.4-11.0 [facility] No w Clinic Work Phone: WBC (Leukocytes) 7.5 10*3/uL Invalid Interpretation Code 4.4-11.0 [facility] Work Phone: Lab Report: [facility] Profil 06-24-2015 Alanine aminotransferase (ALT) 41 U/L 12-78 [facility] Work Phone: Albumin 3.2 g/dL Low 3.4-5.0 [facility] Work Phone: Albumin/Globulin Ratio 0.8 {ratio} Low 0.9-2.4 [facility] Work Phone: Alkaline phosphatase (ALP) 136 U/L Invalid Interpretation Code 50-136 [facility] Work Phone: ALP (Bld) [Catalytic activity/Vol] 136 U/L 50-136 [facility] Work Phone: Anion gap 6 mmol/L Invalid Interpretation Code 5-15 [facility] Work Phone: Anion gap [Moles/Vol] 6 mmol/L 5-15 [facility] Work Phone: Aspartate aminotransferase (AST) 22 U/L 15-37 [facility] Work Phone: Bilirubin (total) 0.30 mg/dL 0.20-1.00 [facility] Work Phone: BUN/Creatinine Ratio 15.5 RATIO 10-20 [facility] Work Phone: Calcium 8.6 mg/dL 8.5-10.1 [facility] Work Phone: Chloride 106 mmol/L 98-107 [facility] Work Phone: CO2 29.0 mmol/L Invalid Interpretation Code 21.0-32.0 [facility] Work Phone: CO2 (BldV) [Partial pressure] 29.0 mmol/L 21.0-32.0 [facility] Work Phone: Creatinine 0.97 mg/dL 0.55-1.20 [facility] Work Phone: eGFR (non-black) 68 mL/min/{1.73_m2} >60 [facility] Work Phone: eGFR (non-black) 83 mL/min/{1.73_m2} Invalid Interpretation Code >60 [facility] Work Phone: EST GFR - AA 83 mL/min >60 [facility] Work Phone: Globulin 3.9 g/dL High 2.3-3.5 [facility] Work Phone: Globulin (S) [Mass/Vol] 3.9 g/dL High 2.3-3.5 [facility] Work Phone: Glucose 76 mg/dL Invalid Interpretation Code 70-110 [facility] Work Phone: Glucose [Mass/Vol] 76 mg/dL 70-110 [facility] No w Clinic Work Phone: Potassium 4.0 mmol/L 3.5-5.1 [facility] Work Phone: Protein 7.1 g/dL 6.4-8.2 [facility] Work Phone: Sodium 141 mmol/L 136-145 [facility] Work Phone: Urea nitrogen 15 mg/dL 7-18 [facility] dioni Work Phone: Pap Test: PAP I-G w/rfx hrHP Von 09-21-2014 GE use only - for [employer] import when terms are not otherwise specified Comment Invalid Interpretation Code . [facility] Work Phone: HPV RFLX Comment . [facility] Work Phone: Lab Report: Hepatitis B Surf estrella Agon 09-19-2014 BSA (Body Surface Area) Negative Invalid Interpretation Code Negative [facility] Work Phone: HBV surface Ag Ql (S) Negative Negative [facility] Work Phone: Lab Report: Free T3on 2014 Triiodothyronine (T3) free 2.4 pg/mL 2.18-3.98 [facility] Work Phone: Lab Report: T4 Free Directon 09-18-2014 Thyroxine (T4) free 0.98 ng/dL 0.76-1.46 [facility] Work Phone: Lab Report: Thyroid Stim Hor waylon (TSH)on 09-18-2014 Thyroid stimulating hormone (TSH) 1.11 u[iU]/mL 0.358-3.74 [facility] Work Phone: Lab Report: Urinalysis, Comp leteon 08-07-2014 specific gravity, urine 1.025 1.002-1.030 [facility] Work Phone: Lab Report: CBC W/Diff, Auto matedon 06-07-2014 Absolute Neut 12.3 X10 3/UL Critically high 2.0-7.7 [facility] Work Phone: Absolute Neutrophil count 12.3 X10 3/UL Critically high 2.0-7.7 [facility] Work Phone: Office Visiton 03-12-2014 Albumin Ql (U) Negative [facility] Work Phone: Bilirubin Ql (U) Negative [facility] Work Phone: blood in urine (hemoglobin) by dipstick Negative Invalid Interpretation Code [facility] Work Phone: Glucose Test strip (U) [Mass/Vol] Negative [facility] Work Phone: Ketones (U) [Mass/Vol] Negative [facility] Work Phone: Nitrite Ql (U) Negative [facility] Work Phone: pH (U) 5.0 [pH] [facility] Work Phone: Urine, appearance clear [facility] Work Phone: Urine, bilirubin presence Negative Invalid Interpretation Code [facility] Work Phone: Urine, color yellow [facility] Work Phone: Urine, glucose presence Negative Invalid Interpretation Code [facility] Work Phone: Urine, ketones presence Negative Invalid Interpretation Code [facility] Work Phone: Urine, leukocyte esterase presence Negative [facility] Work Phone: Urine, nitrite presence Negative Invalid Interpretation Code [facility] Work Phone: Urine, pH 5.0 [pH] Invalid Interpretation Code [facility] Work Phone: Urine, protein Negative Invalid Interpretation Code [facility] Work Phone: Urine, urobilinogen presence Negative [facility] Work Phone: Lab Report: PT - copyon 10-23 INR Coag (PPP) [Relative time] 1.1 {INR} Normal [facility] Work Phone: INR in blood by coagulation 1.1 {INR} Normal [facility] Work Phone: prothrombin time, actual/normal, ratio 13.9 SECONDS Normal 11.7-14.9 [facility] Work Phone: PTP 13.9 SECONDS Normal 11.7-14.9 [facility] Work Phone: Lab Report: TROP - copyon Troponin I ng/mL Normal <0.06 [facility] Work Phone: Lab Report: CRPon 07-27-2013 C reactive protein (CRP) mg/L Normal 0.0-3.0 [facility] Work Phone: Lab Report: SEDon 07-27-2013 Erythrocyte sedimentation rate 16 mm/h Normal 0-20 [facility] Work Phone: Lab Report: VITDon 4 vitamin D 25-hydroxy, serum [id number] ng/mL Normal Units converted. See lab report for original value. [facility] Work Phone: VITD [id number] ng/mL Normal Units converted. See lab report for original value. [facility] Work Phone: Lab Report: [id number] 04-07-20 12 herpes simplex virus antibody, IgG, types 1 and 2 35.8 High 0.0-0.8 [facility] Work Phone: [id number] 35.8 High 0.0-0.8 [facility] Work Phone: Lab Report: CHLNUCon 012 Chlamydia trachomatis presence Negative Normal Negative [facility] Work Phone: Neisseria gonorrhoeae presence Negative Normal Negative [facility] Work Phone: Lab Report: LIPIDon 04-05-20 12 Cholesterol 147 mg/dL Normal 200 [facility] Work Phone: HDL Cholesterol 32 mg/dL Low [facility] Work Phone: LDL Cholesterol 91 mg/dL Normal 0-130 [facility] Work Phone: Triglyceride 121 mg/dL Normal [facility] Work Phone: very low density lipoproteins 24 mg/dL Normal 5-40 [facility] Work Phone: Lab Report: LIVERon 04-05-20 12 Bilirubin (direct) 0.08 mg/dL Normal 0.00-0.30 [facility] No [facility] Clinic Work Phone: Lab Report: WPon 04-04-2012 WBC (Bld) [#/Vol] WBC 10-25 Normal [facility] Work Phone: WBC (Leukocytes) WBC 10-25 Normal [facility] Work Phone: Lab Report: VALon 06-18-2011 Valproate ug/mL Low 50-100 [facility] Work Phone: Lab Report: URICon 1 Urate 4.3 mg/dL Normal 2.6-6.0 [facility] Work Phone: Office Visit: TB teston 11-2 PPD results in mm < 5mm [facility] Work Phone: Vital Signs Date Time Vital Sign Value Performing Clinician Monique gordillo 08-11-2021 14:13-0400 Body height 170.[address] Suyapa Haddad Work Phone: [facility] Work Phone: 08-11-2021 14:13-0400 Body mass index (BMI) [Ratio] 33.2 kg/m2 Dr. Suyapa Haddad Work Phone: [facility] Work Phone: 08-11-2021 14:13-0400 Body temperature 96.5 [degF] Dr. Suyapa Haddad Work Phone: [facility] Work Phone: 08-11-2021 14:13-0400 Body weight 96.[address] Suyapa Haddad Work Phone: [facility] Work Phone: 08-11-2021 14:13-0400 Diastolic blood pressure 83 mm[Hg] Dr. Suyapa Haddad Work Phone: [facility] Work Phone: 08-11-2021 14:13-0400 Heart rate 102 /min Dr. Suyapa Haddad Work Phone: [facility] Work Phone: 08-11-2021 14:13-0400 Respiratory rate 15 /min Dr. Suyapa Haddad Work Phone: [facility] Work Phone: 08-11-2021 14:13-0400 SaO2% (BldA) [Mass fraction] 98 % Dr. Suyapa Haddad Work Phone: [facility] Work Phone: 08-11-2021 14:13-0400 Systolic blood pressure 132 mm[Hg] Dr. Suyapa Haddad Work Phone: [facility] Work Phone: 06-08-2021 18:04-0500 Body mass index (BMI) [Ratio] 34.7 kg/m2 Dr. Suyapa Haddad Work Phone: [facility] Work Phone: 06-08-2021 18:04-0500 Body temperature 96 [degF] Dr. Suyapa Haddad Work Phone: [facility] Work Phone: 06-08-2021 18:04-0500 Body weight 100.[address] uSyapa Haddad Work Phone: [facility] Work Phone: 06-08-2021 18:04-0500 Diastolic blood pressure 73 mm[Hg] Dr. Suyapa Haddad Work Phone: [facility] Work Phone: 06-08-2021 18:04-0500 Heart rate 89 /min Dr. Suyapa Haddad Work Phone: [facility] Work Phone: 06-08-2021 18:04-0500 Respiratory rate 16 /min Dr. Suyapa Haddad Work Phone: [facility] Work Phone: 06-08-2021 18:04-0500 SaO2% (BldA) [Mass fraction] 97 % Dr. Suyapa Haddad Work Phone: [facility] Work Phone: 06-08-2021 18:04-0500 Systolic blood pressure 129 mm[Hg] Dr. Suyapa Haddad Work Phone: [facility] Work Phone: 05-08-2021 06:57-0500 Body temperature 97.7 [degF] Dr. Suyapa Haddad Work Phone: [facility] Work Phone: 05-08-2021 06:57-0500 Diastolic blood pressure 70 mm[Hg] Dr. Suyapa Haddad Work Phone: [facility] Work Phone: 05-08-2021 06:57-0500 Heart rate 97 /min Dr. Suyapa Haddad Work Phone: [facility] Work Phone: 05-08-2021 06:57-0500 SaO2% (BldA) [Mass fraction] 98 % Dr. Suyapa Haddad Work Phone: [facility] Work Phone: 05-08-2021 06:57-0500 Systolic blood pressure 126 mm[Hg] Dr. Suyapa Haddad Work Phone: [facility] Work Phone: 04-27-2021 08:14-0500 Body temperature 98.4 [degF] Dr. Suyapa Haddad Work Phone: [facility] Work Phone: 04-27-2021 08:14-0500 Diastolic blood pressure 82 mm[Hg] Dr. Suyapa Haddad Work Phone: [facility] Work Phone: 04-27-2021 08:14-0500 Heart rate 95 /min Dr. Suyapa Haddad Work Phone: [facility] Work Phone: 04-27-2021 08:14-0500 Respiratory rate 15 /min Dr. Suyapa Haddad Work Phone: [facility] Work Phone: 04-27-2021 08:14-0500 SaO2% (BldA) [Mass fraction] 99 % Dr. Suyapa Haddad Work Phone: [facility] Work Phone: 04-27-2021 08:14-0500 Systolic blood pressure 128 mm[Hg] Dr. Suyapa Haddad Work Phone: [facility] Work Phone: 04-20-2021 08:11-0500 Respiratory rate 18 /min Dr. Suyapa Haddad Work Phone: [facility] Work Phone: 04-20-2021 06:47-0500 Body mass index (BMI) [Ratio] 34.9 kg/m2 Dr. Suyapa Haddad Work Phone: [facility] Work Phone: 04-20-2021 06:47-0500 Body temperature 97.8 [degF] Dr. Suyapa Haddad Work Phone: [facility] Work Phone: 04-20-2021 06:47-0500 Body weight 101.[address] Suyapa Haddad Work Phone: [facility] Work Phone: 04-20-2021 06:47-0500 Diastolic blood pressure 82 mm[Hg] Dr. Suyapa Haddad Work Phone: [facility] Work Phone: 04-20-2021 06:47-0500 Heart rate 96 /min Dr. Suyapa Haddad Work Phone: [facility] Work Phone: 04-20-2021 06:47-0500 SaO2% (BldA) [Mass fraction] 99 % Dr. Suyapa Haddad Work Phone: [facility] Work Phone: 04-20-2021 06:47-0500 Systolic blood pressure 117 mm[Hg] Dr. Suyapa Haddad Work Phone: [facility] Work Phone: 09-14-2016 09:00-0400 BMI (Body Mass Index) 34.85 kg/m2 Linda Bazan LPN [facility] Work Phone: 09-14-2016 09:00-0400 Body Temperature 98.4 [degF] Linda Bazan LPN [facility] Work Phone: 09-14-2016 09:00-0400 Body weight 103.97 kg Linda Bazan LPN [facility] Work Phone: 09-14-2016 09:00-0400 BP Diastolic 62 mm[Hg] Linda Bazan LPN [facility] Work Phone: 09-14-2016 09:00-0400 BP Systolic 108 mm[Hg] Linda Bazan LPN [facility] Work Phone: 09-14-2016 09:00-0400 Height 172.72 cm Linda Bazan LPN [facility] Work Phone: 09-14-2016 09:00-0400 Pulse (Heart Rate) 78 /min Linda Bazan LPN [facility] Work Phone: 09-14-2016 09:00-0400 Pulse Oximetry 96 % Linda Bazan LPN [facility] Work Phone: 09-14-2016 09:00-0400 Respiratory Rate 12 /min Linda Bazan LPN [facility] Work Phone: 09-14-2016 09:00-0400 Weight 103.97 kg Linda Bazan LPN [facility] Work Phone: 09-03-2016 09:00-0400 BMI (Body Mass Index) 35.06 kg/m2 Nikkie Clarke LPN [facility] Work Phone: 09-03-2016 09:00-0400 Body Temperature 98 [degF] Nikkie lCarke LPN [facility] Work Phone: 09-03-2016 09:00-0400 BP Diastolic 60 mm[Hg] Nikkie Clarke LPN [facility] Work Phone: 09-03-2016 09:00-0400 BP Systolic 100 mm[Hg] Nikkie Clarke LPN [facility] Work Phone: 09-03-2016 09:00-0400 Height 172.72 cm Nikkie Clarke LPN [facility] Work Phone: 09-03-2016 09:00-0400 Pulse (Heart Rate) 65 /min Nikkie Clarke LPN [facility] Work Phone: 09-03-2016 09:00-0400 Pulse Oximetry 95 % Nikkie Clarke LPN [facility] Work Phone: 09-03-2016 09:00-0400 Respiratory Rate 16 /min Nikkie Clarke LPN [facility] Work Phone: 09-03-2016 09:00-0400 Weight 104.6 kg Nikkie Clarke LPN [facility] Work Phone: 08-27-2016 10:06-0400 BMI (Body Mass Index) 35.27 kg/m2 Amada Barbour LPN [facility] Work Phone: 08-27-2016 10:06-0400 Body Temperature 99.3 [degF] Amada Barbour LPN [facility] Work Phone: 08-27-2016 10:06-0400 BP Diastolic 84 mm[Hg] Amada Barbour LPN [facility] Work Phone: 08-27-2016 10:06-0400 BP Systolic 130 mm[Hg] Amada Barbour LPN [facility] Work Phone: 08-27-2016 10:06-0400 Height 172.72 cm Amada Barbour LPN [facility] Work Phone: 08-27-2016 10:06-0400 Pulse (Heart Rate) 81 /min Amada Barbour LPN [facility] Work Phone: 08-27-2016 10:06-0400 Pulse Oximetry 99 % Amada Barbour LPN [facility] Work Phone: 08-27-2016 10:06-0400 Respiratory Rate 14 /min Amada Barbour LPN [facility] Work Phone: 08-27-2016 10:06-0400 Weight 105.24 kg Amada Barbour LPN [facility] Work Phone: 06-24-2015 14:40-0500 BSA (Body Surface Area) 2.11 m2 Amada Barbour LPN [facility] Work Phone: Encounters Encounter Date Encounter Type Care Provider Facility Start: 10-12-2023 End: 10-12-2023 ambulatory Suyapa Haddad Facility:[facility] Start: 09-21-2023 End: 09-21-2023 Emergency department patient visit Yovani Remy Facility:[facility] Start: 08-11-2021 End: 08-11-2021 Emergency department patient visit Dr. Suyapa Haddad Work Phone: [facility] Start: 06-08-2021 End: 06-08-2021 Emergency department patient visit Dr. Suyapa Haddad Work Phone: [facility] Start: 06-04-[address] Suyapa seo Work Phone: [facility]Laboratory, Specimen Start: 05-08-2021 End: 05-08-[address] Suyapa Haddad Work Phone: [facility] Start: 04-27-2021 End: 04-27-[address] Suyapa Haddad Work Phone: [facility] Start: 04-20-2021 End: 04-20-[address] Suyapa Haddad Work Phone: [facility] Start: 04-20-2021 End: 04-20-2021 Emergency department patient visit Dr. Suyapa Haddad Work Phone: [facility]Emer[facility] Procedures Date Procedure Procedure Detail Performing Clinician Start: 06-08-2021 SARS-CoV-2 Antigen (Rapid) Dr. Suyapa anand Work Phone: Start: 04-20-2021 Plain x-ray of wrist Dr. Suyapa Haddad Work Phone: Start: 09-14-2016 End: 09-14-2016 Documentation of current medications Linda Bazan LPN Start: 05-13-2015 End: 06-26-2015 *CBC with Differential Suyapa Haddad DO Work Phone: Start: 05-13-2015 End: 06-26-2015 *CMP Complete Metabolic Panel Suyapa Haddad DO Work Phone: Start: 03-12-2014 End: 03-12-2014 Urinalysis Linda Bazan LPN Start: 07-27-2013 End: 07-30-2013 *CBC with Differential Keegan Buenrostro MD Start: 07-27-2013 End: 07-30-2013 25-Hydroxyvitamin D2+25-Hydroxyvitamin D3 [Mass/volume] in Serum or Plasma Keegan Buenrostro MD Start: 07-27-2013 End: 07-30-2013 C reactive protein (hsCRP) Keegan Buenrostro MD Start: 07-27-2013 End: 07-30-2013 Erythrocyte sedimentation rate Keegan Buenrostro MD Start: 07-27-2013 End: 07-30-2013 Rheumatoid factor, quant Keegan Buenrostro MD Start: 04-04-2013 End: 04-12-2013 Urine test visual color cmprsn meths Keegan Buenrostro MD Start: 04-04-2013 End: 04-12-2013 Urine, test (choriogonadotropin presence) Keegan Buenrostro MD Start: 04-04-2012 End: 04-07-2012 *GC/Chlamydia Keegan Buenrostro MD Start: 04-04-2012 End: 04-07-2012 *HECAB Hepatitis C Antibody Keegan Buenrostro MD Start: 04-04-2012 End: 04-04-2012 *Hepatic Function Panel Keegan Buenrostro MD Start: 04-04-2012 End: 04-10-2012 *HIV antibody Keegan Buenrostro MD Start: 04-04-2012 General examination of patient HEALTH MAINTENANCE EXAM Linda Bazan VENKAT Start: 04-04-2012 End: 04-07-2012 Herpes simplex virus 1+2 IgG Ab [Units/volume] in Serum Keegan Buenrostro MD Start: 04-04-2012 End: 04-04-2012 Lipid panel [AGGREGATE] Keegan Buenrostro MD Start: 04-04-2012 End: 04-07-2012 Reagin antibody presence Keegan Buenrostro MD Start: 04-04-2012 End: 04-05-2012 Trichomonas vaginalis [Presence] in Unspecified specimen by Wet preparation Keegan Buenrostro MD Start: 02-10-2012 End: 02-14-2012 25-Hydroxyvitamin D2+25-Hydroxyvitamin D3 [Mass/volume] in Serum or Plasma Keegan Buenrostro MD Start: 12-21-2011 End: 12-21-2011 Follow Up Appt 3 months Keegan Buenrostro MD Start: 12-21-2011 End: 12-21-2011 Urinalysis nonauto w/o scope Keegan Buenrostro MD Start: 11-25-2011 End: 11-25-2011 Follow Up Appt 1 month Keegan Buenrostro MD Start: 09-21-2011 End: 09-22-2011 Follow Up Appt 3 months Keegan Buenrostro MD Start: 08-03-2011 End: 09-22-2011 Follow Up Appt 6 months Keegan Buenrostro MD Start: 06-21-2011 End: 06-21-2011 Follow Up Appt 3 months Keegan Buenrostro MD Start: 05-05-2011 End: 06-08-2011 Follow Up Appt 3 months Keegan Buenrostro MD Start: 05-05-2011 End: 06-21-2011 Valproate Keegan Buenrostro MD Start: 04-14-2011 End: 04-15-2011 *HIV Antibody Keegan Buenrostro MD Start: 04-14-2011 End: 04-14-2011 Follow Up as scheduled Keegan Buenrostro MD Start: 04-14-2011 End: 04-16-2011 Reagin antibody presence Keegan Buenrostro MD Start: 04-14-2011 End: 12-21-2011 Venereal disease screening SCREENING EXAMINATION FOR VENEREAL DISEASE Linda Bazan LPN Start: 03-10-2011 End: 03-10-2011 Follow Up Appt 1 month Keegan Buenrostro MD Start: 02-24-2011 End: 02-26-2011 *HEATHER-Heterophile Antibodies Keegan Buenrostro MD Start: 02-24-2011 End: 02-24-2011 *CBC with Differential Keegan Buenrostro MD Start: 02-24-2011 End: 02-24-2011 *CMP Complete Metabolic Panel Keegan Buenrostro MD Start: 02-24-2011 End: 02-24-2011 *Liver/Hepatic Function Panel Keegan Buenrostro MD Start: 02-24-2011 End: 02-26-2011 25-Hydroxyvitamin D2+25-Hydroxyvitamin D3 [Mass/volume] in Serum or Plasma Keegan Buenrostro MD Start: 02-24-2011 End: 02-25-2011 Erythrocyte sedimentation rate Keegan Buenrostro MD Start: 02-24-2011 End: 02-24-2011 Follow Up Appt 2 weeks Keegan Buenrostro MD Start: 02-24-2011 End: 02-24-2011 Rheumatoid factor test Keegan Buenrostro MD Start: 02-01-2011 End: 02-24-2011 Follow Up Appt 3 months Keegan Buenrostro MD Start: 01-18-2011 End: 01-18-2011 Assay dipropylacetic acd tot Keegan Buenrostro MD Start: 01-18-2011 End: 01-18-2011 Complete cbc, automated Keegan Buenrostro MD Start: 01-18-2011 End: 01-18-2011 Follow Up Appt 2 weeks Keegan Buenrostro MD Start: 01-18-2011 End: 01-18-2011 Hepatic function panel Keegan Buenrostro MD Start: 01-11-2011 End: 01-11-2011 Assay of thyroid stimulating hormone tsh Keegan Buenrostro MD Start: 01-11-2011 End: 01-11-2011 Follow up Appt 1 week Keegan Buenrostro MD Start: 01-11-2011 End: 01-11-2011 Thyroid stimulating hormone (TSH) Keegan Buenrostro MD Start: 09-30-2010 End: 01-11-2011 Follow Up Appt 3 months Keegan Buenrostro MD Start: 08-31-2010 End: 08-31-2010 Follow Up Appt 1 month Keegan Buenrostro MD Start: 05-08-2010 End: 05-08-2011 PT-Orthotics Vaughn Graf MD Plan of Treatment Date Care Activity Detail Author Start: 09-14-2016 End: 09-14-2016 Appointment Appointment [facility] Work Phone: Start: 09-03-2016 End: 09-03-2016 Appointment Appointment [facility] Work Phone: Start: 08-27-2016 End: 08-27-2016 Appointment Appointment [facility] Work Phone: Start: 08-27-2016 End: 08-27-2016 X-ray exam of forearm X-Ray, Forearm [facility] Work Phone: Start: 08-27-2016 End: 08-27-2016 X-ray exam of wrist X-Ray, Wrist [facility] Work Phone: Start: 06-24-2015 End: 07-31-2015 Rheumatology Referral Rheumatology Referral [facility] Provider, [address], [place], [address] [facility] Work Phone: Start: 05-13-2015 End: 06-26-2015 *CBC with Differential *CBC with Differential [facility] Work Phone: Start: 05-13-2015 End: 06-26-2015 *CMP Complete Metabolic Panel *CMP Complete Metabolic Panel [facility] Work Phone: Start: 02-26-2015 End: 02-26-2015 Diagnostic colonoscopy Colonoscopy [facility] Work Phone: Start: 02-05-2015 End: 02-05-2015 Hepb vacc ped/adol 3 dose im Hepatitis B, NB to 11 yo (3 dose schedule) [facility] Work Phone: Start: 01-06-2015 End: 02-16-2015 Hep b vacc adult 3 dose im Hepatitis B, 20 and over [facility] Work Phone: Start: 01-06-2015 End: 02-16-2015 Immunization admin Administration Immunization >=8 years of age [facility] Work Phone: Start: 01-06-2015 End: 02-16-2015 Rheumatology Referral Rheumatology Referral Alma Patel MD, [address], [address], [place], [address] [facility] Work Phone: Start: 01-06-2015 End: 02-19-2015 Surgery Referral Surgery Referral MOHINDER Deshpande, [address] [place], [address] [facility] Work Phone: Start: 07-27-2013 End: 07-30-2013 *CBC with Differential *CBC with Differential [facility] Work Phone: Start: 07-27-2013 End: 07-30-2013 25-Hydroxyvitamin D2+25-Hydroxyvitamin D3 [Mass/volume] in Serum or Plasma *Vitamin D (Calciferol) [facility] Work Phone: Start: 07-27-2013 End: 07-30-2013 C reactive protein (hsCRP) *CRP - C-Reative Protein [facility] Work Phone: Start: 07-27-2013 End: 07-30-2013 Erythrocyte sedimentation rate *Sedimentation Rate (ESR) [facility] Work Phone: Start: 07-27-2013 End: 07-30-2013 Rheumatoid factor, quant *Rheumatoid Factor (quantitative) [facility] Work Phone: Start: 04-04-2013 End: 04-12-2013 Flu vaccine no preserv 3 & > Flu Vaccine >3yr (Preservative Free) [facility] Work Phone: Start: 04-04-2013 End: 04-12-2013 Urine, test (choriogonadotropin presence) Urine (Office) [facility] Work Phone: Start: 04-04-2012 End: 04-07-2012 *GC/Chlamydia *GC/Chlamydia [facility] Work Phone: Start: 04-04-2012 End: 04-07-2012 *HECAB Hepatitis C Antibody *HECAB Hepatitis C Antibody [facility] Work Phone: Start: 04-04-2012 End: 04-04-2012 *Hepatic Function Panel *Hepatic Function Panel [facility] Work Phone: Start: 04-04-2012 End: 04-10-2012 *HIV antibody *HIV antibody [facility] Work Phone: Start: 04-04-2012 End: 04-07-2012 Herpes simplex virus 1+2 IgG Ab [Units/volume] in Serum *HS12G Herpes Simplex Antibody [facility] Work Phone: Start: 04-04-2012 End: 04-04-2012 Lipid panel [AGGREGATE] *Lipid Profile [facility] Work Phone: Start: 04-04-2012 End: 04-07-2012 Reagin antibody presence *RPR [facility] Work Phone: Start: 04-04-2012 End: 04-05-2012 Trichomonas vaginalis [Presence] in Unspecified specimen by Wet preparation *WP - Wet Prep - Trichomonas [facility] Work Phone: Start: 02-10-2012 End: 02-14-2012 25-Hydroxyvitamin D2+25-Hydroxyvitamin D3 [Mass/volume] in Serum or Plasma *Vitamin D (Calciferol) [facility] Work Phone: Start: 12-21-2011 End: 12-21-2011 Follow Up Appt 3 months Follow Up Appt 3 months [facility] Work Phone: Start: 12-21-2011 End: 12-21-2011 Urinalysis nonauto w/o scope UA Dipstick (Office) [facility] Work Phone: Start: 11-25-2011 End: 11-25-2011 Follow Up Appt 1 month Follow Up Appt 1 month [facility] Work Phone: Start: 09-21-2011 End: 09-22-2011 Follow Up Appt 3 months Follow Up Appt 3 months [facility] Work Phone: Start: 08-03-2011 End: 09-22-2011 Follow Up Appt 6 months Follow Up Appt 6 months [facility] Work Phone: Start: 06-21-2011 End: 06-21-2011 Follow Up Appt 3 months Follow Up Appt 3 months [facility] Work Phone: Start: 05-05-2011 End: 06-08-2011 Follow Up Appt 3 months Follow Up Appt 3 months [facility] Work Phone: Start: 05-05-2011 End: 06-21-2011 Valproate *Valpric Acid (Depakene, Dipropylacetic Acid) Drug Assay [facility] Work Phone: Start: 04-14-2011 End: 04-15-2011 *HIV Antibody *HIV Antibody [facility] Work Phone: Start: 04-14-2011 End: 04-14-2011 Follow Up as scheduled Follow Up as scheduled [facility] Work Phone: Start: 04-14-2011 End: 04-15-2011 Ppsv23 vacc 2 yrs+ sc/im Pneumovax (Adult or immunosuppressed pt >2 yrs of age) [facility] Work Phone: Start: 04-14-2011 End: 04-16-2011 Reagin antibody presence *RPR [facility] Work Phone: Start: 03-10-2011 End: 03-10-2011 Follow Up Appt 1 month Follow Up Appt 1 month [facility] Work Phone: Start: 02-24-2011 End: 02-26-2011 *HEATHER-Heterophile Antibodies *HEATHER-Heterophile Antibodies [facility] Work Phone: Start: 02-24-2011 End: 02-24-2011 *CBC with Differential *CBC with Differential [facility] Work Phone: Start: 02-24-2011 End: 02-24-2011 *CMP Complete Metabolic Panel *CMP Complete Metabolic Panel [facility] Work Phone: Start: 02-24-2011 End: 02-24-2011 *Liver/Hepatic Function Panel *Liver/Hepatic Function Panel [facility] Work Phone: Start: 02-24-2011 End: 02-26-2011 25-Hydroxyvitamin D2+25-Hydroxyvitamin D3 [Mass/volume] in Serum or Plasma *Vitamin D (Calciferol) [facility] Work Phone: Start: 02-24-2011 End: 02-25-2011 Erythrocyte sedimentation rate *Sedimentation Rate (ESR) [facility] Work Phone: Start: 02-24-2011 End: 02-24-2011 Follow Up Appt 2 weeks Follow Up Appt 2 weeks [facility] Work Phone: Start: 02-24-2011 End: 02-24-2011 Rheumatoid factor test *Rheumatoid Factor (qualiative) [facility] Work Phone: Start: 02-01-2011 End: 02-24-2011 Follow Up Appt 3 months Follow Up Appt 3 months [facility] Work Phone: Start: 01-18-2011 End: 01-18-2011 Assay dipropylacetic acd tot *Valpric Acid (Depakene, Dipropylacetic Acid) Drug Assay [facility] Work Phone: Start: 01-18-2011 End: 01-18-2011 Complete cbc, automated *CBC without Diff [facility] Work Phone: Start: 01-18-2011 End: 01-18-2011 Follow Up Appt 2 weeks Follow Up Appt 2 weeks [facility] Work Phone: Start: 01-18-2011 End: 01-18-2011 Hepatic function panel *Liver/Hepatic Function Panel [facility] Work Phone: Start: 01-11-2011 End: 01-11-2011 Follow up Appt 1 week Follow up Appt 1 week [facility] Work Phone: Start: 01-11-2011 End: 01-11-2011 Thyroid stimulating hormone (TSH) *TSH [facility] Work Phone: Start: 09-30-2010 End: 01-11-2011 Follow Up Appt 3 months Follow Up Appt 3 months [facility] Work Phone: Start: 08-31-2010 End: 08-31-2010 Follow Up Appt 1 month Follow Up Appt 1 month [facility] Work Phone: Start: 05-08-2010 End: 01-11-2011 PT-Orthotics PT-Orthotics [facility] Work Phone: Patient Education [facility] Work Phone: Patient referral [facility] Work Phone: Immunizations Immunization Date Immunization Notes Care Provider Johnny sorensonyumiko 11-03-2017 tetanus toxoid, redu obi diphtheria toxoid, and acellular pertussis vaccine, adsorbed Dr. Suyapa Haddad Work Phone: [facility] Work Phone: 05-13-2015 hepatitis B vaccine, adult dosage Amada Barbour LPN [facility] Work Phone: 05-13-2015 [id number] Amada Barbour LPN [facility] Work Phone: 07-24-[address] Suyapa Haddad Work Phone: [facility] Work Phone: 07-24-[address] Jada Haddad Work Phone: [facility] Work Phone: 04-04-2013 influenza, seasonal, injectable, preservative free Amada Barbour LPN [facility] Work Phone: 04-14-2011 pneumococcal polysaccharide vaccine, 23 valent Amada Barbour LPN [facility] Work Phone: Payers Date Payer Category Payer Self-pay [id number] 2023 Unknown [id number] 2016 Unknown SELF PAY INSURANCE [id number] Unknown [id number] Unknown [id number] Social History Date Type Detail Facility [facility] Work Phone: Start: 08-11-2021 Tobacco smoking stat us MOIS Unknown if ever smoked [facility] Work Phone: Start: 04-08-2018 None [facility] Work Phone: Start: 04-08-2018 With Family [facility] Work Phone: Start: 04-20-2018 Non-smoker [facility] Work Phone: Start: 1975 Sex Assigned At Female W [facility] Work Phone: Mental Status Date Assessment Result Facility 06-08-2021 Cognitive function Level Of Cons ciousness Awake;Alert;Appropriate;Follow s Commands [facility] Work Phone: Clinical Note 11-22-2020 Note Date & Type Note Facility 11-22-2020 Note . MICRO - Microbiology PROCEDURE: Urine Culture [*1] SOURCE: Urine BODY SITE: COLLECTED DATE/TIME: 11/20/2020 14:58 EDT RECEIVED DATE/TIME: 11/20/2020 20:19 EDT START DATE/TIME: 11/20/2020 20:19 EDT FREE TEXT SOURCE: FINAL REPORTS Final Report [] Verified Date/Time/Personnel: 11/22/2020 07:52 EDT >100,000 cfu/ml Multiple bacterial morphotypes present. Probable Contamination. Suggest recollection if clinically indicated. PRELIMINARY REPORTS Preliminary Report [] Verified Date/Time/Personnel: 11/21/2020 10:21 EDT Culture results pending. Performing Locations *1: This test was performed at: [facility], [address] [place] [address], [facility]- , [facility] ([place]) Comment on above: Performed By: #### C UR #### [place] [id number] Evaluation note Note Date & Type Note Facility Evaluation note Diagnosis Onset Date Unspecified sprain of left w rist, initial encounter acute Unspecified sprain of left w rist, initial encounter acute [facility] Work Phone: Summary Purpose Family History No Family History Records Found Relationship Condition Age at Onset Recorded Date/T kana sister Disorder of thyroid Unknown Depression Unknown father Glaucoma Unknown Cerebrovascular accident (CVA) Unknown mother Mental disorder Unknown Advance Directives No Advanced Directives Records Found Advance Directive Response Recorded Date/ Time Advance Directives No May 30, 2016 7:55am Living Will No August 11, 2021 2:51pm Power of Termite Exterminator No August 11 2:51pm Chief Complaint and Reason for Visit Chief Complaint left wrist POST INCIDENT/DRUG SCREEN/ [facility] LEFT WRIST/ [facility]/SEEN ER / 04/20 FOLLOW UP [facility] EMPLOYEE COVID TESTING SORE THROAT [place] [facility] Reason for Visit Unspecified sprain o f left wrist, initial encounter Unspecified sprain of left wrist, initial encounter Additional Source Comments INFORMATION SOURCE (unrecogn ized section and content) DATE CREATED AUTHOR 11/23/2020 [facility] ([place]) DATE CREATED AUTHOR AUTHOR'S ORGANIZ ATION 10/22/2023 [facility] Goals (unrecognized section and content) Goals may be documented in a n alternate section FOR RECORDS PERTAINING TO PATIENTS WHO ARE OR HAVE BEEN ENROLLED IN A CHEMICAL DEPENDENCY/SUBSTANCEABUSE PROGRAM, SOME INFORMATION MAY BE OMITTED. This clinical summary was aggregated from multiple sources. Caution should be exercised in using it in the provision of clinical care. This summary normalizes information from multiple sources, and as a consequence, information in this document may materially change the coding, format and clinical context of patient data. In addition, data may be omitted in some cases. CLINICAL DECISIONS SHOULD BE BASED ON THE PRIMARY CLINICAL RECORDS. [employer] [facility]. provides no warranty or guarantee of the accuracy or completeness of information in this document.
[2024-12-17 11:02] LABS: Hematocrit 36.9 % (37-47); Hemoglobin 12.2 g/dL (12.0-15.0); Immature Granulocytes Count 0.020 X10^3/uL (0.0-0.0); Mean Corp Hgb Conc 33.1 g/dL (32-36); Mean Corpuscular Volume 85.4 fL (81-99); Mean Platelet Vol. 14.5 fl (6.2-12.0); NRBC Flagged by Analyzer 0 % (0-5); Platelet Count 183 K/mm3 (150-450); RBC Distribution Width CV 13.9 % (11.6-14.6); RBC Distribution Width SD 43.5 fl (35.1-43.9); Red Blood Count 4.32 M/mm3 (4.2-5.4); White Blood Count 6.1 K/mm3 (4.4-11.0)
[2024-12-17 11:52] LABS: AST(SGOT) 20 U/L (<=31); Alanine Aminotransfer ALT/SGPT 11 U/L (<=34); Albumin, Serum 3.8 g/dL (3.5-5.0); Alkaline Phosphatase 85 U/L (35-104); Anion Gap 12 (5-15); BUN 14 mg/dL (4-19); BUN/Creat Ratio 17.7 RATIO (10-20); Calcium,Total 9.4 mg/dL (7.6-11.0); Carbon Dioxide 23.5 mmol/L (21.0-32.0); Chloride 102 mmol/L (98-108); Cholesterol 144 mg/dL (<=200); Ferritin 70 ng/mL (22-378); Globulin 3.2 g/dL (2.2-4.2); Glucose 80 mg/dL (70-99); Low Density Lipoprotein Calc. 89 mg/dL; Potassium 3.7 mmol/L (3.3-5.1); Triglycerides 76 mg/dL; Very Low Density Lipoprotein 15 mg/dL (5-40); Vitamin B12 885 pg/mL (180-914); Vitamin D,25 Hydroxy 55.3 ng/mL (30-100); cholesterol:hdl ratio screen 3.58
[2024-12-17 14:23] LABS: CRP < 3.00 mg/L (0.0-3.0); Iron 62 ug/dL (50-170)
[2024-12-18 13:08] LABS: ANTINUCLEAR ANTIBODIES DIRECT Negative (Negative)
== END | disposition home or self-care (01) ==
LOC: MTLAB 07:56
PROVIDERS: PCP Family Medicine; Referring Provider Family Medicine; Visit Provider Family Medicine
DX: Z51.81 Encounter for therapeutic drug level monitoring (principal); E78.5 Hyperlipidemia, unspecified; M25.50 Pain in unspecified joint; M79.10 Myalgia, unspecified site; R53.83 Other fatigue
CPT/HCPCS: 36415; 80053; 80061; 82306; 82607; 82728; 83540; 84443; 85025; 85652; 86038; 86140; 86200; 86225; 86431

== ENCOUNTER → 2025-03-12 | Outpatient (CLI) | payer BC, SELFPAY ==
--- NOTE | 2025-03-12 09:44 | RAD_ITS ---
PROCEDURE: CHEST PA AND LATERAL 03/12/2025 REASON FOR EXAM: COUGH TECHNIQUE: Procedure Code: RADCXR Modality: DX Procedure: CHEST PA AND LATERAL COMPARISON: AP chest of 09/21/2023. RAD/Chest PA and Lateral IMPRESSION: Right upper quadrant abdominal surgical clips are noted. Lungs appear clear of acute disease, and unchanged. No pleural effusion or pneumothorax is noted. The cardiomediastinal silhouette is within the normal range, without evidence o f cardiomegaly. Bilateral acromioclavicular joint degenerative changes are noted, left-greater- than-right. Reading Location: [place] [id number]
--- OUTSIDE RECORDS SUMMARY | 2025-03-12 10:59 | XMS RPT_ITS | CCD ---
Author Organization [facility] ion Partnership [facility] [employer] [facility] Care Team Providers Care Admin Asst Name Role Phone Linda Bazan LPN Unavailable Unavailab Nikkie Macdonald LPN Unavailable Unavailable Amada Barbour LPN Unavailable [phone] Linda Bazan LPN Unavailable Unavailab Dr. Suyapa Bhatt Primary Care Provider Dr. Suyapa Haddad Referring Provider FAITH Ribeiro Attending Provider FAITH Montes Attending Provider [phone] Dr. Suyapa Haddad DO Primary Care Provider Dr. Suyapa Haddad DO Attending Provider [phone] Dr. Suyapa Haddad DO Referring Provider [phone] Suyapa Haddad Referring Unavailable Suyapa Haddad Attending Unavailable Suyapa Haddad Primary Care Unavailable Allergies Allergy Classification Reported Allergen(s) Allergy Type Date of Onset Reaction(s) Facility (4 sources) acetaminophen / propoxyphene drug allergy itch [facility] Work Phone: (4 sources) cefuroxime drug allergy 5 [facility] Work Phone: (4 sources) fish, unspecified; Translations: [SEAFOOD] food allergy 6 hives [facility] Work Phone: (2 sources) Clindamycin Drug Allergy 2 Other [facility] Comment on above: CONSTIPATION (3 sources) Shellfish; Translations: [shellfish derived] Allergy to substance 2 [facility] (1 source) Clindamycin Drug Allergy 4 [facility] Repository Medications Current Medications Medication Drug Class(es) Dates Sig (Normalized) Sig (Original) amitriptyline hydrochloride 10 mg oral tablet (13 sources) Tricyclic Antidepressant Start: 09-23-2021 take 1 tablet by mouth once daily Amitriptyline 10 mg tablet Active 10 mg PO DAILY September 23, 2021 12:00am Start: 05-13-2015 take 1 tablet by maura th once daily at bedtime AMITRIPTYLINE HCL 50 MG TABS 1 po daily at bedtime AMITRIPTYLINE HCL [id number] Vasyl Dai DO Start: 01-06-2015 End: 02-26-2015 take 1 tablet by mouth once daily at bedtime AMITRIPTYLINE HCL 25 MG TABS 1 po daily at bedtime AMITRIPTYLINE HCL [id number] Suyapa Haddad DO 24 hr amphetamine aspartate 3.75 mg / amphetamine sulfate 3.75 mg / dextroamphetamine saccharate 3.75 mg / dextroamphetamine sulfate 3.75 mg extended release oral capsule (1 source) Central Nervous System Stimulant Start: 04-20-2021 take 1 capsule by mouth once daily, then take 1 capsule by mouth every twenty-four hours Dextroamphetamine-Amphetamine (Adderall Xr) 15 mg capsule,extended release 24hr Active 15 MG PO DAILY April 20, 2021 8:54am azithromycin 250 mg oral tablet (9 sources) Macrolide Antimicrobial Start: 09-23-2021 take 1 tablet by mouth once daily Azithromycin 250 MG tablet Active 250 mg PO DAILY 4 0 September 23, 2021 12:00am Start: 05-26-2015 End: 06-24-2015 take 2 tablets by mouth once, then take 1 tablet by mouth once daily, then take 2-5 tablets by mouth AZITHROMYCIN 250 MG TABS 2 po on day 1 then 1 po daily on days 2-5 AZITHROMYCIN [id number] Suyapa Haddad DO cephalexin 500 mg oral capsule (1 source) Cephalosporin Antibacterial Start: 08-11-2021 take 500 mg by mouth every six hours Cephalexin Active 500 MG PO EVERY 6 HOURS August 11, 2021 2:48pm diazePAM 5 mg oral tablet (1 source) Benzodiazepine Start: 09-21-2023 take 1 tablet by mouth every eight hours as needed Diazepam 5 mg tablet Active 5 mg PO EVERY 8 HOURS as needed for vertigo September 21, 2023 12:00am dicyclomine hydrochloride 10 mg oral capsule (1 source) Anticholinergic Start: 10-05-2020 take 20 mg by mouth three times daily before mealtime Dicyclomine Active 20 MG PO THREE TIMES DAILY BEFORE MEALS October 05, 2020 4:32pm diphenhydrAMINE hydrochloride 25 mg oral capsule (1 source) Histamine-1 Receptor Antagonist Start: 08-11-2021 take 1 capsule by mouth three times daily Diphenhydramine Hcl (Benadryl) 25 mg capsule Active 25 MG PO THREE TIMES A DAY August 11, 2021 2:47pm DULoxetine 20 mg delayed release oral capsule (20 sources) Serotonin and Norepinephrine Reuptake Inhibitor Start: 05-27-2017 Duloxetine (Cymbalta) 20 mg capsule,delayed release(DR/EC) Active 90 MG PO DAILY May 27, 2017 10:58am Start: 01-11-2011 take 1 tablet by maura th once daily CYMBALTA 30 MG CPEP 1 po daily with 60 mg tablet for total 90 mg daily DULOXETINE HCL [id number] Suyapa Haddad DO Start: 08-31-2010 take 1 tablet by maura th once daily CYMBALTA 60 MG CPEP One tablet by mouth daily DULOXETINE HCL [id number] Keegan Buenrostro MD lisdexamfetamine dimesylate 30 mg oral capsule (1 source) Central Nervous System Stimulant Start: 09-23-2021 take 1 capsule by mouth once daily Lisdexamfetamine (Vyvanse) 30 mg capsule Active 30 mg PO DAILY September 23, 2021 12:00am metaxalone 800 mg oral tablet (1 source) Start: 04-03-2022 take 1 tablet by mouth three times daily as needed for pain Metaxalone 800 mg tablet Active 800 mg PO THREE TIMES A DAY as needed for muscle pain April 03, 2022 1:00am ondansetron 4 mg disintegrating oral tablet (2 sources) Serotonin-3 Receptor Antagonist Start: 09-21-2023 take 1 tablet by mouth every six hours as needed for nausea Ondansetron 4 mg tablet,disintegrating Active 4 mg PO EVERY 6 HOURS NEEDED as needed for Nausea September 21, 2023 12:44pm Start: 10-05-2020 take 4 mg by mouth e very eight hours as needed Ondansetron Active 4 MG PO EVERY 8 HOURS NEEDED October 05, 2020 4:32pm Completed/Discontinued Medications Medication Drug Class(es) Dates Sig (Normalized) Sig (Original) acetaminophen 325 mg / HYDROcodone bitartrate 5 mg oral tablet (20 sources) Opioid Agonist Start: 04-14-2020 End: 04-17-2020 Hydrocodone-Acetami nophen 1 TABLET tablet Discontinued 1 {tbl} PO EVERY 6 HOURS NEEDED as needed for Pain 12 3 April 14, 2020 April 16, 2020 1:00am April 17, 2020 1:02am Injury of right upper arm Unspecified injury of right shoulder and upper arm, initial encounter Start: 04-14-2020 End: 04-17-2020 take 1 tablet by mouth every six hours as needed Hydrocodone-Acetaminophen Discontinued 1 TABLET PO EVERY 6 HOURS NEEDED 12 April 14, 2020 10:19am April 17, 2020 1:02am Start: 04-16-2015 take 1 tablet by maura th every six hours as needed for pain HYDROCODONE-ACETAMINOPHEN 7.5-325 MG TAB S 1 po every 6 hours as needed for pain HYDROCODONE-ACETAMINOPHEN [id number] Suyapa Haddad DO Start: 07-11-2012 take 1-2 tablets by mouth every six hours VICODIN 5-300 MG TABS 1-2 tablets by maura th every 6 hours HYDROCODONE-ACETAMINOPHEN [id number] Keegan Buenrostro MD Start: 07-11-2012 take 1 tablet by maura th every six hours HYDROCODONE-ACETAMINOPHEN 5-500 MG TABS 1 tablet by mouth every 6 hours, avoid driving or operating machine under the influence of medication. HYDROCODONE-ACETAMINOPHEN [id number] Keegan Buenrostro MD Start: 07-11-2012 take 1-2 tablets by mouth every six hours VICODIN 5-300 MG TABS 1-2 tablets by maura th every 6 hours HYDROCODONE-ACETAMINOPHEN [id number] Keegan Buenrostro MD Start: 07-11-2012 End: 08-02-2012 take 1 tablet by mouth every six hours HYDROCODONE-ACETAMINOPHEN 5-500 MG TABS 1 tablet by mouth every 6 hours, avoid driving or operating machine under the influence of medication. HYDROCODONE-ACETAMINOPHEN [id number] Keegan Buenrostro MD Start: 05-13-2010 take 1 tablet by maura th three times daily as needed VICODIN 5-500 MG TABS One tablet by mout h three times daily as needed HYDROCODONE-ACETAMINOPHEN [id number] Vaughn Graf MD Start: 05-13-2010 End: 08-31-2010 take 1 tablet by mouth three times daily as needed VICODIN 5-500 MG TABS One tablet by mout h three times daily as needed HYDROCODONE-ACETAMINOPHEN [id number] Keegan Buenrostro MD 200 actuat albuterol 0.09 mg/actuat metered dose inhaler (8 sources) beta2-Adrenergic Agonist Start: 10-18-2009 End: 08-31-2010 PROAIR HFA 108 (90 Base) MCG/ACT AERS administer 2 puffs every 4 hours for 48 hours, then every 6 hours as needed cough/wheezing ALBUTEROL SULFATE [id number] Taylor Ochoa [facility] Start: 10-18-2009 PROAIR HFA 108 (90 Base) MCG/ACT AERS administer 2 puffs every 4 hours for 48 hours, then every 6 hours as needed cough/wheezing ALBUTEROL SULFATE [id number] Taylor Ochoa [facility] Start: 10-18-2009 End: 08-31-2010 PROAIR HFA 108 (90 Base) MCG /ACT AERS administer 2 puffs every 4 hours for 48 hours, then every 6 hours as needed cough/wheezing ALBUTEROL SULFATE [id number] Keegan Buenrostro MD amoxicillin 500 mg oral tablet (12 sources) Penicillin-class Antibacterial Start: 06-21-2011 End: 08-03-2011 take 1 tablet by mouth three times daily AMOXICILLIN 500 MG TABS One tablet by mouth three times daily AMOXICILLIN [id number] Keegan Buenrostro MD Start: 10-18-2009 End: 10-28-2009 take 1 tablet by mouth twice daily AMOXICILLIN 875 MG TABS take one tablet po twice daily for 10 days AMOXICILLIN [id number] Taylor Ochoa CNP busPIRone hydrochloride 15 mg oral tablet (20 sources) Start: 01-06-2015 take 1 tablet by mouth twice daily BUSPIRONE HCL 15 MG TABS 1 po BID BUSPIRONE HCL [id number] Suyapa Haddad DO Start: 02-07-2014 take 15 mg by mouth twice gary y Buspirone Active 15 MG PO TWICE A DAY February 07, 2014 11:23pm Start: 02-07-2014 take 3 tablets by mo uth twice daily Buspirone 5 MG tablet Active 15 mg PO TWICE A DAY February 07, 2014 12:00am anxiety Start: 04-12-2013 End: 05-13-2015 take 1 tablet by mouth twice daily BUSPIRONE HCL 10 MG TABS One tablet by mouth twice daily BUSPIRONE HCL [id number] Martha Foster Start: 01-10-2013 take 1 tablet by maura twice daily BUSPIRONE HCL 5 MG TABS One tablet by mouth twice daily BUSPIRONE HCL [id number] Keegan Buenrostro MD cefuroxime 250 mg oral tablet (8 sources) Cephalosporin Antibacterial Start: 03-10-2011 End: 04-14-2011 take 1 tablet by mouth twice daily CEFTIN 250 MG TABS One tablet by mouth twice daily CEFUROXIME AXETIL [id number] Keegan Buenrostro MD cholecalciferol 2000 unt oral capsule (4 sources) Vitamin D Start: 06-24-2015 take 1 capsule by mouth once daily VITAMIN D3 2000 UNIT CAPS 1 po daily CHOLECALCIFEROL [id number] Suyapa Haddad DO CITALOPRAM HYDROBROMIDE TABS (8 sources) Serotonin Reuptake Inhibitor Start: 10-18-2009 CELEXA TABS CITALOPRAM HYDROBROMIDE TABS [id number] Taylor Ochoa CNP Start: 10-18-2009 End: 08-31-2010 CELEXA TABS 08/31 CITALOPRAM HYDROBROMIDE TABS [id number] Keegan Buenrostro MD cyclobenzaprine hydrochloride 10 mg oral tablet (14 sources) Muscle Relaxant Start: 06-18-2018 End: 06-26-2018 take 10 mg by mouth three times daily Cyclobenzaprine Discontinued 10 MG PO THREE TIMES A DAY June 18, 2018 3:51am June 26, 2018 10:25am Start: 04-16-2015 take 1 tablet by maura th every eight hours as needed for pain CYCLOBENZAPRINE HCL 10 MG TABS 1 po every 8 hours as needed for pain CYCLOBENZAPRINE HCL [id number] Suyapa Haddad DO Start: 05-08-2010 End: 08-31-2010 take 1 tablet by mouth three times daily as needed FLEXERIL 5 MG TABS One tablet by mouth three times daily as needed CYCLOBENZAPRINE HCL [id number] Keegan Buenrostro MD [employer] (12 sources) Start: 08-03-2011 WRIST SPLINT M ISC use as directed Dx: Left wrist pain/sprain [employer] [id number] Keegan Buenrostro MD Start: 08-03-2011 End: 12-21-2011 WRIST SPLINT MISC use as dir ected Dx: Left wrist pain/sprain [employer] [id number] Keegan Buenrostro MD Start: 05-08-2010 KNEE BRACE MIS C for right knee [employer] [id number] Vaughn Graf MD Start: 05-08-2010 End: 12-21-2011 KNEE BRACE MISC for right kn ee [employer] [id number] Keegan Buenrostro MD ELAST[employer] SU[employer]ORTS (2 sources) Start: 08-03-2011 WRIST SPLINT M ISC use as directed Dx: Left wrist pain/sprain [employer] [id number] Keegan Buenrostro MD Start: 08-03-2011 End: 12-21-2011 WRIST SPLINT MISC use as dir ected Dx: Left wrist pain/sprain [employer] [id number] Keegan Buenrostro MD [employer]TS (2 sources) Start: 05-08-2010 End: 12-21-2011 KNEE BRACE MISC for right kn ee [employer] [id number] Keegan Buenrostro MD Start: 05-08-2010 KNEE BRACE MIS C for right knee [employer] [id number] Vaughn Graf MD famotidine 20 mg oral tablet (8 sources) Histamine-2 Receptor Antagonist Start: 02-01-2011 End: 02-26-2015 take 1 tablet by mouth twice daily PEPCID 20 MG TABS One tablet by mouth twice daily FAMOTIDINE [id number] Sandrine Angela Marshlaraymond fluconazole 200 mg oral tablet (16 sources) Azole Antifungal Start: 04-04-2012 End: 08-02-2012 take 1 tablet by mouth once FLUCONAZOLE 200 MG TABS One tablet by mouth once FLUCONAZOLE [id number] Keegan Buenrostro MD Start: 12-21-2011 End: 01-03-2012 DIFLUCAN 200 MG TABS One tab let by mouth once, may repeat in one week FLUCONAZOLE [id number] Keegan Buenrostro MD folic acid (16 sources) Start: 02-10-2012 End: 02-26-2015 take 1 tablet by mouth once daily RA FOLIC ACID 800 MCG TABS One tablet by mouth daily FOLIC ACID [id number] Sandrine Marshlar Start: 02-10-2012 take 1 tablet by maura th once daily RA FOLIC ACID 800 MCG TABS One tablet by mouth daily FOLIC ACID [id number] Keegan Buenrostro MD Start: 04-14-2011 take 1 tablet by maura th once daily FOLIC ACID 1 MG TABS 1 po daily FOLIC ACID [id number] Suyapa Haddad DO ibuprofen 600 mg oral tablet (8 sources) Nonsteroidal Anti-inflammatory Drug Start: 08-31-2010 End: 02-26-2015 take 1 tablet by mouth three times daily as needed for pain IBUPROFEN 600 MG TABS One tablet by mouth three times daily as needed pain, take with food IBUPROFEN [id number] Keegan Buenrostro MD loratadine 10 mg oral tablet (6 sources) Start: 04-08-2018 End: 06-19-2018 take 10 mg by mouth once daily Loratadine Discontinued 10 MG PO DAILY April 08, 2018 2:26pm June 19, 2018 2:43pm Start: 04-14-2011 take 1 tablet by maura th once daily LORATADINE 10 MG TABS One tablet by mouth daily LORATADINE [id number] Keegan Buenrostro MD LORazepam 0.5 mg oral tablet (16 sources) Benzodiazepine Start: 11-25-2011 End: 02-26-2015 take 1 tablet by mouth once daily as needed LORAZEPAM 0.5 MG TABS one tablet by mouth daily as needed panic attack, avoid driving or operating machine under the influence of medication. LORAZEPAM [id number] Sandrine Hamilton Start: 08-31-2010 End: 08-03-2011 take 1 tablet by mouth every eight hours as needed ATIVAN 0.5 MG TABS one tablet by mouth every 8 hours as needed, avoid driving or operating machine under the influence of medication. LORAZEPAM [id number] Keegan Buenrostro MD methotrexate 2.5 mg oral tablet (12 sources) Folate Analog Metabolic Inhibitor Start: 04-14-2011 End: 07-27-2013 take 6 tablets by mouth every week METHOTREXATE 2.5 MG TABS 6 tablets po once weekly METHOTREXATE SODIUM [id number] Vasyl Dai DO 24 hr methylphenidate hydrochloride 36 mg extended release oral tablet (2 sources) Central Nervous System Stimulant Start: 01-29-2017 End: 05-27-2017 take 36 mg by mouth once daily Methylphenidate Hcl Discontinued 36 MG PO DAILY January 29, 2017 8:58am May 27, 2017 10:58am [facility] Start: 07-11-2012 End: 05-13-[address] [facility] Dx: left knee sprain use as directed MISC. DEVICES [id number] Suyapa Haddad DO Start: 07-11-2012 CRUTCH MISC Dx : left knee sprain use as directed MISC. DEVICES [id number] Keegan Buenrostro MD MISC. DEVICES (2 sources) Start: 07-11-2012 CRUTCH MISC Dx : left knee sprain use as directed MISC. DEVICES [id number] Keegan Buenrostro MD Start: 07-11-2012 End: 05-13-2015 CRUTCH MISC Dx: left knee sp rain use as directed MISC. DEVICES [id number] Suyapa Haddad DO mupirocin 0.02 mg/mg topical ointment (8 sources) RNA Synthetase Inhibitor Antibacterial Start: 09-21-2011 End: 12-21-2011 MUPIROCIN 2 % OINT apply to affected area three times a day MUPIROCIN [id number] Keegan Buenrostro MD naproxen 500 mg oral tablet (2 sources) Nonsteroidal Anti-inflammatory Drug Start: 06-18-2018 End: 06-26-2018 take 500 mg by mouth twice daily Naproxen Discontinued 500 MG PO TWICE A DAY June 18, 2018 3:51am June 26, 2018 10:25am omeprazole 20 mg delayed release oral capsule (4 sources) Proton Pump Inhibitor Start: 06-24-2015 OMEPRAZOLE 20 MG CPDR 2 po daily OMEPRAZOLE [id number] Suyapa Haddad DO permethrin 50 mg/ml topical cream (16 sources) Pyrethroid Start: 06-24-2015 End: 09-21-2015 PERMETHRIN 5 % CREA Apply from the neck down and rinse off after 12 hours PERMETHRIN [id number] Vasyl Karyn Dai Start: 08-30-2011 End: 12-21-2011 [facility] PERMETHRIN 1 % LOTN wash hair with shampoo, rinsed with water& towel dried, apply sufficient lotion to saturate the hair, scalp & behind the ear, rinse off in 10min PERMETHRIN [id number] Keegan Buenrostro MD Start: 08-30-2011 End: 12-21-2011 [facility] PERMETHRIN 1 % LOTN wash hair with shampoo, rinsed with water& towel dried, apply sufficient lotion to saturate the hair, scalp & behind the ear, rinse off in 10min PERMETHRIN [id number] Keegan Buenrostro MD Start: 08-30-2011 [facility] PERMETHRIN 1 % LOTN wash hair with shampoo, rinsed with water& towel dried, apply sufficient lotion to saturate the hair, scalp & behind the ear, rinse off in 10min PERMETHRIN [id number] Keegan Buenrostro MD polyethylene glycol 3350 341594 mg / potassium chloride 2820 mg / sodium bicarbonate 6360 mg / sodium chloride 5530 mg / sodium sulfate 59786 mg powder for oral solution (4 sources) Osmotic Laxative Start: 02-26-2015 End: 02-27-2015 GOLYTELY 227.1 GM SOLR use a s per instructions PEG [id number]-TFACF-NACL-NASULF [id number] Martha Foster Start: 02-26-2015 End: 02-27-2015 GOLYTELY 227.1 GM SOLR use a s per instructions PEG [id number]-FHMUW-NACL-NASULF [id number] Martha Foster predniSONE 20 mg oral tablet [...] 3 po daily x 5 days PREDNISONE [id number] Suyapa Haddad DO Start: 09-21-2011 End: 09-26-2011 take 1 tablet by mouth twice daily PREDNISONE 20 MG TABS One tablet by mouth twice daily PREDNISONE [id number] Keegan Buenrostro MD Start: 04-14-2011 End: 09-21-2011 take 1 tablet by mouth once daily PREDNISONE 20 MG TABS One tablet by mouth daily PREDNISONE [id number] Keegan Buenrostro MD Start: 03-10-2011 End: 08-02-2012 take 1 tablet by mouth once daily PREDNISONE 5 MG TABS One tablet by mouth daily PREDNISONE [id number] Keegan Buenrostro MD SUMAtriptan 50 mg oral tablet (12 sources) Serotonin-1b and Serotonin-1d Receptor Agonist Start: 08-31-2010 End: 02-26-2015 take 1 tablet by mouth every two hours, then take 4 tablets by mouth every month SUMATRIPTAN SUCCINATE 50 MG TABS one tablet by mouth at the onset of migraine headache, may repeat once in two hour, maximal 4 tablets/month SUMATRIPTAN SUCCINATE [id number] Sandrine Hamilton divalproex sodium 250 mg delayed release oral tablet (8 sources) Start: 01-11-2011 End: 08-03-2011 take 1 tablet by mouth twice daily DEPAKOTE 250 MG TBEC One tablet by mouth twice daily DIVALPROEX SODIUM [id number] Keegan Buenrostro MD Start: 01-11-2011 End: 08-03-2011 take 1 tablet by mouth twice daily DEPAKOTE 250 MG TBEC One tablet by mouth twice daily DIVALPROEX SODIUM [id number] Keegan Buenrostro MD Problems Active Problems Problem Classification Problem Date Documented Date Episodic/Chronic Abdominal pain (2 sources) Upper abdominal pain; Translations: [Right upper quadrant pain] 10-05-2020 Episodic Anxiety disorders (12 sources) Panic disorder; Translations: [Posttraumatic stress disorder] Onset: 04-25-2007 08-31-2010 Chronic Conditions associated with dizziness or vertigo (1 source) Vertigo; Translations: [Dizziness and giddiness] 09-29-2023 Episodic Esophageal disorders (4 sources) Gastroesophageal reflux disease; Translations: [Gastro-esophageal reflux disease without esophagitis] Onset: 02-01-2011 02-01-2011 Chronic Headache, including migraine (4 sources) Migraine without aura; Translations: [Migraine without aura, not intractable, without status migrainosus] Onset: 04-25-2005 08-31-2010 Chronic Immunizations and screening for infectious disease (17 sources) Encounter for immunization; Translations: [Vaccination required] Onset: 01-18-2011 04-14-2011 Episodic Menstrual disorders (8 sources) Menstrual period late; Translations: [Primary amenorrhea] Onset: 04-04-2013 Resolved: 07-27-2013 04-04-2013 Chronic Mood disorders (6 sources) Severe depression; Translations: [Depressive disorder] 08-31-2010 Chronic Nausea and vomiting (3 sources) Nausea; Translations: [Nausea] 10-05-2020 Episodic Noninfectious gastroenteritis (2 sources) Gastroenteritis; Translations: [Noninfective gastroenteritis and colitis, unspecified] 04-10-2018 Episodic Nutritional deficiencies (4 sources) Vitamin D deficiency; Translations: [Vitamin D deficiency, unspecified] Onset: 02-10-2012 02-10-2012 Chronic Other aftercare (4 sources) Encounter for therapeutic drug level monitoring; Translations: [Encounter for therapeutic drug level monitoring] Onset: 05-13-2015 05-13-2015 Episodic Other connective tissue disease (1 source) Spasm; Translations: [Other muscle spasm] 04-11-2022 Episodic Other female genital disorders (2 sources) Abnormal uterine bleeding; Translations: [Other specified abnormal uterine and vaginal bleeding] 08-09-2014 Chronic Other injuries and conditions due to external causes (1 source) Other specified injuries of thorax, initial encounter; Translations: [Contusion of rib on right side] 04-10-2018 Episodic Other lower respiratory disease (1 source) Dyspnea; Translations: [Dyspnea, unspecified] 10-01-2021 Episodic Other nutritional; endocrine; and metabolic disorders (4 sources) Obesity; Translations: [Obesity, unspecified] Onset: 09-30-2010 09-30-2010 Chronic Other screening for suspected conditions (not mental disorders or infectious disease) (2 sources) Liver function tests abnormal; Translations: [Other specified abnormal findings of blood chemistry] 04-10-2018 Episodic Other skin disorders (2 sources) Disorder of skin; Translations: [Disorder of the skin and subcutaneous tissue, unspecified] 08-19-2021 Episodic Other upper respiratory disease (4 sources) Allergic rhinitis; Translations: [Allergic rhinitis, unspecified] Onset: 04-14-2011 04-14-2011 Chronic Other upper respiratory infections (6 sources) Chronic maxillary sinusitis; Translations: [Chronic maxillary sinusitis] Onset: 10-18-2009 Resolved: 05-08-2010 10-18-2009 Chronic Other upper respiratory infections (16 sources) Sinusitis; Translations: [Acute pharyngitis] Onset: 10-18-2009 Resolved: 06-09-2015 08-03-2011 Episodic Pneumonia (except that caused by tuberculosis or sexually transmitted disease) (1 source) Pneumonia; Translations: [Pneumonia, unspecified organism] 10-01-2021 Episodic Rheumatoid arthritis and related disease (6 sources) Rheumatoid arthritis; Translations: [Rheumatoid arthritis, unspecified] Onset: 03-10-2011 03-10-2011 Chronic Spondylosis; intervertebral disc disorders; other back problems (6 sources) Low back pain; Translations: [Lumbar radiculopathy] [...] Onset: 04-04-2012 Resolved: 07-11-2012 07-11-2012 Episodic Other connective tissue disease (17 sources) [...] Test Name Value Interpretation Reference Range Facility HEATHER w/ Reflex Mult Confirmon 12-18-2024 HEATHER,DIRECT Negative Normal Negative [facility] Comment on above: Order Comment: AN A WITH REFLEX MULTICONFIRM Result Comment: Perf ormed at: [address] [id number] Field Operations Supervisor: Marshall Tomlin PhD, Phone: [phone] Performed By: #### L 505.7010, L501.9520, L503.6150, L4600.0100, L503.6550, L101.9900, L503.0106, L506.1001, L500.4050, L3100.5450, L501.6710, L500.4100, L100.0100 #### [facility] [address] [place], [address] CCP IgG Antibodieson 025 CCP IgG Ab. 35 units High 0-19 [facility] Comment on above: Result Comment: Nega tive <20 Weak positive 20 - 39 Moderate positive 40 - 59 Strong positive >59 Performed at: [address] [id number] Field Operations Supervisor: Marshall Tomlin PhD, Phone: [phone] Performed By: #### L 505.7010, L501.9520, L503.6150, L4600.0100, L503.6550, L101.9900, L503.0106, L506.1001, L500.4050, L3100.5450, L501.6710, L500.4100, L100.0100 #### [facility] [address] [place], [address] Absolute lymphocyte countOrd ered By: Suyapa Haddad on 12-17-2024 Lymphocytes Auto (Unsp spec) [#/Vol] 2.04 10*3/uL 0.83-4.51 [facility] Absolute neutrophil countOrd ered By: Suyapa Haddad on 12-17-2024 Neutrophils (Bld) [#/Vol] 3.5 10*3/uL 2.0-7.7 [facility] Anion gap in Serum or Plasma Ordered By: Suyapa Haddad on 12-17-2024 Anion gap [Moles/Vol] 12 mmol/L 5 [facility] Automated lymphocyte count a s percentage of total leukocytesOrdered By: Suyapa Haddad on 12-17-2024 Lymphocytes/100 WBC Auto (Unsp spec) 33.4 % [facility] BUN/creatinine ratioOrdered By: Suyapa Haddad on 12-17-2024 Urea nitrogen/Creatinine [Mass ratio] 17.7 mg/mg - [facility] Basophil percentageOrdered B y: Suyapa Haddad on 12-17-2024 Basophils/100 WBC (Bld) 1.0 % 0-1 [facility] Bilirubin, totalOrdered By: Suyapa Haddad on 12-17-2024 Bilirubin [Mass/Vol] 0.51 mg/dL 0.00-1.30 [facility] CBC W/Diff, Automatedon 11-24 Absolute Lymph 2.04 X10 3/uL Normal 0.83-4.51 [facility] Comment on above: Performed By: #### L 505.7010, L501.9520, L503.6150, L4600.0100, L503.6550, L101.9900, L503.0106, L506.1001, L500.4050, L3100.5450, L501.6710, L500.4100, L100.0100 #### [facility] [address] [place], [place], [address] Absolute Neut 3.5 X10 3/uL Normal 2.0-7.7 [facility] Comment on above: Performed By: #### L 505.7010, L501.9520, L503.6150, L4600.0100, L503.6550, L101.9900, L503.0106, L506.1001, L500.4050, L3100.5450, L501.6710, L500.4100, L100.0100 #### [facility] [address] [place], [place], [id number] (361) Basophils/100 WBC (Bld) 1.0 % Normal 0-1 [facility] Comment on above: Performed By: #### L 505.7010, L501.9520, L503.6150, L4600.0100, L503.6550, L101.9900, L503.0106, L506.1001, L500.4050, L3100.5450, L501.6710, L500.4100, L100.0100 #### [facility] [address] [place], [address] (105 Eosinophils/100 WBC (Bld) 2.8 % Normal 0-5 [facility] Comment on above: Performed By: #### L 505.7010, L501.9520, L503.6150, L4600.0100, L503.6550, L101.9900, L503.0106, L506.1001, L500.4050, L3100.5450, L501.6710, L500.4100, L100.0100 #### [facility] [address] [place], [address] Erythrocyte distribution width (RBC) [Ratio] 13.9 % Normal 11.6-14.6 [facility] Comment on above: Performed By: #### L 505.7010, L501.9520, L503.6150, L4600.0100, L503.6550, L101.9900, L503.0106, L506.1001, L500.4050, L3100.5450, L501.6710, L500.4100, L100.0100 #### [facility] [address] [place], [address] Hematocrit (Bld) [Volume fraction] 36.9 % Low 37-47 [facility] Comment on above: Performed By: #### L 505.7010, L501.9520, L503.6150, L4600.0100, L503.6550, L101.9900, L503.0106, L506.1001, L500.4050, L3100.5450, L501.6710, L500.4100, L100.0100 #### [facility] [address] [facility] [place], [address] Hemoglobin (Bld) [Mass/Vol] 12.2 g/dL Normal 12.0-15.0 [facility] Comment on above: Performed By: #### L 505.7010, L501.9520, L503.6150, L4600.0100, L503.6550, L101.9900, L503.0106, L506.1001, L500.4050, L3100.5450, L501.6710, L500.4100, L100.0100 #### [facility] [address] [facility] [place], [address] IG% 0.300 Normal 0.0-0.9 [facility] Comment on above: Result Comment: IG% - Immature Granulocytes (promyelocytes, myelocytes and metamyelocytes) > 1% indicates that a LEFT SHIFT is Present. Performed By: #### L 505.7010, L501.9520, L503.6150, L4600.0100, L503.6550, L101.9900, L503.0106, L506.1001, L500.4050, L3100.5450, L501.6710, L500.4100, L100.0100 #### [facility] [address] [place], [address] Lymphocytes/100 WBC (Bld) 33.4 % Normal 19-41 [facility] Comment on above: Performed By: #### L 505.7010, L501.9520, L503.6150, L4600.0100, L503.6550, L101.9900, L503.0106, L506.1001, L500.4050, L3100.5450, L501.6710, L500.4100, L100.0100 #### [facility] [address] [place], [address] MCH (RBC) [Entitic mass] 28.2 pg Normal 27.0-32.0 [facility] Comment on above: Performed By: #### L 505.7010, L501.9520, L503.6150, L4600.0100, L503.6550, L101.9900, L503.0106, L506.1001, L500.4050, L3100.5450, L501.6710, L500.4100, L100.0100 #### [facility] [address] [place] [place], [address] MCHC (RBC) [Mass/Vol] 33.1 g/dL Normal 32-36 [facility] Comment on above: Performed By: #### L 505.7010, L501.9520, L503.6150, L4600.0100, L503.6550, L101.9900, L503.0106, L506.1001, L500.4050, L3100.5450, L501.6710, L500.4100, L100.0100 #### [facility] [address] [place], [address] MCV (RBC) [Entitic vol] 85.4 fL Normal 81-99 [facility] Comment on above: Performed By: #### L 505.7010, L501.9520, L503.6150, L4600.0100, L503.6550, L101.9900, L503.0106, L506.1001, L500.4050, L3100.5450, L501.6710, L500.4100, L100.0100 #### [facility] [address] [place], [address] Monocytes/100 WBC (Bld) 5.7 % Normal 0-10 [facility] Comment on above: Performed By: #### L 505.7010, L501.9520, L503.6150, L4600.0100, L503.6550, L101.9900, L503.0106, L506.1001, L500.4050, L3100.5450, L501.6710, L500.4100, L100.0100 #### [facility] [address] [place], [place], [phone] (424) Neutrophils/100 WBC (Bld) 56.8 % Normal 47-70 [facility] Comment on above: Performed By: #### L 505.7010, L501.9520, L503.6150, L4600.0100, L503.6550, L101.9900, L503.0106, L506.1001, L500.4050, L3100.5450, L501.6710, L500.4100, L100.0100 #### [facility] [address] [place], [address] (385) Nucleated RBC (Bld) [#/Vol] 0 10*3/uL Normal 0-5 [facility] Comment on above: Performed By: #### L 505.7010, L501.9520, L503.6150, L4600.0100, L503.6550, L101.9900, L503.0106, L506.1001, L500.4050, L3100.5450, L501.6710, L500.4100, L100.0100 #### [facility] [address] [facility] [place], [place], [phone] (325) Platelet mean volume (Bld) [Entitic vol] 14.5 fL High 6.2-12.0 [facility] Comment on above: Performed By: #### L 505.7010, L501.9520, L503.6150, L4600.0100, L503.6550, L101.9900, L503.0106, L506.1001, L500.4050, L3100.5450, L501.6710, L500.4100, L100.0100 #### [facility] [address] [place], [address] Platelets (Bld) [#/Vol] 183 10*3/uL Normal 150-450 [facility] Comment on above: Performed By: #### L 505.7010, L501.9520, L503.6150, L4600.0100, L503.6550, L101.9900, L503.0106, L506.1001, L500.4050, L3100.5450, L501.6710, L500.4100, L100.0100 #### [facility] [address] [place], [address] RBC (Bld) [#/Vol] 4.32 10*6/uL Normal 4.2-5.4 [facility] Comment on above: Performed By: #### L 505.7010, L501.9520, L503.6150, L4600.0100, L503.6550, L101.9900, L503.0106, L506.1001, L500.4050, L3100.5450, L501.6710, L500.4100, L100.0100 #### [facility] [address] [place], [address] RDW SD 43.5 fl Normal 35.1-43.9 [facility] Comment on above: Performed By: #### L 505.7010, L501.9520, L503.6150, L4600.0100, L503.6550, L101.9900, L503.0106, L506.1001, L500.4050, L3100.5450, L501.6710, L500.4100, L100.0100 #### [facility] [address] [place], [address] WBC (Bld) [#/Vol] 6.1 10*3/uL Normal 4.4-11.0 [facility] Comment on above: Performed By: #### L 505.7010, L501.9520, L503.6150, L4600.0100, L503.6550, L101.9900, L503.0106, L506.1001, L500.4050, L3100.5450, L501.6710, L500.4100, L100.0100 #### [facility] [address] [place], [place], [id number] CRPon 12-17-2024 C-REACTIVE PROT < 3.00 Normal 0.0-3.0 [facility] Comment on above: Performed By: #### L 505.7010, L501.9520, L503.6150, L4600.0100, L503.6550, L101.9900, L503.0106, L506.1001, L500.4050, L3100.5450, L501.6710, L500.4100, L100.0100 #### [facility] [address] [facility] [place], [place], [phone] Calculated very low density lipoprotein (VLDL) cholesterol measurementOrdered By: Suyapa Haddad on 12-17-2024 Calculated very low density lipoprotein (VLDL) cholesterol measurement 15 mg/dL 5-40 [facility] Carbon dioxide, total [Moles /volume] in Central venous bloodOrdered By: Suyapa Haddad on 12-17-2024 CO2 [Moles/Vol] 23.5 mmol/L 21.0-32.0 [facility] Chloride assayOrdered By: Cathy Haddad on 12-17-2024 Chloride [Moles/Vol] 102 mmol/L 98-108 [facility] Comprehensive Metabolic Prof ilon 12-17-2024 Albumin [Mass/Vol] 3.8 g/dL Normal 3.5-5.0 [facility] Comment on above: Performed By: #### L 505.7010, L501.9520, L503.6150, L4600.0100, L503.6550, L101.9900, L503.0106, L506.1001, L500.4050, L3100.5450, L501.6710, L500.4100, L100.0100 #### [facility] [address] [place], [place], [phone] (183) Albumin/Globulin [Mass ratio] 1.2 {ratio} Normal 0.9-2.4 [facility] Comment on above: Performed By: #### L 505.7010, L501.9520, L503.6150, L4600.0100, L503.6550, L101.9900, L503.0106, L506.1001, L500.4050, L3100.5450, L501.6710, L500.4100, L100.0100 #### [facility] [address] [place], [place], [phone] (666) ALK PHOS 85 U/L Normal 35-104 [facility] Comment on above: Performed By: #### L 505.7010, L501.9520, L503.6150, L4600.0100, L503.6550, L101.9900, L503.0106, L506.1001, L500.4050, L3100.5450, L501.6710, L500.4100, L100.0100 #### [facility] [address] [place], [place], [phone] (231) ALT [Catalytic activity/Vol] 11 U/L Normal <=34 [facility] Comment on above: Performed By: #### L 505.7010, L501.9520, L503.6150, L4600.0100, L503.6550, L101.9900, L503.0106, L506.1001, L500.4050, L3100.5450, L501.6710, L500.4100, L100.0100 #### [facility] [address] [place], [place], [phone] (737) AST [Catalytic activity/Vol] 20 U/L Normal <=31 [facility] Comment on above: Performed By: #### L 505.7010, L501.9520, L503.6150, L4600.0100, L503.6550, L101.9900, L503.0106, L506.1001, L500.4050, L3100.5450, L501.6710, L500.4100, L100.0100 #### [facility] [address] [place], [place], [phone] (253) Bilirubin [Mass/Vol] 0.51 mg/dL Normal 0.00-1.30 [facility] Comment on above: Performed By: #### L 505.7010, L501.9520, L503.6150, L4600.0100, L503.6550, L101.9900, L503.0106, L506.1001, L500.4050, L3100.5450, L501.6710, L500.4100, L100.0100 #### [facility] [address] [place], [place], [phone] BUN/CRE 17.7 RATIO Normal 10-20 [facility] Comment on above: Performed By: #### L 505.7010, L501.9520, L503.6150, L4600.0100, L503.6550, L101.9900, L503.0106, L506.1001, L500.4050, L3100.5450, L501.6710, L500.4100, L100.0100 #### [facility] [address] [place], [place], [id number] Calcium [Mass/Vol] 9.4 mg/dL Normal 7.6-11.0 [facility] Comment on above: Performed By: #### L 505.7010, L501.9520, L503.6150, L4600.0100, L503.6550, L101.9900, L503.0106, L506.1001, L500.4050, L3100.5450, L501.6710, L500.4100, L100.0100 #### [facility] [address] [place], [address] Chloride [Moles/Vol] 102 mmol/L Normal 98-108 [facility] Comment on above: Performed By: #### L 505.7010, L501.9520, L503.6150, L4600.0100, L503.6550, L101.9900, L503.0106, L506.1001, L500.4050, L3100.5450, L501.6710, L500.4100, L100.0100 #### [facility] [address] [place], [place], [phone] (975) CO2 [Moles/Vol] 23.5 mmol/L Normal 21.0-32.0 [facility] Comment on above: Performed By: #### L 505.7010, L501.9520, L503.6150, L4600.0100, L503.6550, L101.9900, L503.0106, L506.1001, L500.4050, L3100.5450, L501.6710, L500.4100, L100.0100 #### [facility] [address] [place], [place], [phone] Creatinine [Mass/Vol] 0.78 mg/dL Normal 0.70-1.20 [facility] Comment on above: Performed By: #### L 505.7010, L501.9520, L503.6150, L4600.0100, L503.6550, L101.9900, L503.0106, L506.1001, L500.4050, L3100.5450, L501.6710, L500.4100, L100.0100 #### [facility] [address] [place], [address] GAP 12 Normal 5-15 [facility] Comment on above: Performed By: #### L 505.7010, L501.9520, L503.6150, L4600.0100, L503.6550, L101.9900, L503.0106, L506.1001, L500.4050, L3100.5450, L501.6710, L500.4100, L100.0100 #### [facility] [address] [place], [place], [phone] (420) GFR/1.73 sq M.predicted among non-blacks MDRD (S/P/Bld) [Vol rate/Area] 94 mL/min/{1.73_m2} Normal >60 [facility] Comment on above: Result Comment: mL/m in/1.73m2 CKD-EPI Creatinine Equation (2020) Performed By: #### L 505.7010, L501.9520, L503.6150, L4600.0100, L503.6550, L101.9900, L503.0106, L506.1001, L500.4050, L3100.5450, L501.6710, L500.4100, L100.0100 #### [facility] [address] [place], [place], [phone] (512) Globulin (S) [Mass/Vol] 3.2 g/dL Normal 2.2-4.2 [facility] Comment on above: Performed By: #### L 505.7010, L501.9520, L503.6150, L4600.0100, L503.6550, L101.9900, L503.0106, L506.1001, L500.4050, L3100.5450, L501.6710, L500.4100, L100.0100 #### [facility] [address] [place], [place], [phone] (223) Glucose [Mass/Vol] 80 mg/dL Normal 70-99 [facility] Comment on above: Performed By: #### L 505.7010, L501.9520, L503.6150, L4600.0100, L503.6550, L101.9900, L503.0106, L506.1001, L500.4050, L3100.5450, L501.6710, L500.4100, L100.0100 #### [facility] [address] [place], [address] Potassium [Moles/Vol] 3.7 mmol/L Normal 3.3-5.1 [facility] Comment on above: Performed By: #### L 505.7010, L501.9520, L503.6150, L4600.0100, L503.6550, L101.9900, L503.0106, L506.1001, L500.4050, L3100.5450, L501.6710, L500.4100, L100.0100 #### [facility] [address] [place], [address] Sodium [Moles/Vol] 138 mmol/L Normal 133-145 [facility] Comment on above: Performed By: #### L 505.7010, L501.9520, L503.6150, L4600.0100, L503.6550, L101.9900, L503.0106, L506.1001, L500.4050, L3100.5450, L501.6710, L500.4100, L100.0100 #### [facility] [address] [place], [address] T PROT 7.0 g/dL Normal 5.9-8.4 [facility] Comment on above: Performed By: #### L 505.7010, L501.9520, L503.6150, L4600.0100, L503.6550, L101.9900, L503.0106, L506.1001, L500.4050, L3100.5450, L501.6710, L500.4100, L100.0100 #### [facility] [address] [place], [address] Urea nitrogen [Mass/Vol] 14 mg/dL Normal 4-19 [facility] Comment on above: Performed By: #### L 505.7010, L501.9520, L503.6150, L4600.0100, L503.6550, L101.9900, L503.0106, L506.1001, L500.4050, L3100.5450, L501.6710, L500.4100, L100.0100 #### [facility] [address] [place], [place], [phone] Eosinophil percentageOrdered By: Suyapa Haddad on 12-17-2024 Eosinophils/100 WBC (Bld) 2.8 % 0-5 [facility] Erythrocyte Sed Rateon 12-17 SED RATE 12 mm/hr Normal 0-30 [facility] Comment on above: Performed By: #### L 505.7010, L501.9520, L503.6150, L4600.0100, L503.6550, L101.9900, L503.0106, L506.1001, L500.4050, L3100.5450, L501.6710, L500.4100, L100.0100 #### [facility] [address] [place], [address] Erythrocyte distribution wid th ratioOrdered By: Suyapa Haddad on 12-17-2024 Erythrocyte distribution width (RBC) [Ratio] 13.9 % 11.6-14.6 [facility] Erythrocyte distribution wid th standard deviationOrdered By: Suyapa Haddad on 12-17-2024 Erythrocyte distribution width (RBC) [Ratio] 43.5 fl 35.1-43.9 [facility] Erythrocyte sedimentation ra teOrdered By: Suyapa Haddad on 12-17-2024 ESR (Bld) [Velocity] 12 mm/h 0-30 [facility] Ferritinon 12-17-2024 Ferritin [Mass/Vol] 70 ng/mL Normal 22-378 [facility] Comment on above: Performed By: #### L 505.7010, L501.9520, L503.6150, L4600.0100, L503.6550, L101.9900, L503.0106, L506.1001, L500.4050, L3100.5450, L501.6710, L500.4100, L100.0100 #### [facility] [address] [place], [place], [id number] Glomerular filtration rate ( GFR) estimation/1.73 sq m using serum, plasma, or whole bOrdered By: Suyapa Haddad on 12-17-2024 GFR/1.73 sq M.predicted among non-blacks MDRD (S/P/Bld) [Vol rate/Area] 94 mL/min/{1.73_m2} >60 [facility] Comment on above: mL/min/1.73m2 CKD-EP I Creatinine Equation (2020) Hematocrit Auto (Bld) [Volum e fraction]Ordered By: Suyapa Haddad on 12-17-2024 Hematocrit (Bld) [Volume fraction] 36.9 % Low 37-47 [facility] Hemoglobin measurementOrdere d By: Suyapa Haddad on 12-17-2024 Hemoglobin (Bld) [Mass/Vol] 12.2 g/dL 12.0-15.0 [facility] Immature granulocytes/100 WB C Auto (Bld)Ordered By: Suyapa Haddad on 12-17-2024 Immature granulocytes/100 WBC (Bld) 0.300 % 0.0-0.9 [facility] Comment on above: IG% - Immature Granu locytes (promyelocytes, myelocytes and metamyelocytes) > 1% indicates that a LEFT SHIFT is Present. Ironon 12-17-2024 Iron [Mass/Vol] 62 ug/dL Normal 50-170 [facility] Comment on above: Performed By: #### L 505.7010, L501.9520, L503.6150, L4600.0100, L503.6550, L101.9900, L503.0106, L506.1001, L500.4050, L3100.5450, L501.6710, L500.4100, L100.0100 #### [facility] [address] [place], [address] Iron measurement (mass/mass) Ordered By: Suyapa Haddad on 12-17-2024 Iron (Unsp spec) [Mass/Mass] 62 ug/dL 50-170 [facility] LDL calc ser/plasOrdered By: Suyapa Haddad on 12-17-2024 Cholesterol in LDL [Mass/Vol] 89 mg/dL [facility] Comment on above: Ijhqxtidlc=804-297 m g/dL & Higher Cgen=372 mg/dL or greaterFriedwald Equation for LDL-C Laboratory - Chemistry and C hemistry - challengeOrdered By: Suyapa Haddad on 12-17-2024 AST [Catalytic activity/Vol] 20 U/L <32 [facility] Lipid Profileon 12-17-2024 CHOL:HDL 3.58 Normal [facility] Comment on above: Performed By: #### L 505.7010, L501.9520, L503.6150, L4600.0100, L503.6550, L101.9900, L503.0106, L506.1001, L500.4050, L3100.5450, L501.6710, L500.4100, L100.0100 #### [facility] [address] [place], [place], [phone] ([phone] Cholesterol [Mass/Vol] 144 mg/dL Normal <=200 [facility] Comment on above: Result Comment: Chol esterol level, Desirable <200 mg/dL Borderline high cholesterol 200-239 mg/dL High cholesterol >=240 mg/dL Recommendations of the NCEP Adult Treatment Panel for the following risk-cutoff thresholds for the [place] population. Performed By: #### L 505.7010, L501.9520, L503.6150, L4600.0100, L503.6550, L101.9900, L503.0106, L506.1001, L500.4050, L3100.5450, L501.6710, L500.4100, L100.0100 #### [facility] [address] [place], [address] Cholesterol in HDL [Mass/Vol] 40 mg/dL Normal [facility] Comment on above: Result Comment: Gabriella onal Cholesterol Education Program (NCEP) guidelines: <40 mg/dL: Low HDL-cholesterol (major risk factor for CHD) >= 60 mg/dL: High HDL-cholesterol (negative risk factor for CHD) HDL-cholesterol is affected by a number of factors, e.g. smoking, exercise, hormones, sex and age. Performed By: #### L 505.7010, L501.9520, L503.6150, L4600.0100, L503.6550, L101.9900, L503.0106, L506.1001, L500.4050, L3100.5450, L501.6710, L500.4100, L100.0100 #### [facility] [address] [place], [address] (914) Cholesterol in LDL [Mass/Vol] 89 mg/dL Normal [facility] Comment on above: Result Comment: Bord zlhjcd=139-083 mg/dL Higher Whpo=584 mg/dL or greater Friedwald Equation for LDL-C Performed By: #### L 505.7010, L501.9520, L503.6150, L4600.0100, L503.6550, L101.9900, L503.0106, L506.1001, L500.4050, L3100.5450, L501.6710, L500.4100, L100.0100 #### [facility] [address] [place], [address] (042 Cholesterol in VLDL [Mass/Vol] 15 mg/dL Normal 5-40 [facility] Comment on above: Performed By: #### L 505.7010, L501.9520, L503.6150, L4600.0100, L503.6550, L101.9900, L503.0106, L506.1001, L500.4050, L3100.5450, L501.6710, L500.4100, L100.0100 #### [facility] [address] [place], [address] (007 Triglyceride [Mass/Vol] 76 mg/dL Normal [facility] Comment on above: Result Comment: The drugs N-Acetylcysteine and Metamizole may falsely depress this assay. Normal range: <150 mg/dL Borderline High: 150-199 mg/dL High: 200-499 mg/dL Very High: >500 mg/dL Performed By: #### L 505.7010, L501.9520, L503.6150, L4600.0100, L503.6550, L101.9900, L503.0106, L506.1001, L500.4050, L3100.5450, L501.6710, L500.4100, L100.0100 #### [facility] [address] [place], [place], [address] MCV (mean corpuscular volume ) determinationOrdered By: Suyapa Haddad on 12-17-2024 MCV (RBC) [Entitic vol] 85.4 fL 81-99 [facility] Mean corpuscular hemoglobin (MCH) determinationOrdered By: Suyapa Haddad on 12-17-2024 MCH (RBC) [Entitic mass] 28.2 pg 27.0-32.0 [facility] Mean corpuscular hemoglobin concentration (MCHC) determinationOrdered By: Suyapa Haddad on 12-17-2024 MCHC (RBC) [Mass/Vol] 33.1 g/dL 32-36 [facility] Mean platelet volume determi nationOrdered By: Suyapa Haddad on 12-17-2024 Platelet mean volume (Bld) [Entitic vol] 14.5 fL High 6.2-12.0 [facility] Monocyte percentageOrdered B y: Suyapa Haddad on 12-17-2024 Monocytes/100 WBC (Bld) 5.7 % 0-10 [facility] Neutrophil percentageOrdered By: Suyapa Haddad on 12-17-2024 Neutrophils/100 WBC (Bld) 56.8 % 47-70 [facility] Nucleated red blood cell per centageOrdered By: Suyapa Haddad on 12-17-2024 Nucleated RBC/100 WBC (Bld) [Ratio] 0 % 0-5 [facility] Platelet countOrdered By: Cathy Haddad on 12-17-2024 Platelets (Bld) [#/Vol] 183 10*3/uL 150-450 [facility] Potassium measurement (mass/ volume)Ordered By: Suyapa Haddad on 12-17-2024 Potassium (Unsp spec) [Mass/Vol] 3.7 mmol/L 3.3-5.1 [facility] RBC Auto (Bld) [#/Vol]Ordere d By: Suyapa Haddad on 12-17-2024 RBC (Bld) [#/Vol] 4.32 10*6/uL 4.2-5.4 [facility] Rheumatoid Factoron 12-18-19 RHEUMATOID FAC 22.8 IU/mL High <15 [facility] Comment on above: Performed By: #### L 505.7010, L501.9520, L503.6150, L4600.0100, L503.6550, L101.9900, L503.0106, L506.1001, L500.4050, L3100.5450, L501.6710, L500.4100, L100.0100 #### [facility] [address] [place] [address]. [place], [place], [id number] Screening total cholesterol/ high density lipoprotein (HDL) cholesterol ratioOrdered By: Suyapa Haddad on 12-17-2024 Cholesterol.total/Choles terol in HDL [Mass ratio] 3.58 {ratio} [facility] Serum DNA double strand anti body assay (units/volume)Ordered By: Suyapa Haddad on 12-17-2024 DNA double strand Ab Qn (S) Not Reportable [facility] Serum Scl-70 antibody assay (units/volume)Ordered By: Suyapa Haddad on 12-17-2024 SCL-70 extractable nuclear Ab Qn (S) TNP [facility] Comment on above: Test not performed Serum creatinine measurement (mass/volume)Ordered By: Suyapa Haddad on 12-17-2024 Creatinine [Mass/Vol] 0.78 mg/dL 0.70-1.20 [facility] Serum globulin measurementOr dered By: Suyapa Haddad on 12-17-2024 Globulin (S) [Mass/Vol] 3.2 g/dL 2.2-4.2 [facility] Serum glucose measurement (m ass/volume)Ordered By: Suyapa Haddad on 12-17-2024 Glucose [Mass/Vol] 80 mg/dL 70-99 [facility] Serum or plasma C reactive p rotein measurement (mass/volume)Ordered By: Suyapa Haddad on 12-17-2024 CRP [Mass/Vol] mg/L 0.0-3.0 [facility] Serum or plasma alanine perdue otransferase (ALT) measurementOrdered By: Suyapa Haddad on 12-17-2024 ALT [Catalytic activity/Vol] 11 U/L <35 [facility] or plasma albumin bubba urement (mass/volume)Ordered By: Suyapa Haddad on 12-17-2024 Albumin [Mass/Vol] 3.8 g/dL 3.5-5.0 [facility] [place] [facility] Serum or plasma albumin/glob ulin mass ratioOrdered By: Suyapa Haddad on 12-17-2024 Albumin/Globulin [Mass ratio] 1.2 {ratio} 0.9-2.4 [facility] Serum or plasma alkaline byron sphatase measurementOrdered By: Suyapa Hdadad on 12-17-2024 ALP [Catalytic activity/Vol] 85 U/L 35-104 [facility] Serum or plasma calcium bubba urement (mass/volume)Ordered By: Suyapa Haddad on 12-17-2024 Calcium [Mass/Vol] 9.4 mg/dL 7.6-11.0 [facility] [place] [facility] Serum or plasma cholesterol in HDL measurement (mass/volume)Ordered By: Suyapa Haddad on 12-17-2024 Cholesterol in HDL [Mass/Vol] 40 mg/dL >40 [facility] Comment on above: National Cholesterol Education Program (NCEP) guidelines:<40 mg/dL: Low HDL-cholesterol (major risk factor for CHD)>= 60 mg/dL: High HDL-cholesterol (negative risk factor for CHD)HDL-cholesterol is affected by a number of factors, e.g. smoking, exercise, hormones, sex and age. Serum or plasma cholesterol measurement (mass/volume)Ordered By: Suyapa Haddad on 12-17-2024 Cholesterol [Mass/Vol] 144 mg/dL <201 [facility] Comment on above: Cholesterol level, D esirable <200 mg/dLBorderline high cholesterol 200-239 mg/dLHigh cholesterol >=240 mg/dLRecommendations of the NCEP Adult Treatment Panel for the following risk-cutoff thresholds for the [place] population. Serum or plasma cyclic citru llinated peptide IgG antibody assay (units/volume)Ordered By: Suyapa Haddad on 12-17-2024 Cyclic citrullinated peptide IgG Qn 35 units High 0-19 [facility] Comment on above: Negative <20 Weak po sitive 20 - 39 Moderate positive 40 - 59 Strong positive >59Performed at: [facility] [place] [id number] Director: Marshall Tomlin PhD, Phone: [phone] Serum or plasma ferritin debi surement (mass/volume)Ordered By: Suyapa Haddad on 12-17-2024 Ferritin [Mass/Vol] 70 ng/mL 22-378 [facility] Serum or plasma urea nitroge n measurement (mass/volume)Ordered By: Suyapa Haddad on 12-17-2024 Urea nitrogen [Mass/Vol] 14 mg/dL 4-19 [facility] Serum rheumatoid factor dete ctionOrdered By: Suyapa Haddad on 12-17-2024 Rheumatoid factor Ql (S) 22.8 IU/mL High <15 [facility] Sodium levelOrdered By: Suyapa Haddad on 12-17-2024 Sodium [Moles/Vol] 138 mmol/L 133-145 [facility] [place] [facility] TSH DL <= 0.005 mIU/L QnOrde red By: uSyapa Haddad on 12-17-2024 TSH Qn 1.470 uIU/mL 0.300-4.200 [facility] Thyroid Stim Hormone (TSH)on 12-17-2024 TSH 1.470 uIU/mL Normal 0.300-4.200 [facility] Comment on above: Performed By: #### L 505.7010, L501.9520, L503.6150, L4600.0100, L503.6550, L101.9900, L503.0106, L506.1001, L500.4050, L3100.5450, L501.6710, L500.4100, L100.0100 #### [facility] [address] [place], [place], [id number] Total proteinOrdered By: Jada karyn Catie on 12-17-2024 Protein [Mass/Vol] 7.0 g/dL 5.9-8.4 [facility] [place] [facility] Triglycerides measurementOrd ered By: Suyapa Haddad on 12-17-2024 Triglyceride [Mass/Vol] 76 mg/dL <199 [facility] Comment on above: The drugs N-Acetylcy steine and Metamizole may falsely depress this assay. Normal range: <150 mg/dLBorderline High: 150-199 mg/dLHigh: 200-499 mg/dLVery High: >500 mg/dL Vitamin B12on 12-17-2024 Cobalamin (Vitamin B12) [Mass/Vol] 885 pg/mL Normal 180-914 [facility] Comment on above: Performed By: #### L 505.7010, L501.9520, L503.6150, L4600.0100, L503.6550, L101.9900, L503.0106, L506.1001, L500.4050, L3100.5450, L501.6710, L500.4100, L100.0100 #### [facility] [address] [place], [place], [id number] Vitamin B12 ser/plasOrdered By: Suyapa Haddad on 12-17-2024 Cobalamin (Vitamin B12) [Mass/Vol] 885 pg/mL 180-914 [facility] Vitamin D,25 Hydroxyon 12-17 Vitamin D 25-OH 55.3 ng/mL Normal 30-100 [facility] Comment on above: Result Comment: Ryanne min D Status Deficiency: <20 ng/mL (50nmol/L) Insufficiency: 20-30 ng/mL (50-75 nmol/L) Sufficiency: 30-100 ng/mL (75-250 nmol/L) Toxicity: >100 ng/mL (>250 nmol/L) Performed By: #### L 505.7010, L501.9520, L503.6150, L4600.0100, L503.6550, L101.9900, L503.0106, L506.1001, L500.4050, L3100.5450, L501.6710, L500.4100, L100.0100 #### [facility] [address] [place], [address] White blood cell (WBC) count Ordered By: Suyapa Haddad on 12-17-2024 WBC (Bld) [#/Vol] 6.1 10*3/uL 4.4-11.0 [facility] [place] [facility] No Panel Informationon 06-08 SARS-CoV-2 Antigen (Rapid) [facility] Work Phone: Laboratory - Microbiology an d Antimicrobial susceptibilityon 06-04-2021 SARS-CoV-2 (COVID-19) RNA ENEDINA+probe Ql (Unsp spec) Not detected Not Detect [facility] Work Phone: Comment on above: Normal Reference Ran ge: Not DetectedMethod:(RT-PCR) real-time reverse transcriptase PCRLuminex [place] Instrument*The Food and Drug Administration (FDA) has issued an Emergency Use Authorization (EAU) for the [place] SARS-CoV-2 Assay for the rapid detection of [...] Basophil, Absolute 0.10 10 3/mcL Normal 0.00-0.19 [facility] Comment on above: Performed By: #### G FR, BMP #### [place] [address] #### CBC, ANEU, ADIFF #### [address] [address] Basophils/100 WBC (Bld) 1.0 % Normal 0.0-2.5 [facility] Comment on above: Performed By: #### G FR, BMP #### [place] [address] #### CBC, ANEU, ADIFF #### [address] [address] Eosinophil, Absolute 0.40 10 3/mcL Normal 0.00-0.40 [facility] ([place] Comment on above: Performed By: #### G FR, BMP #### [place] [address] #### CBC, ANEU, ADIFF #### [address] [address] Eosinophils/100 WBC (Bld) 3.6 % Normal 0.0-7.0 [facility] ([place]) Comment on above: Performed By: #### G FR, BMP #### [place] [address] #### CBC, ANEU, ADIFF #### [address] [address] Lymphocyte, Absolute 3.30 10 3/mcL Normal 0.77-3.85 [facility] ([place] Comment on above: Performed By: #### G FR, BMP #### [place] [address] #### CBC, ANEU, ADIFF #### [address] [address] Lymphocytes/100 WBC (Bld) 32.3 % Normal 10.0-50.0 [facility] ([place]) Comment on above: Performed By: #### G FR, BMP #### [place] [address] #### CBC, ANEU, ADIFF #### [address] [address] Monocyte, Absolute 0.70 10 3/mcL Normal 0.15-1.00 [facility] ([place]) Comment on above: Performed By: #### G FR, BMP #### [address] [address] #### CBC, ANEU, ADIFF #### [address] [address] Monocytes/100 WBC (Bld) 6.9 % Normal 1.7-13.0 [facility] ([place] Comment on above: Performed By: #### G FR, BMP #### [place] [address] #### CBC, ANEU, ADIFF #### [address] [address] Neutrophils/100 WBC (Bld) 56.2 % Normal 37.0-80.0 [facility] ([place]) Comment on above: Performed By: #### G FR, BMP #### [place] [address] #### CBC, ANEU, ADIFF #### [address] [address] .GFRon 11-20-2020 GFR 99 ml/min/1.73sqm Normal [facility] ([place] Comment on above: Result Comment: GFR Population [...] Performed By: #### G FR, BMP #### [address] [address] #### CBC, ANEU, ADIFF #### [address] [address] GFR Non- 81 ml/min/1.73sqm Normal [facility] ([place] Comment on above: Result Comment: GFR Population [...] Performed By: #### Sherry FR, BMP #### [place] [address] #### CBC, ANEU, ADIFF #### [address] [address] .NEUABSon 11-20-2020 Neutrophil, Absolute 5.80 10 3/mcL Normal 2.85-6.16 [facility] ([place] Comment on above: Performed By: #### Sherry FR, BMP #### [place] [address] #### CBC, ANEU, ADIFF #### [address] [address] BMPon 11-20-2020 BUN/Creatinine Ratio 17 ratio Normal 7-27 [facility] ([place]) Comment on above: Performed By: #### Sherry FR, BMP #### [place] [address] #### CBC, ANEU, ADIFF #### [address] [address] Calcium [Mass/Vol] 9.2 mg/dL Normal 8.4-10.2 [facility] ([place]) Comment on above: Performed By: #### Sherry FR, BMP #### [place] [address] #### CBC, ANEU, ADIFF #### [address] [address] Chloride [Moles/Vol] 109 mmol/L High 98-107 [facility] ([place] Comment on above: Performed By: #### G FR, BMP #### [address] [address] #### CBC, ANEU, ADIFF #### [address] [address] CO2 [Moles/Vol] 27 mmol/L Normal 22-29 [facility] ([place]) Comment on above: Performed By: #### G FR, BMP #### [address] [address] #### CBC, ANEU, ADIFF #### [address] [address] Creatinine [Mass/Vol] 0.77 mg/dL Normal 0.55-1.02 [facility] ([place] Comment on above: Performed By: #### G FR, BMP #### [address] [address] #### CBC, ANEU, ADIFF #### [address] [address] Electrolyte Balance 7.0 mEq/L Normal [facility] ([place]) Comment on above: Performed By: #### G FR, BMP #### [address] [address] #### CBC, ANEU, ADIFF #### [address] [address] Glucose [Mass/Vol] 91 mg/dL Normal 70-105 [facility] ([place]) Comment on above: Performed By: #### G FR, BMP #### [address] [address] #### CBC, ANEU, ADIFF #### [address] [address] Potassium [Moles/Vol] 3.9 mmol/L Normal 3.5-5.1 [facility] ([place] Comment on above: Performed By: #### G FR, BMP #### [address] [address] #### CBC, ANEU, ADIFF #### [address] [address] Sodium [Moles/Vol] 143 mmol/L Normal 136-145 [facility] ([place]) Comment on above: Performed By: #### G FR, BMP #### [place] [address] #### CBC, ANEU, ADIFF #### [address] [address] Urea nitrogen [Mass/Vol] 13 mg/dL Normal 7-18 [facility] ([place]) Comment on above: Performed By: #### G FR, BMP #### [place] [address] #### CBC, ANEU, ADIFF #### [address] [address] CBCon 11-20-2020 Erythrocyte distribution width (RBC) [Ratio] 14.6 % High 11.5-14.5 [facility] ([place]) Comment on above: Performed By: #### G FR, BMP #### [place] [address] #### CBC, ANEU, ADIFF #### [address] [address] Hematocrit (Bld) [Volume fraction] 35.4 % Low 37.0-47.0 [facility] ([place]) Comment on above: Performed By: #### G FR, BMP #### [place] [address] #### CBC, ANEU, ADIFF #### [address] [address] Hgb 11.8 G/dL Low 12.0-16.0 [facility] ([place]) Comment on above: Performed By: #### G FR, BMP #### [place] [address] #### CBC, ANEU, ADIFF #### [address] [address] MCH (RBC) [Entitic mass] 28.1 pg Normal 27.0-31.2 [facility] ([place]) Comment on above: Performed By: #### Sherry FR, BMP #### [place] [address] #### CBC, ANEU, ADIFF #### [address] [address] MCHC 33.2 G/dL Normal 33.0-37.0 [facility] ([place]) Comment on above: Performed By: #### Sherry FR, BMP #### [place] [address] #### CBC, ANEU, ADIFF #### [address] [address] MCV (RBC) [Entitic vol] 84.6 fL Normal 80.0-94.0 [facility] ([place]) Comment on above: Performed By: #### Sherry FR, BMP #### [place] [address] #### CBC, ANEU, ADIFF #### [address] [address] Platelet 257 10 3/mcL Normal 130-400 [facility] ([place]) Comment on above: Performed By: #### Sherry FR, BMP #### [place] [address] #### CBC, ANEU, ADIFF #### [address] [address] Platelet mean volume (Bld) [Entitic vol] 11.2 fL High 7.4-10.4 [facility] ([place]) Comment on above: Performed By: #### Sherry FR, BMP #### [place] [address] #### CBC, ANEU, ADIFF #### [address] [address] RBC 4.19 10 6/mcL Low 4.20-5.40 [facility] ([place]) Comment on above: Performed By: #### G FR, BMP #### [address] [address] #### CBC, ANEU, ADIFF #### [place] [id number] [place], [place] [address] WBC 10.30 10 3/mcL Normal 4.60-10.80 [facility] ([place]) Comment on above: Performed By: #### G FR, BMP #### [address] [address] #### CBC, ANEU, ADIFF #### [facility] [address] [place], [place] [address] CT ABDOMEN/PELVIS W/O CONTRA STon 11-20-2020 CT [...] Date: 11/20/2020 4:19:02 PM Ordering Provider: POLY John [facility] ([place]) PREGUon 11-20-2020 HCG ( test) Ql (U) Negative Normal [facility] ([place]) Comment on above: Performed By: #### U A, PREGU #### [address] [address] test (u) int Not detected Invalid Interpretation Code [facility] ([place]) Comment on above: Performed By: #### U A, PREGU #### [address] [address] UAon 11-20-2020 Color (U) Yellow Normal [facility] ([place]) Comment on above: Performed By: #### U A, PREGU #### [address] [address] Glucose (U) [Mass/Vol] Negative Normal Negative [facility] ([place]) Comment on above: Performed By: #### U A, PREGU #### [address] [address] Ketones Ql (U) 15 mg/dL Abnormal Negative [facility] ([place] Comment on above: Performed By: #### U A, PREGU #### [address] [address] UA Appear Clear Normal Clear [facility] ([place] Comment on above: Performed By: #### U A, PREGU #### [address] [address] UA Blood Negative Normal Negative [facility] ([place] Comment on above: Performed By: #### U A, PREGU #### [address] [address] UA Leuk Est Negative Normal Negative [facility] ([place] Comment on above: Performed By: #### U A, PREGU #### [address] [address] UA Nitrite Negative Normal Negative [facility] ([place] Comment on above: Performed By: #### U A, PREGU #### [address] [address] UA pH 5.5 Normal 5.0 - 8.0 [facility] ([place] Comment on above: Performed By: #### U A, PREGU #### [address] [address] UA Protein Negative Normal Negative [facility] ([place] Comment on above: Performed By: #### U A, PREGU #### [address] [address] UA Spec Grav >=1.030 Abnormal 1.015-1.025 [facility] ([place] Comment on above: Performed By: #### U A, PREGU #### [address] [address] UA Specimen Type Void Normal [facility] ([place] Comment on above: Performed By: #### U A, PREGU #### [address] [address] UA Urobilinogen 0.2 E.U./dL Normal 0.2-1.0 [facility] ([place] Comment on above: Performed By: #### U A, PREGU #### [address] [address] Urobilinogen (U) [Mass/Vol] Negative Normal Negative [facility] ([place] Comment on above: Performed By: #### U A, PREGU #### [address] [address] Office Visit: [facility] f/u: R wrist strainon 09-14-2016 Documentation of current medications (procedure) Done Invalid Interpretation Code [facility] Work Phone: Fall risk assessment No [facility] Work Phone: Tobacco smoking status NHIS Never [facility] Work Phone: Tobacco smoking status NHIS Never smoker [facility] Work Phone: Tobacco use HS Never smoker Invalid Interpretation Code [facility] Work Phone: Office Visit: [facility]: Wrist Str ainon 09-03-2016 Documentation of current medications (procedure) Done Invalid Interpretation Code [facility] Work Phone: Fall risk assessment No Invalid Interpretation Code [facility] Work Phone: Tobacco smoking status NHIS Never Invalid Interpretation Code [facility] Work Phone: Tobacco use [facility] Never smoker Invalid Interpretation Code [facility] Work Phone: Office Visit: [facility]: Raymond anand trainon 08-27-2016 Documentation of current medications (procedure) Done Invalid Interpretation Code [facility] Work Phone: Tobacco smoking status NHIS Never Invalid Interpretation Code [facility] Work Phone: Tobacco use [facility] Never smoker Invalid Interpretation Code [facility] Work Phone: Rx Refill: eRx Request for M ethotrexate 2.5mg Tabon 09-12-2015 e-scripts messenger refill request [id number]`Metho trexate 2.5mg Tab```24 Each``TAKE SIX TABLETS BY MOUTH ONCE WEEKLY```0`05/13/19 16`No date sent`[facility]*`[id number]``METHOTREXA TE 2.5 MG TABLET Quantity: 24 Tablet Instructions: TAKE SIX TABLETS BY MOUTH ONCE WEEKLY [facility] Work Phone: [facility]_RR [id number]`Metho trexate 2.5mg Tab```24 Each``TAKE SIX TABLETS BY MOUTH ONCE WEEKLY```0`05/13/19 16`No date sent`[facility]*`[id number]``METHOTREXA TE 2.5 MG TABLET Quantity: 24 Tablet Instructions: TAKE SIX TABLETS BY MOUTH ONCE WEEKLY [facility] Work Phone: Lab Report: CBC W/Diff, Auto matedon 06-24-2015 Basophils/100 leukocytes 0.4 % Invalid Interpretation Code 0-1 [facility] Work Phone: Basophils/100 WBC (Bld) 0.4 % 0-1 [facility] Work Phone: Eosinophils/100 leukocytes 3.3 % Invalid Interpretation Code 0-5 [facility] Work Phone: [phone] Eosinophils/100 WBC (Bld) 3.3 % 0-5 [facility] Work Phone: Erythrocyte distribution width (RBC) [Ratio] 44.2 fL High 35.1-43.9 [facility] Work Phone: Erythrocyte distribution width (RBC) [Ratio] 14.7 % High 11.6-14.6 [facility] Work Phone: Erythrocytes (RBC) 4.46 10*6/uL Invalid Interpretation Code 4.2-5.4 [facility] Work Phone: Hematocrit (Bld) [Volume fraction] 37.7 % 37-47 [facility] Work Phone: Hematocrit (HCT) 37.7 % Invalid Interpretation Code 37-47 [facility] Work Phone: [phone] Hemoglobin (HGB) 12.0 g/dL 12.0-15.0 [facility] Work Phone: Immature granulocytes (Bld) [#/Vol] 0.100 % 0.0-0.9 [facility] Work Phone: immature granulocytes, percentage of total cells, blood 0.100 % Invalid Interpretation Code 0.0-0.9 [facility] Work Phone: [phone] Lymphocytes 2.21 X10 3/UL Invalid Interpretation Code 0.83-4.51 [facility] Work Phone: [phone] Lymphocytes (Bld) [#/Vol] 2.21 X10 3/UL 0.83-4.51 [facility] Work Phone: Lymphocytes/100 leukocytes 29.3 % Invalid Interpretation Code 19-41 [facility] Work Phone: [phone] Lymphocytes/100 WBC (Bld) 29.3 % 19-41 [facility] Work Phone: MCH 26.9 pg Low 27.0-32.0 [facility] Work Phone: MCH (RBC) [Entitic mass] 26.9 pg Low 27.0-32.0 [facility] Work Phone: MCHC 31.8 G/GL Low 32-36 [facility] Work Phone: MCHC (RBC) [Mass/Vol] 31.8 G/GL Low 32-36 [facility] Work Phone: MCV 84.5 fL Invalid Interpretation Code 81-99 [facility] Work Phone: MCV (RBC) [Entitic vol] 84.5 fL 81-99 [facility] Work Phone: Monocytes/100 leukocytes 9.7 % Invalid Interpretation Code 0-10 [facility] Work Phone: Monocytes/100 WBC (Bld) 9.7 % 0-10 [facility] Work Phone: neutrophil count, blood 4.3 X10 3/UL Invalid Interpretation Code 2.0-7.7 [facility] Work Phone: Neutrophils (Bld) [#/Vol] 4.3 X10 3/UL 2.0-7.7 [facility] Work Phone: Neutrophils/100 leukocytes 57.2 % Invalid Interpretation Code 47-70 [facility] Work Phone: Neutrophils/100 WBC (Bld) 57.2 % 47-70 [facility] Work Phone: Platelet mean volume (Bld) [Entitic vol] 12.3 fL High 6.2-12.0 [facility] Work Phone: Platelets 254 10*3/mm3 Invalid Interpretation Code 150-450 [facility] Work Phone: Platelets (Bld) [#/Vol] 254 10*3/mm3 150-450 [facility] Work Phone: PMV by Jarocho-Rosa 12.3 fL High 6.2-12.0 [facility] Work Phone: [phone] RBC (Bld) [#/Vol] 4.46 10*6/uL 4.2-5.4 [facility] Work Phone: RDW-CA 14.7 % High 11.6-14.6 [facility] Work Phone: [phone] red blood cell distribution width, size density 44.2 fL High 35.1-43.9 [facility] Work [phone] WBC (Bld) [#/Vol] 7.5 10*3/uL 4.4-11.0 [facility] Work Phone: [phone] WBC (Leukocytes) 7.5 10*3/uL Invalid Interpretation Code 4.4-11.0 [facility] Work Phone: [facility] Report[facility] Alanine aminotransferase (ALT) 41 U/L 12-78 [facility] Work Phone: [phone] Albumin 3.2 g/dL Low 3.4-5.0 [facility] Work Phone: [phone] Albumin/Globulin Ratio 0.8 {ratio} Low 0.9-2.4 [facility] Work Phone: Alkaline phosphatase (ALP) 136 U/L Invalid Interpretation Code 50-136 [facility] Work Phone: [phone] ALP (Bld) [Catalytic activity/Vol] 136 U/L 50-136 [facility] Work [phone] Anion gap 6 mmol/L Invalid Interpretation Code 5-15 [facility] Work Phone: [phone] Anion gap [Moles/Vol] 6 mmol/L 5-15 [facility] Work Phone: Aspartate aminotransferase (AST) 22 U/L 15-37 [facility] Work Phone: [phone] Bilirubin (total) 0.30 mg/dL 0.20-1.00 [facility] Work Phone: BUN/Creatinine Ratio 15.5 RATIO 10-20 [facility] Work Phone: Calcium 8.6 mg/dL 8.5-10.1 [facility] Work Phone: Chloride 106 mmol/L 98-107 [facility] Work Phone: CO2 29.0 mmol/L Invalid Interpretation Code 21.0-32.0 [facility] Work Phone: CO2 (BldV) [Partial pressure] 29.0 mmol/L 21.0-32.0 [facility] Work Phone: Creatinine 0.97 mg/dL 0.55-1.20 [facility] Work Phone: eGFR (non-black) 68 mL/min/{1.73_m2} >60 [facility] Work Phone: eGFR (non-black) 83 mL/min/{1.73_m2} Invalid Interpretation Code >60 [facility] Work Phone: EST GFR - AA 83 mL/min >60 [facility] Work Phone: Globulin 3.9 g/dL High 2.3-3.5 [facility] Work Phone: Globulin (S) [Mass/Vol] 3.9 g/dL High 2.3-3.5 [facility] Work Phone: Glucose 76 mg/dL Invalid Interpretation Code 70-110 [facility] Work Phone: Glucose [Mass/Vol] 76 mg/dL 70-110 [facility] No w Clinic Work Phone: Potassium 4.0 mmol/L 3.5-5.1 [facility] Work Phone: Protein 7.1 g/dL 6.4-8.2 [facility] Work Phone: Sodium 141 mmol/L 136-145 [facility] Work Phone: Urea nitrogen 15 mg/dL 7-18 [facility] Work Phone: Pap Test: PAP I-G w/rfx hr Von 09-21-2014 GE use only - for [employer] import when terms are not otherwise specified Comment Invalid Interpretation Code . [facility] Work Phone: HPV RFLX Comment . [facility] Work Phone: Lab Report: Hepatitis B Surf estrella Agon 09-19-2014 BSA (Body Surface Area) Negative Invalid Interpretation Code Negative [facility] Work Phone: HBV surface Ag Ql (S) Negative Negative [facility] Work Phone: Lab Report: Free T3on 2014 Triiodothyronine (T3) free 2.4 pg/mL 2.18-3.98 [facility] Work Phone: Lab Report: T4 Free Directon 09-18-2014 Thyroxine (T4) free 0.98 ng/dL 0.76-1.46 [facility] Work Phone: Lab Report: Thyroid Stim Hor waylon (TSH)on 09-18-2014 Thyroid stimulating hormone (TSH) 1.11 u[iU]/mL 0.358-3.74 [facility] Work Phone: Lab Report: Urinalysis, Comp leteon 08-07-2014 specific gravity, urine 1.025 1.002-1.030 [facility] Work Phone: Lab Report: CBC W/Diff, Auto matedon 06-07-2014 Absolute Neut 12.3 X10 3/UL Critically high 2.0-7.7 [facility] Work Phone: Absolute Neutrophil count 12.3 X10 3/UL Critically high 2.0-7.7 [facility] Work Phone: Office Visiton 03-12-2014 Albumin Ql (U) Negative [facility] Work Phone: Bilirubin Ql (U) Negative [facility] Work [phone] blood in urine (hemoglobin) by dipstick Negative Invalid Interpretation Code [facility] Work Phone: [phone] Glucose Test strip (U) [Mass/Vol] Negative [facility] Work [phone] Ketones (U) [Mass/Vol] Negative [facility] Work Phone: Nitrite Ql (U) Negative [facility] Work Phone: pH (U) 5.0 [pH] [facility] Work Phone: Urine, appearance clear [facility] Work Phone: Urine, bilirubin presence Negative Invalid Interpretation Code [facility] Work Phone: [phone] Urine, color yellow [facility] Work Phone: [phone] Urine, glucose presence Negative Invalid Interpretation Code [facility] Work Phone: Urine, ketones presence Negative Invalid Interpretation Code [facility] Work Phone: Urine, leukocyte esterase presence Negative [facility] Work Phone: Urine, nitrite presence Negative Invalid Interpretation Code [facility] Work Phone: Urine, pH 5.0 [pH] Invalid Interpretation Code [facility] Work Phone: [phone] Urine, protein Negative Invalid Interpretation Code [facility] Work Phone: [phone] Urine, urobilinogen presence Negative [facility] Work Phone: [phone] Lab Report: PT - copyon 07- INR Coag (PPP) [Relative time] 1.1 {INR} Normal [facility] Work Phone: [phone] INR in blood by coagulation 1.1 {INR} Normal [facility] Work Phone: [phone] prothrombin time, actual/normal, ratio 13.9 SECONDS Normal 11.7-14.9 [facility] Work Phone: [phone] PTP 13.9 SECONDS Normal 11.7-14.9 [facility] Work Phone: Lab Report: TROP - copyon Troponin I ng/mL Normal <0.06 [facility] Work Phone: [phone] Lab Report: CRPon 07-27-2013 C reactive protein (CRP) mg/L Normal 0.0-3.0 [facility] Work Phone: [phone] Lab Report: SEDon 07-27-2013 Erythrocyte sedimentation rate 16 mm/h Normal 0-20 [facility] Work Phone: [phone] Lab Report: VITDon 4 vitamin D 25-hydroxy, serum [id number] ng/mL Normal Units converted. See lab report for original value. [facility] Work Phone: [phone] VITD [id number] ng/mL Normal Units converted. See lab report for original value. [facility] Work Phone: [phone] Lab Report: [id number] 04-07-20 12 herpes simplex virus antibody, IgG, types 1 and 2 35.8 High 0.0-0.8 [facility] Work Phone: [phone] HS12G 35.8 High 0.0-0.8 [facility] Work Phone: [phone] Lab Report: CHLNUCon 012 Chlamydia trachomatis presence Negative Normal Negative [facility] Work Phone: [phone] Neisseria gonorrhoeae presence Negative Normal Negative [facility] Work Phone: [phone] Lab Report: LIPIDon 04-05-20 12 Cholesterol 147 mg/dL Normal 200 [facility] Work Phone: [phone] HDL Cholesterol 32 mg/dL Low [facility] Work Phone: [phone] LDL Cholesterol 91 mg/dL Normal 0-130 [facility] Work Phone: [phone] Triglyceride 121 mg/dL Normal [facility] Work Phone: [phone] very low density lipoproteins 24 mg/dL Normal 5-40 [facility] Work Phone: [phone] Lab Report: LIVERon 04-05-20 12 Bilirubin (direct) 0.08 mg/dL Normal 0.00-0.30 [facility] Work Phone: Lab Report: WPon 04-04-2012 WBC (Bld) [#/Vol] WBC 10-25 Normal [facility] Work Phone: WBC (Leukocytes) WBC 10-25 Normal [facility] Work Phone: Lab Report: VALon 06-18-2011 Valproate ug/mL Low 50-100 [facility] Work Phone: Lab Report: URICon 1 Urate 4.3 mg/dL Normal 2.6-6.0 [facility] Work Phone: Office Visit: TB teston 02-24 PPD results in mm < 5mm [facility] Work Phone: Vital Signs Date Time Vital Sign Value Performing Clinician Faci lity 08-11-2021 14:13-0400 Body height 170.[address] Suyapa Haddad Work Phone: [facility] Work Phone: 08-11-2021 14:13-0400 Body mass index (BMI) [Ratio] 33.2 kg/m2 Dr. Suyapa Haddad Work Phone: [facility] Work Phone: 08-11-2021 14:13-0400 Body temperature 96.5 [degF] Dr. Suyapa Haddad Work Phone: [facility] Work Phone: 08-11-2021 14:13-0400 Body weight 96.[address] Suyapa Haddad Work Phone: [facility] Work Phone: 08-11-2021 14:13-0400 Diastolic blood pressure 83 mm[Hg] Dr. Suyapa Haddad Work Phone: [facility] Work Phone: 08-11-2021 14:13-0400 Heart rate 102 /min Dr. Suyapa Haddad Work Phone: [facility] Work Phone: 08-11-2021 14:13-0400 Respiratory rate 15 /min Dr. Suyapa Haddad Work Phone: [facility] Work Phone: 08-11-2021 14:13-0400 SaO2% (BldA) [Mass fraction] 98 % Dr. Suyapa Haddad Work Phone: [facility] Work Phone: 08-11-2021 14:13-0400 Systolic blood pressure 132 mm[Hg] Dr. Suyapa Haddad Work Phone: [facility] Work Phone: 06-08-2021 18:04-0500 Body mass index (BMI) [Ratio] 34.7 kg/m2 Dr. Suyapa Haddad Work Phone: [facility] Work Phone: 06-08-2021 18:04-0500 Body temperature 96 [degF] Dr. Suyapa Haddad Work Phone: [facility] Work Phone: 06-08-2021 18:04-0500 Body weight 100.[address] Suyapa Haddad Work Phone: [facility] Work Phone: 06-08-2021 18:04-0500 Diastolic blood pressure 73 mm[Hg] Dr. Suyapa Haddad Work Phone: [facility] Work Phone: 06-08-2021 18:04-0500 Heart rate 89 /min Dr. Suyapa Haddad Work Phone: [facility] Work Phone: 06-08-2021 18:04-0500 Respiratory rate 16 /min Dr. Suyapa Haddad Work Phone: [facility] Work Phone: 06-08-2021 18:04-0500 SaO2% (BldA) [Mass fraction] 97 % Dr. Suyapa Haddad Work Phone: [facility] Work Phone: 06-08-2021 18:04-0500 Systolic blood pressure 129 mm[Hg] Dr. Suyapa Haddad Work Phone: [facility] Work Phone: 05-08-2021 06:57-0500 Body temperature 97.7 [degF] Dr. Suyapa Haddad Work Phone: [facility] Work Phone: 05-08-2021 06:57-0500 Diastolic blood pressure 70 mm[Hg] Dr. Suyapa Haddad Work Phone: [facility] Work Phone: 05-08-2021 06:57-0500 Heart rate 97 /min Dr. Suyapa Haddad Work Phone: [facility] Work Phone: 05-08-2021 06:57-0500 SaO2% (BldA) [Mass fraction] 98 % Dr. Suyapa Haddad Work Phone: [facility] Work Phone: 05-08-2021 06:57-0500 Systolic blood pressure 126 mm[Hg] Dr. Suyapa Haddad Work Phone: [facility] Work Phone: 04-27-2021 08:14-0500 Body temperature 98.4 [degF] Dr. Suyapa Haddad Work Phone: [facility] Work Phone: 04-27-2021 08:14-0500 Diastolic blood pressure 82 mm[Hg] Dr. Suyapa Haddad Work Phone: [facility] Work Phone: 04-27-2021 08:14-0500 Heart rate 95 /min Dr. Suyapa Haddad Work Phone: [facility] Work Phone: 04-27-2021 08:14-0500 Respiratory rate 15 /min Dr. Suyapa Haddad Work Phone: [facility] Work Phone: 04-27-2021 08:14-0500 SaO2% (BldA) [Mass fraction] 99 % Dr. Suyapa Haddad Work Phone: [facility] Work Phone: 04-27-2021 08:14-0500 Systolic blood pressure 128 mm[Hg] Dr. Suyapa Haddad Work Phone: [facility] Work Phone: 04-20-2021 08:11-0500 Respiratory rate 18 /min Dr. Suyapa Haddad Work Phone: [facility] Work Phone: 04-20-2021 06:47-0500 Body mass index (BMI) [Ratio] 34.9 kg/m2 Dr. Suyapa Haddad Work Phone: [facility] Work Phone: 04-20-2021 06:47-0500 Body temperature 97.8 [degF] Dr. Suyapa Haddad Work Phone: [facility] Work Phone: 04-20-2021 06:47-0500 Body weight 101.[address] Suyapa Haddad Work Phone: [facility] Work Phone: 04-20-2021 06:47-0500 Diastolic blood pressure 82 mm[Hg] Dr. Suyapa Haddad Work Phone: [facility] Work Phone: 04-20-2021 06:47-0500 Heart rate 96 /min Dr. Suyapa Haddad Work Phone: [facility] Work Phone: 04-20-2021 06:47-0500 SaO2% (BldA) [Mass fraction] 99 % Dr. Suyapa Haddad Work Phone: [facility] Work Phone: 04-20-2021 06:47-0500 Systolic blood pressure 117 mm[Hg] Dr. Suyapa Haddad Work Phone: [facility] Work Phone: 09-14-2016 09:00-0400 BMI (Body Mass Index) 34.85 kg/m2 Linda Bazan LPN [facility] Work Phone: 09-14-2016 09:00-0400 Body Temperature 98.4 [degF] Linda Bazan LPN [facility] Work Phone: 09-14-2016 09:00-0400 Body weight 103.97 kg Linda Bazan LPN [facility] Work Phone: 09-14-2016 09:00-0400 BP Diastolic 62 mm[Hg] Linda Bazan LPN [facility] Work Phone: 09-14-2016 09:00-0400 BP Systolic 108 mm[Hg] Linda Bazan LPN [facility] Work Phone: 09-14-2016 09:00-0400 Height 172.72 cm Linda Bazan LPN [facility] Work Phone: 09-14-2016 09:00-0400 Pulse (Heart Rate) 78 /min Linda Bazan LPN [facility] Work Phone: 09-14-2016 09:00-0400 Pulse Oximetry 96 % Linda Bazan LPN [facility] Work Phone: 09-14-2016 09:00-0400 Respiratory Rate 12 /min Linda Bazan [employer]JECT LEADER [facility] Work Phone: 09-14-2016 09:00-0400 Weight 103.97 kg Linda Bazan [employer]ICAL PROJECT LEADER [facility] Work Phone: 09-03-2016 09:00-0400 BMI (Body Mass Index) 35.06 kg/m2 Nikkie Clarke [employer]ICAL PROJECT LEADER [facility] Work Phone: 09-03-2016 09:00-0400 Body Temperature 98 [degF] Nikkie Clarke [employer]ICAL PROJECT LEADER [facility] Work Phone: 09-03-2016 09:00-0400 BP Diastolic 60 mm[Hg] Nikkie Clarke [employer]ICAL PROJECT LEADER [facility] Work Phone: 09-03-2016 09:00-0400 BP Systolic 100 mm[Hg] Nikkie Clarke [facility] Work Phone: 09-03-2016 09:00-0400 Height 172.72 cm Nikkie Clarke [employer]ICAL PROJECT LEADER [facility] Work Phone: 09-03-2016 09:00-0400 Pulse (Heart Rate) 65 /min Nikkie Clarke [employer]ICAL PROJECT LEADER [facility] Work Phone: 09-03-2016 09:00-0400 Pulse Oximetry 95 % Nikkie Clarke [employer]ICAL PROJECT LEADER [facility] Work Phone: 09-03-2016 09:00-0400 Respiratory Rate 16 /min Nikkie Clarke [employer] PROJECT LEADER [facility] Work Phone: 09-03-2016 09:00-0400 Weight 104.6 kg Nikkie Clarke [employer]ICAL PROJECT LEADER [facility] Work Phone: 08-27-2016 10:06-0400 BMI (Body Mass Index) 35.27 kg/m2 Amada K[address] [place] [facility] Work Phone: 08-27-2016 10:06-0400 Body Temperature 99.3 [degF] [address] [place] [facility] Work Phone: 08-27-2016 10:06-0400 BP Diastolic 84 mm[Hg] Amada Barbour LPN [facility] Work Phone: 08-27-2016 10:06-0400 BP Systolic 130 mm[Hg] Amada Barbour LPN [facility] Work Phone: 08-27-2016 10:06-0400 Height 172.72 cm Amada Barbour LPN [facility] Work Phone: 08-27-2016 10:06-0400 Pulse (Heart Rate) 81 /min Amada Barbour LPN [facility] Work Phone: 08-27-2016 10:06-0400 Pulse Oximetry 99 % Amada Barbour LPN [facility] Work Phone: 08-27-2016 10:06-0400 Respiratory Rate 14 /min Amada Barbour LPN [facility] Work Phone: 08-27-2016 10:06-0400 Weight 105.24 kg Amada Barbour LPN [facility] Work Phone: 06-24-2015 14:40-0500 BSA (Body Surface Area) 2.11 m2 Amada Barbour LPN [facility] Work Phone: Encounters Encounter Date Encounter Type Care Provider Facility Start: 12-17-2024 End: 12-17-[address] Suyapa Haddad DO Work Phone: -[facility] Start: 12-17-2024 End: 12-17-[address] Suyapa Haddad DO -Labor[facility] [place] Work Phone: Start: 12-17-2024 End: 12-17-2024 ambulatory Suyapa Haddad Facility:[facility] Start: 08-11-2021 End: 08-11-2021 Emergency department patient visit Dr. Suyapa Haddad Work Phone: [facility] Start: 06-08-2021 End: 06-08-2021 Emergency department patient visit Dr. Suyapa Haddad Work Phone: [facility] Start: 06-04-[address] [facility] Start: 05-08-2021 End: 05-08-[address] Suyapa Haddad Work Phone: [facility] Start: 04-27-2021 End: 04-27-[address] Suyapa Haddad Work Phone: [facility] Start: 04-20-2021 End: 04-20-[address] Suyapa Haddad Work Phone: [facility] Start: 04-20-2021 End: 04-20-2021 Emergency department patient visit Dr. Suyapa Haddad Work Phone: [facility] Procedures Date Procedure Procedure Detail Performing Clinician Start: 12-17-[address] Jada Haddad DO Work Phone: Comment on above: Performed at: [address] Director: Marshall Tomlin PhD, Phone: [phone] Start: 12-17-2024 Antibody to centrome re measurement Dr. Suyapa Haddad DO Work Phone: Comment on above: Test not performed Start: 12-17-2024 Antibody to extracta ble nuclear antigen measurement Dr. Suyapa Haddad DO Work Phone: Comment on above: Test not performed Start: 12-17-2024 Antibody to MCKENZIE-[address] Suyapa Haddad DO Work Phone: Comment on above: Test not performed Start: 12-17-2024 Antibody to lupus La protein measurement Dr. Suyapa Haddad DO Work Phone: Start: 12-17-2024 Antibody to SS-A measurement Dr. Suyapa Haddad DO Work Phone: Start: 12-17-[address] Suyapa Haddad DO Work Phone: Comment on above: Test not performed Start: 12-17-2024 C[employer] D[employer] ATTENDANT antibody measurement Dr. Suyapa Haddad DO Work Phone: Comment on above: Test not performed Start: 12-17-2024 Vitamin D, 25-hydrox y measurement Dr. Suyapa Haddad DO Work Phone: Comment on above: Vitamin D StatusDefi ciency: <20 ng/mL (50nmol/L)Insufficiency: 20-30 ng/mL (50-75 nmol/L)Sufficiency: 30-100 ng/mL (75-250 nmol/L)Toxicity: >100 ng/mL (>250 nmol/L) Start: 06-08-2021 SARS-CoV-2 Antigen (Rapid) Dr. Suyapa Haddad Work Phone: Start: 04-20-2021 Plain x-ray of wrist Dr Susanna Haddad Work Phone: Start: 09-14-2016 End: 09-14-2016 [...] of patient HEALTH MAINTENANCE EXAM Linda Bazan LPN Start: 04-04-2012 End: 04-07-2012 Herpes simplex virus [...] End: 01-11-2011 Thyroid stimulating hormone (TSH) Keegan Beunrostro MD Start: 09-30-2010 End: 01-11-2011 Follow Up Appt 3 months Keegan Buenrostro MD Start: 08-31-2010 End: 08-31-2010 Follow Up Appt 1 month Keegan Buenrostro MD Start: 05-08-2010 End: 05-08-2011 PT-Orthotics Vaughn Graf MD Plan of Treatment Date Care Activity Detail Author Start: 09-14-2016 End: 09-14-2016 Appointment Appointment [facility] Work Phone: Start: 09-03-2016 End: 09-03-2016 Appointment Appointment [facility] Work Phone: Start: 08-27-2016 End: 08-27-2016 Appointment Appointment [facility] Work Phone: Start: 08-27-2016 End: 08-27-2016 X-ray exam of forearm X-Ray, Forearm [facility] Work Phone: Start: 08-27-2016 End: 08-27-2016 X-ray exam of wrist X-Ray, Wrist [facility] Work Phone: Start: 06-24-2015 End: 07-31-2015 Rheumatology Referral Rheumatology Referral [facility] [place], [facility] [place], [address] [facility] Work Phone: Start: 05-13-2015 End: 06-26-2015 *CBC with Differential *CBC with Differential [facility] Work Phone: Start: 05-13-2015 End: 06-26-2015 *CMP Complete Metabolic Panel *CMP Complete Metabolic Panel [facility] Work Phone: Start: 02-26-2015 End: 02-26-2015 Diagnostic colonoscopy Colonoscopy [facility] Work Phone: Start: 02-05-2015 End: 02-05-2015 Hepb vacc ped/adol 3 dose im Hepatitis B, NB to 11 yo (3 dose schedule) [facility] Work Phone: Start: 01-06-2015 End: 02-16-2015 Hep b vacc adult 3 dose im Hepatitis B, 20 and over [facility] Work Phone: Start: 01-06-2015 End: 02-16-2015 Immunization admin Administration Immunization >=8 years of age [facility] Work Phone: Start: 01-06-2015 End: 02-16-2015 Rheumatology Referral Rheumatology Referral Alma Patel MD, [address], [place], [address] [facility] Work Phone: Start: 01-06-2015 End: 02-19-2015 Surgery Referral Surgery Referral Martha Foster [facility], [address], [place], [address] [facility] Work Phone: Start: 07-27-2013 End: 07-30-2013 *CBC with Differential *CBC with Differential [facility] Work Phone: Start: 07-27-2013 End: 07-30-2013 25-Hydroxyvitamin D2+25-Hydroxyvitamin D3 [Mass/volume] in Serum or Plasma *Vitamin D (Calciferol) [facility] Work Phone: Start: 07-27-2013 End: 07-30-2013 C reactive protein (hsCRP) *CRP - C-Reative Protein [facility] Work Phone: Start: 07-27-2013 End: 07-30-2013 Erythrocyte sedimentation rate *Sedimentation Rate (ESR) [facility] Work Phone: Start: 07-27-2013 End: 07-30-2013 Rheumatoid factor, quant *Rheumatoid Factor (quantitative) [facility] Work Phone: Start: 04-04-2013 End: 04-12-2013 Flu vaccine no preserv 3 & > Flu Vaccine >3yr (Preservative Free) [facility] Work Phone: Start: 04-04-2013 End: 04-12-2013 Urine, test (choriogonadotropin presence) Urine (Office) [facility] Work Phone: Start: 04-04-2012 End: 04-07-2012 *GC/Chlamydia *GC/Chlamydia [facility] Work Phone: Start: 04-04-2012 End: 04-07-2012 *HECAB Hepatitis C Antibody *HECAB Hepatitis C Antibody [facility] Work Phone: Start: 04-04-2012 End: 04-04-2012 *Hepatic Function Panel *Hepatic Function Panel [facility] Work Phone: Start: 04-04-2012 End: 04-10-2012 *HIV antibody *HIV antibody [facility] Work Phone: Start: 04-04-2012 End: 04-07-2012 Herpes simplex virus 1+2 IgG Ab [Units/volume] in Serum *HS12G Herpes Simplex Antibody [facility] Work Phone: Start: 04-04-2012 End: 04-04-2012 Lipid panel [AGGREGATE] *Lipid Profile [facility] Work Phone: Start: 04-04-2012 End: 04-07-2012 Reagin antibody presence *RPR [facility] Work Phone: Start: 04-04-2012 End: 04-05-2012 Trichomonas vaginalis [Presence] in Unspecified specimen by Wet preparation *WP - Wet Prep - Trichomonas [facility] Work Phone: Start: 02-10-2012 End: 02-14-2012 25-Hydroxyvitamin D2+25-Hydroxyvitamin D3 [Mass/volume] in Serum or Plasma *Vitamin D (Calciferol) [facility] Work Phone: Start: 12-21-2011 End: 12-21-2011 Follow Up Appt 3 months Follow Up Appt 3 months [facility] Work Phone: Start: 12-21-2011 End: 12-21-2011 Urinalysis nonauto w/o scope UA Dipstick (Office) [facility] Work Phone: Start: 11-25-2011 End: 11-25-2011 Follow Up Appt 1 month Follow Up Appt 1 month [facility] Work Phone: Start: 09-21-2011 End: 09-22-2011 Follow Up Appt 3 months Follow Up Appt 3 months [facility] Work Phone: Start: 08-03-2011 End: 09-22-2011 Follow Up Appt 6 months Follow Up Appt 6 months [facility] Work Phone: Start: 06-21-2011 End: 06-21-2011 Follow Up Appt 3 months Follow Up Appt 3 months [facility] Work Phone: Start: 05-05-2011 End: 06-08-2011 Follow Up Appt 3 months Follow Up Appt 3 months [facility] Work Phone: Start: 05-05-2011 End: 06-21-2011 Valproate *Valpric Acid (Depakene, Dipropylacetic Acid) Drug Assay [facility] Work Phone: Start: 04-14-2011 End: 04-15-2011 *HIV Antibody *HIV Antibody [facility] Work Phone: Start: 04-14-2011 End: 04-14-2011 Follow Up as scheduled Follow Up as scheduled [facility] Work Phone: Start: 04-14-2011 End: 04-15-2011 Ppsv23 vacc 2 yrs+ sc/im Pneumovax (Adult or immunosuppressed pt >2 yrs of age) [facility] Work Phone: Start: 04-14-2011 End: 04-16-2011 Reagin antibody presence *RPR [facility] Work Phone: Start: 03-10-2011 End: 03-10-2011 Follow Up Appt 1 month Follow Up Appt 1 month [facility] Work Phone: Start: 02-24-2011 End: 02-26-2011 *HEATHER-Heterophile Antibodies *HEATHER-Heterophile Antibodies [facility] Work Phone: Start: 02-24-2011 End: 02-24-2011 *CBC with Differential *CBC with Differential [facility] Work Phone: Start: 02-24-2011 End: 02-24-2011 *CMP Complete Metabolic Panel *CMP Complete Metabolic Panel [facility] Work Phone: Start: 02-24-2011 End: 02-24-2011 *Liver/Hepatic Function Panel *Liver/Hepatic Function Panel [facility] Work Phone: Start: 02-24-2011 End: 02-26-2011 25-Hydroxyvitamin D2+25-Hydroxyvitamin D3 [Mass/volume] in Serum or Plasma *Vitamin D (Calciferol) [facility] Work Phone: Start: 02-24-2011 End: 02-25-2011 Erythrocyte sedimentation rate *Sedimentation Rate (ESR) [facility] Work Phone: Start: 02-24-2011 End: 02-24-2011 Follow Up Appt 2 weeks Follow Up Appt 2 weeks [facility] Work Phone: Start: 02-24-2011 End: 02-24-2011 Rheumatoid factor test *Rheumatoid Factor (qualiative) [facility] Work Phone: Start: 02-01-2011 End: 02-24-2011 Follow Up Appt 3 months Follow Up Appt 3 months [facility] Work Phone: Start: 01-18-2011 End: 01-18-2011 Assay dipropylacetic acd tot *Valpric Acid (Depakene, Dipropylacetic Acid) Drug Assay [facility] Work Phone: Start: 01-18-2011 End: 01-18-2011 Complete cbc, automated *CBC without Diff [facility] Work Phone: Start: 01-18-2011 End: 01-18-2011 Follow Up Appt 2 weeks Follow Up Appt 2 weeks [facility] Work Phone: Start: 01-18-2011 End: 01-18-2011 Hepatic function panel *Liver/Hepatic Function Panel [facility] Work Phone: Start: 01-11-2011 End: 01-11-2011 Follow up Appt 1 week Follow up Appt 1 week [facility] Work Phone: Start: 01-11-2011 End: 01-11-2011 Thyroid stimulating hormone (TSH) *TSH [facility] Work Phone: Start: 09-30-2010 End: 01-11-2011 Follow Up Appt 3 months Follow Up Appt 3 months [facility] Work Phone: Start: 08-31-2010 End: 08-31-2010 Follow Up Appt 1 month Follow Up Appt 1 month [facility] Work Phone: Start: 05-08-2010 End: 01-11-2011 PT-Orthotics PT-Orthotics [facility] Work Phone: Patient Education [facility] Work Phone: Patient referral [facility] Work Phone: Immunizations Immunization Date Immunization Notes Care Provider Fa petty 11-03-2017 tetanus toxoid, redu obi diphtheria toxoid, and acellular pertussis vaccine, adsorbed Dr. Suyapa Haddad Work Phone: [facility] 05-13-2015 hepatitis B vaccine, adult dosage Amada Barbour LPN [facility] Work Phone: 05-13-2015 [id number] Amada Barbour LPN [facility] [facility] Work Phone: 07-24-[address] Suyapa Haddad Work Phone: [facility] 07-24-[address] Jada Haddad Work Phone: [facility] Work Phone: 07-24-2013 pneumococcal vaccine , unspecified formulation Dr. Suyapa Haddad DO Work Phone: [facility] 04-04-2013 influenza, seasonal, injectable, preservative free Amada Barbour LPN [facility] Work Phone: 04-14-2011 pneumococcal polysaccharide vaccine, 23 valent Amada Barbour VENKAT [facility] Work Phone: Payers Date Payer Category Payer Self-pay [id number] 2024 Unknown [id number] 2016 Unknown [id number] Self-pay [id number] Self-pay [id number] Unknown [id number] Unknown [id number] Social History Date Type Detail Facility [facility] Work Phone: Start: 08-11-2021 Tobacco smoking stat [facility] Unknown if ever smoked [facility] Work Phone: Start: 04-08-2018 None [facility] Start: 04-08-2018 With Family [facility] Start: 04-20-2018 Non-smoker [facility] Start: 1975 Sex Assigned At Female [facility] Start: 09-21-2023 [facility] Mental Status Date Assessment Result Facility 06-08-2021 Cognitive function Level Of Cons ciousness Awake;Alert;Appropriate;Follow s Commands [facility] Work Phone: Clinical Note 11-22-2020 Note [...] Locations *1: This test was performed at: [facility], [address] [place] [address], [id number] , [facility] ([place]) Comment on above: Performed By: #### C UR #### [address] [address] Evaluation note Note Date & Type Note Facility Evaluation note Diagnosis Onset Date Unspecified sprain of left w rist, initial encounter acute Unspecified sprain of left w rist, initial encounter acute [facility] Work Phone: Evaluation note Note Date & Type Note Facility Evaluation note No assessment information availa ble [facility] Work Phone: Reason for referral (narrative) Note Date & Type Note Facility Reason for referral (narrative) No reason for referral information available [facility] Work Phone: Summary Purpose Family History [...] No August 11, 2021 2:51pm Power of House Registry Rn No August 11 2:51pm Advance Directive Response Recorded Date/ Time Advance Directives No May 30, 2016 7:55am Chief Complaint and Reason for Visit Chief Complaint left wrist POST INCIDENT/DRUG SCREEN/ [facility] LEFT WRIST/ [facility]/SEEN ER / 04/20 FOLLOW UP [facility] EMPLOYEE COVID TESTING SORE THROAT [facility] Reason for Visit Unspecified sprain o f left wrist, initial encounter Unspecified sprain of left wrist, initial encounter Chief Complaint Admit Date FASTING December 17, 2024 7: 54am Additional Source Comments INFORMATION SOURCE (unrecogn ized section and content) DATE CREATED AUTHOR 11/23/2020 [facility] ([place]) DATE CREATED AUTHOR AUTHOR'S ORGANIZ ATION 12/23/2024 [facility] Goals (unrecognized section and content) Goals may be documented in a n alternate sectionGoals may be documented in an alternate section Care Teams (unrecognized sec tion and content) Team Status: Active Member Role/Relationship Status Dates Dr. Suyapa Haddad DO Family Provider Active Dr. Suyapa Haddad DO Primary Care Provider Active Team Status: Inactive Member Role/Relationship Status Dates Dr. Suyapa Haddad DO Primary Care Provider Active Start: December 17, 2024 End: December 17, 2024 Dr. Suyapa Haddad DO Attending Provider Active St art: December 17, 2024 End: December 17, 2024 Dr. Suyapa Haddad DO Referring Provider Active St art: December 17, 2024 End: December 17, 2024 FOR RECORDS PERTAINING TO PATIENTS WHO ARE [...] BE BASED ON THE PRIMARY CLINICAL RECORDS. [facility] [employer], [facility]. provides no warranty or guarantee of the accuracy or completeness of information in this document.
== END | disposition home or self-care (01) ==
LOC: MTRAD 09:39
PROVIDERS: PCP Family Medicine; Referring Provider Nurse Practitioner Family; Visit Provider Nurse Practitioner Family
DX: R05.9 Cough, unspecified (principal)
CPT/HCPCS: 71046